=== PATIENT | male | born 1940 | race Native Hawaiian/Other Pacific Islander ===

== ENCOUNTER 2017-05-06 20:17 | Inpatient (IN) | payer MEDICARE ==
[2017-05-06] MEDS ORDERED: Sodium Chloride 0.9% 1,000 ML IV STA (20:46)
[2017-05-06 21:01] LABS: VENOUS BLOOD GAS PCO2 33 mmHg (40-60); VENOUS BLOOD PH 7.49 (7.32-7.43)
--- NOTE | 2017-05-06 21:02 | ED PDOC ---
HPI: Abdomen Time Seen by Provider: 05/06/17 20:39 Chief Complaint (Nursing): GI Problem Chief Complaint (Provider): Diarrhea History Per: Patient History/Exam Limitations: no limitations Onset/Duration Of Symptoms: Days (Today) Current Symptoms Are (Timing): Still Present Severity: Moderate Associated Symptoms: Chills, Nausea, Diarrhea, Loss Of Appetite. denies: Fever , Vomiting, Urinary Symptoms Additional Complaint(s): Divina Be is a 76 y/o male presenting to the ER on 05/06/2017 with complaints of diarrhea onset today. Patient reports having about six episodes of watery diarrhea with associated nausea but no vomiting. He felt he would faint if the episodes were persisting prompting medical evaluation today. The patient also presents with chills, light-headedness, abdominal discomfort, and loss of appetite. However, he does not have any fever, urinary symptoms, or abdominal pain. He denies any recent antibiotic use, recent travel, or known sick contact. The patient also says over the last month he has been unintentionally losing weight but attributes this to having no appetite , which has been on going for last month, Past Medical History Reviewed: Historical Data, Nursing Documentation, Vital Signs Vital Signs: Last Vital Signs Temp 98.3 F 05/07/17 07:57 Pulse 81 05/07/17 07:57 Resp 20 05/07/17 07:57 BP 113/67 05/07/17 07:57 Pulse Ox 99 05/07/17 07:57 - Medical History PMH: Hypercholesterolemia - Surgical History Surgical History: No Surg Hx - Family History Family History: States: Unknown Family Hx - Home Medications Home Medications: Ambulatory Orders Medication Instructions Recorded Tamsulosin [Flomax] 1 tab PO DAILY 05/07/17 - Allergies Allergies/Adverse Reactions: Allergies Allergy/AdvReac Type Severity Reaction Status Date / Time Penicillins Allergy NAUSEA Verified 05/06/17 20:30 Review of Systems ROS Statement: Except As Marked, All Systems Reviewed And Found Negative Constitutional: Positive for: Chills Cardiovascular: Positive for: Light Headedness Gastrointestinal: Positive for: Nausea, Diarrhea. Negative for: Vomiting, Abdominal Pain Genitourinary Male: Negative for: Dysuria, Frequency, Incontinence Physical Exam - Reviewed Nursing Documentation Reviewed: Yes Vital Signs Reviewed: Yes - Physical Exam Appears: Positive for: Non-toxic, In Acute Distress (appears cachetic and tired ) Head Exam: Positive for: ATRAUMATIC, NORMAL INSPECTION (pt has temporal wasting) , NORMOCEPHALIC Skin: Positive for: Normal Color, Warm, Pallor Eye Exam: Positive for: Normal appearance, EOMI, PERRL ENT: Positive for: Pharynx Is (clear), Other (tacky mucuous membrane ) Neck: Positive for: Normal, Painless ROM, Supple Cardiovascular/Chest: Positive for: Tachycardia (w/ regular rhythm ) Respiratory: Positive for: Normal Breath Sounds. Negative for: Wheezing, Respiratory Distress Gastrointestinal/Abdominal: Positive for: Normal Exam, Bowel Sounds ( hyperactive ), Soft. Negative for: Tenderness, Mass, Distended, Guarding, Rebound Extremity: Positive for: Normal ROM, Deformity. Negative for: Swelling Neurologic/Psych: Positive for: Alert, Oriented. Negative for: Motor/Sensory Deficits - Laboratory Results Result Diagrams: 05/06/17 20:45 05/06/17 20:45 - ECG O2 Sat by Pulse Oximetry: 98 Medical Decision Making Medical Decision Makin:39 Initial Impression- Diarrhea and Dehydration. Differential dx includes- gastroenteritis, colitis, electrolyte abnormality, malignancy Initial Plan- * VBG shock panel * CMP * Lipase * Magnesium * Phosphorus * Urine Dip * CBC w/ differential * PT * PTT * Sodium Chloride 1,000 ml IV * Zofran Inj 4 mg IVP * Blood Cx Accession No. : [id number] Patient Name / ID : HAILE RODRIGUEZ / [id number] Exam Date : 05/06/2017 21:53:07 ( Approved ) Study Comment : Sex / Age : M / 76Y Creator : MARSHA POWELL Dictator : Staff Physician : Sanitary Inspector : MARSHA POWELL Approver2 : Report Date : 05/06/2017 23:51:00 My Comment : [facility] Division of Radiology [address] [place] [address] Tel. no. Patient Name: DIVINA BE Pt. Address: [address] [place] [address] Rec #: [id number] [place] [address]: Dickson MADSEN, Tonia Gee Pt Order Location: [facility] : 1940 Male Age: 76 Order #: [id number] Reason for exam: diffuse abd pain diarrhea CT Scan ABD PELVIS IV CONTRAST ONLY Exam Date: 05/06/17 This imaging exam was performed at [facility] ADDENDUM Addendum created by Marsha Powell MD on 05/06/2017 11:55:50 PM EDT Findings were discussed with Tonia Carballo at 11:55 PM EDT on 05/06/2017. Initial report created on 05/06/2017 11:51:45 PM EDT EXAM: CT Abdomen and Pelvis With Intravenous Contrast CLINICAL HISTORY: 76 years old, male; Pain; Abdominal pain; Generalized; Additional info: Diffuse abd pain diarrhea TECHNIQUE: Axial computed tomography images of the abdomen and pelvis with intravenous contrast. This CT exam was performed using one or more of the following dose reduction techniques: automated exposure control, adjustment of the mA and/or kV according to patient size, and/or use of iterative reconstruction technique. Coronal and sagittal reformatted images were created and reviewed. CONTRAST: 95 mL of [id number] administered intravenously. EXAM DATE/TIME: 05/06/2017 8:56 PM COMPARISON: There are no prior studies for comparison. FINDINGS: Lower thorax: Heart size is normal. There is a 5.3 mm pleural-based nodule in the right middle lobe. There is a 4.7 mm pleural-based nodule lingula. There is minimal atelectasis/scarring. ABDOMEN: Liver: There are multiple low attenuation masses liver numerous to count.Gallbladder and bile ducts: Gallbladder is partially distended. Common bile duct is mildly prominent. Pancreas: unremarkable Spleen: Spleen is unremarkable. . Adrenals: There is a poorly defined 6.2 x 3.7 cm left adrenal mass. There is interval creation of adjacent retroperitoneal fat. There is mild enlargement of the right adrenal. Kidneys and ureters: There are no focal renal masses. There is bilateral pelvocaliectasis and ureterectasis. Stomach and bowel: Stomach is incompletely distended which accentuates the gastric wall. Rotation is normal. There is duodenal and jejunal wall and fold thickening. The small bowel is mildly distended with fluid and air. Ileocecal region is not optimally demonstrated. Appendix is not visualized. There are air-fluid levels in the colon. Appendix: See stomach and bowel PELVIS: Bladder: Bladder is partially distended. There is asymmetric bladder wall thickening area prostate is enlarged. Seminal vesicles are unremarkable. There is edema in the presacral space. Reproductive: See above. ABDOMEN and PELVIS: Intraperitoneal space: There is no free air.There is no significant fluid. Bones/joints: There is diffuse bony metastatic disease. There last lesions are in all visualized osseous structures. There is compression fracture T10. There is mild loss of height L3 and L4. Soft tissues: unremarkable Vasculature: There are vascular calcifications. Lymph nodes: There is massive retroperitoneal adenopathy. There is massive bilateral iliac adenopathy. There is encasement of the aorta both renal arteries and iliac arteries. IMPRESSION: Multiple hepatic masses consistent with metastatic disease; diffuse bone metastatic disease; left adrenal mass with infiltration of adjacent fat suspicious for metastasis; massive adenopathy suspicious for with malignancy; small pulmonary nodules suspicious for metastasis; probable enterocolitis; enlarged prostate; asymmetric bladder wall thickening, primary versus secondary malignancy Additional findings as described above. Addendum Dictated By: Marsha Powell MD Addendum Dictated Date Time:05/06/1711/10/2355 Addendum Signed by:Marsha Powell MD Addendum signed Date Time: 05/06/172354 Addendum Transcribed By: RAFAT Addendum Transcribed Date Time: 05/06/1711/10/2355 KELVIN/FELIPE EXAM: CT Abdomen and Pelvis With Intravenous Contrast CLINICAL HISTORY: 76 years old, male; Pain; Abdominal pain; Generalized; Additional info: Diffuse abd pain diarrhea TECHNIQUE: Axial computed tomography images of the abdomen and pelvis with intravenous contrast. This CT exam was performed using one or more of the following dose reduction techniques: automated exposure control, adjustment of the mA and/or kV according to patient size, and/or use of iterative reconstruction technique. Coronal and sagittal reformatted images were created and reviewed. CONTRAST: 95 mL of [id number] administered intravenously. EXAM DATE/TIME: 05/06/2017 8:56 PM COMPARISON: There are no prior studies for comparison. FINDINGS: Lower thorax: Heart size is normal. There is a 5.3 mm pleural-based nodule in the right middle lobe. There is a 4.7 mm pleural-based nodule lingula. There is minimal atelectasis/scarring. ABDOMEN: Liver: There are multiple low attenuation masses liver numerous to count.Gallbladder and bile ducts: Gallbladder is partially distended. Common bile duct is mildly prominent. Pancreas: unremarkable Spleen: Spleen is unremarkable. . Adrenals: There is a poorly defined 6.2 x 3.7 cm left adrenal mass. There is interval creation of adjacent retroperitoneal fat. There is mild enlargement of the right adrenal. Kidneys and ureters: There are no focal renal masses. There is bilateral pelvocaliectasis and ureterectasis. Stomach and bowel: Stomach is incompletely distended which accentuates the gastric wall. Rotation is normal. There is duodenal and jejunal wall and fold thickening. The small bowel is mildly distended with fluid and air. Ileocecal region is not optimally demonstrated. Appendix is not visualized. There are air-fluid levels in the colon. Appendix: See stomach and bowel PELVIS: Bladder: Bladder is partially distended. There is asymmetric bladder wall thickening area prostate is enlarged. Seminal vesicles are unremarkable. There is edema in the presacral space. Reproductive: See above. ABDOMEN and PELVIS: Intraperitoneal space: There is no free air.There is no significant fluid. Bones/joints: There is diffuse bony metastatic disease. There last lesions are in all visualized osseous structures. There is compression fracture T10. There is mild loss of height L3 and L4. Soft tissues: unremarkable Vasculature: There are vascular calcifications. Lymph nodes: There is massive retroperitoneal adenopathy. There is massive bilateral iliac adenopathy. There is encasement of the aorta both renal arteries and iliac arteries. IMPRESSION: Multiple hepatic masses consistent with metastatic disease; diffuse bone metastatic disease; left adrenal mass with infiltration of adjacent fat suspicious for metastasis; massive adenopathy suspicious for with malignancy; small pulmonary nodules suspicious for metastasis; probable enterocolitis; enlarged prostate; asymmetric bladder wall thickening, primary versus secondary malignancy Additional findings as described above. Dictated By: Marsha Powell MD, MD Dictated Date/Time: 05/06/172350 Signed By: Marsha Powell MD Date Signed: 2350 Transcribed By: RAFAT Transcribe Date/Time : 05/06/172350 KELVIN/FELIPE MIDDLETON pt and daughter findings. Pt had been trying natural medications to treat himself for several months. Pt will be hospitalized for dehydration and metastatic disease. EMI Carroll [facility] Service. Documented by Mirian Ramírez, acting as a scribe for Tonia Forman MD. All medical record entries made by the Scribe were at my direction and personally dictated by me. I have reviewed the chart and agree that the record accurately reflects my personal performance of the history, physical exam, medical decision making, and the department course for this patient. I have also personally directed, reviewed, and agree with the discharge instructions and disposition. Disposition - Clinical Impression Clinical Impression: Dehydration, Metastatic cancer Counseled Patient/Family Regarding: Studies Performed, Diagnosis - Disposition Disposition Time: 00:00 Condition: GUARDED - Pt Status Changed To: Hospital Disposition Of: Inpatient - Admit Certification Admit to Inpatient:: After my assessment, the patient will require hospitalization for at least two midnights. This is because of the severity of symptoms shown, intensity of services needed, and/or the medical risk in this patient being treated as an outpatient. - POA Present On Arrival: None
[2017-05-06 21:10] LABS: BASO # 0.1 K/uL (0.0-0.2); BASO % 0.8 % (0.0-2.0); EOS # 0.2 K/uL (0.0-0.7); EOS % 2.7 % (0.0-4.0); HEMATOCRIT 29.1 % (35.0-51.0); LYMPH # 1.4 K/uL (1.0-4.3); LYMPH % 16.8 % (20.0-40.0); MEAN CELL VOLUME 88.1 fl (80.0-94.0); MEAN CORPUSCULAR HEMOGLOBIN 29.7 pg (27.0-31.0); MEAN CORPUSCULAR HGB CONC 33.7 g/dL (33.0-37.0); MEAN PLATELET VOLUME 6.1 fl (7.2-11.7); MONO # 0.7 K/uL (0.0-0.8); MONO % 9.1 % (0.0-10.0); NEUT # 5.7 K/uL (1.8-7.0); NEUT % 70.6 % (50.0-75.0); NRBC % 0.2 % (0.0-0.0); RED CELL DISTRIBUTION WIDTH 15.2 % (11.5-14.5); WHITE BLOOD COUNT 8.1 K/uL (4.8-10.8)
[2017-05-06 21:20] LABS: ALB/GLOB RATIO 1.2 (1.0-2.1); ALKALINE PHOSPHATASE 472 U/L (38-126); ALT/SGPT 49 U/L (21-72); AST/SGOT 104 U/L (17-59); BILIRUBIN,TOTAL 0.5 mg/dl (0.2-1.3); BLOOD UREA NITROGEN 37 mg/dl (9-20); CALCIUM 9.4 mg/dL (8.4-10.2); CARBON DIOXIDE 24 mmol/L (22-30); CHLORIDE 96 mmol/L (98-107); GFR AFRICAN-AMERICAN > 60; GLUCOSE,RANDOM 103 mg/dL (75-110); LIPASE 219 U/L (23-300); MAGNESIUM 3.1 MG/DL (1.6-2.3); PHOSPHOROUS 3.5 mg/dl (2.5-4.5); POTASSIUM 4.8 MMOL/L (3.6-5.0); SODIUM 133 mmol/l (132-148); TOTAL PROTEIN 8.4 G/DL (6.3-8.2)
[2017-05-06 21:28] LABS: PARTIAL THROMBOPLASTIN TIME 31.4 Seconds (25.6-37.1)
[2017-05-06] MEDS ORDERED: Sodium Chloride 0.9% 50 ML IV ONE (22:26)
[2017-05-06] MEDS ORDERED: Iohexol 300 100 ML IJ ONE (22:26)
--- NOTE | 2017-05-06 23:52 | CT ---
EXAM: CT Abdomen and Pelvis With Intravenous Contrast CLINICAL HISTORY: 76 years old, male; Pain; Abdominal pain; Generalized; Additional info: Diffuse abd pain diarrhea TECHNIQUE: Axial computed tomography images of the abdomen and pelvis with intravenous contrast. This CT exam was performed using one or more of the following dose reduction techniques: automated exposure control, adjustment of the mA and/or kV according to patient size, and/or use of iterative reconstruction technique. Coronal and sagittal reformatted images were created and reviewed. CONTRAST: 95 mL of [id number] administered intravenously. EXAM DATE/TIME: 05/06/2017 8:56 PM COMPARISON: There are no prior studies for comparison. FINDINGS: Lower thorax: Heart size is normal. There is a 5.3 mm pleural-based nodule in the right middle lobe. There is a 4.7 mm pleural-based nodule lingula. There is minimal atelectasis/scarring. ABDOMEN: Liver: There are multiple low attenuation masses liver numerous to count.Gallbladder and bile ducts: Gallbladder is partially distended. Common bile duct is mildly prominent. Pancreas: unremarkable Spleen: Spleen is unremarkable. . Adrenals: There is a poorly defined 6.2 x 3.7 cm left adrenal mass. There is interval creation of adjacent retroperitoneal fat. There is mild enlargement of the right adrenal. Kidneys and ureters: There are no focal renal masses. There is bilateral pelvocaliectasis and ureterectasis. Stomach and bowel: Stomach is incompletely distended which accentuates the gastric wall. Rotation is normal. There is duodenal and jejunal wall and fold thickening. The small bowel is mildly distended with fluid and air. Ileocecal region is not optimally demonstrated. Appendix is not visualized. There are air-fluid levels in the colon. Appendix: See stomach and bowel PELVIS: Bladder: Bladder is partially distended. There is asymmetric bladder wall thickening area prostate is enlarged. Seminal vesicles are unremarkable. There is edema in the presacral space. Reproductive: See above. ABDOMEN and PELVIS: Intraperitoneal space: There is no free air.There is no significant fluid. Bones/joints: There is diffuse bony metastatic disease. There last lesions are in all visualized osseous structures. There is compression fracture T10. There is mild loss of height L3 and L4. Soft tissues: unremarkable Vasculature: There are vascular calcifications. Lymph nodes: There is massive retroperitoneal adenopathy. There is massive bilateral iliac adenopathy. There is encasement of the aorta both renal arteries and iliac arteries. IMPRESSION: Multiple hepatic masses consistent with metastatic disease; diffuse bone metastatic disease; left adrenal mass with infiltration of adjacent fat suspicious for metastasis; massive adenopathy suspicious for with malignancy; small pulmonary nodules suspicious for metastasis; probable enterocolitis; enlarged prostate; asymmetric bladder wall thickening, primary versus secondary malignancy Additional findings as described above.
[2017-05-07] MEDS ORDERED: Alum-Mag Hydrox-Simethicone Susp (30 mL) PO STA (00:12)
[2017-05-07] MEDS ORDERED: Alum-Mag Hydrox-Simethicone Susp (30 mL) ONE (00:49)
--- NOTE | 2017-05-07 10:15 | RAD ---
HISTORY: metastatic disease COMPARISON: No prior. FINDINGS: LUNGS: No active pulmonary disease. PLEURA: No significant pleural effusion identified, no pneumothorax apparent. CARDIOVASCULAR: Normal. OSSEOUS STRUCTURES: No significant abnormalities. VISUALIZED UPPER ABDOMEN: Normal. OTHER FINDINGS: None. IMPRESSION: No active disease.
[2017-05-07] MEDS: Potassium Chl 20 mEq in D5-NS 1,000 ML IV SCH (11:18)
--- NOTE | 2017-05-07 13:39 | CP.PCM.CON ---
History of Present Illness - History of Present Illness History of Present Illness: This is a 76 yrs old male who was admitted with c/o abdominal pain , 2 day , nausea, diarrhea for 2 days, and was very weak, with loss of appetite and weight loss. He claims he is normally constipated, but feels it is because he does not eat much. He was diagnosed to have a prostate cancer 2 yrs ago. He also had evidence of bone mets at the time. He was advised to see a oncologist who started him on ? hormona therapy. After 2 injections pt did not get better and he decided to do natural medicine from his country ([facility] He felt a little better, but the PSA kept getting higher and higher. So he switched to another natural medicine from [facility]. He had a CT scan in the ER and was found to have diffuse metastasis to the liver, adrenal gland, lung., and diffuse retroperitoneal adenopathy. There is thickening of the stomach , bladder and colon wall as well.. He c/o pain in the back where he has the bone mets to the spine and t3 vertebra. He has a past h/o hypercholesterolemia. Smoked 1 pack per day for 8 yrs, but hasnt smoked since he was 31 yrs old. Drinks socially. F/H father had esophageal cancer and uncle had colon cancer. Past Patient History - Past Medical History & Family History Past Medical History?: Yes - Past Social History Smoking Status: Former Smoker - CARDIAC Hx Cardiac Disorders: Yes (High cholesterol) - PULMONARY Hx Respiratory Disorders: No - NEUROLOGICAL Hx Neurological Disorder: No - HEENT Hx HEENT Problems: Yes Other/Comment: Uses eye glasses for reading - RENAL Hx Chronic Kidney Disease: No - ENDOCRINE/METABOLIC Hx Endocrine Disorders: No - HEMATOLOGICAL/ONCOLOGICAL Hx Blood Disorders: No - INTEGUMENTARY Hx Dermatological Problems: No - MUSCULOSKELETAL/RHEUMATOLOGICAL Hx Musculoskeletal Disorders: Yes Hx Falls: Yes - GASTROINTESTINAL Hx Gastrointestinal Disorders: No - GENITOURINARY/GYNECOLOGICAL Hx Genitourinary Disorders: Yes (BPH) - PSYCHIATRIC Hx Psychophysiologic Disorder: No Hx Substance Use: No - SURGICAL HISTORY Hx Surgeries: No - ANESTHESIA Hx Anesthesia: No Hx Anesthesia Reactions: No Hx Malignant Hyperthermia: No Has any member of the family had a problem w/ anesthesia?: No Meds Allergies/Adverse Reactions: Allergies Allergy/AdvReac Type Severity Reaction Status Date / Time Penicillins Allergy NAUSEA Verified 05/06/17 20:30 - Medications Medications: Current Medications Famotidine (Pepcid) 20 mg IVP Q12 [facility] Heparin Sodium (Porcine) (Heparin) 5,000 units SC Q12 ASHTYN PRN Reason: Protocol Last Admin: 05/07/17 13:34 Dose: 5,000 units Potassium Chloride/Dextrose/Sod Cl (Potassium Chl 20 Meq In D5-Ns) 1,000 mls @ 80 mls/hr IV .[id number] [facility] Stop: 05/08/17 06:26 Last Admin: 05/07/17 11:18 Dose: 80 mls/hr Morphine Sulfate (Morphine) 2 mg IVP Q6 PRN PRN Reason: Pain, severe (8-10) Last Admin: 05/07/17 11:14 Dose: 2 mg Tamsulosin HCl (Flomax) 0.4 mg PO DAILY [facility] Last Admin: 05/07/17 09:04 Dose: 0.4 mg Tramadol HCl (Ultram) 50 mg PO Q6 PRN PRN Reason: Pain, moderate (4-7) Physical Exam - Additional Findings Additional findings: Physical exam; Alert, well oriented, in no acute distress. Very thin due to poor appetite. Neck; Supple, no adenopathy Chest; Clear, no rales or rhonchi Heart; RSR, no murmur. Abd; Soft, no mass palpable, no h/s megaly Results - Vital Signs Recent Vital Signs: Last Vital Signs Temp 98.3 F 05/07/17 07:57 Pulse 81 05/07/17 07:57 Resp 20 05/07/17 07:57 BP 113/67 05/07/17 07:57 Pulse Ox 99 05/07/17 07:57 - Labs Result Diagrams: 05/06/17 20:45 05/06/17 20:45 Assessment & Plan - Assessment and Plan (Free Text) Assessment: Impression; Diffuse metastatic disease, primry most probably prostate, Plan: Plan; I suggest we get a biopsy of the liver to see if the pathology points to prostate Also suggest a GI work up to look for a colon lesion. - Date & Time Date: 05/07/17 Time: 14:04
--- NOTE | 2017-05-07 13:48 | CARD ---
APPROVED REPORT EKG Measurement Heart [id number] <Conclusion> Normal sinus rhythm Possible Left atrial enlargement Left ventricular hypertrophy Abnormal ECG
[2017-05-07 16:51] LABS: CARCINOEMBRYONIC ANTIGEN 9.5 ng/mL (0-3.0)
[2017-05-08] MEDS: Potassium Chl 20 mEq in D5-NS 1,000 ML IV SCH ×2 (00:37→17:25)
[2017-05-08 07:06] LABS: HEMATOCRIT 27.1 % (35.0-51.0); MEAN CELL VOLUME 88.8 fl (80.0-94.0); MEAN CORPUSCULAR HEMOGLOBIN 30.1 pg (27.0-31.0); MEAN CORPUSCULAR HGB CONC 33.9 g/dL (33.0-37.0); RED CELL DISTRIBUTION WIDTH 15.1 % (11.5-14.5); WHITE BLOOD COUNT 7.1 K/uL (4.8-10.8)
[2017-05-08 07:47] LABS: ALB/GLOB RATIO 1.1 (1.0-2.1); ALKALINE PHOSPHATASE 402 U/L (38-126); ALT/SGPT 40 U/L (21-72); AST/SGOT 75 U/L (17-59); BILIRUBIN,TOTAL 0.3 mg/dl (0.2-1.3); BLOOD UREA NITROGEN 22 mg/dl (9-20); CALCIUM 8.9 mg/dL (8.4-10.2); CARBON DIOXIDE 22 mmol/L (22-30); CHLORIDE 102 mmol/L (98-107); GFR AFRICAN-AMERICAN > 60; GLUCOSE,RANDOM 113 mg/dL (75-110); POTASSIUM 4.5 MMOL/L (3.6-5.0); SODIUM 134 mmol/l (132-148); TOTAL PROTEIN 7.6 G/DL (6.3-8.2)
--- NOTE | 2017-05-08 08:39 | HP ---
HISTORY OF PRESENT ILLNESS: This is a 76-year-old [place] male with history of prostate cancer diag nosed about 2 years ago, and patient chose to use alternative medicine, and he refused to get any hor monal or chemotherapy. The patient presented to Emergency Room with generalized weakness and diarrhe a for 2 days' duration. The patient was evaluated in the Emergency Room and he had a CAT scan done t hat showed multiple metastatic lesions to the liver, lung, , and retroperitoneal nodes. T he patient admits that he had lost about 40 pounds during the last 6 months unintentionally due to de creased oral intake. REVIEW OF SYSTEMS: Other review of systems is negative ALLERGIES: No known allergy. PAST MEDICAL HISTORY: As above. SOCIAL HISTORY: Smokes about 8 cigarettes, but he stopped 32 years old. . FAMILY HISTORY: Noncontributory. PHYSICAL EXAMINATION: GENERAL: The patient is in bed, comfortable, not in any cardiopulmonary distress. VITAL SIGNS: Blood pressure 125/72, temperature 98.4, respiratory rate , a pulse is 67. HEENT: Pupils equal, reactive to light. Normal-appearing mucosa of the conjunctivae, oropharyngeal , and nasal membrane mucosa. . NECK: No JVD. No carotid bruit. No lymph node. No thyromegaly. CHEST AND LUNGS: Bilateral good air exchange, no rales, no rhonchi. CARDIOVASCULAR: PMI not localized. S1, S2. No additional sounds. ABDOMEN: Normoactive bowel sounds. No tenderness. No organomegaly. No masses. EXTREMITIES: No cyanosis, no clubbing, no edema. CENTRAL NERVOUS SYSTEM: Alert, awake, oriented x 3. No neurological deficits could be appreciated. ASSESSMENT: Metastatic cancer, likely prostate 2000. cannot wake up. PLAN: Oncology consult and follow recommendations and GI consult. Continue IV hydration and give pa tient , and follow recommendations of oncology and GI. Clinton Carroll MD cc: 167 TT: 05/07/2017 23:52:35 dn
--- NOTE | 2017-05-08 11:59 | CP.PCM.CON ---
History of Present Illness - History of Present Illness History of Present Illness: CC: Diarrhea HPI: 76 yrs old male who has a h/o metastatic prostate cancer who presents with some altered bowel habits. He is a poor historian. He appears to have been diagnosed with prostate cancer 2 years ago. He did ungergo some treatment, but it doesn't appear to have been complete or definitive and he decided to pursue alternative therapyies for a while. We do not have records. He complains of back pain. he has known metastases to the bone. He also complains of altered bowel habits. he complains of mild intermittent diarrhea. He has some nausea. He denies chest pain or sob. No fever. No blood in the stool. Weight loss is reported. PMHx Prostate cancer PSHx none FHx Espohageal cancer, Colon cancer ROS A comprehensive review of systems was performed and was negative apart from HPI SHx ex smoker, social etoh use, no drugs Past Patient History - Past Medical History & Family History Past Medical History?: Yes - Past Social History Smoking Status: Former Smoker - CARDIAC Hx Hypercholesterolemia: Yes - PULMONARY Hx Respiratory Disorders: No - NEUROLOGICAL Hx Neurological Disorder: No - HEENT Hx HEENT Problems: Yes Other/Comment: Uses eye glasses for reading - RENAL Hx Chronic Kidney Disease: No - ENDOCRINE/METABOLIC Hx Endocrine Disorders: No - HEMATOLOGICAL/ONCOLOGICAL Hx Blood Disorders: No - INTEGUMENTARY Hx Dermatological Problems: No - MUSCULOSKELETAL/RHEUMATOLOGICAL Hx Musculoskeletal Disorders: Yes Hx Falls: Yes - GASTROINTESTINAL Hx Gastrointestinal Disorders: No - GENITOURINARY/GYNECOLOGICAL Hx Genitourinary Disorders: Yes (BPH) - PSYCHIATRIC Hx Psychophysiologic Disorder: No Hx Substance Use: No - SURGICAL HISTORY Hx Surgeries: No - ANESTHESIA Hx Anesthesia: No Hx Anesthesia Reactions: No Hx Malignant Hyperthermia: No Has any member of the family had a problem w/ anesthesia?: No Meds Allergies/Adverse Reactions: Allergies Allergy/AdvReac Type Severity Reaction Status Date / Time Penicillins Allergy NAUSEA Verified 05/06/17 20:30 - Medications Medications: Current Medications Famotidine (Pepcid) 20 mg IVP Q12 [facility] Last Admin: 05/08/17 08:30 Dose: 20 mg Heparin Sodium (Porcine) (Heparin) 5,000 units SC Q12 [facility] PRN Reason: Protocol Last Admin: 05/08/17 08:30 Dose: 5,000 units Morphine Sulfate (Morphine) 2 mg IVP Q6 PRN PRN Reason: Pain, severe (8-10) Last Admin: 05/08/17 06:42 Dose: 2 mg Tamsulosin HCl (Flomax) 0.4 mg PO DAILY [facility] Last Admin: 05/08/17 08:30 Dose: 0.4 mg Tramadol HCl (Ultram) 50 mg PO Q6 PRN PRN Reason: Pain, moderate (4-7) Physical Exam - Constitutional Appears: No Acute Distress, Chronically Ill - Head Exam Head Exam: ATRAUMATIC, NORMOCEPHALIC - Eye Exam Eye Exam: PERRL. absent: Scleral icterus Pupil Exam: PERRL - ENT Exam ENT Exam: Mucous Membranes Moist, Normal Oropharynx - Neck Exam Neck exam: Negative for: Lymphadenopathy, Thyromegaly - Respiratory Exam Respiratory Exam: Clear to Auscultation Bilateral, NORMAL BREATHING PATTERN. absent: Respiratory Distress - Cardiovascular Exam Cardiovascular Exam: REGULAR RHYTHM, +S1, +S2 - GI/Abdominal Exam GI & Abdominal Exam: Soft. absent: Distended, Tenderness - Extremities Exam Extremities exam: Positive for: normal capillary refill. Negative for: pedal edema - Neurological Exam Neurological exam: Alert, Oriented x3 - Psychiatric Exam Psychiatric exam: Normal Affect, Normal Mood - Skin Skin Exam: Dry, Normal Color, Warm Results - Vital Signs Recent Vital Signs: Last Vital Signs Temp 98.6 F 05/08/17 07:25 Pulse 89 05/08/17 07:25 Resp 18 05/08/17 07:25 BP 110/71 05/08/17 07:25 Pulse Ox 99 05/08/17 07:25 - Labs Result Diagrams: 05/08/17 05:55 05/08/17 05:55 Labs: Laboratory Results - last 24 hr 05/07/17 05/08/17 05/08/17 15:43 05:55 05:55 WBC 7.1 RBC 3.06 L Hgb 9.2 L Hct 27.1 L MCV 88.8 MCH 30.1 MCHC 33.9 RDW 15.1 H Plt Count 420 H Sodium 134 Potassium 4.5 Chloride 102 Carbon Dioxide 22 Anion Gap 16 BUN 22 H Creatinine 1.2 Est GFR ( Amer) > 60 Est GFR (Non-Af Amer) 59 Random Glucose 113 H Calcium 8.9 Total Bilirubin 0.3 AST 75 H D ALT 40 Alkaline Phosphatase 402 H Total Protein 7.6 Albumin 4.0 Globulin 3.5 Albumin/Globulin Ratio 1.1 Carcinoembryonic Ag 9.5 H Prostate Specific Ag 2960 H Assessment & Plan - Assessment and Plan (Free Text) Assessment: 76 year old male with h/o metastatic prostate cancer admitted with back pain and diarrhea. 1. Metastatic prostate cancer 2. Hepatic metastasis 3. Diarrhea Plan: -recommend stool culture, c diff, ova and parasites to r/o infectious causes of diarrhea -diet as tolerated -supportive care -appreciate oncology evaluation -overall, clinical picture appears to be consistent with widely metastatic prostate cancer -question of hepatic metastases being of GI or prostate origin is raised by oncology -would recommend IR guided liver biopsy to confirm that this is all originating from the prostate - Date & Time Date: 05/08/17 Time: 11:58
--- NOTE | 2017-05-08 14:33 | NM ---
PROCEDURE: Whole Body Bone Scan HISTORY: Metastatic disease COMPARISON: None available. TECHNIQUE: Following administration of 25.9 miCu of Tc MDP multiplanar whole body images were obtained. FINDINGS: Evidence for bony metastatic disease: Widely disseminated osseous metastatic disease affecting ribs, spine, pelvis, proximal femurs. No upper extremity abnormalities identified. No abnormalities with respect to the calvarium. Degenerative uptake: None. Physiologic uptake: Not visualize consistent with "Super scan." Other findings: None. IMPRESSION: Widely disseminated osseous metastatic disease.
--- NOTE | 2017-05-08 23:30 | PN ---
DATE: 05/08/2017 SUBJECTIVE: The patient is seen today, 05/08/2017. Pain is better controlled. PHYSICAL EXAMINATION: VITAL SIGNS: Blood pressure 129/84, temperature 98.8, respiratory rate 20 and pulse 81. HEENT: Pupils equal, reactive to light. Normal-appearing mucosa of the conjunctivae, oropharyngeal and nasal membrane mucosa. NECK: Supple, no JVD, no carotid bruit, no lymph node, no thyromegaly. CHEST AND LUNGS: Bilateral symmetrical expansion, good air exchange, no rales, no rhonchi. CARDIOVASCULAR: PMI not localized. S1, S2. No additional sounds. ABDOMEN: Normoactive bowel sounds, no tenderness, no organomegaly, no masses. EXTREMITIES: No cyanosis, no clubbing, no edema. CENTRAL NERVOUS SYSTEM: Alert, awake, oriented x 2. No neurological deficits could be appreciated. ASSESSMENT: Metastatic intra-abdominal disease with PSA above 2000. PLAN: The patient is scheduled for CT-guided liver biopsy and bone scan and will follow recommendati ons of oncology. Clinton Carroll MD cc: [phone] TT: 05/08/2017 23:29:46 Confirmation # [id number] Dictation # [id number]
[2017-05-09] MEDS: Potassium Chl 20 mEq in D5-NS 1,000 ML IV SCH ×2 (02:36→14:30)
[2017-05-09 06:52] LABS: HEMATOCRIT 25.5 % (35.0-51.0); MEAN CORPUSCULAR HEMOGLOBIN 30.7 pg (27.0-31.0); MEAN CORPUSCULAR HGB CONC 34.4 g/dL (33.0-37.0); RED CELL DISTRIBUTION WIDTH 15.2 % (11.5-14.5); WHITE BLOOD COUNT 8.5 K/uL (4.8-10.8)
[2017-05-09 07:05] LABS: BLOOD UREA NITROGEN 17 mg/dl (9-20); CALCIUM 9.1 mg/dL (8.4-10.2); CARBON DIOXIDE 23 mmol/L (22-30); CHLORIDE 102 mmol/L (98-107); GFR AFRICAN-AMERICAN > 60; GLUCOSE,RANDOM 97 mg/dL (75-110); POTASSIUM 4.9 MMOL/L (3.6-5.0); SODIUM 132 mmol/l (132-148)
--- NOTE | 2017-05-09 07:59 | CP.PCM.PN ---
Subjective - Date & Time of Evaluation Date of Evaluation: 05/09/17 Time of Evaluation: 07:56 - Subjective Subjective: Pt is scheduled for liver biosy today, to determine if the liver and lung mets are from the prostate or if there is a second primary. Objective - Vital Signs/Intake and Output Vital Signs (last 24 hours): Temp Pulse Resp BP Pulse Ox 98.4 F 80 20 134/70 99 05/09/17 00:23 05/09/17 00:23 05/09/17 00:23 05/09/17 00:23 05/09/17 00:23 - Medications Medications: Current Medications Famotidine (Pepcid) 20 mg IVP Q12 [facility] Last Admin: 05/08/17 21:17 Dose: 20 mg Heparin Sodium (Porcine) (Heparin) 5,000 units SC Q12 [facility] PRN Reason: Protocol Last Admin: 05/08/17 08:30 Dose: 5,000 units Potassium Chloride/Dextrose/Sod Cl (Potassium Chl 20 Meq In D5-Ns) 1,000 mls @ 100 mls/hr IV .Q10H [facility] Stop: 05/09/17 16:16 Last Admin: 05/09/17 02:36 Dose: 100 mls/hr Morphine Sulfate (Morphine) 2 mg IVP Q4 PRN PRN Reason: Pain, severe (8-10) Last Admin: 05/09/17 02:39 Dose: 2 mg Tamsulosin HCl (Flomax) 0.4 mg PO DAILY [facility] Last Admin: 05/08/17 08:30 Dose: 0.4 mg Tramadol HCl (Ultram) 50 mg PO Q6 PRN PRN Reason: Pain, moderate (4-7) - Labs Labs: 05/09/17 06:00 05/09/17 06:00 PT 12.5 Seconds (9.8-13.1) 05/06/17 20:45 INR 1.1 (0.9-1.2) 05/06/17 20:45 APTT 31.4 Seconds (25.6-37.1) 05/06/17 20:45
[2017-05-09] MEDS ORDERED: Zoledronic Acid 3 MG in Sodium Chloride 0.9% 100 ML IVPB ONE ×2 (08:00→14:45)
--- NOTE | 2017-05-09 08:18 | CP.PCM.CON ---
History of Present Illness - History of Present Illness History of Present Illness: 76 yo man w/ known diagnosis of metastatic prostate cancer is referred for pain management. Patient has spinal mets and reported a fall back in November as well. The pain is mainly located in the spine, from thoracic to lumbar. Prior to admission he had been on Tramadol at home, and he states that 75mg was a little too sedating for him. Since admission, he's been tolerating morphine 2mg IV. He denies any previous chronic pain history. Past Patient History - Past Medical History & Family History Past Medical History?: Yes - Past Social History Smoking Status: Former Smoker - CARDIAC Hx Hypercholesterolemia: Yes - PULMONARY Hx Respiratory Disorders: No - NEUROLOGICAL Hx Neurological Disorder: No - HEENT Hx HEENT Problems: Yes Other/Comment: Uses eye glasses for reading - RENAL Hx Chronic Kidney Disease: No - ENDOCRINE/METABOLIC Hx Endocrine Disorders: No - HEMATOLOGICAL/ONCOLOGICAL Hx Blood Disorders: No - INTEGUMENTARY Hx Dermatological Problems: No - MUSCULOSKELETAL/RHEUMATOLOGICAL Hx Musculoskeletal Disorders: Yes Hx Falls: Yes - GASTROINTESTINAL Hx Gastrointestinal Disorders: No - GENITOURINARY/GYNECOLOGICAL Hx Genitourinary Disorders: Yes (BPH) - PSYCHIATRIC Hx Psychophysiologic Disorder: No Hx Substance Use: No - SURGICAL HISTORY Hx Surgeries: No - ANESTHESIA Hx Anesthesia: No Hx Anesthesia Reactions: No Hx Malignant Hyperthermia: No Has any member of the family had a problem w/ anesthesia?: No Meds Allergies/Adverse Reactions: Allergies Allergy/AdvReac Type Severity Reaction Status Date / Time Penicillins Allergy NAUSEA Verified 05/06/17 20:30 - Medications Medications: Current Medications Famotidine (Pepcid) 20 mg IVP Q12 [facility] Last Admin: 05/08/17 21:17 Dose: 20 mg Heparin Sodium (Porcine) (Heparin) 5,000 units SC Q12 [facility] PRN Reason: Protocol Last Admin: 05/08/17 08:30 Dose: 5,000 units Potassium Chloride/Dextrose/Sod Cl (Potassium Chl 20 Meq In D5-Ns) 1,000 mls @ 100 mls/hr IV .Q10H [facility] Stop: 05/09/17 16:16 Last Admin: 05/09/17 02:36 Dose: 100 mls/hr Zoledronic Acid 3 mg/ Sodium (Chloride) 103.75 mls @ 0 mls/hr IVPB ONCE ONE PRN Reason: As Directed Stop: 05/09/17 08:01 Morphine Sulfate (Morphine) 2 mg IVP Q4 PRN PRN Reason: Pain, severe (8-10) Last Admin: 05/09/17 02:39 Dose: 2 mg Morphine Sulfate (Morphine Extended Release Tab) 15 mg PO Q12 [facility] Tamsulosin HCl (Flomax) 0.4 mg PO DAILY [facility] Last Admin: 05/08/17 08:30 Dose: 0.4 mg Tramadol HCl (Ultram) 50 mg PO Q6 PRN PRN Reason: Pain, moderate (4-7) Physical Exam - Respiratory Exam Respiratory Exam: NORMAL BREATHING PATTERN - Cardiovascular Exam Cardiovascular Exam: REGULAR RHYTHM - GI/Abdominal Exam GI & Abdominal Exam: Soft - Back Exam Back exam: paraspinal tenderness, vertebral tenderness Results - Vital Signs Recent Vital Signs: Last Vital Signs Temp 98.6 F 05/09/17 08:11 Pulse 85 05/09/17 08:11 Resp 20 05/09/17 08:11 BP 150/81 05/09/17 08:11 Pulse Ox 100 05/09/17 08:11 - Labs Result Diagrams: 05/09/17 06:00 05/09/17 06:00 Labs: Laboratory Results - last 24 hr 05/09/17 05/09/17 06:00 06:00 WBC 8.5 RBC 2.86 L Hgb 8.8 L Hct 25.5 L MCV 89.0 MCH 30.7 MCHC 34.4 RDW 15.2 H Plt Count 366 Sodium 132 Potassium 4.9 Chloride 102 Carbon Dioxide 23 Anion Gap 13 BUN 17 Creatinine 1.2 Est GFR ( Amer) > 60 Est GFR (Non-Af Amer) 59 Random Glucose 97 Calcium 9.1 Assessment & Plan (1) Metastatic cancer Assessment and Plan: 76 yo man w/ metastatic prostate cancer. He's opioid naive, but does have extensive diseases. - start MS contin at low dose and titrate as needed/tolerated, 15mg q12h - continue Morphine IV for now - can consider neurontin at low dosage if patient tolerates MS Contin - can consider NSAIDs after procedure and if GI is agreeable for bone pain Status: Acute
[2017-05-09] MEDS: Morphine 15 mg SR Tab PO SCH ×2 (09:17→20:59)
[2017-05-09] MEDS ORDERED: Pneumococcal 23-Valent Vaccine IM ONE (09:26)
--- NOTE | 2017-05-09 09:59 | CP.PCM.PN ---
<Crystal Mancia - Last Filed: 05/09/17 11:07> Subjective - Date & Time of Evaluation Date of Evaluation: 05/09/17 Time of Evaluation: 09:57 - Subjective Subjective: Gastroenterology Fellow/PGY4 Progress Note Patient continues to have back pain. Tolerating diet. No bowel movement yesterday. A 12-point review of systems negative except for as above. Objective - Vital Signs/Intake and Output Vital Signs (last 24 hours): Temp Pulse Resp BP Pulse Ox 98.6 F 85 20 150/81 100 05/09/17 08:11 05/09/17 08:11 05/09/17 08:11 05/09/17 08:11 05/09/17 08:11 - Medications Medications: Current Medications Famotidine (Pepcid) 20 mg IVP Q12 [facility] Last Admin: 05/08/17 21:17 Dose: 20 mg Heparin Sodium (Porcine) (Heparin) 5,000 units SC Q12 [facility] PRN Reason: Protocol Last Admin: 05/08/17 08:30 Dose: 5,000 units Potassium Chloride/Dextrose/Sod Cl (Potassium Chl 20 Meq In D5-Ns) 1,000 mls @ 100 mls/hr IV .Q10H [facility] Stop: 05/09/17 16:16 Last Admin: 05/09/17 02:36 Dose: 100 mls/hr Zoledronic Acid 3 mg/ Sodium (Chloride) 103.75 mls @ 0 mls/hr IVPB ONCE ONE PRN Reason: As Directed Stop: 05/09/17 08:01 Morphine Sulfate (Morphine) 2 mg IVP Q4 PRN PRN Reason: Pain, severe (8-10) Last Admin: 05/09/17 02:39 Dose: 2 mg Morphine Sulfate (Morphine Extended Release Tab) 15 mg PO Q12 [facility] Last Admin: 05/09/17 09:17 Dose: Not Given Tamsulosin HCl (Flomax) 0.4 mg PO DAILY [facility] Last Admin: 05/09/17 09:17 Dose: Not Given Tramadol HCl (Ultram) 50 mg PO Q6 PRN PRN Reason: Pain, moderate (4-7) - Labs Labs: 05/09/17 06:00 05/09/17 06:00 PT 12.5 Seconds (9.8-13.1) 05/06/17 20:45 INR 1.1 (0.9-1.2) 05/06/17 20:45 APTT 31.4 Seconds (25.6-37.1) 05/06/17 20:45 - Constitutional Appears: Non-toxic, No Acute Distress, Chronically Ill - Head Exam Head Exam: ATRAUMATIC, NORMOCEPHALIC - Eye Exam Eye Exam: EOMI, PERRL Pupil Exam: PERRL. absent: Miosis, Mydriatic - ENT Exam ENT Exam: Mucous Membranes Moist, Normal Oropharynx - Neck Exam Neck Exam: Full ROM, Normal Inspection - Respiratory Exam Respiratory Exam: Clear to Ausculation Bilateral. absent: Rales, Rhonchi, Wheezes - Cardiovascular Exam Cardiovascular Exam: RRR, +S1, +S2. absent: Gallop, Rubs - GI/Abdominal Exam GI & Abdominal Exam: Soft, Normal Bowel Sounds. absent: Distended, Firm, Guarding, Rigid, Tenderness, Organomegaly, Rebound - Extremities Exam Extremities Exam: Normal Inspection. absent: Pedal Edema - Neurological Exam Neurological Exam: Alert, Awake - Psychiatric Exam Psychiatric exam: Normal Affect, Normal Mood - Skin Skin Exam: Dry, Intact, Normal Color, Warm Assessment and Plan - Assessment and Plan (Free Text) Assessment: 76 year old male with history of Prostate cancer with bone metastases presenting with back pain and diarrhea. CT A/P IV contrast concerning for enterocolitis and new hepatic, adrenal, and pulmonary lesions suspicious for metastases. Plan: >suspicious for new metastases of prostate origin, rule out second primary >IR liver biopsy today >Oncology managing >pending stool culture, c diff, ova and parasites >supportive care: pain control >will follow clinical course <Amilcar Alarcon MD - Last Filed: 05/09/17 13:36> Objective - Vital Signs/Intake and Output Vital Signs (last 24 hours): Temp Pulse Resp BP Pulse Ox 98.5 F 88 20 162/85 H 100 05/09/17 12:35 05/09/17 12:35 05/09/17 12:35 05/09/17 12:35 05/09/17 12:35 - Medications Medications: Current Medications Famotidine (Pepcid) 20 mg IVP Q12 [facility] Last Admin: 05/09/17 10:54 Dose: 20 mg Heparin Sodium (Porcine) (Heparin) 5,000 units SC Q12 [facility] PRN Reason: Protocol Last Admin: 05/08/17 08:30 Dose: 5,000 units Hydromorphone HCl (Dilaudid) 0.5 mg IVP Q15M PRN PRN Reason: Pain, moderate (4-7) Stop: 05/09/17 14:44 Potassium Chloride/Dextrose/Sod Cl (Potassium Chl 20 Meq In D5-Ns) 1,000 mls @ 100 mls/hr IV .Q10H [facility] Stop: 05/09/17 16:16 Last Admin: 05/09/17 02:36 Dose: 100 mls/hr Ketorolac Tromethamine (Toradol) 30 mg IVP ONCE PRN PRN Reason: Pain, Mild (1-3) Stop: 05/09/17 14:43 Morphine Sulfate (Morphine) 2 mg IVP Q4 PRN PRN Reason: Pain, severe (8-10) Last Admin: 05/09/17 02:39 Dose: 2 mg Morphine Sulfate (Morphine Extended Release Tab) 15 mg PO Q12 [facility] Last Admin: 05/09/17 09:17 Dose: Not Given Ondansetron HCl (Zofran Inj) 4 mg IVP Q6 PRN PRN Reason: Nausea/Vomiting Ondansetron HCl (Zofran Inj) 4 mg IVP ONCE PRN PRN Reason: Nausea/Vomiting Stop: 05/09/17 14:44 Tamsulosin HCl (Flomax) 0.4 mg PO DAILY [facility] Last Admin: 05/09/17 09:17 Dose: Not Given Tramadol HCl (Ultram) 50 mg PO Q6 PRN PRN Reason: Pain, moderate (4-7) - Labs Labs: 05/09/17 06:00 05/09/17 06:00 PT 12.5 Seconds (9.8-13.1) 05/06/17 20:45 INR 1.1 (0.9-1.2) 05/06/17 20:45 APTT 31.4 Seconds (25.6-37.1) 05/06/17 20:45 Attending/Attestation - Attestation I have personally seen and examined this patient.: Yes I have fully participated in the care of the patient.: Yes I have reviewed all pertinent clinical information, including history, physical exam and plan: Yes Notes (Text): 05/09/17 13:36 Patient seen with GI fellow. I agree with assessment and plan. This is a 76 year old male with h/o metastatic prostate cancer admitted with back pain and diarrhea. -recommend stool culture, c diff, ova and parasites to r/o infectious causes of diarrhea -diet as tolerated -supportive care -appreciate oncology evaluation -overall, clinical picture appears to be consistent with widely metastatic prostate cancer -question of hepatic metastases being of GI or prostate origin is raised by oncology -would recommend IR guided liver biopsy to confirm that this is all originating from the prostate
[2017-05-09] MEDS ORDERED: Lidocaine 1% Inj (20ml) ONE (11:56)
[2017-05-09] MEDS ORDERED: Absorbable Gelatin Sponge Size 12-7 ONE (11:56)
[2017-05-09] MEDS ORDERED: Propofol 10 mg/ml Inj (20 ML) ONE (12:00)
[2017-05-09] MEDS ORDERED: HYDROmorphone 0.5 mg/0.5 ml ISec IVP PRN (12:43)
--- NOTE | 2017-05-09 13:55 | PCM.SURG1 ---
Surgeon's Initial Post Op Note - Surgeon's Notes Surgeon: Amish Kingston Field Service Manager: [employer] Type of Anesthesia: IV Sedation Pre-Operative Diagnosis: Metastatic prostate cancer Operative Findings: CT showed multiple liver lesion. Post-Operative Diagnosis: Metastatic prostate cancer Operation Performed: CT guided right liver masS biopsy. Three 18 gauge core specimen obtained. Specimen/Specimens Removed: 18 gauge core x 3 Estimated Blood Loss: EBL {In ML}: 1 Blood Products Given: N/A Drains Used: No Drains Post-Op Condition: Fair Date of Surgery/Procedure: 05/09/17 Time of Surgery/Procedure: 12:45
--- NOTE | 2017-05-09 22:55 | PN ---
DATE: 05/09/2017 SUBJECTIVE: The patient is seen today, 05/09/2017, . PHYSICAL EXAMINATION: VITAL SIGNS: Blood pressure is 152/82, temperature 98.7, respiratory rate 18 and pulse is 90. HEENT: Pupils equal, reactive to light. Normal-appearing mucosa of the conjunctivae, oropharyngeal and nasal membrane mucosa. NECK: Supple, no JVD, no carotid bruit, no lymph node, no thyromegaly. CHEST AND LUNGS: Bilateral symmetrical expansion, good air exchange, no rales, no rhonchi. CARDIOVASCULAR: PMI not localized. S1, S2. No additional sounds. ABDOMEN: Normoactive bowel sounds, no tenderness, no organomegaly, no masses. EXTREMITIES: No cyanosis, no clubbing, no edema. CENTRAL NERVOUS SYSTEM: Alert, awake, oriented x 3. No neurological deficits could be appreciated. ASSESSMENT: 1. Abdominal pain with multiple metastases. 2. Bone scan positive for metastatic disease. PLAN: We will continue IV fluid and follow oncology recommendations and order also MRI of the lumbos acral spine. Clinton Carroll MD cc: [phone] TT: 05/09/2017 22:54:49 Confirmation # [id number] Dictation # [id number]
--- NOTE | 2017-05-10 07:35 | CP.PCM.CON ---
Past Patient History - Past Medical History & Family History Past Medical History?: Yes - Past Social History Smoking Status: Former Smoker - CARDIAC Hx Hypercholesterolemia: Yes - PULMONARY Hx Respiratory Disorders: No - NEUROLOGICAL Hx Neurological Disorder: No - HEENT Hx HEENT Problems: Yes Other/Comment: Uses eye glasses for reading - RENAL Hx Chronic Kidney Disease: No - ENDOCRINE/METABOLIC Hx Endocrine Disorders: No - HEMATOLOGICAL/ONCOLOGICAL Hx Blood Disorders: No - INTEGUMENTARY Hx Dermatological Problems: No - MUSCULOSKELETAL/RHEUMATOLOGICAL Hx Musculoskeletal Disorders: Yes Hx Falls: Yes - GASTROINTESTINAL Hx Gastrointestinal Disorders: No - GENITOURINARY/GYNECOLOGICAL Hx Genitourinary Disorders: Yes (BPH) - PSYCHIATRIC Hx Psychophysiologic Disorder: No Hx Substance Use: No - SURGICAL HISTORY Hx Surgeries: No - ANESTHESIA Hx Anesthesia: No Hx Anesthesia Reactions: No Hx Malignant Hyperthermia: No Has any member of the family had a problem w/ anesthesia?: No Meds Allergies/Adverse Reactions: Allergies Allergy/AdvReac Type Severity Reaction Status Date / Time Penicillins Allergy NAUSEA Verified 05/06/17 20:30 - Medications Medications: Current Medications Famotidine (Pepcid) 20 mg IVP Q12 [facility] Last Admin: 05/09/17 20:59 Dose: 20 mg Heparin Sodium (Porcine) (Heparin) 5,000 units SC Q12 [facility] PRN Reason: Protocol Last Admin: 05/08/17 08:30 Dose: 5,000 units Morphine Sulfate (Morphine) 2 mg IVP Q4 PRN PRN Reason: Pain, severe (8-10) Last Admin: 05/10/17 02:46 Dose: 2 mg Morphine Sulfate (Morphine Extended Release Tab) 15 mg PO Q12 [facility] Last Admin: 05/09/17 20:59 Dose: 15 mg Ondansetron HCl (Zofran Inj) 4 mg IVP Q6 PRN PRN Reason: Nausea/Vomiting Tamsulosin HCl (Flomax) 0.4 mg PO DAILY [facility] Last Admin: 05/09/17 09:17 Dose: Not Given Tramadol HCl (Ultram) 50 mg PO Q6 PRN PRN Reason: Pain, moderate (4-7) Results - Vital Signs Recent Vital Signs: Last Vital Signs Temp 98.6 F 05/10/17 05:00 Pulse 84 05/10/17 05:00 Resp 19 05/10/17 05:00 BP 121/79 05/10/17 05:00 Pulse Ox 20 L 06/16/17 05:00 - Labs Result Diagrams: 05/09/17 06:00 05/09/17 06:00
--- NOTE | 2017-05-10 07:50 | CP.PCM.CON ---
History of Present Illness - History of Present Illness History of Present Illness: UROLOGY Called to see this 76 yr male with a known history of prostate Cancer. About two yrts ago he was started on LHRH. and shortly thereafter he decided to stop treatments probably stopped follow up evaluation and started his own treatment plan with natural herbs. Now he is faced with a very dangerous situation and I not sure he is 100% committed to restart treatment rather he feels that his options are limited and he needs to reassess risk benefit of proposed treatment options Cloinical review Current PSA > 2100, Alk Phos >400 CT very ominous signs of lymphadenopathy extensive bone mets as well as soft tissue mets. I am aware of a liver biopsy is planned. Dr Chantell Montague is on Oncology Consult I would reccomend Complete hormone depravation with LHRH and casodex. Will folloow up with Dr Montague for her feedback Past Patient History - Past Medical History & Family History Past Medical History?: Yes - Past Social History Smoking Status: Former Smoker - CARDIAC Hx Hypercholesterolemia: Yes - PULMONARY Hx Respiratory Disorders: No - NEUROLOGICAL Hx Neurological Disorder: No - HEENT Hx HEENT Problems: Yes Other/Comment: Uses eye glasses for reading - RENAL Hx Chronic Kidney Disease: No - ENDOCRINE/METABOLIC Hx Endocrine Disorders: No - HEMATOLOGICAL/ONCOLOGICAL Hx Blood Disorders: No - INTEGUMENTARY Hx Dermatological Problems: No - MUSCULOSKELETAL/RHEUMATOLOGICAL Hx Musculoskeletal Disorders: Yes Hx Falls: Yes - GASTROINTESTINAL Hx Gastrointestinal Disorders: No - GENITOURINARY/GYNECOLOGICAL Hx Genitourinary Disorders: Yes (BPH) - PSYCHIATRIC Hx Psychophysiologic Disorder: No Hx Substance Use: No - SURGICAL HISTORY Hx Surgeries: No - ANESTHESIA Hx Anesthesia: No Hx Anesthesia Reactions: No Hx Malignant Hyperthermia: No Has any member of the family had a problem w/ anesthesia?: No Meds Allergies/Adverse Reactions: Allergies Allergy/AdvReac Type Severity Reaction Status Date / Time Penicillins Allergy NAUSEA Verified 05/06/17 20:30 - Medications Medications: Current Medications Famotidine (Pepcid) 20 mg IVP Q12 [facility] Last Admin: 05/09/17 20:59 Dose: 20 mg Heparin Sodium (Porcine) (Heparin) 5,000 units SC Q12 [facility] PRN Reason: Protocol Last Admin: 05/08/17 08:30 Dose: 5,000 units Morphine Sulfate (Morphine) 2 mg IVP Q4 PRN PRN Reason: Pain, severe (8-10) Last Admin: 05/10/17 02:46 Dose: 2 mg Morphine Sulfate (Morphine Extended Release Tab) 15 mg PO Q12 [facility] Last Admin: 05/09/17 20:59 Dose: 15 mg Ondansetron HCl (Zofran Inj) 4 mg IVP Q6 PRN PRN Reason: Nausea/Vomiting Tamsulosin HCl (Flomax) 0.4 mg PO DAILY [facility] Last Admin: 05/09/17 09:17 Dose: Not Given Tramadol HCl (Ultram) 50 mg PO Q6 PRN PRN Reason: Pain, moderate (4-7) Results - Vital Signs Recent Vital Signs: Last Vital Signs Temp 98.6 F 05/10/17 05:00 Pulse 84 05/10/17 05:00 Resp 19 05/10/17 05:00 BP 121/79 05/10/17 05:00 Pulse Ox 20 L 05/10/17 05:00 - Labs Result Diagrams: 05/09/17 06:00 05/09/17 06:00
[2017-05-10 07:58] VITALS: RESP 20
--- NOTE | 2017-05-10 08:41 | CP.PCM.PN ---
Subjective - Date & Time of Evaluation Date of Evaluation: 05/10/17 Time of Evaluation: 08:36 - Subjective Subjective: Pt does not have any diarrhea, so i have encouraged him to try to eat some solid foods so he is not so weak. He had a liver biopsy done yesterday.. will ck with patho;logy His back pain is a little better today secondary to the analgesics and also the Zometa Will folow Objective - Vital Signs/Intake and Output Vital Signs (last 24 hours): Temp Pulse Resp BP Pulse Ox 97.6 F 87 20 102/66 98 05/10/17 07:57 05/10/17 07:57 05/10/17 07:57 05/10/17 07:57 05/10/17 07:57 - Medications Medications: Current Medications Famotidine (Pepcid) 20 mg IVP Q12 [facility] Last Admin: 05/09/17 20:59 Dose: 20 mg Heparin Sodium (Porcine) (Heparin) 5,000 units SC Q12 [facility] PRN Reason: Protocol Last Admin: 05/08/17 08:30 Dose: 5,000 units Morphine Sulfate (Morphine) 2 mg IVP Q4 PRN PRN Reason: Pain, severe (8-10) Last Admin: 05/10/17 02:46 Dose: 2 mg Morphine Sulfate (Morphine Extended Release Tab) 15 mg PO Q12 [facility] Last Admin: 05/09/17 20:59 Dose: 15 mg Ondansetron HCl (Zofran Inj) 4 mg IVP Q6 PRN PRN Reason: Nausea/Vomiting Tamsulosin HCl (Flomax) 0.4 mg PO DAILY [facility] Last Admin: 05/09/17 09:17 Dose: Not Given Tramadol HCl (Ultram) 50 mg PO Q6 PRN PRN Reason: Pain, moderate (4-7) - Labs Labs: 05/09/17 06:00 05/09/17 06:00 PT 12.5 Seconds (9.8-13.1) 05/06/17 20:45 INR 1.1 (0.9-1.2) 05/06/17 20:45 APTT 31.4 Seconds (25.6-37.1) 05/06/17 20:45
--- NOTE | 2017-05-10 09:06 | CP.PCM.PN ---
Subjective - Date & Time of Evaluation Date of Evaluation: 05/10/17 Time of Evaluation: 08:00 - Subjective Subjective: Patient seen at bedside. s/p liver biopsy. Denies dark stools, nausea, vomiting , constipation or abdominal pain Objective - Vital Signs/Intake and Output Vital Signs (last 24 hours): Temp Pulse Resp BP Pulse Ox 97.6 F 87 20 102/66 98 05/10/17 07:57 05/10/17 07:57 05/10/17 07:57 05/10/17 07:57 05/10/17 07:57 - Medications Medications: Current Medications Famotidine (Pepcid) 20 mg IVP Q12 [facility] Last Admin: 05/09/17 20:59 Dose: 20 mg Heparin Sodium (Porcine) (Heparin) 5,000 units SC Q12 [facility] PRN Reason: Protocol Last Admin: 05/08/17 08:30 Dose: 5,000 units Morphine Sulfate (Morphine) 2 mg IVP Q4 PRN PRN Reason: Pain, severe (8-10) Last Admin: 05/10/17 02:46 Dose: 2 mg Morphine Sulfate (Morphine Extended Release Tab) 15 mg PO Q12 [facility] Last Admin: 05/09/17 20:59 Dose: 15 mg Ondansetron HCl (Zofran Inj) 4 mg IVP Q6 PRN PRN Reason: Nausea/Vomiting Tamsulosin HCl (Flomax) 0.4 mg PO DAILY [facility] Last Admin: 05/09/17 09:17 Dose: Not Given Tramadol HCl (Ultram) 50 mg PO Q6 PRN PRN Reason: Pain, moderate (4-7) - Labs Labs: 05/09/17 06:00 05/09/17 06:00 PT 12.5 Seconds (9.8-13.1) 05/06/17 20:45 INR 1.1 (0.9-1.2) 05/06/17 20:45 APTT 31.4 Seconds (25.6-37.1) 05/06/17 20:45 - Constitutional Appears: Well, Non-toxic, No Acute Distress, Cachectic - Head Exam Head Exam: ATRAUMATIC, NORMAL INSPECTION, NORMOCEPHALIC - Respiratory Exam Respiratory Exam: Clear to Ausculation Bilateral, NORMAL BREATHING PATTERN - Cardiovascular Exam Cardiovascular Exam: REGULAR RHYTHM, RRR, +S1, +S2. absent: Murmur - GI/Abdominal Exam GI & Abdominal Exam: Soft, Normal Bowel Sounds. absent: Tenderness - Extremities Exam Extremities Exam: Full ROM, Normal Inspection. absent: Joint Swelling, Pedal Edema - Neurological Exam Neurological Exam: Alert, Awake, Normal Gait, Oriented x3 - Psychiatric Exam Psychiatric exam: Normal Affect, Normal Mood - Skin Skin Exam: Dry, Intact, Normal Color, Warm Assessment and Plan - Assessment and Plan (Free Text) Assessment: This is a 76 year old male with h/o metastatic prostate cancer admitted with back pain and diarrhea. Plan: -diet as tolerated -supportive care -appreciate oncology evaluation -overall, clinical picture appears to be consistent with widely metastatic prostate cancer - Follow liver biopsy to tailor chemotherapy - rest of plan as per oncology - Will sign off now- thank you for letting us participate in the care of your patient
--- NOTE | 2017-05-10 09:31 | CP.PCM.PN ---
Subjective - Date & Time of Evaluation Date of Evaluation: 05/10/17 Time of Evaluation: 09:00 - Subjective Subjective: Patient states the pain is better controlled with MS Contin 15mg, he denies significant side effects such as nausea, lethargy, or disorientation. He still has pain in the lower back, mostly when he's out of bed and moving. The pain sometimes radiates down the left leg. He's tolerating some PO, but not back to baseline yet. He expresses the desire to receive intervention to "fix" his back pain. Objective - Vital Signs/Intake and Output Vital Signs (last 24 hours): Temp Pulse Resp BP Pulse Ox 97.6 F 87 20 102/66 98 05/10/17 07:57 05/10/17 07:57 05/10/17 07:57 05/10/17 07:57 05/10/17 07:57 - Medications Medications: Current Medications Famotidine (Pepcid) 20 mg IVP Q12 [facility] Last Admin: 05/09/17 20:59 Dose: 20 mg Heparin Sodium (Porcine) (Heparin) 5,000 units SC Q12 [facility] PRN Reason: Protocol Last Admin: 05/08/17 08:30 Dose: 5,000 units Morphine Sulfate (Morphine) 2 mg IVP Q4 PRN PRN Reason: Pain, severe (8-10) Last Admin: 05/10/17 02:46 Dose: 2 mg Morphine Sulfate (Morphine Extended Release Tab) 15 mg PO Q12 [facility] Last Admin: 05/09/17 20:59 Dose: 15 mg Ondansetron HCl (Zofran Inj) 4 mg IVP Q6 PRN PRN Reason: Nausea/Vomiting Tamsulosin HCl (Flomax) 0.4 mg PO DAILY [facility] Last Admin: 05/09/17 09:17 Dose: Not Given Tramadol HCl (Ultram) 50 mg PO Q6 PRN PRN Reason: Pain, moderate (4-7) - Labs Labs: 05/09/17 06:00 05/09/17 06:00 PT 12.5 Seconds (9.8-13.1) 05/06/17 20:45 INR 1.1 (0.9-1.2) 05/06/17 20:45 APTT 31.4 Seconds (25.6-37.1) 05/06/17 20:45 - Respiratory Exam Respiratory Exam: NORMAL BREATHING PATTERN - Cardiovascular Exam Cardiovascular Exam: REGULAR RHYTHM - Back Exam Back Exam: paraspinal tenderness, vertebral tenderness Assessment and Plan (1) Metastatic cancer Assessment & Plan: 76 yo w/ metastatic prostate cancer. - f/u MRI report - continue MS Contin 15mg q12h - continue MS IV for breakthrough pain for now, consider transition to [facility] for discharge - start Neurontin 100mg q12h Status: Acute
[2017-05-10] MEDS: Morphine 15 mg SR Tab PO SCH (10:03)
--- NOTE | 2017-05-10 11:47 | CT ---
PROCEDURE: Date of procedure: 05/09/2017 Procedure: 1. Guided-guided percutaneous core biopsy of liver mass, CPT [address] guidance for biopsy, CPT 41498 Medications: The patient was sedated by the anesthesiologist with IV sedation and monitoring, 5 cc 1% lidocaine. HISTORY: liver mass TECHNIQUE: Following informed consent, the Pt's Abdomen was marked. The Pt was placed prone on the CT table and procedure time out was performed. A noncontrast CT scan confirmed the presence of multiple hypodense lesion within the right hepatic lobe. A skin localizer was placed on the patient's right flank and a repeat CT scan performed. The skin was prepped and draped in the usual sterile fashion. After the patient was sedated by anesthesiologist and the skin anesthetized with 1% lidocaine, an 18 gauge core needle was advanced percutaneously under direct CT guidance into the mass. Upon confirmation of needle position, three core specimens were obtained and sent for routine pathology. The biopsy track was then embolized with Gelfoam. A post biopsy CT scan performed showed no hematoma. A dressing was applied. IMPRESSION: CT-guided core biopsy of right liver mass.
--- NOTE | 2017-05-10 12:25 | MRI ---
PROCEDURE: MR LUMBAR SPINE WITHOUT CONTRAST HISTORY: chronic pain/metatastic disease COMPARISON: None available. TECHNIQUE: Multiecho multiplanar sequences were performed through the lumbar spine without the use of intravenous contrast. FINDINGS: Normal lumbar lordosis. Mild decrease in the height of L4 and L5 noted without evidence of acute fracture. Bony protrusion seen at the posterior aspect of S1 associated with severe narrowing of the spinal canal at this level. There are market heterogeneous signal in the bone marrow suggestive of multiple bony lesions likely metastasis. Conus medullaris unremarkable at the level of T12 Multiple mass lesion in the liver are seen. Large mass lesion in the left adrenal glands. Bulky conglomerate retroperitoneal lymphadenopathy again seen. Moderate right and mild left hydronephrosis. T12-L1: No disc herniation, spinal canal stenosis or neural foraminal narrowing. L1-2: No disc herniation, spinal canal stenosis or neural foraminal narrowing. L2-3: No disc herniation, spinal canal stenosis or neural foraminal narrowing. L3-4: Small osteophyte disc bulging complex associated with posterior ligament and facet joint hypertrophy which resulting in mild spinal stenosis. L4-5: Broad-based small disc herniation associated with mild posterior ligament and facet joint hypertrophy which resulting in mild spinal and neural foraminal narrowing. L5-S1: No disc herniation, spinal canal stenosis or neural foraminal narrowing. OTHER FINDINGS: Large bony lesions seen at the posterior aspect of S1-S2 protruding into the spinal canal and associated with severe spinal stenosis IMPRESSION: Diffuse bony lesions consistent with widespread osseous metastasis. Bony lesion at the posterior aspect of S1 and S2 protruding into the spinal canal and associated with severe spinal stenosis at this level. Small osteophyte disc bulging complex at L3-L4 associated with posterior ligament and facet joint hypertrophy which resulting in mild spinal and neural foraminal narrowing. Small disc herniation at L4-L5 associated with posterior ligament and facet joint hypertrophy which resulting in mild spinal and neural foraminal narrowing. Moderate disc desiccation at the lower lumbar spine.
[2017-05-10] MEDS ORDERED: Dextrose 5%/0.45% NS 1,000 ML IV SCH (14:15)
[2017-05-10 16:06] VITALS: BP 115/71; PULSE 78; TEMP 97.8; O2SAT 100
--- NOTE | 2017-05-10 21:18 | DS ---
REASON FOR ADMISSION: This is a 76-year-old [place] male with a history of untreated prostate cance r diagnosed 2 years ago, presented with abdominal pain and found to have multiple metastases. COURSE OF HOSPITALIZATION: The patient was admitted to the medical floor and he was started on pain medications including Dilaudid IV push. The patient had a bone scan that showed multiple metastases. The patient also had a CT-guided biopsy as well as an MRI of the lumbosacral spine. The maria isabel ent was started on physical therapy and discharged to the transitional care unit for physical therapy , deconditioning and rehabilitation and pain management. Awaiting the results of the CT-guided biops y. During this stay, the patient had a oncology consultation done by Dr. Montague. FINAL DIAGNOSIS: Metastatic prostate cancer. Clinton Carroll MD cc: [phone] TT: 05/10/2017 21:17:31 alberto
--- NOTE | 2017-05-11 15:00 | CON ---
DATE: 05/10/2017 HISTORY OF PRESENT ILLNESS: This is a 76-year-old [place] male who was admitted to TCU at [facility], after prior admission for abdominal pain. He was diagnosed as having prostatic CA, metastat ic to the abdomen. An MRI of the lumbar spine shows that he has multiple mets throughout his lumbar spine, including the sacrum. In the sacrum, he has evidence of blowout fractures of the S1-S2 region , causing spinal stenosis. He complains of back pain. It is unclear from the medical record whether or not he has ever had radiation to the lumbar spine and his therapeutic status, in terms of his ove rall treatment of his prostate cancer is unclear to me, based on the medical record. I know he did h ave a recent liver biopsy. At this time, the liver biopsy preliminary report on the chart showed cherrie t he has metastatic disease to the liver. At this point, from a neurological point of view, he is fully awake and alert. He is moving all extr emities with good strength. He has no sensory deficits and no reflex changes. He says he is able to walk with some back pain. He denies really having any leg pain to speak of. At this point, he does wear depends. He says he does not have problems urinating; however, with prostate cancer I find cherrie t really is unlikely. He denies any bowel disabilities. Given the area of the stenosis, and the fact that almost all of the lumbar nerve roots have exited pr ior to this area, there is really no indication that a decompression would be warranted. It would no t help his back pain and, at this point, if he has not had radiation to that area, I would suggest it , to control his back pain; however, clearly he has advanced disease and surgical intervention would not change the overall outcome. It is questionable whether he needs to be on Decadron. It might hel p his back pain and, if he is getting radiation, he should continue it; however, based upon just the stenotic region in the sacrum, I would discontinue it. If you have any other questions, please do no t hesitate to reconsult. Satnam Guaman MD cc: [id number] TT: 05/11/2017 15:00:01 Confirmation # [id number] Dictation # [id number] ln
== END 2017-05-10 18:59 | DRG 436 ==
LOC: H.ER 20:17 → H.ERHOLD 05-07 00:11 → H.MEDSURG1 05-07 02:07
PROVIDERS: ADMIT Internal Medicine; ATTEND Internal Medicine
PROC: 3E0234Z Introduction of Serum, Toxoid and Vaccine into Muscle, Percutaneous Approach (ICD-10-PCS; 2017-05-09)
PROC: 0FB13ZX Excision of Right Lobe Liver, Percutaneous Approach, Diagnostic (ICD-10-PCS; principal; 2017-05-09 12:00)
DX: C78.7 Secondary malignant neoplasm of liver and intrahepatic bile duct (principal); C79.51 Secondary malignant neoplasm of bone; C61 Malignant neoplasm of prostate; E86.0 Dehydration; N40.0 Benign prostatic hyperplasia without lower urinary tract symptoms; M48.08 Spinal stenosis, sacral and sacrococcygeal region; Z23 Encounter for immunization; E78.00 Pure hypercholesterolemia, unspecified; Z88.0 Allergy status to penicillin; Z87.891 Personal history of nicotine dependence

== ENCOUNTER 2017-05-10 18:10 | Inpatient (IN) | payer OTHER ==
[2017-05-10 19:12] VITALS: RESP 20
[2017-05-10 20:02] VITALS: BMI 19.1
[2017-05-10] MEDS: Morphine 15 mg SR Tab PO SCH (23:15)
[2017-05-11] MEDS: Dexamethasone 6 MG in Sodium Chloride 0.9% 50 ML IVPB SCH ×2 (04:41→08:59)
[2017-05-11] MEDS: Morphine 15 mg SR Tab PO SCH ×2 (08:52→21:21)
[2017-05-11] MEDS: Dexamethasone 4 MG in Sodium Chloride 0.9% 50 ML IVPB SCH ×2 (16:39→21:19)
--- NOTE | 2017-05-11 18:52 | HP ---
HISTORY OF PRESENT ILLNESS: This is a 76-year-old American male who has a history of prostate cancer diagnosed more than 2 years ago and was untreated. The patient presented to acute care a few days a go because of abdominal pain, found to have multiple metastases. The patient underwent CT-guided neela er biopsy as well as started on pain medications and physical therapy. The patient is being admitted to transitional care unit at [facility] for deconditioning as well as pain ma nagement. REVIEW OF SYSTEMS: Has unstable gait pain, as well as low back pain. Otherwise, review of systems n egative. ALLERGIES: POSITIVE TO PENICILLIN. PAST MEDICAL HISTORY: As above. SOCIAL HISTORY: No history of smoking, ETOH or substance abuse. FAMILY HISTORY: Noncontributory. PHYSICAL EXAMINATION: GENERAL: The patient is in bed, comfortable, not in any cardiopulmonary distress at the time of this examination. VITAL SIGNS: Blood pressure 115/65, temperature 97.9, respiratory rate 20, and pulse is 90. HEENT: Pupils equal, reactive to light. Normal-appearing mucosa of the conjunctivae, oropharyngeal and nasal membrane mucosa. NECK: Supple, no JVD, no carotid bruit, no lymph node, no thyromegaly. CHEST AND LUNGS: Bilateral symmetrical expansion, good air exchange, no rales, no rhonchi. CARDIOVASCULAR: PMI not localized. S1, S2. No additional sounds. ABDOMEN: Normoactive bowel sounds, no tenderness, no organomegaly, no masses. EXTREMITIES: No cyanosis, no clubbing, no edema. CENTRAL NERVOUS SYSTEM: Alert, awake, oriented x 3. No neurological deficits could be appreciated e xcept for unsteadiness. ASSESSMENT: Metastatic intra-abdominal and bone disease, likely originating from the prostate as PSA is more 2000. PLAN: We will follow the CT-guided liver biopsy. The patient is being given Decadron 4 mg IV q. 6 h ours due to the metastatic bone disease on the MRI with spinal canal stenosis. I discussed the patie nt's condition with Dr. Montague who will further decide if patient will need radiation oncology consult ation. Clinton Carroll MD cc: 167 TT: 05/11/2017 18:51:26 jn
[2017-05-12] MEDS: Dexamethasone 4 MG in Sodium Chloride 0.9% 50 ML IVPB SCH ×4 (04:20→22:07)
[2017-05-12] MEDS: Morphine 15 mg SR Tab PO SCH ×2 (09:42→22:09)
[2017-05-13] MEDS: Dexamethasone 4 MG in Sodium Chloride 0.9% 50 ML IVPB SCH ×4 (04:36→21:45)
[2017-05-13] MEDS: Morphine 15 mg SR Tab PO SCH ×2 (11:05→21:43)
--- NOTE | 2017-05-13 23:46 | PN ---
DATE: 05/13/2017 SUBJECTIVE: The patient is seen today 05/13/2017. He is in transitional care unit and cooperative w ith . PHYSICAL EXAMINATION: VITAL SIGNS: Blood pressure is 114/70, temperature 97.3, respiratory rate 20, and pulse is 75. NECK: Supple, no JVD, no carotid bruit, no lymph node, no thyromegaly. CHEST AND LUNGS: Bilateral symmetrical expansion. Good air exchange. No . No rhonchi. CARDIOVASCULAR: PMI not localized. S1, S2. No additional sounds. ABDOMEN: Normoactive bowel sounds, no tenderness, no organomegaly, no masses. EXTREMITIES: No cyanosis, no clubbing, no edema. CENTRAL NERVOUS SYSTEM: Alert, awake, oriented x 2. No neurological deficits could be appreciated. ASSESSMENT: 1. Metastatic cancer, most probably of prostate origin. 2. Spine metastases. PLAN: Follow up the CT-guided biopsy results and follow up oncologist regarding further recommendati ons and management. Will continue to take and take for now. Clinton Carroll MD cc: 167 TT: 05/13/2017 23:45:26 Confirmation # [id number] Dictation # [id number] ernie
[2017-05-14] MEDS: Dexamethasone 4 MG in Sodium Chloride 0.9% 50 ML IVPB SCH ×4 (04:34→21:12)
--- NOTE | 2017-05-14 14:22 | CP.PCM.PN ---
Subjective - Date & Time of Evaluation Date of Evaluation: 05/14/17 Time of Evaluation: 14:17 - Subjective Subjective: Pt still has a poor appetite and back pain which is much better with the zometa and steroids.The liver biopsy result came back today and showed metastatic prostate cancer. Will start him on casodex and give chemotherapy with docetaxel tomorrow, Objective - Vital Signs/Intake and Output Vital Signs (last 24 hours): Temp Pulse Resp BP Pulse Ox 97.2 F L 69 20 101/66 99 05/14/17 10:00 05/14/17 10:00 05/14/17 10:00 05/14/17 10:00 05/14/17 10:00 - Medications Medications: Current Medications Docusate Sodium (Colace) 200 mg PO HS [facility] Last Admin: 05/13/17 21:46 Dose: 200 mg Famotidine (Pepcid) 20 mg PO BID [facility] Last Admin: 05/14/17 08:46 Dose: 20 mg Gabapentin (Neurontin) 100 mg PO BID [facility] Last Admin: 05/14/17 08:46 Dose: 100 mg Heparin Sodium (Porcine) (Heparin) 5,000 units SC Q12 [facility] PRN Reason: Protocol Last Admin: 05/14/17 08:47 Dose: 5,000 units Dexamethasone 4 mg/ Sodium (Chloride) 51 mls @ 103 mls/hr IVPB Q6 [facility] Last Admin: 05/14/17 10:03 Dose: 103 mls/hr Lactulose (Enulose) 20 gm PO Q4 PRN PRN Reason: Constipation Last Admin: 05/13/17 19:52 Dose: 20 gm Tamsulosin HCl (Flomax) 0.4 mg PO DAILY [facility] Last Admin: 05/14/17 08:46 Dose: 0.4 mg
[2017-05-14] MEDS: Morphine 15 mg SR Tab PO SCH ×2 (17:54→21:13)
[2017-05-15] MEDS: Dexamethasone 4 MG in Sodium Chloride 0.9% 50 ML IVPB SCH ×3 (05:00→16:22)
[2017-05-15] MEDS: Morphine 15 mg SR Tab PO SCH ×2 (08:48→21:01)
--- NOTE | 2017-05-15 19:28 | PN ---
DATE: 05/15/2017 SUBJECTIVE: The patient is seen today, 05/15/2017. He is status post chemotherapy today. PHYSICAL EXAMINATION: VITAL SIGNS: Blood pressure is 137/76, temperature 97.7, respiratory rate 20, and pulse is 69. HEENT: Pupils equal, reactive to light. Normal-appearing mucosa of the conjunctivae, oropharyngeal and nasal membrane mucosa. NECK: Supple, no JVD, no carotid bruit, no lymph node, no thyromegaly. CHEST AND LUNGS: Bilateral symmetrical expansion, good air exchange, no rales, no rhonchi. CARDIOVASCULAR: PMI not localized. S1, S2. No additional sounds. ABDOMEN: Normoactive bowel sounds, no tenderness. No organomegaly, no masses. EXTREMITIES: No cyanosis, no clubbing, no edema. CENTRAL NERVOUS SYSTEM: Alert, awake, oriented x 3. No neurological deficits could be appreciated. ASSESSMENT: 1. Metastatic prostate cancer status post first chemotherapy today. 2. Pain management. PLAN: Continue physical therapy and pain management as well as decrease dexamethasone to every 8 gasper rs and follow recommendations of oncologist. Clinton Carroll MD cc: [phone] TT: 05/15/2017 19:27:37 Confirmation # [id number] Dictation # [id number] ln
[2017-05-16] MEDS: Dexamethasone 4 MG in Sodium Chloride 0.9% 50 ML IVPB SCH ×3 (00:10→16:49)
[2017-05-16] MEDS ORDERED: Alum-Mag Hydrox-Simethicone Susp (30 mL) PO ONE (00:25)
[2017-05-16] MEDS: Morphine 15 mg SR Tab PO SCH ×2 (08:17→22:43)
--- NOTE | 2017-05-16 09:35 | CP.PCM.PN ---
Subjective - Date & Time of Evaluation Date of Evaluation: 05/16/17 Time of Evaluation: 09:32 - Subjective Subjective: Pt received his first dose of chemotherapy (docetaxel) yesterday. He has no side effects seen. He will get the next dose in 3 weeks . We will however continue the casodex daily.Pt claims he feels better. The low back pain is better as well. Will wait on the RT, and give him the decadron for a little while longer. Objective - Vital Signs/Intake and Output Vital Signs (last 24 hours): Temp Pulse Resp BP Pulse Ox 97.7 F 78 20 107/59 L 99 05/16/17 08:23 05/16/17 08:23 05/16/17 08:23 05/16/17 08:23 05/16/17 08:23 - Medications Medications: Current Medications Bicalutamide (Casodex) 50 mg PO DAILY [facility] Last Admin: 05/16/17 08:20 Dose: 50 mg Docusate Sodium (Colace) 200 mg PO HS [facility] Last Admin: 05/15/17 21:00 Dose: 200 mg Famotidine (Pepcid) 20 mg PO BID [facility] Last Admin: 05/16/17 08:19 Dose: 20 mg Gabapentin (Neurontin) 100 mg PO BID [facility] Last Admin: 05/16/17 08:18 Dose: 100 mg Heparin Sodium (Porcine) (Heparin) 5,000 units SC Q12 [facility] PRN Reason: Protocol Last Admin: 05/16/17 08:21 Dose: 5,000 units Dexamethasone 4 mg/ Sodium (Chloride) 51 mls @ 103 mls/hr IVPB Q8 [facility] Last Admin: 05/16/17 08:23 Dose: 103 mls/hr Lactulose (Enulose) 20 gm PO Q4 PRN PRN Reason: Constipation Last Admin: 05/13/17 19:52 Dose: 20 gm Morphine Sulfate (Morphine Extended Release Tab) 15 mg PO Q12 [facility] Last Admin: 05/16/17 08:17 Dose: 15 mg Tamsulosin HCl (Flomax) 0.4 mg PO DAILY [facility] Last Admin: 05/16/17 08:19 Dose: 0.4 mg Tramadol HCl (Ultram) 50 mg PO Q6 PRN PRN Reason: Pain, Mild (1-3)
[2017-05-17] MEDS: Dexamethasone 4 MG in Sodium Chloride 0.9% 50 ML IVPB SCH ×4 (01:02→21:06)
[2017-05-17 07:53] LABS: BASO % 0.4 % (0.0-2.0); HEMOGLOBIN 10.2 g/dL (12.0-18.0); LYMPH # 0.6 K/uL (1.0-4.3); LYMPH % 6.5 % (20.0-40.0); MEAN CELL VOLUME 89.2 fl (80.0-94.0); MEAN CORPUSCULAR HEMOGLOBIN 29.6 pg (27.0-31.0); MEAN CORPUSCULAR HGB CONC 33.2 g/dL (33.0-37.0); MEAN PLATELET VOLUME 6.5 fl (7.2-11.7); MONO # 0.3 K/uL (0.0-0.8); MONO % 2.9 % (0.0-10.0); NEUT # 8.4 K/uL (1.8-7.0); NEUT % 90.2 % (50.0-75.0); NRBC % 0.1 % (0.0-0.0); PLATELET COUNT 365 K/uL (130-400); RBC 3.44 Mil/uL (4.40-5.90); RED CELL DISTRIBUTION WIDTH 15.1 % (11.5-14.5); WHITE BLOOD COUNT 9.4 K/uL (4.8-10.8)
[2017-05-17 09:41] LABS: ANISOCYTOSIS SLIGHT; LYMPHOCYTE 7 % (20-50); MONOCYTE 3 % (0-10); MYELOCYTE 4 % (0-0); NEUTROPHIL 86 % (42-75); PLATELET ESTIMATE INCREASED (NORMAL); TOTAL CELLS COUNTED 100
[2017-05-17 09:42] LABS: GIANT PLATELETS PRESENT; POIKILOCYTOSIS SLIGHT
--- NOTE | 2017-05-17 10:06 | CP.PCM.PN ---
Subjective - Date & Time of Evaluation Date of Evaluation: 05/17/17 Time of Evaluation: 10:02 - Subjective Subjective: Pt appears to be in good spirits. Very little pain. No side effects from the chemotherapy and appetite is still improving.He has been encouraged to eat small quantities of food more often and be more regylar with the physical therapy. Objective - Vital Signs/Intake and Output Vital Signs (last 24 hours): Temp Pulse Resp BP Pulse Ox 96.8 F L 77 20 110/65 98 05/17/17 09:25 05/17/17 09:25 05/17/17 09:25 05/17/17 09:25 05/17/17 09:25 - Medications Medications: Current Medications Bicalutamide (Casodex) 50 mg PO DAILY [facility] Last Admin: 05/16/17 08:20 Dose: 50 mg Docusate Sodium (Colace) 200 mg PO HS [facility] Last Admin: 05/16/17 22:41 Dose: 200 mg Famotidine (Pepcid) 20 mg PO BID [facility] Last Admin: 05/16/17 16:51 Dose: 20 mg Gabapentin (Neurontin) 100 mg PO BID [facility] Last Admin: 05/16/17 16:50 Dose: 100 mg Heparin Sodium (Porcine) (Heparin) 5,000 units SC Q12 [facility] PRN Reason: Protocol Last Admin: 05/16/17 22:42 Dose: 5,000 units Dexamethasone 4 mg/ Sodium (Chloride) 51 mls @ 103 mls/hr IVPB Q8 [facility] Last Admin: 05/17/17 01:02 Dose: 103 mls/hr Lactulose (Enulose) 20 gm PO Q4 PRN PRN Reason: Constipation Last Admin: 05/16/17 22:42 Dose: 20 gm Morphine Sulfate (Morphine Extended Release Tab) 15 mg PO Q12 [facility] Last Admin: 05/16/17 22:43 Dose: 15 mg Tamsulosin HCl (Flomax) 0.4 mg PO DAILY [facility] Last Admin: 05/16/17 08:19 Dose: 0.4 mg Tramadol HCl (Ultram) 50 mg PO Q6 PRN PRN Reason: Pain, Mild (1-3) - Labs Labs: 05/17/17 07:30
[2017-05-17] MEDS: Morphine 15 mg SR Tab PO SCH ×2 (10:35→21:48)
[2017-05-17] MEDS: Sodium Chloride 0.9% 1,000 ML IV SCH (15:17)
--- NOTE | 2017-05-17 21:28 | PN ---
DATE: 05/17/2017 SUBJECTIVE: The patient is seen today on 05/17/2017. He is not in any cardiopulmonary distress and blood pressure was low. The patient was given IV fluids. PHYSICAL EXAMINATION: VITAL SIGNS: Blood pressure 99/61, temperature 98.1, respiratory rate 20 and pulse is 81. HEENT: Pupils equal, reactive to light. Normal-appearing mucosa of the conjunctivae, oropharyngeal and nasal membrane mucosa. NECK: Supple. No JVD. No carotid bruit. No lymph node. No thyromegaly. CHEST AND LUNGS: Bilateral symmetrical expansion, good air exchange, no rales, no rhonchi. CARDIOVASCULAR: PMI not localized. S1, S2. No additional sounds. ABDOMEN: Normoactive bowel sounds, no tenderness, no organomegaly, no masses. EXTREMITIES: No cyanosis, no clubbing, no edema. CENTRAL NERVOUS SYSTEM: Alert, awake, oriented x 2. No neurological deficits could be associated. metastatic prostate cancer status post first cycle of chemotherapy. PLAN: We will taper off the Decadron and continue current oncology management. We will give the pat ient an IV fluid challenge. Continue physical therapy and occupational therapy. Clinton Carroll MD cc: [phone] TT: 05/17/2017 21:27:37 Confirmation # [id number] Dictation # [id number] [email or web address]
[2017-05-18] MEDS: Dexamethasone 4 MG in Sodium Chloride 0.9% 50 ML IVPB SCH ×3 (02:03→21:10)
[2017-05-18] MEDS: Sodium Chloride 0.9% 1,000 ML IV SCH (06:44)
[2017-05-18] MEDS: Morphine 15 mg SR Tab PO SCH (09:35)
--- NOTE | 2017-05-18 09:39 | PN ---
DATE: 05/18/2017 The patient seen and examined. Interim events noted. The patient seen for Dr. Carroll while he is sreedhar y. Hematology/oncology consult and intervention noted and appreciated. The patient remains in trans itional care unit. Denies any specific complaint. No specific issues reported by nursing staff. PHYSICAL EXAMINATION: GENERAL: The patient is in no acute distress. VITAL SIGNS: Stable. Temperature 97.2, pulse 73, respiration 20, blood pressure 109/69. HEART: S1, S2 normal, regular. LUNGS: Good bilateral air entry. ABDOMEN: Soft, nontender. EXTREMITIES: No calf swelling, no tenderness, no acute ischemia. CENTRAL NERVOUS SYSTEM: Essentially unchanged. DIAGNOSTIC DATA: Available diagnostic data reviewed. WBC 9.4, hemoglobin 10.2, hematocrit 37.7, josiah telets 365. Overall, patient's general medical condition is stable. PLAN: As ordered. Jesus Beaver MD cc: [id number] TT: 05/18/2017 09:38:22 Confirmation # [id number] Dictation # [id number] [email or web address]
--- NOTE | 2017-05-18 10:23 | CP.PCM.PN ---
Subjective - Date & Time of Evaluation Date of Evaluation: 05/18/17 Time of Evaluation: 10:20 - Subjective Subjective: Pt is feeling much better.He has no pain, and his appetite is good as well.. He has been doing well with physical therapy Will reduce the decadron to twice daily, and make the morphine PRN Objective - Vital Signs/Intake and Output Vital Signs (last 24 hours): Temp Pulse Resp BP Pulse Ox 97.2 F L 73 20 109/69 99 05/18/17 08:26 05/18/17 08:26 05/18/17 08:26 05/18/17 08:26 05/18/17 08:26 - Medications Medications: Current Medications Bicalutamide (Casodex) 50 mg PO DAILY [facility] Last Admin: 05/18/17 09:34 Dose: 50 mg Docusate Sodium (Colace) 200 mg PO HS [facility] Last Admin: 05/17/17 21:47 Dose: Not Given Famotidine (Pepcid) 20 mg PO BID [facility] Last Admin: 05/18/17 09:32 Dose: 20 mg Gabapentin (Neurontin) 100 mg PO BID [facility] Last Admin: 05/18/17 09:32 Dose: 100 mg Heparin Sodium (Porcine) (Heparin) 5,000 units SC Q12 [facility] PRN Reason: Protocol Last Admin: 05/18/17 09:33 Dose: 5,000 units Dexamethasone 4 mg/ Sodium (Chloride) 51 mls @ 103 mls/hr IVPB Q8 [facility] Last Admin: 05/18/17 09:34 Dose: 103 mls/hr Sodium Chloride (Sodium Chloride 0.9%) 1,000 mls @ 80 mls/hr IV .[id number] [facility] Stop: 05/18/17 15:05 Last Admin: 05/18/17 06:44 Dose: 80 mls/hr Lactulose (Enulose) 20 gm PO Q4 PRN PRN Reason: Constipation Last Admin: 05/17/17 10:32 Dose: 20 gm Morphine Sulfate (Morphine Extended Release Tab) 15 mg PO Q12 [facility] Last Admin: 05/18/17 09:35 Dose: 15 mg Tamsulosin HCl (Flomax) 0.4 mg PO DAILY [facility] Last Admin: 05/18/17 09:33 Dose: 0.4 mg Tramadol HCl (Ultram) 50 mg PO Q6 PRN PRN Reason: Pain, Mild (1-3) - Labs Labs: 05/17/17 07:30
[2017-05-18] MEDS ORDERED: Dexamethasone 4 MG in Sodium Chloride 0.9% 50 ML IV ONE (11:00)
[2017-05-18 19:41] LABS: ALB/GLOB RATIO 1.1 (1.0-2.1); ALBUMIN 3.9 g/dL (3.5-5.0); ALT/SGPT 47 U/L (21-72); AST/SGOT 135 U/L (17-59); BLOOD UREA NITROGEN 48 mg/dl (9-20); CALCIUM 7.5 mg/dL (8.4-10.2); GFR AFRICAN-AMERICAN > 60; GFR NON-AFRICAN AMERICAN > 60
[2017-05-19] MEDS ORDERED: Alum-Mag Hydrox-Simethicone Susp (30 mL) PO ONE ×2 (01:18→23:12)
[2017-05-19] MEDS: Morphine 15 mg Immediate Release Tab PO PRN (07:05)
--- NOTE | 2017-05-19 08:25 | PN ---
DATE: 05/19/2017 The patient seen and examined. Interim events noted. The patient is seen for Dr. Carroll while he is away. The patient is awake, responsive. Had episodes of pain, controlled with current pain medicati on. PHYSICAL EXAMINATION: GENERAL: The patient is in no acute distress. VITAL SIGNS: Stable. HEART: S1, S2 normal, regular. LUNGS: Good bilateral air exchange. ABDOMEN: Soft, nontender. EXTREMITIES: No edema, no calf swelling, no tenderness. No ____. CENTRAL NERVOUS SYSTEM: Essentially unchanged. DIAGNOSTIC DATA: Available diagnostic data reviewed. Overall, patient's general medical condition is slowly improving. PLAN: As ordered. Jesus Beaver MD cc: [id number] TT: 05/19/2017 08:24:30 Confirmation # [id number] Dictation # [id number]
[2017-05-19 08:36] LABS: HEMOGLOBIN 9.3 g/dL (12.0-18.0); MEAN CELL VOLUME 88.4 fl (80.0-94.0); MEAN CORPUSCULAR HEMOGLOBIN 30.3 pg (27.0-31.0); MEAN CORPUSCULAR HGB CONC 34.3 g/dL (33.0-37.0); RBC 3.08 Mil/uL (4.40-5.90); RED CELL DISTRIBUTION WIDTH 15.3 % (11.5-14.5); WHITE BLOOD COUNT 5.5 K/uL (4.8-10.8)
[2017-05-19 08:48] LABS: ALB/GLOB RATIO 1.1 (1.0-2.1); ALBUMIN 3.8 g/dL (3.5-5.0); ALT/SGPT 43 U/L (21-72); AST/SGOT 108 U/L (17-59); BLOOD UREA NITROGEN 42 mg/dl (9-20); CALCIUM 7.5 mg/dL (8.4-10.2); GFR AFRICAN-AMERICAN > 60; GFR NON-AFRICAN AMERICAN > 60
[2017-05-19] MEDS: Enoxaparin 40 mg Syringe SC SCH (11:30)
[2017-05-19] MEDS: Dexamethasone 4 MG in Sodium Chloride 0.9% 50 ML IVPB SCH ×3 (11:31→23:26)
[2017-05-20] MEDS: Enoxaparin 40 mg Syringe SC SCH (09:13)
[2017-05-20] MEDS: Dexamethasone 4 MG in Sodium Chloride 0.9% 50 ML IVPB SCH ×2 (09:13→21:16)
--- NOTE | 2017-05-20 09:24 | PN ---
DATE: 05/20/2017 The patient is seen and examined. Interim events noted. The patient remains in transitional care un it. The patient feels okay. Complains of constipation and dehydration. The patient complains feeli ng weak because of dehydration and felt better after receiving IV fluids, ____. No chest pain, no sh ortness of breath. The patient has poor appetite and is not eating and drinking well. PHYSICAL EXAMINATION: GENERAL: The patient is in no acute distress. VITAL SIGNS: Stable. HEART: S1, S2 normal, regular. LUNGS: Good bilateral air entry. ABDOMEN: Soft, nontender. EXTREMITIES: No edema, no calf swelling, no tenderness. No acute ischemia. CENTRAL NERVOUS SYSTEM: Essentially unchanged. DIAGNOSTIC DATA: Available diagnostic data reviewed. BUN is down from 48, but still high at 42, consistent with intravascular dehydration with normal crea tinine. Overall, the patient is hemodynamically stable. PLAN: As ordered. Case and plan discussed with the patient. Jesus Beaver MD cc: [id number] TT: 05/20/2017 09:23:22 Confirmation # [id number] Dictation # [id number]
[2017-05-20] MEDS: Sodium Chloride 0.9% 1,000 ML IV SCH ×2 (09:33→22:17)
--- NOTE | 2017-05-20 11:45 | CP.PCM.PN ---
Subjective - Date & Time of Evaluation Date of Evaluation: 05/20/17 Time of Evaluation: 11:41 - Subjective Subjective: Pt was in good spirits over the weekend, but seems a little depressed today. His appetite is down,but he does not c/o any pain. He is on the Casodex and after 2-3 weeks of treatment will add lupron and the also continue zometa q month and chemotherpy q 3 weeks. Objective - Vital Signs/Intake and Output Vital Signs (last 24 hours): Temp Pulse Resp BP Pulse Ox 98.0 F 76 20 113/64 99 05/20/17 08:28 05/20/17 08:28 05/20/17 08:28 05/20/17 08:28 05/20/17 08:28 - Medications Medications: Current Medications Bicalutamide (Casodex) 50 mg PO DAILY [facility] Last Admin: 05/20/17 09:29 Dose: 50 mg Docusate Sodium (Colace) 200 mg PO HS [facility] Last Admin: 05/19/17 23:27 Dose: 200 mg Enoxaparin Sodium (Lovenox) 40 mg SC DAILY [facility] PRN Reason: Protocol Last Admin: 05/20/17 09:13 Dose: 40 mg Famotidine (Pepcid) 20 mg PO BID [facility] Last Admin: 05/20/17 09:12 Dose: 20 mg Gabapentin (Neurontin) 100 mg PO BID [facility] Last Admin: 05/20/17 09:12 Dose: 100 mg Dexamethasone 4 mg/ Sodium (Chloride) 51 mls @ 102 mls/hr IVPB Q12 [facility] Last Admin: 05/20/17 09:13 Dose: 102 mls/hr Sodium Chloride (Sodium Chloride 0.9%) 1,000 mls @ 80 mls/hr IV .[id number] [facility] Stop: 05/21/17 09:11 Last Admin: 05/20/17 09:33 Dose: 80 mls/hr Lactulose (Enulose) 20 gm PO Q4 PRN PRN Reason: Constipation Last Admin: 05/20/17 09:12 Dose: 20 gm Morphine Sulfate (Morphine Immediate Release Tab) 15 mg PO Q4 PRN PRN Reason: Pain, moderate (4-7) Last Admin: 05/19/17 07:05 Dose: 15 mg Tamsulosin HCl (Flomax) 0.4 mg PO DAILY [facility] Last Admin: 05/20/17 09:12 Dose: 0.4 mg Tramadol HCl (Ultram) 50 mg PO Q6 PRN PRN Reason: Pain, Mild (1-3) Last Admin: 05/19/17 05:32 Dose: 50 mg - Labs Labs: 05/19/17 08:10 05/19/17 08:10
[2017-05-20] MEDS ORDERED: Alum-Mag Hydrox-Simethicone Susp (30 mL) PO PRN (20:15)
[2017-05-21] MEDS: Morphine 15 mg Immediate Release Tab PO PRN (03:13)
[2017-05-21] MEDS ORDERED: Loperamide 1MG/7.5ML UD PO ONE (06:25)
[2017-05-21 07:53] LABS: ALB/GLOB RATIO 1.2 (1.0-2.1); ALBUMIN 4.3 g/dL (3.5-5.0); ALT/SGPT 50 U/L (21-72); AST/SGOT 82 U/L (17-59); BLOOD UREA NITROGEN 35 mg/dl (9-20); CALCIUM 7.7 mg/dL (8.4-10.2); GFR AFRICAN-AMERICAN > 60; GFR NON-AFRICAN AMERICAN > 60
[2017-05-21 08:21] LABS: BASO % 0.4 % (0.0-2.0); EOS % 0.2 % (0.0-4.0); HEMOGLOBIN 10.2 g/dL (12.0-18.0); LYMPH # 0.7 K/uL (1.0-4.3); LYMPH % 15.8 % (20.0-40.0); MEAN CELL VOLUME 88.8 fl (80.0-94.0); MEAN CORPUSCULAR HGB CONC 33.8 g/dL (33.0-37.0); MEAN PLATELET VOLUME 7.1 fl (7.2-11.7); MONO # 0.2 K/uL (0.0-0.8); MONO % 3.4 % (0.0-10.0); NEUT # 3.7 K/uL (1.8-7.0); NEUT % 80.2 % (50.0-75.0); NRBC % 0.1 % (0.0-0.0); RBC 3.41 Mil/uL (4.40-5.90); RED CELL DISTRIBUTION WIDTH 14.8 % (11.5-14.5); WHITE BLOOD COUNT 4.6 K/uL (4.8-10.8)
[2017-05-21] MEDS: Enoxaparin 40 mg Syringe SC SCH (08:30)
[2017-05-21] MEDS: Dexamethasone 4 MG in Sodium Chloride 0.9% 50 ML IVPB SCH (08:35)
--- NOTE | 2017-05-21 11:50 | CP.PCM.PN ---
Subjective - Date & Time of Evaluation Date of Evaluation: 05/21/17 Time of Evaluation: 11:44 - Subjective Subjective: Pt had about 10 episodes of diarrhea , but stopped after he was given immodium.yesterday. He eats very little, and and relies totally on the ensure . Pt is moving without pain. Will continue the casodex and will give the chemo in 2 weeks. Objective - Vital Signs/Intake and Output Vital Signs (last 24 hours): Temp Pulse Resp BP Pulse Ox 95.5 F L 85 20 102/62 100 05/21/17 08:05 05/21/17 08:05 05/21/17 08:05 05/21/17 08:05 05/21/17 08:05 - Medications Medications: Current Medications Al Hydrox/Mg Hydrox/Simethicone (Maalox Plus 30 Ml) 30 ml PO Q6 PRN PRN Reason: Indigestion / Heartburn Bicalutamide (Casodex) 50 mg PO DAILY [facility] Last Admin: 05/21/17 08:33 Dose: 50 mg Docusate Sodium (Colace) 200 mg PO HS [facility] Last Admin: 05/20/17 21:16 Dose: 200 mg Enoxaparin Sodium (Lovenox) 40 mg SC DAILY [facility] PRN Reason: Protocol Last Admin: 05/21/17 08:30 Dose: 40 mg Famotidine (Pepcid) 20 mg PO BID [facility] Last Admin: 05/21/17 08:32 Dose: 20 mg Gabapentin (Neurontin) 100 mg PO BID [facility] Last Admin: 05/21/17 08:31 Dose: 100 mg Dexamethasone 4 mg/ Sodium (Chloride) 51 mls @ 102 mls/hr IVPB Q12 [facility] Last Admin: 05/21/17 08:35 Dose: 102 mls/hr Lactulose (Enulose) 20 gm PO Q4 PRN PRN Reason: Constipation Last Admin: 05/20/17 21:18 Dose: 20 gm Tamsulosin HCl (Flomax) 0.4 mg PO DAILY [facility] Last Admin: 05/21/17 08:31 Dose: 0.4 mg Tramadol HCl (Ultram) 50 mg PO Q6 PRN PRN Reason: Pain, Mild (1-3) Last Admin: 05/19/17 05:32 Dose: 50 mg - Labs Labs: 05/21/17 08:18 05/21/17 07:18
[2017-05-22] MEDS ORDERED: Dexamethasone 4 MG in Sodium Chloride 0.9% 50 ML IVPB SCH (09:00)
[2017-05-22] MEDS: Enoxaparin 40 mg Syringe SC SCH (09:32)
[2017-05-22] MEDS: Dexamethasone 4 MG in Sodium Chloride 0.9% 50 ML IVPB SCH (09:37)
--- NOTE | 2017-05-22 11:24 | CP.PCM.PN ---
Subjective - Date & Time of Evaluation Date of Evaluation: 05/22/17 Time of Evaluation: 11:22 - Subjective Subjective: Pt is feeling better. he is ambulating well, and appetite is slowly improving. Will continue same. Objective - Vital Signs/Intake and Output Vital Signs (last 24 hours): Temp Pulse Resp BP Pulse Ox 97.7 F 98 H 20 81/43 L 100 05/22/17 08:08 05/22/17 08:08 05/22/17 08:08 05/22/17 08:08 05/22/17 08:08 - Medications Medications: Current Medications Al Hydrox/Mg Hydrox/Simethicone (Maalox Plus 30 Ml) 30 ml PO Q6 PRN PRN Reason: Indigestion / Heartburn Bicalutamide (Casodex) 50 mg PO DAILY [facility] Last Admin: 05/22/17 09:33 Dose: 50 mg Docusate Sodium (Colace) 200 mg PO HS [facility] Last Admin: 05/21/17 21:12 Dose: 200 mg Enoxaparin Sodium (Lovenox) 40 mg SC DAILY [facility] PRN Reason: Protocol Last Admin: 05/22/17 09:32 Dose: 40 mg Famotidine (Pepcid) 20 mg PO BID [facility] Last Admin: 05/22/17 09:32 Dose: 20 mg Gabapentin (Neurontin) 100 mg PO BID [facility] Last Admin: 05/22/17 09:32 Dose: 100 mg Dexamethasone 4 mg/ Sodium (Chloride) 51 mls @ 102 mls/hr IVPB DAILY [facility] Stop: 05/23/17 09:29 Last Admin: 05/22/17 09:37 Dose: 102 mls/hr Lactulose (Enulose) 20 gm PO Q4 PRN PRN Reason: Constipation Last Admin: 05/20/17 21:18 Dose: 20 gm Tamsulosin HCl (Flomax) 0.4 mg PO DAILY [facility] Last Admin: 05/22/17 09:32 Dose: 0.4 mg Tramadol HCl (Ultram) 50 mg PO Q6 PRN PRN Reason: Pain, Mild (1-3) Last Admin: 05/22/17 09:38 Dose: 50 mg - Labs Labs: 05/21/17 08:18 05/21/17 07:18
[2017-05-22] MEDS: Benzocaine/Menthol (Cepacol) Lozenge PO PRN (22:31)
[2017-05-23] MEDS: Benzocaine/Menthol (Cepacol) Lozenge PO PRN ×2 (01:55→21:55)
[2017-05-23 08:29] LABS: ALB/GLOB RATIO 1.2 (1.0-2.1); ALBUMIN 3.7 g/dL (3.5-5.0); ALT/SGPT 53 U/L (21-72); AST/SGOT 56 U/L (17-59); BLOOD UREA NITROGEN 31 mg/dl (9-20); CALCIUM 7.4 mg/dL (8.4-10.2); GFR AFRICAN-AMERICAN > 60; GFR NON-AFRICAN AMERICAN > 60
--- NOTE | 2017-05-23 08:45 | CP.PCM.PN ---
Subjective - Date & Time of Evaluation Date of Evaluation: 05/23/17 Time of Evaluation: 08:42 - Subjective Subjective: There is no c/o pain today, but he still has a poor appetite. He tries to walk around, and sit when ever possible, I have discussed with him that small quantities of food more often should be better tolerated.Will ck CBC in am Objective - Vital Signs/Intake and Output Vital Signs (last 24 hours): Temp Pulse Resp BP Pulse Ox 98.6 F 94 H 20 105/65 100 05/23/17 08:01 05/23/17 08:01 05/23/17 08:01 05/23/17 08:01 05/23/17 08:01 - Medications Medications: Current Medications Al Hydrox/Mg Hydrox/Simethicone (Maalox Plus 30 Ml) 30 ml PO Q6 PRN PRN Reason: Indigestion / Heartburn Benzocaine/Menthol (Cepacol Sore Throat) 1 jing PO Q2 PRN PRN Reason: Sore Throat Last Admin: 05/23/17 01:55 Dose: 1 jing Bicalutamide (Casodex) 50 mg PO DAILY [facility] Last Admin: 05/22/17 09:33 Dose: 50 mg Docusate Sodium (Colace) 200 mg PO HS [facility] Last Admin: 05/22/17 21:26 Dose: 200 mg Enoxaparin Sodium (Lovenox) 40 mg SC DAILY [facility] PRN Reason: Protocol Last Admin: 05/22/17 09:32 Dose: 40 mg Famotidine (Pepcid) 20 mg PO BID [facility] Last Admin: 05/22/17 17:35 Dose: 20 mg Gabapentin (Neurontin) 100 mg PO BID [facility] Last Admin: 05/22/17 17:35 Dose: 100 mg Dexamethasone 4 mg/ Sodium (Chloride) 51 mls @ 102 mls/hr IVPB DAILY [facility] Stop: 05/23/17 09:29 Last Admin: 05/22/17 09:37 Dose: 102 mls/hr Lactulose (Enulose) 20 gm PO Q4 PRN PRN Reason: Constipation Last Admin: 05/20/17 21:18 Dose: 20 gm Tamsulosin HCl (Flomax) 0.4 mg PO DAILY [facility] Last Admin: 05/22/17 09:32 Dose: 0.4 mg Tramadol HCl (Ultram) 50 mg PO Q6 PRN PRN Reason: Pain, Mild (1-3) Last Admin: 05/23/17 06:46 Dose: 50 mg - Labs Labs: 05/21/17 08:18 05/23/17 07:40
[2017-05-23] MEDS: Enoxaparin 40 mg Syringe SC SCH (08:57)
[2017-05-23] MEDS: Dexamethasone 4 MG in Sodium Chloride 0.9% 50 ML IVPB SCH (09:03)
[2017-05-23] MEDS ORDERED: Morphine 15 mg Immediate Release Tab PO PRN (10:28)
[2017-05-24 07:20] LABS: BASO % 0.3 % (0.0-2.0); EOS % 0.1 % (0.0-4.0); HEMOGLOBIN 8.5 g/dL (12.0-18.0); LYMPH # 0.8 K/uL (1.0-4.3); LYMPH % 19.7 % (20.0-40.0); MEAN CELL VOLUME 88.5 fl (80.0-94.0); MEAN CORPUSCULAR HEMOGLOBIN 30.6 pg (27.0-31.0); MEAN CORPUSCULAR HGB CONC 34.5 g/dL (33.0-37.0); MONO # 0.8 K/uL (0.0-0.8); MONO % 20.4 % (0.0-10.0); NEUT # 2.5 K/uL (1.8-7.0); NEUT % 59.5 % (50.0-75.0); NRBC % 0.2 % (0.0-0.0); PLATELET COUNT 261 K/uL (130-400); RBC 2.79 Mil/uL (4.40-5.90); RED CELL DISTRIBUTION WIDTH 14.8 % (11.5-14.5); WHITE BLOOD COUNT 4.2 K/uL (4.8-10.8)
[2017-05-24] MEDS: Enoxaparin 40 mg Syringe SC SCH (08:53)
[2017-05-24 10:04] LABS: BANDS 3 % (0-2); LYMPHOCYTE 26 % (20-50); METAMYELOCYTE 1 % (0-0); MONOCYTE 22 % (0-10); MYELOCYTE 1 % (0-0); NEUTROPHIL 47 % (42-75); TOTAL CELLS COUNTED 100
[2017-05-24 10:06] LABS: ANISOCYTOSIS SLIGHT; HYPOCHROMIC SLIGHT; LARGE PLATELETS PRESENT; PLATELET ESTIMATE NORMAL (NORMAL)
--- NOTE | 2017-05-24 10:10 | CP.PCM.PN ---
Subjective - Date & Time of Evaluation Date of Evaluation: 05/24/17 Time of Evaluation: 10:08 - Subjective Subjective: Pt ate well today and is doing well with the physical therapy.His CBC and chemistries are normal. Will ck again on saturday. Objective - Vital Signs/Intake and Output Vital Signs (last 24 hours): Temp Pulse Resp BP Pulse Ox 97.7 F 91 H 20 90/51 L 99 05/24/17 08:21 05/24/17 08:21 05/24/17 08:21 05/24/17 08:21 05/24/17 08:21 - Medications Medications: Current Medications Al Hydrox/Mg Hydrox/Simethicone (Maalox Plus 30 Ml) 30 ml PO Q6 PRN PRN Reason: Indigestion / Heartburn Benzocaine/Menthol (Cepacol Sore Throat) 1 jing PO Q2 PRN PRN Reason: Sore Throat Last Admin: 05/23/17 21:55 Dose: 1 jing Bicalutamide (Casodex) 50 mg PO DAILY [facility] Last Admin: 05/24/17 08:50 Dose: 50 mg Clotrimazole (Mycelex Michael) 10 mg MT 5XD [facility] Last Admin: 05/24/17 08:54 Dose: 10 mg Dexamethasone (Decadron) 2 mg PO DAILY [facility] Stop: 05/27/17 04:00 Last Admin: 05/24/17 08:52 Dose: 2 mg Docusate Sodium (Colace) 200 mg PO HS [facility] Last Admin: 05/23/17 21:49 Dose: 200 mg Enoxaparin Sodium (Lovenox) 40 mg SC DAILY [facility] PRN Reason: Protocol Last Admin: 05/24/17 08:53 Dose: 40 mg Famotidine (Pepcid) 20 mg PO BID [facility] Last Admin: 05/24/17 08:55 Dose: 20 mg Fluconazole (Diflucan) 200 mg PO DAILY [facility] Last Admin: 05/24/17 08:52 Dose: 200 mg Gabapentin (Neurontin) 100 mg PO BID [facility] Last Admin: 05/24/17 08:55 Dose: 100 mg Lactulose (Enulose) 20 gm PO Q4 PRN PRN Reason: Constipation Last Admin: 05/20/17 21:18 Dose: 20 gm Morphine Sulfate (Morphine Immediate Release Tab) 15 mg PO Q4 PRN PRN Reason: Pain, moderate (4-7) Tamsulosin HCl (Flomax) 0.4 mg PO DAILY [facility] Last Admin: 05/24/17 08:53 Dose: 0.4 mg Tramadol HCl (Ultram) 50 mg PO Q6 PRN PRN Reason: Pain, Mild (1-3) Last Admin: 05/23/17 06:46 Dose: 50 mg - Labs Labs: 05/24/17 06:30 05/23/17 07:40
--- NOTE | 2017-05-24 15:35 | CP.PCM.PN ---
Subjective - Date & Time of Evaluation Date of Evaluation: 05/24/17 Time of Evaluation: 10:00 - Subjective Subjective: difficulty of swallowing is better after starting Mycelex Objective - Vital Signs/Intake and Output Vital Signs (last 24 hours): Temp Pulse Resp BP Pulse Ox 97.7 F 91 H 20 90/51 L 99 05/24/17 08:21 05/24/17 08:21 05/24/17 08:21 05/24/17 08:21 05/24/17 08:21 - Medications Medications: Current Medications Al Hydrox/Mg Hydrox/Simethicone (Maalox Plus 30 Ml) 30 ml PO Q6 PRN PRN Reason: Indigestion / Heartburn Benzocaine/Menthol (Cepacol Sore Throat) 1 jing PO Q2 PRN PRN Reason: Sore Throat Last Admin: 05/23/17 21:55 Dose: 1 jing Bicalutamide (Casodex) 50 mg PO DAILY [facility] Last Admin: 05/24/17 08:50 Dose: 50 mg Clotrimazole (Mycelex Michael) 10 mg MT 5XD [facility] Last Admin: 05/24/17 12:41 Dose: 10 mg Dexamethasone (Decadron) 2 mg PO DAILY [facility] Stop: 05/27/17 04:00 Last Admin: 05/24/17 08:52 Dose: 2 mg Docusate Sodium (Colace) 200 mg PO HS [facility] Last Admin: 05/23/17 21:49 Dose: 200 mg Famotidine (Pepcid) 20 mg PO BID [facility] Last Admin: 05/24/17 08:55 Dose: 20 mg Fluconazole (Diflucan) 200 mg PO DAILY [facility] Last Admin: 05/24/17 08:52 Dose: 200 mg Gabapentin (Neurontin) 100 mg PO BID [facility] Last Admin: 05/24/17 08:55 Dose: 100 mg Lactulose (Enulose) 20 gm PO Q4 PRN PRN Reason: Constipation Last Admin: 05/20/17 21:18 Dose: 20 gm Morphine Sulfate (Morphine Immediate Release Tab) 15 mg PO Q4 PRN PRN Reason: Pain, moderate (4-7) Last Admin: 05/24/17 11:47 Dose: 15 mg Tamsulosin HCl (Flomax) 0.4 mg PO DAILY [facility] Last Admin: 05/24/17 08:53 Dose: 0.4 mg Tramadol HCl (Ultram) 50 mg PO Q6 PRN PRN Reason: Pain, Mild (1-3) Last Admin: 05/23/17 06:46 Dose: 50 mg - Labs Labs: 05/24/17 06:30 05/23/17 07:40 - Head Exam Head Exam: ATRAUMATIC Additional comments: oral thrush is improving - Eye Exam Eye Exam: PERRL Additional comments: pale mucosa - Neck Exam Neck Exam: Full ROM - Respiratory Exam Respiratory Exam: Clear to Ausculation Bilateral, NORMAL BREATHING PATTERN - Cardiovascular Exam Cardiovascular Exam: REGULAR RHYTHM - GI/Abdominal Exam GI & Abdominal Exam: Soft, Normal Bowel Sounds - Extremities Exam Extremities Exam: Full ROM, Normal Inspection - Back Exam Back Exam: NORMAL INSPECTION - Neurological Exam Neurological Exam: Alert, Awake, Oriented x3 Assessment and Plan - Assessment and Plan (Free Text) Assessment: Metastatic CA prostate Anemia , multifactorial Oral thrush Plan: Continue Mycelex Follow hematology recommendation rergarding the anemia Dr Strill for pain mangement
--- NOTE | 2017-05-24 17:37 | CP.PCM.CON ---
History of Present Illness - History of Present Illness History of Present Illness: Dr Fontana PMR consultation on Divina Ray, born 1940, who has been admitted to [facility]CU with metastatic prostate CA Dr Montague is following as oncologist Mets to liver noted + LBP has been doing much better on the prn morphine just finishing up his blood transfusion + constipation. on colace, he doesn't want lactulose Review of Systems - Constitutional Constitutional: Anorexia. absent: Chills - EENT Nose/Mouth/Throat: absent: Nasal Congestion - Cardiovascular Cardiovascular: absent: Chest Pain - Respiratory Respiratory: absent: Dyspnea - Gastrointestinal Gastrointestinal: Constipation. absent: Belching, Bloating Past Patient History - Past Medical History & Family History Past Medical History?: Yes - Past Social History Smoking Status: Former Smoker - CARDIAC Hx Cardiac Disorders: Yes (High cholesterol) Hx Hypercholesterolemia: Yes - PULMONARY Hx Respiratory Disorders: No - NEUROLOGICAL Hx Neurological Disorder: No - HEENT Hx HEENT Problems: Yes Other/Comment: Uses eye glasses for reading - RENAL Hx Chronic Kidney Disease: No - ENDOCRINE/METABOLIC Hx Endocrine Disorders: No - HEMATOLOGICAL/ONCOLOGICAL Hx AIDS: No Hx Human Immunodeficiency Virus (HIV): No - INTEGUMENTARY Hx Dermatological Problems: No - MUSCULOSKELETAL/RHEUMATOLOGICAL Hx Falls: Yes - GASTROINTESTINAL Hx Gastrointestinal Disorders: No - GENITOURINARY/GYNECOLOGICAL Hx Genitourinary Disorders: Yes (BPH) - PSYCHIATRIC Hx Substance Use: No - SURGICAL HISTORY Hx Surgeries: No - ANESTHESIA Hx Anesthesia: No Hx Anesthesia Reactions: No Hx Malignant Hyperthermia: No Has any member of the family had a problem w/ anesthesia?: No Meds Allergies/Adverse Reactions: Allergies Allergy/AdvReac Type Severity Reaction Status Date / Time Penicillins Allergy NAUSEA Verified 05/06/17 20:30 - Medications Medications: Current Medications Al Hydrox/Mg Hydrox/Simethicone (Maalox Plus 30 Ml) 30 ml PO Q6 PRN PRN Reason: Indigestion / Heartburn Benzocaine/Menthol (Cepacol Sore Throat) 1 jing PO Q2 PRN PRN Reason: Sore Throat Last Admin: 05/23/17 21:55 Dose: 1 jing Bicalutamide (Casodex) 50 mg PO DAILY [facility] Last Admin: 05/24/17 08:50 Dose: 50 mg Clotrimazole (Mycelex Michael) 10 mg MT 5XD [facility] Last Admin: 05/24/17 12:41 Dose: 10 mg Dexamethasone (Decadron) 2 mg PO DAILY [facility] Stop: 05/27/17 04:00 Last Admin: 05/24/17 08:52 Dose: 2 mg Docusate Sodium (Colace) 200 mg PO HS [facility] Last Admin: 05/23/17 21:49 Dose: 200 mg Famotidine (Pepcid) 20 mg PO BID [facility] Last Admin: 05/24/17 08:55 Dose: 20 mg Fluconazole (Diflucan) 200 mg PO DAILY [facility] Last Admin: 05/24/17 08:52 Dose: 200 mg Gabapentin (Neurontin) 100 mg PO BID [facility] Last Admin: 05/24/17 08:55 Dose: 100 mg Lactulose (Enulose) 20 gm PO Q4 PRN PRN Reason: Constipation Last Admin: 05/20/17 21:18 Dose: 20 gm Morphine Sulfate (Morphine Immediate Release Tab) 15 mg PO Q4 PRN PRN Reason: Pain, moderate (4-7) Last Admin: 05/24/17 11:47 Dose: 15 mg Tamsulosin HCl (Flomax) 0.4 mg PO DAILY [facility] Last Admin: 05/24/17 08:53 Dose: 0.4 mg Tramadol HCl (Ultram) 50 mg PO Q6 PRN PRN Reason: Pain, Mild (1-3) Last Admin: 05/23/17 06:46 Dose: 50 mg Physical Exam - Constitutional Appears: Cachectic - Head Exam Head Exam: ATRAUMATIC, NORMAL INSPECTION, NORMOCEPHALIC - Eye Exam Eye Exam: EOMI - ENT Exam ENT Exam: Mucous Membranes Moist - Respiratory Exam Respiratory Exam: NORMAL BREATHING PATTERN - Cardiovascular Exam Cardiovascular Exam: REGULAR RHYTHM - GI/Abdominal Exam GI & Abdominal Exam: absent: Distended Results - Vital Signs Recent Vital Signs: Last Vital Signs Temp 97.7 F 05/24/17 08:21 Pulse 91 H 05/24/17 08:21 Resp 20 05/24/17 08:21 BP 90/51 L 05/24/17 08:21 Pulse Ox 99 05/24/17 08:21 - Labs Result Diagrams: 05/24/17 06:30 05/23/17 07:40 Labs: Laboratory Results - last 24 hr 05/24/17 05/24/17 05/24/17 06:30 11:40 12:35 WBC 4.2 L RBC 2.79 L Hgb 8.5 L Hct 24.7 L MCV 88.5 MCH 30.6 MCHC 34.5 RDW 14.8 H Plt Count 261 MPV 7.0 L Neut % (Auto) 59.5 Lymph % (Auto) 19.7 L [place] % (Auto) 20.4 H Eos % (Auto) 0.1 Baso % (Auto) 0.3 Neut # 2.5 Lymph # 0.8 L [place] # 0.8 Eos # 0.0 Baso # 0.0 Neutrophils % (Manual) 47 Band Neutrophils % 3 H Lymphocytes % (Manual) 26 Monocytes % (Manual) 22 H Metamyelocytes % 1 H Myelocytes % 1 H Platelet Estimate Normal Large Platelets Present Hypochromasia (manual) Slight Anisocytosis (manual) Slight Blood Type B POSITIVE Blood Type Confirm B POSITIVE Antibody Screen Negative Crossmatch See Detail BBK History Checked No verified bt Assessment & Plan - Assessment and Plan (Free Text) Assessment: Mr Ray has metastatic prostate ca on meds as per dr dg carrizales has started msir which has worked very well for him at this point i would not change the medications continue current care I did not see a PT note and will follow up progress in therapies
[2017-05-24] MEDS: Benzocaine/Menthol (Cepacol) Lozenge PO PRN (21:55)
[2017-05-25 08:47] VITALS: BP 111/66; PULSE 82; TEMP 97.7; O2SAT 99
--- NOTE | 2017-05-25 09:54 | CP.PCM.PN ---
Subjective - Date & Time of Evaluation Date of Evaluation: 05/25/17 Time of Evaluation: 09:53 - Subjective Subjective: Pt deels much better , appetite is improving, he is ambulatory He was transfused 1 unit of packed cells [id number]. Will do a cbc today Objective - Vital Signs/Intake and Output Vital Signs (last 24 hours): Temp Pulse Resp BP Pulse Ox 97.7 F 82 20 111/66 99 05/25/17 08:47 05/25/17 08:47 05/25/17 08:47 05/25/17 08:47 05/25/17 08:47 - Medications Medications: Current Medications Al Hydrox/Mg Hydrox/Simethicone (Maalox Plus 30 Ml) 30 ml PO Q6 PRN PRN Reason: Indigestion / Heartburn Benzocaine/Menthol (Cepacol Sore Throat) 1 jing PO Q2 PRN PRN Reason: Sore Throat Last Admin: 05/24/17 21:55 Dose: 1 jing Bicalutamide (Casodex) 50 mg PO DAILY [facility] Last Admin: 05/25/17 08:27 Dose: 50 mg Clotrimazole (Mycelex Michael) 10 mg MT 5XD [facility] Last Admin: 05/25/17 08:25 Dose: 10 mg Dexamethasone (Decadron) 2 mg PO DAILY [facility] Stop: 05/27/17 04:00 Last Admin: 05/25/17 08:28 Dose: 2 mg Docusate Sodium (Colace) 200 mg PO HS [facility] Last Admin: 05/24/17 21:18 Dose: 200 mg Famotidine (Pepcid) 20 mg PO BID [facility] Last Admin: 05/25/17 08:25 Dose: 20 mg Fluconazole (Diflucan) 200 mg PO DAILY [facility] Last Admin: 05/25/17 08:26 Dose: 200 mg Gabapentin (Neurontin) 100 mg PO BID [facility] Last Admin: 05/25/17 08:25 Dose: 100 mg Lactulose (Enulose) 20 gm PO Q4 PRN PRN Reason: Constipation Last Admin: 05/20/17 21:18 Dose: 20 gm Morphine Sulfate (Morphine Immediate Release Tab) 15 mg PO Q4 PRN PRN Reason: Pain, moderate (4-7) Last Admin: 05/24/17 11:47 Dose: 15 mg Tamsulosin HCl (Flomax) 0.4 mg PO DAILY [facility] Last Admin: 05/25/17 08:25 Dose: 0.4 mg Tramadol HCl (Ultram) 50 mg PO Q6 PRN PRN Reason: Pain, Mild (1-3) Last Admin: 05/23/17 06:46 Dose: 50 mg - Labs Labs: 05/24/17 06:30 05/23/17 07:40
[2017-05-25 11:38] LABS: BASO % 0.3 % (0.0-2.0); EOS % 0.1 % (0.0-4.0); LYMPH # 0.6 K/uL (1.0-4.3); LYMPH % 12.3 % (20.0-40.0); MEAN CELL VOLUME 88.7 fl (80.0-94.0); MEAN CORPUSCULAR HEMOGLOBIN 29.4 pg (27.0-31.0); MEAN CORPUSCULAR HGB CONC 33.1 g/dL (33.0-37.0); MEAN PLATELET VOLUME 6.5 fl (7.2-11.7); MONO # 0.8 K/uL (0.0-0.8); MONO % 15.2 % (0.0-10.0); NEUT # 3.6 K/uL (1.8-7.0); NEUT % 72.1 % (50.0-75.0); NRBC % 0.2 % (0.0-0.0); RBC 3.39 Mil/uL (4.40-5.90); RED CELL DISTRIBUTION WIDTH 15.2 % (11.5-14.5)
--- NOTE | 2017-05-25 22:34 | CP.PCM.PN ---
Objective - Vital Signs/Intake and Output Vital Signs (last 24 hours): Temp Pulse Resp BP Pulse Ox 97.7 F 82 20 111/66 99 05/25/17 08:47 05/25/17 08:47 05/25/17 08:47 05/25/17 08:47 05/25/17 08:47 - Labs Labs: 05/25/17 11:30 05/23/17 07:40
--- NOTE | 2017-05-25 22:38 | CP.PCM.DIS ---
Provider - Provider Date of Admission: 05/10/17 18:45 Attending physician: Clinton Carroll MD Hospital Course - Lab Results Lab Results: Micro Results 05/14/17 Unknown Stool Ova and Parasite Concentrate Exam - Final Most Recent Lab Values WBC 5.0 K/uL (4.8-10.8) 05/25/17 11:30 RBC 3.39 Mil/uL (4.40-5.90) L 05/25/17 11:30 Hgb 10.0 g/dL (12.0-18.0) L 05/25/17 11:30 Hct 30.1 % (35.0-51.0) L 05/25/17 11:30 MCV 88.7 fl (80.0-94.0) 05/25/17 11:30 MCH 29.4 pg (27.0-31.0) 05/25/17 11:30 MCHC 33.1 g/dL (33.0-37.0) 05/25/17 11:30 RDW 15.2 % (11.5-14.5) H 05/25/17 11:30 Plt Count 282 K/uL (130-400) 05/25/17 11:30 MPV 6.5 fl (7.2-11.7) L 05/25/17 11:30 Neut % (Auto) 72.1 % (50.0-75.0) 05/25/17 11:30 Lymph % (Auto) 12.3 % (20.0-40.0) L 05/25/17 11:30 [place] % (Auto) 15.2 % (0.0-10.0) H 05/25/17 11:30 Eos % (Auto) 0.1 % (0.0-4.0) 05/25/17 11:30 Baso % (Auto) 0.3 % (0.0-2.0) 05/25/17 11:30 Neut # 3.6 K/uL (1.8-7.0) 05/25/17 11:30 Lymph # 0.6 K/uL (1.0-4.3) L 05/25/17 11:30 [place] # 0.8 K/uL (0.0-0.8) 05/25/17 11:30 Eos # 0.0 K/uL (0.0-0.7) 05/25/17 11:30 Baso # 0.0 K/uL (0.0-0.2) 05/25/17 11:30 Neutrophils % (Manual) 47 % (42-75) 05/24/17 06:30 Band Neutrophils % 3 % (0-2) H 05/24/17 06:30 Lymphocytes % (Manual) 26 % (20-50) 05/24/17 06:30 Monocytes % (Manual) 22 % (0-10) H 05/24/17 06:30 Metamyelocytes % 1 % (0-0) H 05/24/17 06:30 Myelocytes % 1 % (0-0) H 05/24/17 06:30 Platelet Estimate Normal (NORMAL) 05/24/17 06:30 Large Platelets Present 05/24/17 06:30 Giant Platelets Present 05/17/17 07:30 Hypochromasia (manual) Slight 05/24/17 06:30 Poikilocytosis (manual Slight 05/17/17 07:30 Anisocytosis (manual) Slight 05/24/17 06:30 Sodium 135 mmol/l (132-148) 05/23/17 07:40 Potassium 4.8 MMOL/L (3.6-5.0) 05/23/17 07:40 Chloride 105 mmol/L (98-107) 05/23/17 07:40 Carbon Dioxide 21 mmol/L (22-30) L 05/23/17 07:40 Anion Gap 14 (10-20) 05/23/17 07:40 BUN 31 mg/dl (9-20) H 05/23/17 07:40 Creatinine 1.1 mg/dL (0.8-1.5) 05/23/17 07:40 Est GFR ( Amer) > 60 05/23/17 07:40 Est GFR (Non-Af Amer) > 60 05/23/17 07:40 POC Glucose (mg/dL) 122 mg/dL (65-110) H 05/13/17 06:13 Random Glucose 112 mg/dL (75-110) H 05/23/17 07:40 Calcium 7.4 mg/dL (8.4-10.2) L 05/23/17 07:40 Total Bilirubin 0.6 mg/dl (0.2-1.3) 05/23/17 07:40 AST 56 U/L (17-59) 05/23/17 07:40 ALT 53 U/L (21-72) 05/23/17 07:40 Alkaline Phosphatase 275 U/L (38-126) H 05/23/17 07:40 Total Protein 6.9 G/DL (6.3-8.2) 05/23/17 07:40 Albumin 3.7 g/dL (3.5-5.0) 05/23/17 07:40 Globulin 3.2 gm/dL (2.2-3.9) 05/23/17 07:40 Albumin/Globulin Ratio 1.2 (1.0-2.1) 05/23/17 07:40 Stool Occult Blood Negative (NEGATIVE) 05/14/17 Unknown C. difficile Ag & Toxin Negative (NEGATIVE) 05/14/17 Unknown Blood Type B POSITIVE 05/24/17 11:40 Blood Type Confirm B POSITIVE 05/24/17 12:35 Antibody Screen Negative 05/24/17 11:40 Crossmatch See Detail 05/24/17 11:40 BBK History Checked No verified bt 05/24/17 11:40 - Date & Time of H&P Date of H&P: 06/20/17 Time of H&P: 10:00 Discharge Exam - Head Exam Head Exam: ATRAUMATIC, NORMAL INSPECTION, NORMOCEPHALIC - Eye Exam Eye Exam: PERRL Pupil Exam: NORMAL ACCOMODATION, PERRL - ENT Exam ENT Exam: Mucous Membranes Moist - Neck Exam Neck exam: Full Rom - Respiratory Exam Respiratory Exam: NORMAL BREATHING PATTERN - Cardiovascular Exam Cardiovascular Exam: REGULAR RHYTHM - GI/Abdominal Exam GI & Abdominal Exam: Normal Bowel Sounds - Extremities Exam Extremities exam: full ROM - Skin Skin Exam: Dry, Warm Discharge Plan - Follow Up Plan Condition: GOOD Disposition: HOME/ ROUTINE
== END 2017-05-25 15:30 | disposition home or self-care (01) | DRG 436 ==
LOC: H.TCU 18:45
PROVIDERS: ADMIT Internal Medicine; ATTEND Internal Medicine
PROC: F08Z4ZZ Home Management Treatment (ICD-10-PCS; 2017-05-10)
PROC: F07Z9ZZ Gait Training/Functional Ambulation Treatment (ICD-10-PCS; 2017-05-10)
PROC: F07L6ZZ Therapeutic Exercise Treatment of Musculoskeletal System - Lower Back / Lower Extremity (ICD-10-PCS; 2017-05-10)
PROC: F07Z9FZ Gait Training/Functional Ambulation Treatment using Assistive, Adaptive, Supportive or Protective Equipment (ICD-10-PCS; 2017-05-10)
PROC: 3E0M705 Introduction of Other Antineoplastic into Peritoneal Cavity, Via Natural or Artificial Opening (ICD-10-PCS; 2017-05-15)
PROC: 30233N1 Transfusion of Nonautologous Red Blood Cells into Peripheral Vein, Percutaneous Approach (ICD-10-PCS; principal; 2017-05-24)
DX: C78.7 Secondary malignant neoplasm of liver and intrahepatic bile duct (principal); C79.51 Secondary malignant neoplasm of bone; E86.0 Dehydration; B37.0 Candidal stomatitis; C61 Malignant neoplasm of prostate; D64.9 Anemia, unspecified; G89.3 Neoplasm related pain (acute) (chronic); K59.00 Constipation, unspecified; R26.89 Other abnormalities of gait and mobility; Z88.0 Allergy status to penicillin; R19.7 Diarrhea, unspecified

== ENCOUNTER 2017-05-24 11:51 | Day surgery (SDC) | payer MEDICARE ==
[2017-05-24 13:22] VITALS: BMI 17.5
[2017-05-24 16:21] VITALS: RESP 18; TEMP 98.6
[2017-05-24 16:23] VITALS: BP 98/61; PULSE 84; O2SAT 99
== END 2017-05-24 18:26 ==
LOC: H.OPSURG 11:51
PROVIDERS: ATTEND Internal Medicine Cardiovascular Disease
DX: C61 Malignant neoplasm of prostate (principal)

== ENCOUNTER 2017-05-31 19:25 | Inpatient (IN) | payer MEDICARE ==
[2017-05-31 19:25] VITALS: BMI 19.1
[2017-05-31] MEDS ORDERED: Sodium Chloride 0.9% 1,000 ML IV STA (20:26)
--- NOTE | 2017-05-31 20:42 | ED PDOC ---
HPI: SOB/CHF/COPD Time Seen by Provider: 05/31/17 19:37 Chief Complaint (Nursing): Palpitations Chief Complaint (Provider): Shortness of Breath History Per: Patient, EMS, Family () History/Exam Limitations: no limitations Onset/Duration Of Symptoms: Hrs (1x hour prior to arrival) Current Symptoms Are (Timing): Still Present Severity: Moderate Associated Symptoms: denies: Fever, Chills, Chest Pain, Bloody Cough, Productive Cough, Heart Racing Additional Complaint(s): 76 year old [place] male with a pertinent medical history of metastatic prostate cancer (recently completed a cycle of chemotherapy and discharged from facility 6x days ago) is brought into the ED by paramedics for complaints of shortness of breath that started 1x hour prior to arrival. Paramedics state that the patient was A-Fib with rapid ventricular rate of 174 beats per minute. Patient was also hypotensive in the field, and once given IV fluids, the patient's blood pressure rapidly improved and his A-fib resolved. Patient also states feeling significant improvement after IV fluids were administered. He denies having chest pain, nausea, vomiting, diarrhea, fevers, and cough. His reports that he has had a decrease in PO intake and a poor appetite for the past 3-4x days. PMD: not provided. - Risk Factors PE Risk Factors: Pos: Active Cancer Past Medical History Reviewed: Historical Data, Nursing Documentation, Vital Signs Vital Signs: Last Vital Signs Temp 98.3 F 06/01/17 04:58 Pulse 63 06/01/17 04:58 Resp 18 06/01/17 04:58 BP 107/55 L 06/01/17 04:58 Pulse Ox 99 06/01/17 04:58 - Medical History PMH: Hypercholesterolemia Denies: HIV, Chronic Kidney Disease Other PMH: metastatic prostate cancer. - Surgical History Surgical History: No Surg Hx - Family History Family History: States: No Known Family Hx - Living Arrangements Living Arrangements: With Family - Social History Current smoker - smoking cessation education provided: No Alcohol: None Drugs: Denies - Home Medications Home Medications: Ambulatory Orders Medication Instructions Recorded Tamsulosin [Flomax] 1 tab PO DAILY 05/07/17 Gabapentin [Neurontin] 100 mg PO BID cap 05/10/17 Heparin 5,000 units SC Q12 vial 05/10/17 Morphine [Morphine Extended 15 mg PO Q12 #10 05/10/17 Release Tab] traMADol [Ultram] 50 mg PO Q6 PRN #20 tab 05/10/17 Dexamethasone [Decadron] 4 mg PO DAILY 05/31/17 Famotidine [Pepcid] 1 tab PO DAILY 05/31/17 - Allergies Allergies/Adverse Reactions: Allergies Allergy/AdvReac Type Severity Reaction Status Date / Time aspirin Allergy PAIN Verified 05/31/17 20:40 Penicillins Allergy NAUSEA Verified 05/06/17 20:30 Review of Systems ROS Statement: Except As Marked, All Systems Reviewed And Found Negative Constitutional: Positive for: Other (decrease in appetite and PO intake). Negative for: Fever Cardiovascular: Negative for: Chest Pain Respiratory: Positive for: Shortness of Breath. Negative for: Cough Gastrointestinal: Negative for: Nausea, Vomiting, Diarrhea Physical Exam - Reviewed Nursing Documentation Reviewed: Yes Vital Signs Reviewed: Yes - Physical Exam Appears: Positive for: Non-toxic, No Acute Distress. Negative for: Well ( cachectic with bitemporal wasting) Head Exam: Positive for: ATRAUMATIC, NORMOCEPHALIC Skin: Positive for: Normal Color, Warm, Dry Eye Exam: Positive for: Normal appearance ENT: Positive for: Other (dry mucous membranes) Neck: Positive for: Normal Cardiovascular/Chest: Positive for: Regular Rate, Rhythm Respiratory: Positive for: Normal Breath Sounds. Negative for: Respiratory Distress Extremity: Positive for: Normal ROM Neurologic/Psych: Positive for: Alert, Oriented (3x) - Laboratory Results Result Diagrams: 05/31/17 20:45 05/31/17 20:45 - ECG O2 Sat by Pulse Oximetry: 100 (RA) Pulse Ox Interpretation: Normal - Critical Care Total Time (In Min): 30 Medical Decision Making Medical Decision Makin:37 Initial impression: 76 year old male with new onset shortness of breath insetting of known prostate cancer and poor PO intake. Initial plan: * labs * EKG * IV fluids * XRay chest * bloodwork * reevaluation 22:25 Patient's chest Xray is normal. 22:44 Spoke with Clinton Carroll MD, patient will be admitted to telemetry under Dr. Carroll 's service for Afib and RVR. Scribe Attestation: Documented by Ana Reed, acting as a scribe for Apollo Suero MD. Provider Scribe Attestation: All medical record entries made by the Scribe were at my direction and personally dictated by me. I have reviewed the chart and agree that the record accurately reflects my personal performance of the history, physical exam, medical decision making, and the department course for this patient. I have also personally directed, reviewed, and agree with the discharge instructions and disposition. Disposition - Clinical Impression Clinical Impression: Atrial fibrillation with RVR - Patient ED Disposition Is Patient to be Admitted: Yes Discussed With DrWatson: Clinton Carroll Counseled Patient/Family Regarding: Studies Performed, Diagnosis - Disposition Disposition Time: 22:44 Condition: STABLE - Pt Status Changed To: Hospital Disposition Of: Inpatient - Admit Certification Admit to Inpatient:: After my assessment, the patient will require hospitalization for at least two midnights. This is because of the severity of symptoms shown, intensity of services needed, and/or the medical risk in this patient being treated as an outpatient. - POA Present On Arrival: None
[2017-05-31 20:49] LABS: ABG ALLEN TEST YES; ARTERIAL BLOOD GAS HCO3 21.9 mmol/L (21-28); ARTERIAL BLOOD GAS O2 SAT 100.3 % (95-98); ARTERIAL BLOOD GAS PCO2 29 mm/Hg (35-45); ARTERIAL BLOOD GAS PH 7.43 (7.35-7.45); ARTERIAL BLOOD GAS PO2 159 mm/Hg (80-100); ARTERIAL BLOOD GAS TCO2 20.1 mmol/L (22-28)
[2017-05-31 21:20] LABS: BASO % 0.5 % (0.0-2.0); EOS % 0.3 % (0.0-4.0); HEMOGLOBIN 9.1 g/dL (12.0-18.0); LYMPH # 1.2 K/uL (1.0-4.3); LYMPH % 12.5 % (20.0-40.0); MEAN CELL VOLUME 89.4 fl (80.0-94.0); MEAN CORPUSCULAR HEMOGLOBIN 29.8 pg (27.0-31.0); MEAN CORPUSCULAR HGB CONC 33.3 g/dL (33.0-37.0); MEAN PLATELET VOLUME 6.3 fl (7.2-11.7); MONO # 0.7 K/uL (0.0-0.8); MONO % 6.8 % (0.0-10.0); NEUT # 7.6 K/uL (1.8-7.0); NEUT % 79.9 % (50.0-75.0); NRBC % 0.1 % (0.0-0.0); RBC 3.06 Mil/uL (4.40-5.90); RED CELL DISTRIBUTION WIDTH 15.3 % (11.5-14.5); WHITE BLOOD COUNT 9.6 K/uL (4.8-10.8)
[2017-05-31 21:24] LABS: ALB/GLOB RATIO 1.1 (1.0-2.1); ALBUMIN 3.1 g/dL (3.5-5.0); ALT/SGPT 130 U/L (21-72); AST/SGOT 110 U/L (17-59); BLOOD UREA NITROGEN 21 mg/dl (9-20); CALCIUM 7.5 mg/dL (8.4-10.2); GFR AFRICAN-AMERICAN > 60; GFR NON-AFRICAN AMERICAN > 60
[2017-05-31 21:36] LABS: INR 1.1 (0.9-1.2); PARTIAL THROMBOPLASTIN TIME 32.2 Seconds (25.6-37.1); PROTHROMBIN TIME 12.4 Seconds (9.8-13.1)
[2017-05-31 21:37] LABS: B-TYPE NATRIURETIC PEPTIDE 242 pg/ml (0-900)
[2017-05-31 22:09] LABS: SQUAMOUS EPITHIAL < 1 /hpf (0-5); URINE BILIRUBIN NEGATIVE (NEGATIVE); URINE BLOOD NEGATIVE (NEGATIVE); URINE CLARITY CLEAR (Clear); URINE COLOR YELLOW (YELLOW); URINE GLUCOSE (UA) NEG (Normal); URINE LEUKOCYTE ESTERASE NEG Leu/uL (Negative); URINE NITRATE NEGATIVE (NEGATIVE); URINE PROTEIN NEGATIVE (NEGATIVE); URINE UROBILINOGEN 0.2-1.0 mg/dL (0.2-1.0)
[2017-05-31 22:15] LABS: URINE BACTERIA RARE (<OCC)
[2017-06-01] MEDS: Sodium Chloride 0.9% 1,000 ML IV SCH ×4 (01:30→21:15)
[2017-06-01] MEDS: Morphine 15 mg SR Tab PO SCH ×2 (08:23→18:40)
[2017-06-01 08:27] LABS: ALB/GLOB RATIO 1.1 (1.0-2.1); ALBUMIN 3.2 g/dL (3.5-5.0); ALT/SGPT 131 U/L (21-72); AST/SGOT 105 U/L (17-59); BLOOD UREA NITROGEN 19 mg/dl (9-20); CALCIUM 7.7 mg/dL (8.4-10.2); GFR AFRICAN-AMERICAN > 60; GFR NON-AFRICAN AMERICAN > 60
--- NOTE | 2017-06-01 09:45 | CARD ---
APPROVED REPORT EKG Measurement Heart [id number] <Conclusion> Normal sinus rhythm Normal ECG
--- NOTE | 2017-06-01 13:35 | RAD ---
HISTORY: chest pain COMPARISON: Comparison chest 05/07/2017. Comparison also made with CT scan of the abdomen and pelvis dated 05/06/2017 which imaged both lung bases. FINDINGS: LUNGS: No focal consolidation however there is minor bibasilar atelectasis or scarring. . Previously noted small nodules in the middle lobe and lingular regions too small to visualize on this study. PLEURA: No significant pleural effusion identified, no pneumothorax apparent. CARDIOVASCULAR: Normal. OSSEOUS STRUCTURES: Minor multilevel degenerative spondylosis of the thoracic spine. Mild degenerative osteoarthritis both shoulder girdles. VISUALIZED UPPER ABDOMEN: Normal. OTHER FINDINGS: None. IMPRESSION: No focal consolidation however there is minor bibasilar atelectasis or scarring. . Previously noted small nodules in the middle lobe and lingular regions the too small to visualize on this study
[2017-06-01] MEDS: Simethicone 80 mg Chewtab PO PRN (23:23)
[2017-06-02] MEDS: Morphine 15 mg SR Tab PO SCH ×2 (06:54→18:28)
[2017-06-02] MEDS: Simethicone 80 mg Chewtab PO PRN (18:29)
--- NOTE | 2017-06-02 21:33 | CP.PCM.HP ---
History of Present Illness - History of Present Illness History of Present Illness: 76 years old emir[place] male with h/o metastatic cancer prostate s/p first cycle of chemotherapy . Pt. presented with symptoms of palpitation, sob . Pt. was brought to ER where he was found to have a fib with rvr. Pt. was converted to sinus rhythm. He was admitted to telmetry for further mangement. Past Patient History - Past Medical History & Family History Past Medical History?: Yes - Past Social History Alcohol: None Drugs: Denies - CARDIAC Hx Hypercholesterolemia: Yes - PULMONARY Hx Respiratory Disorders: No - NEUROLOGICAL Hx Neurological Disorder: No - HEENT Hx HEENT Problems: Yes Other/Comment: Uses eye glasses for reading - RENAL Hx Chronic Kidney Disease: No - ENDOCRINE/METABOLIC Hx Endocrine Disorders: No - HEMATOLOGICAL/ONCOLOGICAL Hx Human Immunodeficiency Virus (HIV): No - INTEGUMENTARY Hx Dermatological Problems: No - MUSCULOSKELETAL/RHEUMATOLOGICAL Hx Musculoskeletal Disorders: No Hx Falls: No - GASTROINTESTINAL Hx Gastrointestinal Disorders: No - GENITOURINARY/GYNECOLOGICAL Hx Genitourinary Disorders: Yes (BPH) - PSYCHIATRIC Hx Psychophysiologic Disorder: No Hx Substance Use: No - SURGICAL HISTORY Hx Surgeries: No - ANESTHESIA Hx Anesthesia: No Hx Anesthesia Reactions: No Hx Malignant Hyperthermia: No Meds Allergies/Adverse Reactions: Allergies Allergy/AdvReac Type Severity Reaction Status Date / Time aspirin Allergy PAIN Verified 05/31/17 20:40 Penicillins Allergy NAUSEA Verified 05/06/17 20:30 Physical Exam - Head Exam Head Exam: ATRAUMATIC, NORMOCEPHALIC - Eye Exam Eye Exam: PERRL Pupil Exam: PERRL - ENT Exam ENT Exam: Mucous Membranes Moist - Neck Exam Neck exam: Positive for: Normal Inspection - Respiratory Exam Respiratory Exam: Clear to Auscultation Bilateral, NORMAL BREATHING PATTERN - Cardiovascular Exam Cardiovascular Exam: REGULAR RHYTHM - Rectal Exam Rectal Exam: NORMAL INSPECTION - Extremities Exam Extremities exam: Positive for: full ROM Results - Vital Signs Recent Vital Signs: Last Vital Signs Temp 97.6 F 06/02/17 19:26 Pulse 71 06/02/17 19:26 Resp 20 06/02/17 19:26 BP 111/70 06/02/17 19:26 Pulse Ox 100 06/02/17 19:26 - Labs Result Diagrams: 05/31/17 20:45 06/01/17 06:30 Assessment & Plan - Assessment and Plan (Free Text) Assessment: Afib with RVR Metastatic CA prostate Anemia , multifactorial Back pain with radiculopathy Plan: continue telmetry observation pain mangement Continue current mangement. - Date & Time Date: 06/01/17 Time: 17:30
[2017-06-03] MEDS: Morphine 15 mg SR Tab PO SCH ×2 (06:22→22:18)
--- NOTE | 2017-06-03 10:10 | CP.PCM.CON ---
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 HE DENIES ANY OTHER MEDICAL PROBLEMS IN THE PAST. HE WAS ADMITTED TO [facility] ON 05/31/17 FOR RAPID ATRIAL FIBRILLATION AND HYPOTENSION FOUND BY THE PARAMEDICS BUT IT WENT AWAY AFTER STARTING IV FLUIDS AND BEFORE THE PATIENT ARRIVED IN THE HE STATES THAT HE NEVER HAD ATRIAL FIBRILLATION BEFORE OR ANY KNOWN CARDIAC PROBLEMS SUCH CAD, ME OR CHEST PAIN. HE STATES THAT HE WASN'T EATING OR DRINKING WELL BEFORE THE ADMISSION AND THAT THE RHYTHM STOPPED ONCE HE DIRECTOR DIGITAL IV FLUIDS. Past Patient History - Past Medical History & Family History Past Medical History?: Yes - Past Social History Alcohol: None Drugs: Denies - CARDIAC Hx Hypercholesterolemia: Yes - PULMONARY Hx Respiratory Disorders: No - NEUROLOGICAL Hx Neurological Disorder: No - HEENT Hx HEENT Problems: Yes Other/Comment: Uses eye glasses for reading - RENAL Hx Chronic Kidney Disease: No - ENDOCRINE/METABOLIC Hx Endocrine Disorders: No - HEMATOLOGICAL/ONCOLOGICAL Hx Human Immunodeficiency Virus (HIV): No - INTEGUMENTARY Hx Dermatological Problems: No - MUSCULOSKELETAL/RHEUMATOLOGICAL Hx Musculoskeletal Disorders: No Hx Falls: No - GASTROINTESTINAL Hx Gastrointestinal Disorders: No - GENITOURINARY/GYNECOLOGICAL Hx Genitourinary Disorders: Yes (BPH) - PSYCHIATRIC Hx Psychophysiologic Disorder: No Hx Substance Use: No - SURGICAL HISTORY Hx Surgeries: No - ANESTHESIA Hx Anesthesia: No Hx Anesthesia Reactions: No Hx Malignant Hyperthermia: No Meds Home Medications: Home Medication List Medication Instructions Recorded Confirmed Type Bicalutamide [Casodex] 50 mg PO DAILY tab 06/04/17 Rx Dexamethasone [Decadron] 2 mg PO DAILY tab 06/04/17 Rx Docusate [Colace] 100 mg PO BID cap 06/04/17 Rx Calcium Carbonate/Vitamin D 1 tab PO DAILY #30 tab 06/05/17 Rx [Oscal-D 250 mg-125 Units Tab] Metoprolol Succinate XL [Toprol XL] 25 mg PO BRK #30 tab 06/05/17 Rx Allergies/Adverse Reactions: Allergies Allergy/AdvReac Type Severity Reaction Status Date / Time aspirin Allergy PAIN Verified 06/14/17 18:54 Penicillins Allergy NAUSEA Verified 06/14/17 18:54 - Medications Medications: Current Medications Bicalutamide (Casodex) 50 mg PO DAILY [facility] Last Admin: 06/03/17 09:25 Dose: 50 mg Dexamethasone (Decadron) 2 mg PO DAILY [facility] Last Admin: 06/03/17 09:23 Dose: 2 mg Docusate Sodium (Colace) 100 mg PO BID [facility] Last Admin: 06/03/17 09:22 Dose: 100 mg Famotidine (Pepcid) 20 mg PO DAILY@0700 [facility] Last Admin: 06/03/17 06:13 Dose: 20 mg Gabapentin (Neurontin) 100 mg PO Q12@0700,1900 [facility] Last Admin: 06/03/17 06:13 Dose: 100 mg Heparin Sodium (Porcine) (Heparin) 5,000 units SC Q12 [facility] PRN Reason: Protocol Last Admin: 06/03/17 09:22 Dose: 5,000 units Lactulose (Enulose) 20 gm PO Q4 [facility] Last Admin: 06/03/17 09:29 Dose: Not Given Morphine Sulfate (Morphine Extended Release Tab) 15 mg PO Q12@0700,1900 [facility] Last Admin: 06/03/17 06:22 Dose: Not Given Simethicone (Mylicon Chew Tab) 80 mg PO TID PRN PRN Reason: Flatulence Last Admin: 06/02/17 18:29 Dose: 80 mg Tamsulosin HCl (Flomax) 0.4 mg PO DAILY [facility] Last Admin: 06/03/17 09:23 Dose: 0.4 mg Tramadol HCl (Ultram) 50 mg PO Q6 PRN PRN Reason: Pain, moderate (4-7) Physical Exam - Respiratory Exam Respiratory Exam: Clear to Auscultation Bilateral - Cardiovascular Exam Cardiovascular Exam: REGULAR RHYTHM, +S1, +S2, Systolic Murmur - Extremities Exam Extremities exam: Positive for: normal inspection - Additional Findings Additional findings: EKG IN ER 05/31/17 AND EKG 06/03/17 SHOW SINUS RHYTHM K+ 4.7 LFT VERY ELEVATED Results - Vital Signs Recent Vital Signs: Last Vital Signs Temp 98 F 06/03/17 08:37 Pulse 69 06/03/17 08:37 Resp 18 06/03/17 08:37 BP 96/62 L 06/03/17 08:37 Pulse Ox 100 06/03/17 08:37 - Labs Result Diagrams: 06/05/17 10:45 07/12/17 10:45 Assessment & Plan - Assessment and Plan (Free Text) Assessment: S/P ATRIAL FIBRILLATION-NOW IN NSR. POSSIBLY THE DEHYDRATION AND ANEMIA CONTRIBUTED TO THE TACHYCARDIA. CARDIOMYOPATHY FROM CHEMOTHERAPY? AORTIC STENOSIS? PROSTATE CANCER WITH LIVER METASTASIS AND ELEVATED LIVER FUNCTION TESTS Plan: THE PATIENT REMAINS IN NSR SINCE IV FLUIDS WERE STARTED I DO NOT WANT TO GIVE DIGITALIS OR AMIODARONE DUE TO THE LIVER METASTASIS WITH ELEVATED LFT TO AVOID TOXICITY. I DON'T WANT TO GIVE BETA BLOCKERS DUE TO HIS LOWER BLOOD PRESSURE READINGS. THE PATIENT AGREES TO THIS. OBSERVE PATIENT ANY KEEP WELL HYDRATED ECHOCARDIOGRAM TO ASSESS LV FUNCTION, LA SIZE AND VALVES
--- NOTE | 2017-06-03 10:10 | CP.PCM.CON ---
History of Present Illness - History of Present Illness History of Present Illness: This is a 76 yrs old male who was diagnosed to have a prostate cancer 2 yrs ago. He triedalternative therapy but it did not work. He had bone metastasis to begin with, and over the last 2 yrs he has developed liver and lung metastasis as well. He had a very poor appetite, but after the first treatment he did well. He was ambulating well, and his appetite was improved. he was asked to drink plenty if water. But at home he did not do it and had weakness and shortness of breath. He was brought to the ER where he was hypotensive and was found to be in Afib with RVR. He was admitted to the telemetry unit ,. He has been fine after he got the iv fluids.he is due for his chemo therapy , lupron and zometa today. He was started on casodex 3 weeks ago., and his pain ws almost gone. Past Patient History - Past Medical History & Family History Past Medical History?: Yes - Past Social History Alcohol: None Drugs: Denies - CARDIAC Hx Hypercholesterolemia: Yes - PULMONARY Hx Respiratory Disorders: No - NEUROLOGICAL Hx Neurological Disorder: No - HEENT Hx HEENT Problems: Yes Other/Comment: Uses eye glasses for reading - RENAL Hx Chronic Kidney Disease: No - ENDOCRINE/METABOLIC Hx Endocrine Disorders: No - HEMATOLOGICAL/ONCOLOGICAL Hx Human Immunodeficiency Virus (HIV): No - INTEGUMENTARY Hx Dermatological Problems: No - MUSCULOSKELETAL/RHEUMATOLOGICAL Hx Musculoskeletal Disorders: No Hx Falls: No - GASTROINTESTINAL Hx Gastrointestinal Disorders: No - GENITOURINARY/GYNECOLOGICAL Hx Genitourinary Disorders: Yes (BPH) - PSYCHIATRIC Hx Psychophysiologic Disorder: No Hx Substance Use: No - SURGICAL HISTORY Hx Surgeries: No - ANESTHESIA Hx Anesthesia: No Hx Anesthesia Reactions: No Hx Malignant Hyperthermia: No Meds Allergies/Adverse Reactions: Allergies Allergy/AdvReac Type Severity Reaction Status Date / Time aspirin Allergy PAIN Verified 05/31/17 20:40 Penicillins Allergy NAUSEA Verified 05/06/17 20:30 - Medications Medications: Current Medications Bicalutamide (Casodex) 50 mg PO DAILY [facility] Last Admin: 06/03/17 09:25 Dose: 50 mg Dexamethasone (Decadron) 2 mg PO DAILY [facility] Last Admin: 06/03/17 09:23 Dose: 2 mg Docusate Sodium (Colace) 100 mg PO BID [facility] Last Admin: 06/03/17 09:22 Dose: 100 mg Famotidine (Pepcid) 20 mg PO DAILY@0700 [facility] Last Admin: 06/03/17 06:13 Dose: 20 mg Gabapentin (Neurontin) 100 mg PO Q12@0700,1900 [facility] Last Admin: 06/03/17 06:13 Dose: 100 mg Heparin Sodium (Porcine) (Heparin) 5,000 units SC Q12 [facility] PRN Reason: Protocol Last Admin: 06/03/17 09:22 Dose: 5,000 units Lactulose (Enulose) 20 gm PO Q4 [facility] Last Admin: 06/03/17 09:29 Dose: Not Given Morphine Sulfate (Morphine Extended Release Tab) 15 mg PO Q12@0700,1900 [facility] Last Admin: 06/03/17 06:22 Dose: Not Given Simethicone (Mylicon Chew Tab) 80 mg PO TID PRN PRN Reason: Flatulence Last Admin: 06/02/17 18:29 Dose: 80 mg Tamsulosin HCl (Flomax) 0.4 mg PO DAILY [facility] Last Admin: 06/03/17 09:23 Dose: 0.4 mg Tramadol HCl (Ultram) 50 mg PO Q6 PRN PRN Reason: Pain, moderate (4-7) Physical Exam - Additional Findings Additional findings: Pgysical exam; Alert, well oriented in no acute distress, very cachectic neck; Supple , no adenopathy Chest' Clear, no rales or rhonchi Heart; RSR, no murmur Abd' soft, no mass, no h/s megaly Results - Vital Signs Recent Vital Signs: Last Vital Signs Temp 98 F 06/03/17 08:37 Pulse 69 06/03/17 08:37 Resp 18 06/03/17 08:37 BP 96/62 L 06/03/17 08:37 Pulse Ox 100 06/03/17 08:37 - Labs Result Diagrams: 05/31/17 20:45 06/01/17 06:30 Assessment & Plan - Assessment and Plan (Free Text) Assessment: IMpression; Prostate with diffuse metastasis to bones and liver. Dehydration and A Fib. - Date & Time Date: 06/03/17 Time: :
--- NOTE | 2017-06-03 10:25 | PQF GENQUE ---
Dr. Carroll, In agreement with the BMI: 15.3 listed in the EMR?: if in agreement : (1) please include the BMI in your next progress note (2) please document any corresponding diagnosis: etiology of OR:Disagree OR:Other explantion of clinical finding ER MD:(cachectic with bitemporal wasting) H and P:h/o metastatic cancer prostate s/p first cycle of chemotherapy . Assessment: Afib with RVR ,Metastatic CA prostate, Anemia,multifactorial ,Back pain with radiculopathy This form is a permanent part of the medical record Clarification of your documentation is requested to better reflect the severity of illness and intensity of treatment of your patient. Indicators present [] Specify: [] [] Specify: [] [] Specify: [] [] Specify: [] Location in the medical record that reflects the above clinical findings: [] Treatment Provided: [] PHYSICIAN'S RESPONSE Based on your medical judgment of the clinical indicators outlined above please clarify the following: [] Practitioner response [] If unable to determine, please check the box, sign and date. Present On Admission (POA) Indicator: [] Present at the time of admission [] Not present at the time of admission [] Clinically Undetermined In responding to this query, please exercise your independent professional judgment. The fact that a question is asked does not imply that any particular answer is desired or expected. Thank you for your clarification on this documentation. If you have any questions please call. * Thank you, Jamilah Win RN BSN ext. #[phone] (ext. [phone] temporarily out of service) CECILIA
--- NOTE | 2017-06-03 10:29 | PQF GENQUE ---
Dr. Carroll, Please clarify the type of atrial fibrillation:if known >> Chronic >> Paroxysmal >> Permanent >> Persistent >> Other (please specify type) OR:Clinically unable to determine OR:Unknown This form is a permanent part of the medical record Clarification of your documentation is requested to better reflect the severity of illness and intensity of treatment of your patient. Indicators present [] Specify: [] [] Specify: [] [] Specify: [] [] Specify: [] Location in the medical record that reflects the above clinical findings: [] Treatment Provided: [] PHYSICIAN'S RESPONSE Based on your medical judgment of the clinical indicators outlined above please clarify the following: [] Practitioner response [] If unable to determine, please check the box, sign and date. Present On Admission (POA) Indicator: [] Present at the time of admission [] Not present at the time of admission [] Clinically Undetermined In responding to this query, please exercise your independent professional judgment. The fact that a question is asked does not imply that any particular answer is desired or expected. Thank you for your clarification on this documentation. If you have any questions please call. * Thank you, Jamilah Win RN BSN ext. #[phone] (ext. [phone] temporarily out of service) CECILIA
[2017-06-03] MEDS ORDERED: Dexamethasone 10 MG in Sodium Chloride 0.9% 50 ML IVPB ONE (11:30)
[2017-06-03] MEDS ORDERED: SODIUM CHLORIDE 0.9% IV ONE ×2 (12:30→14:00)
[2017-06-03] MEDS ORDERED: DOCETAXEL IV ONE ×2 (12:30→14:00)
[2017-06-03] MEDS ORDERED: Zoledronic Acid 3 MG in Sodium Chloride 0.9% 100 ML IVPB ONE (13:00)
[2017-06-03] MEDS ORDERED: [UNRECOGNIZED DRUG - OTHER] IM ONE (13:00)
--- NOTE | 2017-06-04 07:24 | CARD ---
APPROVED REPORT EXAM: Two-dimensional and M-mode echocardiogram with Doppler and color Doppler. Other Information Quality : GoodRhythm : NSR INDICATION Atrial Fibrillation 2D DIMENSIONS IVSd1.06 (0.7-1.1cm)LVDd4.14 (3.9-5.9cm) LVOT Diameter1.76 (1.8-2.4cm)PWd0.89 (0.7-1.1cm) IVSs1.71 (0.8-1.2cm)LVDs2.01 (2.5-4.0cm) FS (%) 51.6 %PWs1.36 (0.8-1.2cm) M-Mode DIMENSIONS Left Atrium (MM)3.25 (2.5-4.0cm)IVSd1.08 (0.7-1.1cm) Aortic Root3.17 (2.2-3.7cm)LVDd5.60 (4.0-5.6cm) Aortic Cusp Exc.1.19 (1.5-2.0cm)PWd0.77 (0.7-1.1cm) IVSs1.38 cmFS (%) 53 % LVDs2.65 (2.0-3.8cm)PWs2.10 cm Aortic Valve AoV Peak Xwzuzysu460.4cm/Ben Peak GR.42mmHgLVOT Peak Birfexta634.8cm/s LVOT VTI25.69cmAVA (VMAX)0.57cm2 Mitral Valve E/A ratio0.0 TDI E/Lateral E'0.0E/Medial E'0.0 Pulmonary Valve PV Peak Apggjnol684.3cm/s Tricuspid Valve TR Peak Faylnnru188kl/sRAP [id number] Peak Gr.20mmHg UGZZ12kjAd LEFT VENTRICLE The left ventricle is normal size. There is normal left ventricular wall thickness. Left ventricle systolic function is normal. The Ejection Fraction is 65-70%. There is normal LV segmental wall motion. Transmitral Doppler flow pattern is Grade I-abnormal relaxation pattern. RIGHT VENTRICLE The right ventricle is normal size. The right ventricular systolic function is normal. ATRIA The left atrium size is normal. The right atrium size is normal. AORTIC VALVE The aortic valve is moderately to severely sclerotic. No aortic regurgitation is present. There is severe valvular aortic stenosis. Calculated aortic valve area is 0.7 cm2 with maximum pressure gradient of 63 mmHg MITRAL VALVE Mitral annular calcification is mild. There is no evidence of mitral valve prolapse. There is no mitral valve stenosis. There is no mitral valve regurgitation noted. TRICUSPID VALVE The tricuspid valve is normal in structure. There is mild tricuspid regurgitation. Right ventricular systolic pressure is estimated at 30 mmHg. There is no pulmonary hypertension. PULMONIC VALVE The pulmonary valve is normal in structure. There is trace to mild pulmonic valvular regurgitation. GREAT VESSELS The aortic root is normal in size. The IVC was not visualized. PERICARDIAL EFFUSION The pericardium appears normal. <Conclusion> The left ventricle is normal size. There is normal left ventricular wall thickness. There is normal LV segmental wall motion. Left ventricle systolic function is normal. The Ejection Fraction is 65-70%. Transmitral Doppler flow pattern is Grade I-abnormal relaxation pattern. The aortic valve is moderately to severely sclerotic. There is severe valvular aortic stenosis. Calculated aortic valve area is 0.7 cm2 with maximum pressure gradient of 63 mmHg
--- NOTE | 2017-06-04 08:27 | CARD ---
APPROVED REPORT EKG Measurement Heart [id number] <Conclusion> Normal sinus rhythm Normal ECG
[2017-06-04 08:28] VITALS: RESP 18
[2017-06-04] MEDS: Morphine 15 mg SR Tab PO SCH ×3 (09:22→21:00)
--- NOTE | 2017-06-04 11:12 | CP.PCM.PN ---
Subjective - Date & Time of Evaluation Date of Evaluation: 06/04/17 Time of Evaluation: 09:00 - Subjective Subjective: NO CHEST PAIN, PALPITATIONS OR SOB Objective - Vital Signs/Intake and Output Vital Signs (last 24 hours): Temp Pulse Resp BP Pulse Ox 97.9 F 73 18 111/70 100 06/04/17 08:28 06/04/17 09:00 06/04/17 08:28 06/04/17 08:28 06/04/17 08:28 Intake and Output: 06/04/17 06/04/17 06:59 18:59 Output Total 200 Balance -200 - Medications Medications: Current Medications Bicalutamide (Casodex) 50 mg PO DAILY [facility] Last Admin: 06/04/17 09:21 Dose: 50 mg Dexamethasone (Decadron) 2 mg PO DAILY [facility] Last Admin: 06/04/17 09:22 Dose: 2 mg Docusate Sodium (Colace) 100 mg PO BID [facility] Last Admin: 06/04/17 09:21 Dose: 100 mg Famotidine (Pepcid) 20 mg PO DAILY@0700 [facility] Last Admin: 06/04/17 09:23 Dose: 20 mg Gabapentin (Neurontin) 100 mg PO Q12@0700,1900 [facility] Last Admin: 06/04/17 09:23 Dose: 100 mg Heparin Sodium (Porcine) (Heparin) 5,000 units SC Q12 [facility] PRN Reason: Protocol Last Admin: 06/04/17 09:23 Dose: 5,000 units Lactulose (Enulose) 20 gm PO Q4 [facility] Last Admin: 06/04/17 09:22 Dose: Not Given Morphine Sulfate (Morphine Extended Release Tab) 15 mg PO Q12@0700,1900 [facility] Last Admin: 06/04/17 09:31 Dose: 15 mg Simethicone (Mylicon Chew Tab) 80 mg PO TID PRN PRN Reason: Flatulence Last Admin: 06/02/17 18:29 Dose: 80 mg Tamsulosin HCl (Flomax) 0.4 mg PO DAILY [facility] Last Admin: 06/04/17 09:22 Dose: 0.4 mg Tramadol HCl (Ultram) 50 mg PO Q6 PRN PRN Reason: Pain, moderate (4-7) - Labs Labs: 05/31/17 20:45 06/01/17 06:30 PT 12.4 Seconds (9.8-13.1) 05/31/17 20:45 INR 1.1 (0.9-1.2) 05/31/17 20:45 APTT 32.2 Seconds (25.6-37.1) 05/31/17 20:45 - Respiratory Exam Respiratory Exam: Clear to Ausculation Bilateral - Cardiovascular Exam Cardiovascular Exam: REGULAR RHYTHM, +S1, +S2 - Extremities Exam Extremities Exam: Normal Inspection - Additional Findings Additional findings: PR[employer]ECTIVE [employer]ICE [employer]IST NSR ECHO WITH GOOD LV FUNCTION, NORMAL LA SIZE, SEVERE AORTIC VALVE STENOSIS Assessment and Plan - Assessment and Plan (Free Text) Assessment: S/P ATRIAL FIBRILLATION-NOW IN NSR SEVERE AORTIC VALVE STENOSIS METASTATIC PROSTATE CANCER Plan: THE PATIENT WAS TOLD ABOUT THE SEVERE AORTIC VALVE STENOSIS BUT STATED THAT HE DOESN'T WANT AN AORTIC VALVE REPLACEMENT IF HIS LIFE EXPECTANCY IS SHORT DUE TO HIS METASTATIC PROSTATE CANCER, BUT WOULD CONSIDER IT IF HIS LIFE EXPECTANCY WOULD BE LONG IN YEARS I SPOKE TO DR Mahamed BOO WHO STATED THAT SHE CAN BETTER ESTIMATE HIS LIFE EXPECTANCY IN ABOUT A MONTH AFTER SHE SEES HIS RESPONSE TO CHEMOTHERAPY-SHE WILL TALK TO HIM
--- NOTE | 2017-06-04 12:04 | CP.PCM.PN ---
Subjective - Date & Time of Evaluation Date of Evaluation: 06/04/17 Time of Evaluation: 12:00 - Subjective Subjective: Pt has no nausea or vomiting after the chemo given yesterday, CBC is WNL. He will return to infusion center for the next dose of chemotherapy.on [id number] for the next course of chemotherapy Objective - Vital Signs/Intake and Output Vital Signs (last 24 hours): Temp Pulse Resp BP Pulse Ox 97.9 F 73 18 111/70 100 06/04/17 08:28 06/04/17 09:00 06/04/17 08:28 06/04/17 08:28 06/04/17 08:28 Intake and Output: 06/04/17 06/04/17 06:59 18:59 Output Total 200 Balance -200 - Medications Medications: Current Medications Bicalutamide (Casodex) 50 mg PO DAILY [facility] Last Admin: 06/04/17 09:21 Dose: 50 mg Dexamethasone (Decadron) 2 mg PO DAILY [facility] Last Admin: 06/04/17 09:22 Dose: 2 mg Docusate Sodium (Colace) 100 mg PO BID [facility] Last Admin: 06/04/17 09:21 Dose: 100 mg Famotidine (Pepcid) 20 mg PO DAILY@0700 [facility] Last Admin: 06/04/17 09:23 Dose: 20 mg Gabapentin (Neurontin) 100 mg PO Q12@0700,1900 [facility] Last Admin: 06/04/17 09:23 Dose: 100 mg Heparin Sodium (Porcine) (Heparin) 5,000 units SC Q12 [facility] PRN Reason: Protocol Last Admin: 06/04/17 09:23 Dose: 5,000 units Lactulose (Enulose) 20 gm PO Q4 [facility] Last Admin: 06/04/17 09:22 Dose: Not Given Morphine Sulfate (Morphine Extended Release Tab) 15 mg PO Q12@0700,1900 [facility] Last Admin: 06/04/17 09:31 Dose: 15 mg Simethicone (Mylicon Chew Tab) 80 mg PO TID PRN PRN Reason: Flatulence Last Admin: 06/02/17 18:29 Dose: 80 mg Tamsulosin HCl (Flomax) 0.4 mg PO DAILY [facility] Last Admin: 06/04/17 09:22 Dose: 0.4 mg Tramadol HCl (Ultram) 50 mg PO Q6 PRN PRN Reason: Pain, moderate (4-7) - Labs Labs: 05/31/17 20:45 06/01/17 06:30 PT 12.4 Seconds (9.8-13.1) 05/31/17 20:45 INR 1.1 (0.9-1.2) 05/31/17 20:45 APTT 32.2 Seconds (25.6-37.1) 05/31/17 20:45
--- NOTE | 2017-06-04 12:44 | CP.PCM.PN ---
Subjective - Date & Time of Evaluation Date of Evaluation: 06/03/17 Time of Evaluation: 11:00 - Subjective Subjective: Pt. is for chemotherapy.today Objective - Vital Signs/Intake and Output Vital Signs (last 24 hours): Temp Pulse Resp BP Pulse Ox 97.7 F 92 H 18 101/64 97 06/04/17 12:05 06/04/17 12:05 06/04/17 12:05 06/04/17 12:05 06/04/17 12:05 Intake and Output: 06/04/17 06/04/17 06:59 18:59 Output Total 200 Balance -200 - Medications Medications: Current Medications Bicalutamide (Casodex) 50 mg PO DAILY [facility] Last Admin: 06/04/17 09:21 Dose: 50 mg Dexamethasone (Decadron) 2 mg PO DAILY [facility] Last Admin: 06/04/17 09:22 Dose: 2 mg Docusate Sodium (Colace) 100 mg PO BID [facility] Last Admin: 06/04/17 09:21 Dose: 100 mg Famotidine (Pepcid) 20 mg PO DAILY@0700 [facility] Last Admin: 06/04/17 09:23 Dose: 20 mg Gabapentin (Neurontin) 100 mg PO Q12@0700,1900 [facility] Last Admin: 06/04/17 09:23 Dose: 100 mg Heparin Sodium (Porcine) (Heparin) 5,000 units SC Q12 [facility] PRN Reason: Protocol Last Admin: 06/04/17 09:23 Dose: 5,000 units Lactulose (Enulose) 20 gm PO Q4 [facility] Last Admin: 06/04/17 09:22 Dose: Not Given Morphine Sulfate (Morphine Extended Release Tab) 15 mg PO Q12@0700,1900 [facility] Last Admin: 06/04/17 09:31 Dose: 15 mg Simethicone (Mylicon Chew Tab) 80 mg PO TID PRN PRN Reason: Flatulence Last Admin: 06/02/17 18:29 Dose: 80 mg Tamsulosin HCl (Flomax) 0.4 mg PO DAILY [facility] Last Admin: 06/04/17 09:22 Dose: 0.4 mg Tramadol HCl (Ultram) 50 mg PO Q6 PRN PRN Reason: Pain, moderate (4-7) - Labs Labs: 05/31/17 20:45 06/01/17 06:30 PT 12.4 Seconds (9.8-13.1) 05/31/17 20:45 INR 1.1 (0.9-1.2) 05/31/17 20:45 APTT 32.2 Seconds (25.6-37.1) 05/31/17 20:45 - Head Exam Head Exam: ATRAUMATIC, NORMOCEPHALIC - Eye Exam Eye Exam: PERRL Pupil Exam: PERRL - ENT Exam ENT Exam: Mucous Membranes Moist - Neck Exam Neck Exam: Full ROM - Respiratory Exam Respiratory Exam: Clear to Ausculation Bilateral, NORMAL BREATHING PATTERN - Cardiovascular Exam Cardiovascular Exam: REGULAR RHYTHM - GI/Abdominal Exam GI & Abdominal Exam: Soft, Normal Bowel Sounds - Extremities Exam Extremities Exam: Full ROM - Neurological Exam Neurological Exam: Alert, Awake, Oriented x3 Assessment and Plan - Assessment and Plan (Free Text) Assessment: Assessment and Plan - Assessment and Plan (Free Text) Assessment: S/P ATRIAL FIBRILLATION-NOW IN NSR SEVERE AORTIC VALVE STENOSIS METASTATIC PROSTATE CANCER Plan: Follow cardiology recommendations . Continue current pain mangement.
--- NOTE | 2017-06-04 22:08 | CP.PCM.PN ---
Subjective - Date & Time of Evaluation Date of Evaluation: 06/04/17 Time of Evaluation: 11:15 - Subjective Subjective: Feels genaralized weakness , s/p chemotherapy yesterday. Objective - Vital Signs/Intake and Output Vital Signs (last 24 hours): Temp Pulse Resp BP Pulse Ox 98.1 F 82 18 91/53 L 100 06/04/17 19:35 06/04/17 20:44 06/04/17 19:35 06/04/17 20:44 06/04/17 19:35 - Medications Medications: Current Medications Bicalutamide (Casodex) 50 mg PO DAILY [facility] Last Admin: 06/04/17 09:21 Dose: 50 mg Dexamethasone (Decadron) 2 mg PO DAILY [facility] Last Admin: 06/04/17 09:22 Dose: 2 mg Docusate Sodium (Colace) 100 mg PO BID [facility] Last Admin: 06/04/17 17:36 Dose: 100 mg Famotidine (Pepcid) 20 mg PO DAILY@0700 [facility] Last Admin: 06/04/17 09:23 Dose: 20 mg Gabapentin (Neurontin) 100 mg PO Q12@0700,1900 [facility] Last Admin: 06/04/17 21:00 Dose: 100 mg Heparin Sodium (Porcine) (Heparin) 5,000 units SC Q12 [facility] PRN Reason: Protocol Last Admin: 06/04/17 21:01 Dose: 5,000 units Lactulose (Enulose) 20 gm PO Q4 [facility] Last Admin: 06/04/17 20:55 Dose: Not Given Metoprolol Tartrate (Lopressor) 25 mg PO Q12 [facility] Last Admin: 06/04/17 20:44 Dose: Not Given Morphine Sulfate (Morphine Extended Release Tab) 15 mg PO Q12@0700,1900 [facility] Last Admin: 06/04/17 21:00 Dose: 15 mg Simethicone (Mylicon Chew Tab) 80 mg PO TID PRN PRN Reason: Flatulence Last Admin: 06/02/17 18:29 Dose: 80 mg Tamsulosin HCl (Flomax) 0.4 mg PO DAILY [facility] Last Admin: 06/04/17 09:22 Dose: 0.4 mg Tramadol HCl (Ultram) 50 mg PO Q6 PRN PRN Reason: Pain, moderate (4-7) - Labs Labs: 05/31/17 20:45 06/01/17 06:30 PT 12.4 Seconds (9.8-13.1) 05/31/17 20:45 INR 1.1 (0.9-1.2) 05/31/17 20:45 APTT 32.2 Seconds (25.6-37.1) 05/31/17 20:45 - Head Exam Head Exam: ATRAUMATIC, NORMOCEPHALIC - Eye Exam Eye Exam: Normal appearance, PERRL Pupil Exam: PERRL - ENT Exam ENT Exam: Mucous Membranes Moist, Normal Exam - Neck Exam Neck Exam: Full ROM - Respiratory Exam Respiratory Exam: Clear to Ausculation Bilateral, NORMAL BREATHING PATTERN - Cardiovascular Exam Cardiovascular Exam: REGULAR RHYTHM - GI/Abdominal Exam GI & Abdominal Exam: Soft, Normal Bowel Sounds - Extremities Exam Extremities Exam: Full ROM - Back Exam Back Exam: NORMAL INSPECTION - Neurological Exam Neurological Exam: Alert, Awake Assessment and Plan - Assessment and Plan (Free Text) Assessment: S/P ATRIAL FIBRILLATION-NOW IN NSR SEVERE AORTIC VALVE STENOSIS METASTATIC PROSTAT CANCER Plan: Continue current medications. , PT , YE evaluation.
[2017-06-05 07:52] VITALS: O2SAT 100
[2017-06-05] MEDS ORDERED: Calcium-Vit D 250 mg-125 Units Tab UD PO SCH (09:00)
[2017-06-05] MEDS: Morphine 15 mg SR Tab PO SCH (09:07)
--- NOTE | 2017-06-05 10:35 | CP.PCM.PN ---
Subjective - Date & Time of Evaluation Date of Evaluation: 06/05/17 Time of Evaluation: 08:30 - Subjective Subjective: NO CHEST PAIN, SOB OR PALPITATIONS Objective - Vital Signs/Intake and Output Vital Signs (last 24 hours): Temp Pulse Resp BP Pulse Ox 97.8 F 80 18 96/63 L 100 06/05/17 07:51 06/05/17 09:01 06/05/17 07:51 06/05/17 09:01 06/05/17 07:51 Intake and Output: 06/05/17 06/05/17 06:59 18:59 Output Total 200 Balance -200 - Medications Medications: Current Medications Bicalutamide (Casodex) 50 mg PO DAILY [facility] Last Admin: 06/05/17 09:02 Dose: 50 mg Calcium/Vitamin D (Oscal-D 250 Mg-125 Units Tab) 1 tab PO DAILY [facility] Last Admin: 06/05/17 09:23 Dose: 1 tab Dexamethasone (Decadron) 2 mg PO DAILY [facility] Last Admin: 06/05/17 09:01 Dose: 2 mg Docusate Sodium (Colace) 100 mg PO BID [facility] Last Admin: 06/05/17 09:02 Dose: 100 mg Famotidine (Pepcid) 20 mg PO DAILY@0700 [facility] Last Admin: 06/05/17 09:00 Dose: 20 mg Gabapentin (Neurontin) 100 mg PO Q12@0700,1900 [facility] Last Admin: 06/05/17 09:03 Dose: 100 mg Heparin Sodium (Porcine) (Heparin) 5,000 units SC Q12 [facility] PRN Reason: Protocol Last Admin: 06/05/17 09:03 Dose: 5,000 units Lactulose (Enulose) 20 gm PO Q4 [facility] Last Admin: 06/05/17 09:08 Dose: Not Given Metoprolol Tartrate (Lopressor) 25 mg PO Q12 [facility] Last Admin: 06/05/17 09:01 Dose: Not Given Morphine Sulfate (Morphine Extended Release Tab) 15 mg PO Q12@0700,1900 [facility] Last Admin: 06/05/17 09:07 Dose: 15 mg Simethicone (Mylicon Chew Tab) 80 mg PO TID PRN PRN Reason: Flatulence Last Admin: 06/02/17 18:29 Dose: 80 mg Tamsulosin HCl (Flomax) 0.4 mg PO DAILY [facility] Last Admin: 06/05/17 09:02 Dose: 0.4 mg Tramadol HCl (Ultram) 50 mg PO Q6 PRN PRN Reason: Pain, moderate (4-7) - Labs Labs: 05/31/17 20:45 06/01/17 06:30 PT 12.4 Seconds (9.8-13.1) 05/31/17 20:45 INR 1.1 (0.9-1.2) 05/31/17 20:45 APTT 32.2 Seconds (25.6-37.1) 05/31/17 20:45 - Respiratory Exam Respiratory Exam: Clear to Ausculation Bilateral - Cardiovascular Exam Cardiovascular Exam: REGULAR RHYTHM, +S1, +S2 - Extremities Exam Extremities Exam: Normal Inspection - Additional Findings 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 NSR Assessment and Plan - Assessment and Plan (Free Text) Assessment: METASTATIC LIVER DISEASE S/P ATRIAL FIBRILLATION-REMAINS IN SINUS RHYTHM SEVERE Plan: THE PATIENT WILL DEFER DECISION ON AORTIC VALVE REPLACEMENT DEPENDING ON HIS PROSTATE CA PROGNOSIS IN ONE MONTH WE CAN CONSIDER TAVR INSTEAD OF TRADITIONAL OHS FOR THE AVR IF HE DECIDES TO PROCEED WITH IT IN LIGHT OF HIS PROSTATE CA WILL GIVE ASA 81 MGS DAILY AGAIN MEDICATIONS SUCH DIGOXIN, AMIODARONE AND PROPAFENONE NOT GIVEN FOR ATRIAL FIBRILLATION DUE TO ELEVATED LIVER FUNCTION TESTS TO AVOID TOXICITY HE SPONTANEOUSLY CONVERTED TO SINUS RHYTHM AND REMAINS IN SINUS RHYTHM
--- NOTE | 2017-06-05 10:54 | CP.PCM.PN ---
Subjective - Date & Time of Evaluation Date of Evaluation: 06/05/17 Time of Evaluation: 10:53 - Subjective Subjective: Pt is doing well with a good appetite and no pain. Will do a cbc and cmp prior to his discharge later today. Objective - Vital Signs/Intake and Output Vital Signs (last 24 hours): Temp Pulse Resp BP Pulse Ox 97.8 F 80 18 96/63 L 100 06/05/17 07:51 06/05/17 09:01 06/05/17 07:51 06/05/17 09:01 06/05/17 07:51 Intake and Output: 06/05/17 06/05/17 06:59 18:59 Output Total 200 Balance -200 - Medications Medications: Current Medications Bicalutamide (Casodex) 50 mg PO DAILY [facility] Last Admin: 06/05/17 09:02 Dose: 50 mg Calcium/Vitamin D (Oscal-D 250 Mg-125 Units Tab) 1 tab PO DAILY [facility] Last Admin: 06/05/17 09:23 Dose: 1 tab Dexamethasone (Decadron) 2 mg PO DAILY [facility] Last Admin: 06/05/17 09:01 Dose: 2 mg Docusate Sodium (Colace) 100 mg PO BID [facility] Last Admin: 06/05/17 09:02 Dose: 100 mg Famotidine (Pepcid) 20 mg PO DAILY@0700 [facility] Last Admin: 06/05/17 09:00 Dose: 20 mg Gabapentin (Neurontin) 100 mg PO Q12@0700,1900 [facility] Last Admin: 06/05/17 09:03 Dose: 100 mg Heparin Sodium (Porcine) (Heparin) 5,000 units SC Q12 [facility] PRN Reason: Protocol Last Admin: 06/05/17 09:03 Dose: 5,000 units Lactulose (Enulose) 20 gm PO Q4 [facility] Last Admin: 06/05/17 09:08 Dose: Not Given Metoprolol Tartrate (Lopressor) 25 mg PO Q12 [facility] Last Admin: 06/05/17 09:01 Dose: Not Given Morphine Sulfate (Morphine Extended Release Tab) 15 mg PO Q12@0700,1900 [facility] Last Admin: 06/05/17 09:07 Dose: 15 mg Simethicone (Mylicon Chew Tab) 80 mg PO TID PRN PRN Reason: Flatulence Last Admin: 06/02/17 18:29 Dose: 80 mg Tamsulosin HCl (Flomax) 0.4 mg PO DAILY [facility] Last Admin: 06/05/17 09:02 Dose: 0.4 mg Tramadol HCl (Ultram) 50 mg PO Q6 PRN PRN Reason: Pain, moderate (4-7) - Labs Labs: 05/31/17 20:45 06/01/17 06:30 PT 12.4 Seconds (9.8-13.1) 05/31/17 20:45 INR 1.1 (0.9-1.2) 05/31/17 20:45 APTT 32.2 Seconds (25.6-37.1) 05/31/17 20:45
[2017-06-05 11:12] LABS: BASO % 0.7 % (0.0-2.0); EOS # 0.1 K/uL (0.0-0.7); EOS % 0.9 % (0.0-4.0); LYMPH # 0.8 K/uL (1.0-4.3); LYMPH % 13.1 % (20.0-40.0); MEAN CELL VOLUME 89.3 fl (80.0-94.0); MEAN CORPUSCULAR HEMOGLOBIN 29.8 pg (27.0-31.0); MEAN CORPUSCULAR HGB CONC 33.3 g/dL (33.0-37.0); MEAN PLATELET VOLUME 6.3 fl (7.2-11.7); MONO # 0.3 K/uL (0.0-0.8); MONO % 4.1 % (0.0-10.0); NEUT % 81.2 % (50.0-75.0); RBC 3.01 Mil/uL (4.40-5.90); RED CELL DISTRIBUTION WIDTH 15.4 % (11.5-14.5); WHITE BLOOD COUNT 6.2 K/uL (4.8-10.8)
[2017-06-05 11:38] LABS: ALB/GLOB RATIO 1.2 (1.0-2.1); ALBUMIN 3.4 g/dL (3.5-5.0); ALT/SGPT 76 U/L (21-72); AST/SGOT 58 U/L (17-59); BLOOD UREA NITROGEN 27 mg/dl (9-20); CALCIUM 7.4 mg/dL (8.4-10.2); GFR AFRICAN-AMERICAN > 60; GFR NON-AFRICAN AMERICAN > 60
[2017-06-05 11:55] VITALS: BP 105/64; PULSE 87; TEMP 97.9
== END 2017-06-05 13:51 | disposition home or self-care (01) | DRG 309 ==
LOC: H.ER 19:25 → H.ERHOLD 20:03 → H.TEL 23:09
PROVIDERS: ADMIT Internal Medicine; ATTEND Internal Medicine
DX: I48.91 Unspecified atrial fibrillation (principal); C78.00 Secondary malignant neoplasm of unspecified lung; C78.7 Secondary malignant neoplasm of liver and intrahepatic bile duct; C79.51 Secondary malignant neoplasm of bone; I95.9 Hypotension, unspecified; C61 Malignant neoplasm of prostate; E86.0 Dehydration; Z68.1 Body mass index [BMI] 19.9 or less, adult; I35.0 Nonrheumatic aortic (valve) stenosis; E78.00 Pure hypercholesterolemia, unspecified; R63.6 Underweight; D64.9 Anemia, unspecified; M54.10 Radiculopathy, site unspecified; M54.9 Dorsalgia, unspecified

== ENCOUNTER 2017-06-14 18:46 | Inpatient (IN) | payer MEDICARE ==
[2017-06-14 18:46] VITALS: BMI 19.1
[2017-06-14] MEDS ORDERED: Sodium Chloride 0.9% 1,000 ML IV STA (19:06)
[2017-06-14 19:52] LABS: VENOUS BLOOD GAS BASE EXCESS 1.9 mmol/L (0.0-2.0); VENOUS BLOOD GAS PCO2 41 mmHg (40-60); VENOUS BLOOD GAS PO2 23 mm/Hg (30-55); VENOUS BLOOD PH 7.42 (7.32-7.43)
[2017-06-14 19:59] LABS: BASO % 0.9 % (0.0-2.0); EOS % 0.8 % (0.0-4.0); HEMOGLOBIN 8.2 g/dL (12.0-18.0); LYMPH # 0.8 K/uL (1.0-4.3); LYMPH % 35.4 % (20.0-40.0); MEAN CORPUSCULAR HEMOGLOBIN 29.7 pg (27.0-31.0); MEAN CORPUSCULAR HGB CONC 33.3 g/dL (33.0-37.0); MEAN PLATELET VOLUME 6.6 fl (7.2-11.7); MONO # 0.6 K/uL (0.0-0.8); MONO % 25.6 % (0.0-10.0); NEUT # 0.9 K/uL (1.8-7.0); NEUT % 37.3 % (50.0-75.0); NRBC % 0.5 % (0.0-0.0); PLATELET COUNT 341 K/uL (130-400); RBC 2.77 Mil/uL (4.40-5.90); RED CELL DISTRIBUTION WIDTH 16.3 % (11.5-14.5); WHITE BLOOD COUNT 2.3 K/uL (4.8-10.8)
[2017-06-14 20:01] LABS: ALB/GLOB RATIO 1.2 (1.0-2.1); ALBUMIN 3.5 g/dL (3.5-5.0); ALT/SGPT 39 U/L (21-72); AST/SGOT 43 U/L (17-59); BLOOD UREA NITROGEN 16 mg/dl (9-20); CALCIUM 7.3 mg/dL (8.4-10.2); GFR AFRICAN-AMERICAN > 60; GFR NON-AFRICAN AMERICAN > 60; MAGNESIUM 2.3 MG/DL (1.6-2.3)
--- NOTE | 2017-06-14 20:19 | ED PDOC ---
HPI:Nausea, Vomiting, Diarrhea Time Seen by Provider: 06/14/17 18:58 Chief Complaint (Nursing): Weakness/Neurological Deficit Chief Complaint (Provider): weakness History Per: Patient History/Exam Limitations: no limitations Onset/Duration Of Symptoms: Days (2), Gradual, Persistent Current Symptoms Are (Timing): Still Present Severity: Moderate Associated Symptoms: Chills, Nausea, Vomiting (nonbilious nonbloody), Loss Of Appetite, Constipation. denies: Fever, Diarrhea, Urinary Symptoms Exacerbating Factors: None Alleviating Factors: None Additional Complaint(s): Progressive weakness for 2 days. Past Medical History Reviewed: Historical Data, Nursing Documentation, Vital Signs Vital Signs: Last Vital Signs Temp 98.4 F 06/14/17 18:54 Pulse 82 06/14/17 18:54 Resp 20 06/14/17 18:54 BP 80/55 L 06/14/17 18:54 Pulse Ox 98 06/14/17 18:54 - Medical History PMH: Hypercholesterolemia Denies: HIV, Chronic Kidney Disease Other PMH: Prostate cancer on chemotheraphy (last June 03) - Family History Family History: States: Unknown Family Hx - Social History Current smoker - smoking cessation education provided: Yes Alcohol: None Drugs: Denies - Home Medications Home Medications: Ambulatory Orders Medication Instructions Recorded Tamsulosin [Flomax] 1 tab PO DAILY 05/07/17 Gabapentin [Neurontin] 100 mg PO BID cap 05/10/17 Morphine [Morphine Extended 15 mg PO Q12 #10 05/10/17 Release Tab] traMADol [Ultram] 50 mg PO Q6 PRN #20 tab 05/10/17 Famotidine [Pepcid] 1 tab PO DAILY 05/31/17 Bicalutamide [Casodex] 50 mg PO DAILY tab 06/04/17 Dexamethasone [Decadron] 2 mg PO DAILY tab 06/04/17 Docusate [Colace] 100 mg PO BID cap 06/04/17 Calcium Carbonate/Vitamin D 1 tab PO DAILY #30 tab 06/05/17 [Oscal-D 250 mg-125 Units Tab] Metoprolol Succinate XL [Toprol XL] 25 mg PO BRK #30 tab 06/05/17 - Allergies Allergies/Adverse Reactions: Allergies Allergy/AdvReac Type Severity Reaction Status Date / Time aspirin Allergy PAIN Verified 06/14/17 18:54 Penicillins Allergy NAUSEA Verified 06/14/17 18:54 Review of Systems ROS Statement: Except As Marked, All Systems Reviewed And Found Negative (and as per HPI) Constitutional: Positive for: Chills, Weakness, Malaise Respiratory: Negative for: Shortness of Breath Gastrointestinal: Positive for: Nausea, Vomiting, Constipation. Negative for: Abdominal Pain, Diarrhea Neurological: Positive for: Dizziness Physical Exam - Reviewed Nursing Documentation Reviewed: Yes Vital Signs Reviewed: Yes - Physical Exam Appears: Positive for: In Acute Distress (cachectic) Head Exam: Positive for: ATRAUMATIC, NORMOCEPHALIC (but with temporal wasting) Skin: Positive for: Warm, Dry ENT: Positive for: Pharynx Is (clear), Other (dry muc membrances). Negative for : Pharyngeal Erythema, Tonsillar Exudate Neck: Positive for: Painless ROM, Supple Cardiovascular/Chest: Positive for: Regular Rate, Rhythm, Chest Non Tender. Negative for: Murmur Respiratory: Positive for: Normal Breath Sounds. Negative for: Wheezing, Respiratory Distress Gastrointestinal/Abdominal: Positive for: Soft. Negative for: Tenderness, Mass , Distended, Guarding Back: Positive for: Normal Inspection. Negative for: Decreased ROM Extremity: Positive for: Normal ROM. Negative for: Pedal Edema Lymphatic: Negative for: Adenopathy Neurologic/Psych: Positive for: Alert. Negative for: Motor/Sensory Deficits - Laboratory Results Result Diagrams: 06/14/17 19:45 06/14/17 19:45 Interpretation Of Abn Labs: Leukopenia (new c/w previous), anemia. - ECG ECG: Positive for: Interpreted By [place] ECG Rhythm: Positive for: Normal QRS, Normal ST Segment, Sinus Rhythm O2 Sat by Pulse Oximetry: 98 Pulse Ox Interpretation: Normal - Progress Re-evaluation Time: 21:00 Condition: Improving,but remains with symptoms Medical Decision Making Medical Decision Making: Dehydration with new onset leukopenia. Initial BP very low but improving with IVF. However symptoms of near syncope persist. Needs hospitalization for continued IVF and evaluation for leukopenia. Disposition - Clinical Impression Clinical Impression: Dehydration Discussed With : Clinton Carroll Doctor Will See Patient In The: Hospital Counseled Patient/Family Regarding: Studies Performed, Diagnosis - Disposition Disposition Time: 21:00 Condition: FAIR - Pt Status Changed To: Hospital Disposition Of: Observation - POA Present On Arrival: None
[2017-06-14 21:07] LABS: BANDS 3 % (0-2); LYMPHOCYTE 33 % (20-50); MONOCYTE 24 % (0-10); NEUTROPHIL 40 % (42-75); TOTAL CELLS COUNTED 100
[2017-06-14 21:08] LABS: ANISOCYTOSIS MODERATE; HYPOCHROMIC SLIGHT; PLATELET ESTIMATE NORMAL (NORMAL); POIKILOCYTOSIS SLIGHT
[2017-06-14 21:11] LABS: LARGE PLATELETS PRESENT
[2017-06-14 21:12] LABS: PARTIAL THROMBOPLASTIN TIME 32.7 Seconds (25.6-37.1)
[2017-06-14 22:17] LABS: VENOUS BLOOD GAS BASE EXCESS -1.8 mmol/L (0.0-2.0); VENOUS BLOOD GAS PCO2 39 mmHg (40-60); VENOUS BLOOD GAS PO2 33 mm/Hg (30-55); VENOUS BLOOD PH 7.38 (7.32-7.43)
[2017-06-14 22:28] LABS: SQUAMOUS EPITHIAL < 1 /hpf (0-5); URINE BILIRUBIN NEGATIVE (NEGATIVE); URINE BLOOD NEGATIVE (NEGATIVE); URINE CLARITY CLEAR (Clear); URINE COLOR YELLOW (YELLOW); URINE GLUCOSE (UA) NEG (Normal); URINE LEUKOCYTE ESTERASE NEG Leu/uL (Negative); URINE NITRATE NEGATIVE (NEGATIVE); URINE PROTEIN NEGATIVE (NEGATIVE); URINE UROBILINOGEN 0.2-1.0 mg/dL (0.2-1.0)
[2017-06-15] MEDS: Dextrose 5%/0.45% NS 1,000 ML IV SCH ×2 (02:07→21:05)
--- NOTE | 2017-06-15 08:19 | RAD ---
HISTORY: Sepsis Patient COMPARISON: No prior. FINDINGS: LUNGS: No active pulmonary disease. PLEURA: No significant pleural effusion identified, no pneumothorax apparent. CARDIOVASCULAR: Normal. OSSEOUS STRUCTURES: No significant abnormalities. VISUALIZED UPPER ABDOMEN: Normal. OTHER FINDINGS: None. IMPRESSION: No active disease.
[2017-06-15] MEDS: Enoxaparin 40 mg Syringe SC SCH (09:16)
[2017-06-15] MEDS: Metoprolol Succinate 25 mg XL Tab PO SCH (09:18)
[2017-06-15] MEDS: Calcium-Vit D 250 mg-125 Units Tab UD PO SCH (09:20)
[2017-06-15] MEDS: Morphine 15 mg SR Tab PO SCH ×2 (09:27→21:02)
--- NOTE | 2017-06-15 20:27 | CARD ---
APPROVED REPORT EKG Measurement Heart [id number] <Conclusion> Normal sinus rhythm Possible Left atrial enlargement Borderline ECG
--- NOTE | 2017-06-16 01:19 | HP ---
DATE: 06/15/2017 HISTORY OF PRESENT ILLNESS: He is a 76-year-old [place]ien male with history of metastatic prostate cancer, currently on chemotherapy presented to emergency room with symptoms of severe nausea and decreased oral intake for 2 days prior this admission. The patient tried home medications and as it did not work, he presented to emergency room where he was found to be dehydrated and he had leukopenia. Subsequently, the patient was admitted for further management. The patient denied have any abdominal pain and he admits to back pain, which has been old and chronic symptoms. PAST MEDICAL HISTORY: Metastatic cancer of prostate, severe aortic stenosis, and anemia of chronic disease. FAMILY HISTORY: Noncontributory. SOCIAL HISTORY: Ex-smoker. No ETOH or substance abuse. REVIEW OF SYSTEMS: Other review of systems include unsteadiness as he walks as well as generalized weakness and loss of appetite. HOME MEDICATIONS: Include tramadol 50 mg, Flomax 0.4 mg once a day, metoprolol 25 mg once a day, gabapentin 100 mg twice a day, Pepcid 1 tablet daily, and Casodex 50 mg daily. PHYSICAL EXAMINATION: GENERAL: The patient is in bed, comfortable, not in any cardiopulmonary distress at the time of this examination. VITAL SIGNS: Blood pressure 97/63, temperature 97.6, respiratory rate 20, and pulse 74. HEENT: Pupils equal and reactive to light. Normal pink mucosa, the conjunctivae, oropharyngeal, and nasal membrane mucosa. NECK: Supple. No JVD. No carotid bruits. No lymph nodes. No thyromegaly. CHEST AND LUNGS: Bilateral symmetrical expansion. Good air exchange. No rales. No rhonchi. CARDIOVASCULAR: PMI not localized. S1 and S2. No additional sounds. ABDOMEN: Normoactive bowel sounds. No tenderness. No organomegaly. No masses. EXTREMITIES: No cyanosis. No clubbing. No edema. CENTRAL NERVOUS SYSTEM: Alert, awake, and oriented x3. No neurological appreciated. LABORATORY DATA: Blood work done showed that the patient had white blood cell count of 2.3, hemoglobin 8.2 and platelet 341 and blood urea nitrogen 16 and creatinine 1.1. ASSESSMENT: 1. Persistent nausea and decreased oral intake with dehydration. 2. Leukopenia. 3. Anemia of chronic disease. PLAN: Continue IV fluids, hematology consult, repeat blood work, follow recommendations of the hematology/oncology, and resume the patient's home medications. Merlin MD [place]
[2017-06-16] MEDS: Calcium-Vit D 250 mg-125 Units Tab UD PO SCH (08:57)
[2017-06-16] MEDS: Enoxaparin 40 mg Syringe SC SCH (08:57)
[2017-06-16] MEDS: Metoprolol Succinate 25 mg XL Tab PO SCH (09:01)
[2017-06-16] MEDS: Morphine 15 mg SR Tab PO SCH ×2 (09:02→22:02)
[2017-06-16 09:22] LABS: HEMOGLOBIN 9.1 g/dL (12.0-18.0); MEAN CORPUSCULAR HEMOGLOBIN 30.4 pg (27.0-31.0); MEAN CORPUSCULAR HGB CONC 33.8 g/dL (33.0-37.0); RBC 2.99 Mil/uL (4.40-5.90); RED CELL DISTRIBUTION WIDTH 16.8 % (11.5-14.5); WHITE BLOOD COUNT 7.8 K/uL (4.8-10.8)
[2017-06-17 06:49] LABS: HEMOGLOBIN 7.8 g/dL (12.0-18.0); MEAN CELL VOLUME 90.9 fl (80.0-94.0); MEAN CORPUSCULAR HEMOGLOBIN 29.5 pg (27.0-31.0); MEAN CORPUSCULAR HGB CONC 32.5 g/dL (33.0-37.0); RBC 2.66 Mil/uL (4.40-5.90); RED CELL DISTRIBUTION WIDTH 16.5 % (11.5-14.5); WHITE BLOOD COUNT 18.8 K/uL (4.8-10.8)
--- NOTE | 2017-06-17 07:22 | PN ---
DATE: 06/16/2017 SUBJECTIVE: The patient is seen today, 06/16/2017. He is complaining of. I believe, back pain. The nausea has improved and oral intake has improved. PHYSICAL EXAMINATION VITAL SIGNS: Blood pressure is 91/58, temperature 97.9, respiratory rate *------*, pulse 63. HEENT: Pupils equal, reactive to *------*, slightly pale mucosa of the conjunctivae. NECK: Supple. No JVD. No carotid bruit. No lymph node. No thyromegaly. CHEST AND LUNGS: Bilateral symmetrical expansion. Good air exchange. No rales, no rhonchi. CARDIOVASCULAR SYSTEM: PMI not localized. S1 and S2. No additional sounds. ABDOMEN: Normoactive bowel sounds. No tenderness. No organomegaly. No masses. EXTREMITIES: No cyanosis, no clubbing, no edema. CENTRAL NERVOUS SYSTEM: Alert, awake, oriented x3. No neurological deficit could be appreciated. ASSESSMENT: 1. Metastatic cancer of prostate. 2. Persistent nausea and decreased oral intake with dehydration. 3. Leukopenia. 4. Anemia of chronic disease. PLAN: Follow recommendations of commercial loan administrator. Continue IV fluid, pain management. Clinton Carroll MD
--- NOTE | 2017-06-17 08:12 | CP.PCM.PN ---
Subjective - Date & Time of Evaluation Date of Evaluation: 06/17/17 Time of Evaluation: 08:06 - Subjective Subjective: This is a 76 yrs old male who is well known to me because of metastatic prostate cancer. He was actually diagnosed 2 yrs ago, but he preferred alternative therapy instead of hormone therapy or chemo or RT. He now has diffuse bone mets, liver mets . He has agreed to routine treatment now, so 1 month ago he was started on Zometa, casodex, lupron,as well as chemotherapy with docetaxel +prednisone about 2 months ago. This time he came to the Er with dehydration, , some nausea and weakness. The cbc showed wbc of 2.3 and hgb of 8.5gms. Platelets were normal. He was hydrated and started on granix and the wbc atre 18.2 today. The hgb however is 7.3gms. He is on iron infusion. The pain he had in the back is not present any more, and pt is able to ambulate well. Objective - Vital Signs/Intake and Output Vital Signs (last 24 hours): Temp Pulse Resp BP Pulse Ox 97.9 F 70 19 90/59 L 98 06/17/17 00:07 06/17/17 00:27 06/17/17 00:07 06/17/17 00:27 06/17/17 00:07 - Medications Medications: Current Medications Bicalutamide (Casodex) 50 mg PO DAILY [facility] Last Admin: 06/16/17 09:05 Dose: 50 mg Calcium/Vitamin D (Oscal-D 250 Mg-125 Units Tab) 1 tab PO DAILY [facility] Last Admin: 06/16/17 08:57 Dose: 1 tab Dexamethasone (Decadron) 2 mg PO QOTHERDAY [facility] Last Admin: 06/15/17 09:15 Dose: 2 mg Docusate Sodium (Colace) 100 mg PO BID [facility] Last Admin: 06/16/17 16:12 Dose: 100 mg Enoxaparin Sodium (Lovenox) 40 mg SC DAILY [facility] PRN Reason: Protocol Last Admin: 06/16/17 08:57 Dose: 40 mg Famotidine (Pepcid) 20 mg PO DAILY [facility] Last Admin: 06/16/17 08:57 Dose: 20 mg Gabapentin (Neurontin) 100 mg PO BID [facility] Last Admin: 06/16/17 16:12 Dose: 100 mg Metoprolol Succinate (Toprol Xl) 25 mg PO DAILY [facility] Last Admin: 06/16/17 09:01 Dose: Not Given Morphine Sulfate (Morphine Extended Release Tab) 15 mg PO Q12 [facility] Last Admin: 06/16/17 22:02 Dose: 15 mg Ondansetron HCl (Zofran Inj) 4 mg IVP Q4 PRN PRN Reason: Nausea/Vomiting Tamsulosin HCl (Flomax) 0.4 mg PO DAILY [facility] Last Admin: 06/16/17 09:03 Dose: 0.4 mg Tramadol HCl (Ultram) 50 mg PO Q6 PRN PRN Reason: Pain, moderate (4-7) - Labs Labs: 06/17/17 06:20 PT 13.0 Seconds (9.8-13.1) 06/14/17 20:15 INR 1.0 (0.9-1.2) 06/14/17 20:15 APTT 32.7 Seconds (25.6-37.1) 06/14/17 20:15 - Additional Findings Additional findings: Pt nilesh alert, awake, in no acute distress neck; supple, no adenopathy Chest; Clear, no rales or rhonchi Heart; Rsr, no murmur Abd; Soft, no mass, no h/s megaly Assessment and Plan - Assessment and Plan (Free Text) Assessment: Impression,; Prostate cancer, with skeletal and liver metastasis Dehydration Neutropenia and anemia Plan: Plan; will d/c granix since the wbc is up to 18.4 Will transfuse 2 units of packed cells Will encourage him to drink more fluids
[2017-06-17] MEDS: Calcium-Vit D 250 mg-125 Units Tab UD PO SCH (08:36)
[2017-06-17] MEDS: Enoxaparin 40 mg Syringe SC SCH (08:36)
[2017-06-17] MEDS: Morphine 15 mg SR Tab PO SCH ×2 (08:38→23:03)
[2017-06-17] MEDS: Metoprolol Succinate 25 mg XL Tab PO SCH (08:39)
--- NOTE | 2017-06-17 12:38 | PQF GENQUE ---
Dr. Carroll, Etiology of Neutropenia? if known after the work up is completed OR:Unable to determine OR:Other explanation of clinical finding H and P: hx. metastatic prostate cancer, currently on chemotherapy: symptoms of severe nausea and decreased oral intake for 2 days prior this admission. The patient tried home medications and as it did not work, found to be dehydrated and he had leukopenia. PMH: Metastatic cancer of prostate, severe aortic stenosis, and anemia of chronic disease. Assessment: 1. Persistent nausea and decreased oral intake with dehydration. 2. Leukopenia. 3. Anemia of chronic disease Oncology consult: ----has agreed to routine treatment now, 1 month ago he was started on zometa, casodex,,lupron,as well as chemotherapy with docetaxel + prednisone about 2 months ago. This time he came to the ER with dehydration, some nausea and weakness. The CBC showed WBC 2.3 and Hgb.: 8.5gms. Platelets were normal. He was hydrated and started on granix and WBC: 18.2 today. The Hgb however is 7.3gms. He is on iron infusion. Impression,; Prostate cancer, with skeletal and liver metastasis ,Dehydration , Neutropenia and anemia Plan:will d/c granix since the wbc is up to 18.4 Will transfuse 2 units of packed cells Will encourage him to drink more fluids This form is a permanent part of the medical record Clarification of your documentation is requested to better reflect the severity of illness and intensity of treatment of your patient. Indicators present [] Specify: [] [] Specify: [] [] Specify: [] [] Specify: [] Location in the medical record that reflects the above clinical findings: [] Treatment Provided: [] PHYSICIAN'S RESPONSE Based on your medical judgment of the clinical indicators outlined above please clarify the following: [] Practitioner response [] If unable to determine, please check the box, sign and date. Present On Admission (POA) Indicator: [] Present at the time of admission [] Not present at the time of admission [] Clinically Undetermined In responding to this query, please exercise your independent professional judgment. The fact that a question is asked does not imply that any particular answer is desired or expected. Thank you for your clarification on this documentation. If you have any questions please call. * Thank you, Jamilah Win RN BSN ext. #[phone] MTDD
--- NOTE | 2017-06-18 03:17 | PN ---
DATE: 06/17/2017 SUBJECTIVE: The patient is seen today. He . PHYSICAL EXAMINATION VITAL SIGNS: Blood pressure 90/56, temperature 98.5, respiratory rate 16 and pulse 66. HEENT: Pupils equal and reactive to light. Normal appearing mucosa of the conjunctivae. Oropharynx and nasal membrane mucosa. NECK: Supple. No JVD. No carotid bruit. No lymph node. No thyromegaly. CARDIOPULMONARY: PMI not localized. S1 and S2. No additional sounds.. CHEST AND LUNGS: Bilateral symmetrical expansion. Good air exchange. No rales. No rhonchi.. ABDOMEN: Normoactive bowel sounds. No tenderness. No organomegaly. No masses.. EXTREMITIES: No cyanosis. No clubbing. No edema. CENTRAL NERVOUS SYSTEM: Alert, awake and oriented x2. No neurological deficit could be appreciated. LABORATORY DATA: Blood work today showed dropping of hemoglobin to 7.8 from 9.1 and white blood cell count 18.8. ASSESSMENT: 1. Symptomatic anemia of chronic disease. 2. Status post leukopenia and currently the patient has leukocytosis secondary to bone marrow . PLAN: Discuss the patient's condition with Dr. Montague who recommended to do blood transfusion. Clinton Carroll MD
[2017-06-18 07:47] LABS: HEMOGLOBIN 11.4 g/dL (12.0-18.0); MEAN CELL VOLUME 87.2 fl (80.0-94.0); MEAN CORPUSCULAR HEMOGLOBIN 29.6 pg (27.0-31.0); PLATELET COUNT 344 K/uL (130-400); RBC 3.86 Mil/uL (4.40-5.90); RED CELL DISTRIBUTION WIDTH 16.5 % (11.5-14.5); WHITE BLOOD COUNT 28.6 K/uL (4.8-10.8)
--- NOTE | 2017-06-18 07:56 | CP.PCM.PN ---
Subjective - Date & Time of Evaluation Date of Evaluation: 06/18/17 Time of Evaluation: 07:54 - Subjective Subjective: Pt is feeling well, ambulating in the corridors after receiving 2 units of packed cells yesterday. Will ck the CBC today, and may be discharged. Objective - Vital Signs/Intake and Output Vital Signs (last 24 hours): Temp Pulse Resp BP Pulse Ox 97.2 F L 75 18 95/68 L 95 06/18/17 01:46 06/18/17 01:46 06/18/17 01:46 06/18/17 01:46 06/18/17 01:46 - Medications Medications: Current Medications Bicalutamide (Casodex) 50 mg PO DAILY [facility] Last Admin: 06/17/17 08:35 Dose: 50 mg Calcium/Vitamin D (Oscal-D 250 Mg-125 Units Tab) 1 tab PO DAILY [facility] Last Admin: 06/17/17 08:36 Dose: 1 tab Dexamethasone (Decadron) 2 mg PO QOTHERDAY [facility] Last Admin: 06/17/17 08:35 Dose: 2 mg Docusate Sodium (Colace) 100 mg PO BID [facility] Last Admin: 06/17/17 17:33 Dose: 100 mg Enoxaparin Sodium (Lovenox) 40 mg SC DAILY [facility] PRN Reason: Protocol Last Admin: 06/17/17 08:36 Dose: 40 mg Famotidine (Pepcid) 20 mg PO DAILY [facility] Last Admin: 06/17/17 08:35 Dose: 20 mg Gabapentin (Neurontin) 100 mg PO BID [facility] Last Admin: 06/17/17 17:33 Dose: 100 mg Metoprolol Succinate (Toprol Xl) 25 mg PO DAILY [facility] Last Admin: 06/17/17 08:39 Dose: Not Given Morphine Sulfate (Morphine Extended Release Tab) 15 mg PO Q12 [facility] Last Admin: 06/17/17 23:03 Dose: Not Given Ondansetron HCl (Zofran Inj) 4 mg IVP Q4 PRN PRN Reason: Nausea/Vomiting Tamsulosin HCl (Flomax) 0.4 mg PO DAILY [facility] Last Admin: 06/17/17 08:36 Dose: 0.4 mg - Labs Labs: 06/17/17 06:20 PT 13.0 Seconds (9.8-13.1) 06/14/17 20:15 INR 1.0 (0.9-1.2) 06/14/17 20:15 APTT 32.7 Seconds (25.6-37.1) 06/14/17 20:15
[2017-06-18 09:03] VITALS: PULSE 65; RESP 20; TEMP 97.9; O2SAT 99
[2017-06-18 09:33] LABS: BLOOD UREA NITROGEN 14 mg/dl (9-20); GFR AFRICAN-AMERICAN > 60; GFR NON-AFRICAN AMERICAN > 60
[2017-06-18] MEDS: Enoxaparin 40 mg Syringe SC SCH (12:00)
[2017-06-18] MEDS: Morphine 15 mg SR Tab PO SCH (12:00)
[2017-06-18 12:02] VITALS: BP 90/54
[2017-06-18] MEDS: Calcium-Vit D 250 mg-125 Units Tab UD PO SCH (12:02)
[2017-06-18] MEDS: Metoprolol Succinate 25 mg XL Tab PO SCH (12:02)
[2017-06-18 13:07] LABS: BANDS 7 % (0-2); LYMPHOCYTE 7 % (20-50); METAMYELOCYTE 2 % (0-0); MONOCYTE 3 % (0-10); MYELOCYTE 3 % (0-0); NEUTROPHIL 76 % (42-75); REACTIVE LYMPHOCYTES 2 % (0-0); TOTAL CELLS COUNTED 100
[2017-06-18 13:10] LABS: ANISOCYTOSIS SLIGHT; HYPOCHROMIC SLIGHT; PLATELET ESTIMATE NORMAL (NORMAL); POLYCHROMIC SLIGHT
--- NOTE | 2017-06-19 06:22 | CARD ---
APPROVED REPORT EKG Measurement Heart [id number] <Conclusion> Normal sinus rhythm Normal ECG
--- NOTE | 2017-06-19 22:55 | DS ---
REASON FOR ADMISSION: This is a 76-year-old male with history of metastatic prostate cancer, was admitted for persistent nausea and vomiting and dehydration, as well as leukopenia and anemia. COURSE OF HOSPITALIZATION: Patient was admitted to medical floor and he was started on IV fluids. Patient's hemoglobin dropped to the level of 7, and he was transfused 3 units of packed RBCs. Patient also was given bone marrow stimulants for leukopenia. Patient responded well, and he was cleared by oncology and discharged home on pain medication as well as on chemotherapy as per oncologist. FINAL DIAGNOSES: Acute kidney injury; dehydration; anemia, multifactorial; leukopenia. [facility] MD [place]
== END 2017-06-18 13:08 | disposition home or self-care (01) | DRG 641 ==
LOC: H.ER 18:46 → H.ERHOLD 22:04 → H.MEDSURG1 23:37 → OBSVTOIN 06-15 15:57
PROVIDERS: ADMIT Internal Medicine; ATTEND Internal Medicine
PROC: 30233N1 Transfusion of Nonautologous Red Blood Cells into Peripheral Vein, Percutaneous Approach (ICD-10-PCS; principal; 2017-06-17)
DX: E86.0 Dehydration (principal); C78.7 Secondary malignant neoplasm of liver and intrahepatic bile duct; C61 Malignant neoplasm of prostate; C79.51 Secondary malignant neoplasm of bone; D70.1 Agranulocytosis secondary to cancer chemotherapy; D63.8 Anemia in other chronic diseases classified elsewhere; I35.0 Nonrheumatic aortic (valve) stenosis; T45.1X5A Adverse effect of antineoplastic and immunosuppressive drugs, initial encounter; E78.00 Pure hypercholesterolemia, unspecified; Z88.6 Allergy status to analgesic agent; Z88.0 Allergy status to penicillin

== ENCOUNTER 2017-07-19 10:17 | Emergency (ER) | payer MEDICARE ==
[2017-07-19 10:19] VITALS: PULSE 114; RESP 18; TEMP 98.2; O2SAT 100; BMI 19.2
[2017-07-19] MEDS ORDERED: Sodium Chloride 0.9% 1,000 ML IV STA ×2 (10:38→11:39)
[2017-07-19 11:16] LABS: BASO # 0.1 K/uL (0.0-0.2); BASO % 1.1 % (0.0-2.0); EOS % 0.8 % (0.0-4.0); HEMATOCRIT 25.7 % (35.0-51.0); LYMPH # 0.5 K/uL (1.0-4.3); LYMPH % 10.3 % (20.0-40.0); MEAN CELL VOLUME 88.7 fl (80.0-94.0); MEAN CORPUSCULAR HEMOGLOBIN 29.9 pg (27.0-31.0); MEAN CORPUSCULAR HGB CONC 33.7 g/dL (33.0-37.0); MONO # 0.1 K/uL (0.0-0.8); MONO % 1.5 % (0.0-10.0); NEUT % 86.3 % (50.0-75.0); NRBC % 0.1 % (0.0-0.0); RED CELL DISTRIBUTION WIDTH 18.3 % (11.5-14.5); WHITE BLOOD COUNT 4.6 K/uL (4.8-10.8)
--- NOTE | 2017-07-19 11:20 | ED PDOC ---
HPI:Nausea, Vomiting, Diarrhea Time Seen by Provider: 07/19/17 10:28 Chief Complaint (Provider): weakness and diarrhea History Per: Patient Onset/Duration Of Symptoms: Days (3) Current Symptoms Are (Timing): Better Have you had recent travel within the past 21 days to any of the following countries: [place], [place], [place] or [place]?: No Context: Other (s/p chemotherapy) Quality Of Discomfort: Unable To Describe Associated Symptoms: Other (weakness) Exacerbating Factors: Other (chemotherapy infusion) Alleviating Factors: None Last Bowel Movement: Today Additional Complaint(s): Pt is 76 yo M with pmh metastatic prostate cancer, a fib presenting today, to the ED due to 3 days of diarrhea after chemotherapy on Saturday (4 days ago on 07/15). Pt states that having diarrhea and weakness after chemotherapy is not new for him, and that he usually comes to the infusion center to get fluids when he feels this way. He denies abdominal pain or cramping, denies blood in diarrhea, or any red or black color to stool. Pt has had dx of prostate ca for 2 years, but tried alternative medicine for 2 years, and started chemotherapy about 3 months ago, and follows with Dr. Mahamed Montague for treatment. PMD Dr. Carroll. Denies fever, chills, sore throat, congestion, shortness of breath, chest pain, palpitations, abdominal pain, nausea, vomiting. Past Medical History Vital Signs: Last Vital Signs Temp 98.2 F 07/19/17 10:18 Pulse 114 H 07/19/17 10:18 Resp 18 07/19/17 10:18 BP 92/63 L 07/19/17 10:18 Pulse Ox 100 07/19/17 10:18 - Medical History PMH: Atrial Fibrillation, Hypercholesterolemia Denies: HIV, Chronic Kidney Disease Other PMH: metastatic prostate cancer - Surgical History Surgical History: No Surg Hx - Family History Family History: States: Unknown Family Hx - Social History Ex-Smoker (has not smoked in the last 12 months): Yes (smoked 1ppd from age 18- 34) Alcohol: Occasional (holidays) Drugs: Denies (takes immune boost supplement) - Home Medications Home Medications: Ambulatory Orders Medication Instructions Recorded Tamsulosin [Flomax] 1 tab PO DAILY 05/07/17 Gabapentin [Neurontin] 100 mg PO BID cap 05/10/17 Morphine [Morphine Extended 15 mg PO Q12 #10 05/10/17 Release Tab] traMADol [Ultram] 50 mg PO Q6 PRN #20 tab 05/10/17 Famotidine [Pepcid] 1 tab PO DAILY 05/31/17 Bicalutamide [Casodex] 50 mg PO DAILY tab 06/04/17 Dexamethasone [Decadron] 2 mg PO DAILY tab 06/04/17 Docusate [Colace] 100 mg PO BID cap 06/04/17 Calcium Carbonate/Vitamin D 1 tab PO DAILY #30 tab 06/05/17 [Oscal-D 250 mg-125 Units Tab] Metoprolol Succinate XL [Toprol XL] 25 mg PO BRK #30 tab 06/05/17 Ondansetron [Zofran] 4 mg PO Q6 PRN #30 tab 06/18/17 Clotrimazole [Mycelex Michael] 10 mg MM QID PRN 07/01/17 Dronabinol [Marinol] 2.5 mg PO DAILY 07/01/17 Ondansetron [Zofran] 4 mg PO Q6H PRN #10 tab 07/19/17 - Allergies Allergies/Adverse Reactions: Allergies Allergy/AdvReac Type Severity Reaction Status Date / Time aspirin Allergy PAIN Verified 07/15/17 08:05 Penicillins Allergy NAUSEA Verified 07/15/17 08:05 Review of Systems ROS Statement: Except As Marked, All Systems Reviewed And Found Negative Gastrointestinal: Positive for: Diarrhea Neurological: Positive for: Weakness Physical Exam - Physical Exam Appears: Positive for: Non-toxic (appears tired, chronically ill) Head Exam: Positive for: ATRAUMATIC, NORMAL INSPECTION Skin: Positive for: Warm, Dry Eye Exam: Positive for: EOMI, PERRL ENT: Positive for: Normal ENT Inspection. Negative for: Pharyngeal Erythema Neck: Positive for: Painless ROM Cardiovascular/Chest: Positive for: Regular Rate, Rhythm. Negative for: Murmur Respiratory: Positive for: Normal Breath Sounds. Negative for: Wheezing, Respiratory Distress Gastrointestinal/Abdominal: Positive for: Bowel Sounds, Soft. Negative for: Tenderness Extremity: Negative for: Calf Tenderness, Deformity, Swelling Neurologic/Psych: Positive for: Alert, Oriented - Laboratory Results Result Diagrams: 07/19/17 11:00 07/19/17 11:00 - ECG O2 Sat by Pulse Oximetry: 100 Medical Decision Making Medical Decision Making: Pt seen and evaluated, appears chronically ill but not in acute distress. Hypotensive, tachycardic, afebrile. 11:00 -lactate -CMP -CBC -Lipase -Troponin -EKG -NS 1L bolus x2 11:30 Lactate 1.1 WBC 4.6 EKG- NSR, no acute changes from previous EKG last month Lipase wnl Elevated BUN, likely due to dehydration 12:30 orthostatic bp signs lying down 109/69 HR 77 sitting 108/76 HR 89 standing 102/72 HR 92 Disposition - Clinical Impression Clinical Impression: Dehydration, Nausea & vomiting, Metastatic cancer - Patient ED Disposition Is Patient to be Admitted: No - Disposition Referrals: Myrna Montague MD [Staff Provider] - Clinton Carroll MD [Staff Provider] - Disposition: Routine/Home Disposition Time: 13:00 Condition: STABLE Additional Instructions: Return to ER for any new or worse symptoms. Take nausea medication every 6 hrs as needed. Drink small amounts of fluid very frequently to hydrate. Prescriptions: Ondansetron [Zofran] 4 mg PO Q6H PRN #10 tab PRN Reason: Nausea/Vomiting Instructions: Dehydration (ED), Chemo Induced Nausea and Vomiting (ED)
[2017-07-19 11:23] LABS: VENOUS BLOOD GAS BASE EXCESS -5.5 mmol/L (0.0-2.0); VENOUS BLOOD GAS PCO2 38 mmHg (40-60); VENOUS BLOOD PH 7.33 (7.32-7.43)
[2017-07-19 11:27] LABS: ALB/GLOB RATIO 1.3 (1.0-2.1); ALKALINE PHOSPHATASE 130 U/L (38-126); ALT/SGPT 28 U/L (21-72); AST/SGOT 36 U/L (17-59); BILIRUBIN,TOTAL 0.5 mg/dl (0.2-1.3); BLOOD UREA NITROGEN 26 mg/dl (9-20); CALCIUM 7.2 mg/dL (8.4-10.2); CARBON DIOXIDE 18 mmol/L (22-30); CHLORIDE 111 mmol/L (98-107); GFR AFRICAN-AMERICAN > 60; GLUCOSE,RANDOM 110 mg/dL (75-110); LIPASE 81 U/L (23-300); POTASSIUM 4.7 MMOL/L (3.6-5.0); SODIUM 137 mmol/l (132-148); TOTAL PROTEIN 6.4 G/DL (6.3-8.2)
[2017-07-19 13:47] VITALS: BP 120/72
--- NOTE | 2017-07-19 19:55 | CARD ---
APPROVED REPORT EKG Measurement Heart [id number] NM [id number] [id number] <Conclusion> Normal sinus rhythm Normal ECG
== END 2017-07-19 13:30 | disposition home or self-care (01) ==
LOC: H.ER 10:17
DX: E86.0 Dehydration (principal); R53.1 Weakness; Z85.46 Personal history of malignant neoplasm of prostate; I48.91 Unspecified atrial fibrillation; Z88.0 Allergy status to penicillin; Z92.21 Personal history of antineoplastic chemotherapy
CPT/HCPCS: 80053; 82803; 83690; 84484; 85025; 93005; 96360; 99284; J7040

== ENCOUNTER 2017-07-21 08:46 | Inpatient (IN) | payer MEDICARE ==
[2017-07-21] MEDS ORDERED: Sodium Chloride 0.9% 1,000 ML IV STA (09:17)
--- NOTE | 2017-07-21 09:21 | ED PDOC ---
HPI: SOB/CHF/COPD Time Seen by Provider: 07/21/17 08:51 Chief Complaint (Nursing): Shortness Of Breath Chief Complaint (Provider): Shortness of breath History Per: Patient History/Exam Limitations: no limitations Onset/Duration Of Symptoms: Hrs Additional Complaint(s): Patient is a 76 y/o male with a past medical history of atrial fibrillation and metastatic prostate cancer presenting to the emergency department for shortness of breath that started this morning with associated palpitations and dizziness. Patient was found to be in supraventricular tachycardia on heart monitor, and with a systolic blood pressure of 70. Denies chest pain. PCP: Dr. Yoly Carroll. Past Medical History Reviewed: Historical Data, Nursing Documentation, Vital Signs Vital Signs: Last Vital Signs Temp 98.2 F 07/21/17 09:00 Pulse 87 07/21/17 09:53 Resp 17 07/21/17 09:53 BP 106/67 07/21/17 09:53 Pulse Ox 100 07/21/17 09:53 - Medical History PMH: Atrial Fibrillation, Hypercholesterolemia Denies: HIV, Chronic Kidney Disease Other PMH: metastatic prostate cancer - Surgical History Surgical History: No Surg Hx - Family History Family History: States: Unknown Family Hx - Social History Current smoker - smoking cessation education provided: No Ex-Smoker (has not smoked in the last 12 months): No Alcohol: None Drugs: Denies - Home Medications Home Medications: Ambulatory Orders Medication Instructions Recorded Tamsulosin [Flomax] 1 tab PO DAILY 05/07/17 Gabapentin [Neurontin] 100 mg PO BID cap 05/10/17 Morphine [Morphine Extended 15 mg PO Q12 #10 05/10/17 Release Tab] traMADol [Ultram] 50 mg PO Q6 PRN #20 tab 05/10/17 Famotidine [Pepcid] 1 tab PO DAILY 05/31/17 Bicalutamide [Casodex] 50 mg PO DAILY tab 06/04/17 Docusate [Colace] 100 mg PO BID cap 06/04/17 Calcium Carbonate/Vitamin D 1 tab PO DAILY #30 tab 06/05/17 [Oscal-D 250 mg-125 Units Tab] Metoprolol Succinate XL [Toprol XL] 25 mg PO BRK #30 tab 06/05/17 Clotrimazole [Mycelex Michael] 10 mg MM QID PRN 07/01/17 Dronabinol [Marinol] 2.5 mg PO DAILY 07/01/17 Nitrofurantoin Macrocrystal 100 mg PO BID 07/21/17 [Macrodantin] Ondansetron [Zofran] 8 mg PO Q6H PRN 07/21/17 Prednisone [Deltasone] 10 mg PO DAILY 07/21/17 - Allergies Allergies/Adverse Reactions: Allergies Allergy/AdvReac Type Severity Reaction Status Date / Time aspirin Allergy PAIN Verified 07/21/17 09:08 Penicillins Allergy NAUSEA Verified 07/21/17 09:08 Review of Systems ROS Statement: Except As Marked, All Systems Reviewed And Found Negative Cardiovascular: Positive for: Palpitations. Negative for: Chest Pain Respiratory: Positive for: Shortness of Breath Physical Exam - Reviewed Nursing Documentation Reviewed: Yes Vital Signs Reviewed: Yes - Physical Exam Appears: Positive for: Well, Non-toxic, No Acute Distress Head Exam: Positive for: ATRAUMATIC, NORMAL INSPECTION, NORMOCEPHALIC Skin: Positive for: Normal Color, Warm, Dry Eye Exam: Positive for: EOMI, Normal appearance, PERRL ENT: Positive for: Normal ENT Inspection Neck: Positive for: Normal, Painless ROM, Supple Cardiovascular/Chest: Positive for: Tachycardia (190 bpm). Negative for: Regular Rate, Rhythm Respiratory: Positive for: Rales (bilateral bases). Negative for: Normal Breath Sounds, Accessory Muscle Use, Wheezing, Respiratory Distress Gastrointestinal/Abdominal: Positive for: Normal Exam, Soft. Negative for: Tenderness Back: Positive for: Normal Inspection Extremity: Positive for: Normal ROM. Negative for: Pedal Edema Neurologic/Psych: Positive for: Alert, Oriented (x3). Negative for: Motor/ Sensory Deficits - Laboratory Results Result Diagrams: 07/21/17 10:10 07/21/17 10:10 - ECG O2 Sat by Pulse Oximetry: 99 (RA) Pulse Ox Interpretation: Normal - Critical Care Total Time (In Min): 30 Medical Decision Making Medical Decision Making: Time: 09:20 Initial impression: Shortness of breath Initial plan: EKG Labs ED Urine Dipstick Chest X-Ray Adenosine 6 mg IVP Normal Saline 1 L IV, 100 mls/hr Reevaluation Patient was treated with adenocard 6 mg IV and responded by converting to sinus rhythm at a rate of 93 bpm and a systolic blood pressure of 110. Patient reports that respiratory symptoms have improved. Scribe Attestation: Documented by Heather Spann, acting as a scribe for Gavino Thao MD. Provider Scribe Attestation: All medical record entries made by the Scribe were at my direction and personally dictated by me. I have reviewed the chart and agree that the record accurately reflects my personal performance of the history, physical exam, medical decision making, and the department course for this patient. I have also personally directed, reviewed, and agree with the discharge instructions and disposition. Disposition - Clinical Impression Clinical Impression: SVT (supraventricular tachycardia) - Patient ED Disposition Is Patient to be Admitted: Yes - Disposition Disposition Time: 10:10 Condition: FAIR Forms: [employer] via [place] [employer] ([place]) - Pt Status Changed To: Hospital Disposition Of: Observation - POA Present On Arrival: None
--- NOTE | 2017-07-21 09:46 | RAD ---
HISTORY: cough COMPARISON: 06/14/2017. FINDINGS: LUNGS: The lungs are well inflated and clear. There is biapical pleural thickening. PLEURA: No significant pleural effusion identified, no pneumothorax apparent. CARDIOVASCULAR: Normal. OSSEOUS STRUCTURES: No significant abnormalities. VISUALIZED UPPER ABDOMEN: Normal. OTHER FINDINGS: None. IMPRESSION: No active pulmonary disease.
[2017-07-21 10:36] LABS: BASO % 1.4 % (0.0-2.0); EOS % 1.4 % (0.0-4.0); HEMATOCRIT 30.3 % (35.0-51.0); LYMPH # 1.2 K/uL (1.0-4.3); LYMPH % 40.2 % (20.0-40.0); MEAN CELL VOLUME 89.3 fl (80.0-94.0); MEAN CORPUSCULAR HGB CONC 32.5 g/dL (33.0-37.0); MEAN PLATELET VOLUME 7.6 fl (7.2-11.7); MONO # 0.1 K/uL (0.0-0.8); MONO % 3.5 % (0.0-10.0); NEUT # 1.6 K/uL (1.8-7.0); NEUT % 53.5 % (50.0-75.0); NRBC % 0.2 % (0.0-0.0); RED CELL DISTRIBUTION WIDTH 18.4 % (11.5-14.5)
[2017-07-21 10:43] LABS: ALB/GLOB RATIO 1.3 (1.0-2.1); ALKALINE PHOSPHATASE 139 U/L (38-126); ALT/SGPT 28 U/L (21-72); AST/SGOT 34 U/L (17-59); BILIRUBIN,TOTAL 0.5 mg/dl (0.2-1.3); BLOOD UREA NITROGEN 23 mg/dl (9-20); CALCIUM 8.1 mg/dL (8.4-10.2); CARBON DIOXIDE 17 mmol/L (22-30); CHLORIDE 111 mmol/L (98-107); GFR AFRICAN-AMERICAN > 60; GLUCOSE,RANDOM 98 mg/dL (75-110); POTASSIUM 4.5 MMOL/L (3.6-5.0); SODIUM 139 mmol/l (132-148); TOTAL PROTEIN 6.7 G/DL (6.3-8.2)
[2017-07-21] MEDS ORDERED: Digoxin 250 mcg (0.25 mg) Tab PO ONE (15:46)
[2017-07-21] MEDS ORDERED: NITROFURANTOIN MACROCRYSTAL 100 MG PO SCH (17:00)
[2017-07-21] MEDS: Morphine 15 mg SR Tab PO SCH (21:16)
[2017-07-22] MEDS ORDERED: Metoprolol Succinate 25 mg XL Tab PO SCH (08:00)
[2017-07-22] MEDS: Digoxin 125 mcg (0.125 mg) Tab PO SCH (08:35)
[2017-07-22] MEDS: Calcium-Vit D 250 mg-125 Units Tab UD PO SCH (08:36)
[2017-07-22] MEDS: Morphine 15 mg SR Tab PO SCH ×2 (08:44→21:30)
[2017-07-22] MEDS ORDERED: DRONABINOL 2.5 MG PO SCH (09:00)
--- NOTE | 2017-07-22 09:40 | CP.PCM.CON ---
History of Present Illness - History of Present Illness History of Present Illness: THE PATIENT IS A 76 YEAR OLD MALE WITH A HISTORY OF PROSTATE CA WITH METASTASIS TO THE LIVER. HE WAS ADMITTED TO [facility] ABOUT 6 WEEKS AGO WHEN HE HAD ATRIAL FIBRILLATION THAT CONVERTED TO SINUS RHYTHM WITH JUST REHYDRATION WITH IV FLUIDS. 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 THE PATIENT WAS NOT TREATED WITH DIGOXIN, AMIODARONE OR PROPAFENONE DUE TO HIS LIVER METS IN FEAR OF CAUSING TOXICITY DUE TO DECREASED ABILITY TO METABOLIZE THE MEDICATIONS. PRESENTLY, HE WOKE UP YESTERDAY WITH SOB, PALPITATIONS AND DIZZINESS SO HE HAD HIS FAMILY BRING HIM TO THE ER AND THE ER PHYSICIAN STATED HE WAS INITIALLY IN ATRIAL FIBRILLATION AND THEN WENT INTO SVT AND WAS GIVEN IV ADENOSINE AND CONVERTED TO SINUS RHYTHM. HE REMAINED IN SINUS RHYTHM SINCE AND DENIES PALPITATIONS OR CHEST PAIN. tHE PATIENT WAS STARTED ON METOPROLOL BY DR GRECO TO PREVENT ATRIAL FIBRILLATION BUT HE DID NOT TAKE IT. Past Patient History - Past Medical History & Family History Past Medical History?: Yes - Past Social History Smoking Status: Never Smoked - CARDIAC Hx Atrial Fibrillation: Yes Hx Hypercholesterolemia: Yes - PULMONARY Hx Respiratory Disorders: No - NEUROLOGICAL Hx Neurological Disorder: No - HEENT Hx HEENT Problems: Yes Other/Comment: Uses eye glasses for reading - RENAL Hx Chronic Kidney Disease: No - ENDOCRINE/METABOLIC Hx Endocrine Disorders: No - HEMATOLOGICAL/ONCOLOGICAL Hx Blood Disorders: No Hx AIDS: No Hx Human Immunodeficiency Virus (HIV): No - INTEGUMENTARY Hx Dermatological Problems: No - MUSCULOSKELETAL/RHEUMATOLOGICAL Hx Musculoskeletal Disorders: No Hx Falls: No Other/Comment: Bone mets - GASTROINTESTINAL Hx Gastrointestinal Disorders: No - GENITOURINARY/GYNECOLOGICAL Hx Genitourinary Disorders: Yes (Metastatic prostate cancer) Hx Prostate Cancer: Yes - PSYCHIATRIC Hx Psychophysiologic Disorder: No Hx Substance Use: No - SURGICAL HISTORY Hx Surgeries: No - ANESTHESIA Hx Anesthesia: No Hx Anesthesia Reactions: No Hx Malignant Hyperthermia: No Has any member of the family had a problem w/ anesthesia?: No Meds Allergies/Adverse Reactions: Allergies Allergy/AdvReac Type Severity Reaction Status Date / Time aspirin Allergy PAIN Verified 07/21/17 09:08 Penicillins Allergy NAUSEA Verified 07/21/17 09:08 - Medications Medications: Current Medications Bicalutamide (Casodex) 50 mg PO DAILY [facility] Last Admin: 07/22/17 08:47 Dose: 50 mg Calcium/Vitamin D (Oscal-D 250 Mg-125 Units Tab) 1 tab PO DAILY [facility] Last Admin: 07/22/17 08:36 Dose: 1 tab Clotrimazole (Mycelex Michael) 10 mg PO QID PRN PRN Reason: Sore Throat Last Admin: 07/22/17 08:32 Dose: 10 mg Digoxin (Lanoxin) 0.125 mg PO DAILY [facility] Last Admin: 07/22/17 08:35 Dose: 0.125 mg Docusate Sodium (Colace) 100 mg PO BID [facility] Last Admin: 07/22/17 08:33 Dose: 100 mg Famotidine (Pepcid) 20 mg PO DAILY [facility] Last Admin: 07/22/17 08:37 Dose: 20 mg Gabapentin (Neurontin) 100 mg PO BID [facility] Last Admin: 07/22/17 08:36 Dose: 100 mg Heparin Sodium (Porcine) (Heparin) 5,000 units SC Q12 [facility] PRN Reason: Protocol Last Admin: 07/22/17 08:34 Dose: 5,000 units Home Med (Dronabinol [Marinol]) 2.5 mg PO DAILY [facility] Metoprolol Succinate (Toprol Xl) 25 mg PO BRK [facility] Last Admin: 07/22/17 08:37 Dose: 25 mg Morphine Sulfate (Morphine Extended Release Tab) 15 mg PO Q12 [facility] Last Admin: 07/22/17 08:44 Dose: 15 mg Nitrofurantoin Macrocrystals (Macrobid) 100 mg PO Q12 [facility] Last Admin: 07/22/17 08:35 Dose: 100 mg Ondansetron HCl (Zofran Tab) 8 mg PO Q6H PRN PRN Reason: Nausea/Vomiting Last Admin: 07/22/17 08:40 Dose: 8 mg Prednisone (Prednisone Tab) 10 mg PO DAILY [facility] Last Admin: 07/22/17 08:37 Dose: 10 mg Tamsulosin HCl (Flomax) 1 mg PO DAILY [facility] Tramadol HCl (Ultram) 50 mg PO Q6 PRN PRN Reason: Pain, moderate (4-7) Physical Exam - Respiratory Exam Respiratory Exam: Clear to Auscultation Bilateral - Cardiovascular Exam Cardiovascular Exam: REGULAR RHYTHM, +S1, +S2, Systolic Murmur - Extremities Exam Extremities exam: Positive for: normal inspection - Additional Findings Additional findings: EKG IN ER 07/11/17 SHOES ATRIAL FIBRILLATION WITH RATE OF 140 BPM EKG AFTERWARDS WITH SINUS RHYTHM 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 WITH 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 TROPONIN NORMAL K+ 4.5 Results - Vital Signs Recent Vital Signs: Last Vital Signs Temp 98.2 F 07/22/17 08:07 Pulse 81 07/22/17 08:37 Resp 18 07/22/17 08:07 BP 123/79 07/22/17 08:37 Pulse Ox 100 07/22/17 08:07 - Labs Result Diagrams: 07/21/17 10:10 07/21/17 10:10 Assessment & Plan - Assessment and Plan (Free Text) Assessment: RECURRENT ATRIAL FIBRILLATION SEVERE AORTIC STENOSIS PROSTATE CA WITH LIVER METASTASIS Plan: THE PATIENT WAS ADMITTED TO N ON TELEMETRY HE IS ON METOPROLOL AND DIGOXIN WAS STARTED HE STILL WANTS TO SEE PROGNOSIS OF PROSTATE CA BEFORE DECIDING ON AV REPLACEMENT ONCOLOGY TO SEE
[2017-07-22] MEDS ORDERED: Sodium Chloride 0.9% 1,000 ML IV SCH (10:45)
--- NOTE | 2017-07-22 11:00 | CARD ---
APPROVED REPORT EKG Measurement Heart [id number] CT 112P53 [id number] <Conclusion> Normal sinus rhythm Minimal voltage criteria for LVH, may be normal variant ST elevation, probably due to early repolarization Borderline ECG
[2017-07-22] MEDS: Megestrol Acetate 40 mg/ml Cup PO SCH (12:11)
[2017-07-22] MEDS ORDERED: Digoxin 250 mcg (0.25 mg) Tab PO ONE (18:00)
[2017-07-23 07:37] LABS: BLOOD UREA NITROGEN 23 mg/dl (9-20); CALCIUM 7.7 mg/dL (8.4-10.2); CARBON DIOXIDE 19 mmol/L (22-30); CHLORIDE 109 mmol/L (98-107); GFR AFRICAN-AMERICAN > 60; GLUCOSE,RANDOM 106 mg/dL (75-110); POTASSIUM 4.1 MMOL/L (3.6-5.0); SODIUM 136 mmol/l (132-148)
[2017-07-23 07:50] LABS: HEMATOCRIT 26.3 % (35.0-51.0); MEAN CELL VOLUME 88.5 fl (80.0-94.0); MEAN CORPUSCULAR HEMOGLOBIN 29.1 pg (27.0-31.0); MEAN CORPUSCULAR HGB CONC 32.9 g/dL (33.0-37.0); RED CELL DISTRIBUTION WIDTH 17.9 % (11.5-14.5)
[2017-07-23 08:10] LABS: WHITE BLOOD COUNT 1.8 K/uL (4.8-10.8)
[2017-07-23] MEDS: Megestrol Acetate 40 mg/ml Cup PO SCH (09:23)
[2017-07-23] MEDS: Morphine 15 mg SR Tab PO SCH ×2 (09:25→20:57)
[2017-07-23] MEDS: Digoxin 125 mcg (0.125 mg) Tab PO SCH (09:30)
[2017-07-23] MEDS: Calcium-Vit D 250 mg-125 Units Tab UD PO SCH (09:31)
[2017-07-23] MEDS: Benzocaine/Menthol (Cepacol) Lozenge PO PRN (09:58)
--- NOTE | 2017-07-23 10:27 | CP.PCM.PN ---
Subjective - Date & Time of Evaluation Date of Evaluation: 07/23/17 Time of Evaluation: 08:30 - Subjective Subjective: NO FURTHER PALPITATIONS OR DIZZINESS Objective - Vital Signs/Intake and Output Vital Signs (last 24 hours): Temp Pulse Resp BP Pulse Ox 98.1 F 73 20 97/61 L 100 07/23/17 08:31 07/23/17 09:30 07/23/17 08:31 07/23/17 09:30 07/23/17 08:31 - Medications Medications: Current Medications Benzocaine/Menthol (Cepacol Sore Throat) 1 jing PO Q3 PRN PRN Reason: Sore Throat Last Admin: 07/23/17 09:58 Dose: 1 jing Bicalutamide (Casodex) 50 mg PO DAILY [facility] Last Admin: 07/23/17 09:25 Dose: 50 mg Calcium/Vitamin D (Oscal-D 250 Mg-125 Units Tab) 1 tab PO DAILY [facility] Last Admin: 07/23/17 09:31 Dose: 1 tab Clotrimazole (Mycelex Michael) 10 mg PO QID PRN PRN Reason: Sore Throat Last Admin: 07/22/17 08:32 Dose: 10 mg Digoxin (Lanoxin) 0.125 mg PO DAILY [facility] Last Admin: 07/23/17 09:30 Dose: 0.125 mg Docusate Sodium (Colace) 100 mg PO BID [facility] Last Admin: 07/23/17 09:30 Dose: 100 mg Famotidine (Pepcid) 20 mg PO DAILY [facility] Last Admin: 07/23/17 09:30 Dose: 20 mg Gabapentin (Neurontin) 100 mg PO BID [facility] Last Admin: 07/23/17 09:30 Dose: 100 mg Heparin Sodium (Porcine) (Heparin) 5,000 units SC Q12 [facility] PRN Reason: Protocol Last Admin: 07/23/17 09:31 Dose: 5,000 units Sodium Chloride (Sodium Chloride 0.9%) 1,000 mls @ 60 mls/hr IV .[id number] [facility] Stop: 07/23/17 10:31 Last Admin: 07/22/17 10:40 Dose: 60 mls/hr Megestrol Acetate (Megace) 400 mg PO DAILY [facility] Last Admin: 07/23/17 09:23 Dose: 400 mg Metoprolol Tartrate (Lopressor) 12.5 mg PO Q12 [facility] Last Admin: 07/23/17 09:30 Dose: Not Given Morphine Sulfate (Morphine Extended Release Tab) 15 mg PO Q12 [facility] Last Admin: 07/23/17 09:25 Dose: 15 mg Nitrofurantoin Macrocrystals (Macrobid) 100 mg PO Q12 [facility] Last Admin: 07/23/17 09:23 Dose: 100 mg Ondansetron HCl (Zofran Tab) 8 mg PO Q6H PRN PRN Reason: Nausea/Vomiting Last Admin: 07/22/17 08:40 Dose: 8 mg Prednisone (Prednisone Tab) 10 mg PO DAILY [facility] Last Admin: 07/23/17 09:31 Dose: 10 mg Tamsulosin HCl (Flomax) 0.4 mg PO BID [facility] Last Admin: 07/23/17 09:30 Dose: 0.4 mg Tramadol HCl (Ultram) 50 mg PO Q6 PRN PRN Reason: Pain, moderate (4-7) - Labs Labs: 07/23/17 06:40 07/23/17 06:40 - Respiratory Exam Respiratory Exam: Clear to Ausculation Bilateral - Cardiovascular Exam Cardiovascular Exam: REGULAR RHYTHM, +S1, +S2 - Extremities Exam Extremities Exam: Normal Inspection - Additional Findings Additional findings: EKG THIS AM NSR DIG LEVEL 0.9 Assessment and Plan - Assessment and Plan (Free Text) Assessment: RECURRENT ATRIAL FIBRILLATION-NOW IN NSR SEVERE AORTIC STENOSIS PROSTATE CA WITH METASTASIS Plan: CONTINUE DIGOXIN 0.125 MGS PO DAILY AND METOPROLOL TARTRATE 12.5 MGS PO Q 12 HRS THE PATIENT CAN BE DISCHARGED FROM THE CARDIAC [facility]
--- NOTE | 2017-07-23 13:16 | HP ---
HISTORY OF PRESENT ILLNESS: The patient is a 76-year-old Hungarian male with history of metastatic cancer of colon on chemotherapy presented to the hospital with symptoms of persistent nausea as well as shortness of breath. The patient was found to be in atrial fibrillation with rapid ventricular rate. The patient was given Adenocard in the emergency room and heart rate was controlled. Subsequently, the patient was admitted to the telemetry floor for further management. The patient was supposed to be on metoprolol as a rate controlling agent that he stopped spontaneously thinking that it is a blood pressure medication while he does not have a high blood pressure. The patient states that he feels better at the time of this examination except for some difficulty urination with burning as end of urination. REVIEW OF SYSTEMS: All other review of systems is negative. ALLERGIES: NO KNOWN ALLERGIES. HOME MEDICATIONS: Prednisone 10 mg daily, Casodex 50 mg daily, Pepcid 20 mg daily, Marinol 2.5 mg daily, Zofran 8 mg every 6 hours p.r.n., gabapentin 100 mg twice a day, tramadol 50 mg q.6 hours p.r.n., and Flomax 0.4 mg daily. SOCIAL HISTORY: Ex-smoker. No ETOH or substance abuse. FAMILY HISTORY: Noncontributory. PAST MEDICAL HISTORY: Metastatic cancer of prostate, severe aortic stenosis, and anemia of chronic disease. PHYSICAL EXAMINATION: GENERAL: The patient is in bed, comfortable, and not in any cardiopulmonary distress. VITAL SIGNS: Blood pressure 123/79, temperature 98.1, respiratory rate 20, and pulse 69. HEENT: Pupils equal and reactive to light. Normal-appearing mucosa of the conjunctivae, oropharyngeal, and nasal membrane mucosa. NECK: Supple. No JVD. No carotid bruit. No lymph node. No thyromegaly. CHEST AND LUNGS: Bilateral symmetrical expansion. Good air exchange. No rales. No rhonchi. CARDIOVASCULAR: PMI not localized. S1 and S2. The patient has ejection systolic murmur radiates to the right carotid artery. ABDOMEN: Normoactive bowel sounds. No tenderness. No organomegaly. No masses. EXTREMITIES: No cyanosis. No clubbing. No edema. CENTRAL NERVOUS SYSTEM: Alert, awake, and oriented x3. No neurological deficit could be appreciated. ASSESSMENT: 1. Atrial fibrillation with rapid ventricular rate. 2. Metastatic cancer of prostate. 3. Anemia of chronic disease. PLAN: Resume metoprolol and continue digoxin ordered by cardiology. Resume the patient's home medications. [facility] MD Glen
[2017-07-23 16:22] LABS: RBC URINE 1 /hpf (0-3); URINE BILIRUBIN NEGATIVE (NEGATIVE); URINE BLOOD NEGATIVE (NEGATIVE); URINE COLOR YELLOW (YELLOW); URINE GLUCOSE (UA) NEG (Normal); URINE KETONE NEGATIVE (NEGATIVE); URINE LEUKOCYTE ESTERASE NEG Leu/uL (Negative); URINE PROTEIN NEGATIVE (NEGATIVE); URINE UROBILINOGEN 0.2-1.0 mg/dL (0.2-1.0); WBC URINE < 1 /hpf (0-5)
--- NOTE | 2017-07-23 23:35 | CARD ---
APPROVED REPORT EKG Measurement Heart [id number] <Conclusion> Normal sinus rhythm Normal ECG
[2017-07-24 00:35] VITALS: RESP 18
--- NOTE | 2017-07-24 01:30 | PN ---
DATE: 07/23/2017 SUBJECTIVE: The patient is seen today 07/23/2017. He still feels generalized weakness. White blood cell count today went down to 1.8. PHYSICAL EXAMINATION: VITAL SIGNS: Blood pressure is 112/71, temperature 98.6, respiratory rate 20, and pulse 73. HEENT: Pupils equal and reactive to light. Slightly pale mucosa of the conjunctivae. NECK: Supple. No JVD. No carotid bruit. No lymph node. No thyromegaly. CHEST AND LUNGS: Bilateral symmetrical expansion. Good air exchange. No rales. No rhonchi. CARDIOVASCULAR SYSTEM: PMI not localized. S1 and S2. No additional sounds. ABDOMEN: Normoactive bowel sounds. No tenderness. No organomegaly. No masses. EXTREMITIES: No cyanosis. No clubbing. No edema. CENTRAL NERVOUS SYSTEM: Alert, awake, and oriented x2. No neurological deficit could be appreciated. ASSESSMENT: 1. Paroxysmal atrial fibrillation with rapid ventricular rate. 2. Metastatic prostate cancer. 3. Severe aortic stenosis. 4. Leukopenia. PLAN: We will continue the current medications and follow recommendations of cardiology as well as hematology/oncology. Clinton Carroll MD
[2017-07-24] MEDS: Benzocaine/Menthol (Cepacol) Lozenge PO PRN (06:27)
[2017-07-24 07:06] LABS: HEMATOCRIT 30.5 % (35.0-51.0); MEAN CELL VOLUME 89.9 fl (80.0-94.0); MEAN CORPUSCULAR HEMOGLOBIN 29.7 pg (27.0-31.0); MEAN CORPUSCULAR HGB CONC 33.1 g/dL (33.0-37.0); RED CELL DISTRIBUTION WIDTH 18.4 % (11.5-14.5)
[2017-07-24 07:34] LABS: BLOOD UREA NITROGEN 25 mg/dl (9-20); CALCIUM 8.6 mg/dL (8.4-10.2); CARBON DIOXIDE 20 mmol/L (22-30); CHLORIDE 108 mmol/L (98-107); GFR AFRICAN-AMERICAN > 60; GLUCOSE,RANDOM 100 mg/dL (75-110); POTASSIUM 4.7 MMOL/L (3.6-5.0); SODIUM 137 mmol/l (132-148)
[2017-07-24 07:36] LABS: WHITE BLOOD COUNT 4.3 K/uL (4.8-10.8)
[2017-07-24] MEDS: Calcium-Vit D 250 mg-125 Units Tab UD PO SCH (08:36)
[2017-07-24] MEDS: Morphine 15 mg SR Tab PO SCH (08:39)
[2017-07-24] MEDS: Digoxin 125 mcg (0.125 mg) Tab PO SCH (08:41)
[2017-07-24] MEDS: Megestrol Acetate 40 mg/ml Cup PO SCH (08:42)
[2017-07-24 08:43] VITALS: PULSE 91
--- NOTE | 2017-07-24 11:37 | CP.PCM.PN ---
Subjective - Date & Time of Evaluation Date of Evaluation: 07/24/17 Time of Evaluation: 11:00 - Subjective Subjective: NO COMPLAINTS NO CHEST PAIN OR PALPITATIONS Objective - Vital Signs/Intake and Output Vital Signs (last 24 hours): Temp Pulse Resp BP Pulse Ox 98.5 F 77 18 95/59 L 99 07/24/17 00:34 07/24/17 00:34 07/24/17 00:34 07/24/17 00:34 07/24/17 00:34 - Medications Medications: Current Medications Benzocaine/Menthol (Cepacol Sore Throat) 1 jing PO Q3 PRN PRN Reason: Sore Throat Last Admin: 07/24/17 06:27 Dose: 1 jing Bicalutamide (Casodex) 50 mg PO DAILY [facility] Last Admin: 07/24/17 08:40 Dose: 50 mg Calcium/Vitamin D (Oscal-D 250 Mg-125 Units Tab) 1 tab PO DAILY [facility] Last Admin: 07/24/17 08:36 Dose: 1 tab Clotrimazole (Mycelex Michael) 10 mg PO QID PRN PRN Reason: Sore Throat Last Admin: 07/22/17 08:32 Dose: 10 mg Digoxin (Lanoxin) 0.125 mg PO DAILY [facility] Last Admin: 07/24/17 08:41 Dose: 0.125 mg Docusate Sodium (Colace) 100 mg PO BID [facility] Last Admin: 07/24/17 08:35 Dose: 100 mg Famotidine (Pepcid) 20 mg PO DAILY [facility] Last Admin: 07/24/17 08:36 Dose: 20 mg Gabapentin (Neurontin) 100 mg PO BID [facility] Last Admin: 07/24/17 08:36 Dose: 100 mg Heparin Sodium (Porcine) (Heparin) 5,000 units SC Q12 [facility] PRN Reason: Protocol Last Admin: 07/24/17 08:41 Dose: 5,000 units Megestrol Acetate (Megace) 400 mg PO DAILY [facility] Last Admin: 07/24/17 08:42 Dose: 400 mg Metoprolol Tartrate (Lopressor) 12.5 mg PO Q12 [facility] Last Admin: 07/23/17 20:56 Dose: 12.5 mg Morphine Sulfate (Morphine Extended Release Tab) 15 mg PO Q12 [facility] Last Admin: 07/24/17 08:39 Dose: 15 mg Nitrofurantoin Macrocrystals (Macrobid) 100 mg PO Q12 [facility] Last Admin: 07/24/17 08:36 Dose: 100 mg Ondansetron HCl (Zofran Tab) 8 mg PO Q6H PRN PRN Reason: Nausea/Vomiting Last Admin: 07/22/17 08:40 Dose: 8 mg Prednisone (Prednisone Tab) 10 mg PO DAILY [facility] Last Admin: 07/24/17 08:36 Dose: 10 mg Tamsulosin HCl (Flomax) 0.4 mg PO BID [facility] Last Admin: 07/24/17 08:36 Dose: 0.4 mg Tramadol HCl (Ultram) 50 mg PO Q6 PRN PRN Reason: Pain, moderate (4-7) Last Admin: 07/24/17 06:27 Dose: 50 mg - Labs Labs: 07/24/17 06:30 07/24/17 06:30 - Respiratory Exam Respiratory Exam: Clear to Ausculation Bilateral - Cardiovascular Exam Cardiovascular Exam: REGULAR RHYTHM, +S1, +S2 - Extremities Exam Extremities Exam: Normal Inspection Assessment and Plan - Assessment and Plan (Free Text) Assessment: S/P ATRIAL FIBRILLATION-REMAINS IN NSR SEVERE PROSTATE CA WITH METASTASIS Plan: CONDTINUE DIGOXIN AND METOPROLOL
[2017-07-24 11:52] VITALS: BP 101/65; PULSE 73
[2017-07-24 12:07] VITALS: TEMP 97.4; O2SAT 100
--- NOTE | 2017-07-25 09:55 | DS ---
REASON FOR ADMISSION: This is a 76 years old Bahamian male with history of metastatic pancreatic cancer was admitted for atrial fibrillation with rapid ventricular rate. COURSE OF HOSPITALIZATION: The patient was admitted to telemetry floor and his heart rate was controlled with metoprolol and digoxin. The patient's symptoms completely resolved. During this hospitalization, white blood cell count went down to 1.8. The patient was started on bone marrow stimulants and white blood cell count came up to 4.6. The patient was discharged home to continue metoprolol as well as digoxin, and to follow up with oncology and with primary care. FINAL DIAGNOSES: Atrial fibrillation with rapid ventricular rate, severe aortic stenosis, metastatic prostate cancer. [facility] MD [place]
== END 2017-07-24 13:00 | disposition home or self-care (01) | DRG 309 ==
LOC: H.ER 08:46 → H.ERHOLD 10:57 → H.TEL 12:53 → OBSVTOIN 07-22 11:30 → H.MEDSURG1 07-22 15:11
PROVIDERS: ADMIT Internal Medicine; ATTEND Internal Medicine
DX: I48.0 Paroxysmal atrial fibrillation (principal); C78.7 Secondary malignant neoplasm of liver and intrahepatic bile duct; C79.51 Secondary malignant neoplasm of bone; C78.5 Secondary malignant neoplasm of large intestine and rectum; D63.8 Anemia in other chronic diseases classified elsewhere; D72.819 Decreased white blood cell count, unspecified; E78.00 Pure hypercholesterolemia, unspecified; I35.0 Nonrheumatic aortic (valve) stenosis; I47.1 Supraventricular tachycardia; R00.2 Palpitations; R06.02 Shortness of breath; R42 Dizziness and giddiness; Z79.899 Other long term (current) drug therapy; Z85.46 Personal history of malignant neoplasm of prostate; Z87.891 Personal history of nicotine dependence

== ENCOUNTER 2017-08-09 11:17 | Emergency (ER) | payer MEDICARE ==
[2017-08-09 11:18] VITALS: PULSE 91
[2017-08-09 11:27] VITALS: PULSE 79
[2017-08-09 11:28] VITALS: BMI 19.0
[2017-08-09 11:38] VITALS: O2SAT 98
[2017-08-09] MEDS ORDERED: Sodium Chloride 0.9% 1,000 ML IV STA (11:45)
[2017-08-09 12:16] LABS: BASO # 0.1 K/uL (0.0-0.2); BASO % 1.3 % (0.0-2.0); EOS # 0.1 K/uL (0.0-0.7); EOS % 2.8 % (0.0-4.0); HEMATOCRIT 26.7 % (35.0-51.0); LYMPH # 0.5 K/uL (1.0-4.3); LYMPH % 11.2 % (20.0-40.0); MEAN CORPUSCULAR HEMOGLOBIN 29.5 pg (27.0-31.0); MEAN CORPUSCULAR HGB CONC 32.8 g/dL (33.0-37.0); MEAN PLATELET VOLUME 6.9 fl (7.2-11.7); MONO # 0.1 K/uL (0.0-0.8); MONO % 1.4 % (0.0-10.0); NEUT # 3.8 K/uL (1.8-7.0); NEUT % 83.3 % (50.0-75.0); NRBC % 0.1 % (0.0-0.0); RED CELL DISTRIBUTION WIDTH 20.7 % (11.5-14.5)
[2017-08-09 12:25] LABS: ALB/GLOB RATIO 1.2 (1.0-2.1); ALKALINE PHOSPHATASE 151 U/L (38-126); ALT/SGPT 35 U/L (21-72); AST/SGOT 61 U/L (17-59); BILIRUBIN,TOTAL 0.7 mg/dl (0.2-1.3); BLOOD UREA NITROGEN 24 mg/dl (9-20); CALCIUM 8.6 mg/dL (8.4-10.2); CARBON DIOXIDE 21 mmol/L (22-30); CHLORIDE 108 mmol/L (98-107); GFR AFRICAN-AMERICAN > 60; GLUCOSE,RANDOM 102 mg/dL (75-110); POTASSIUM 4.6 MMOL/L (3.6-5.0); SODIUM 136 mmol/l (132-148)
--- NOTE | 2017-08-09 12:28 | ED PDOC ---
HPI: General Adult Time Seen by Provider: 08/09/17 11:44 Chief Complaint (Nursing): Weakness/Neurological Deficit Chief Complaint (Provider): medical eval Additional Complaint(s): 76yo M in ED for eval of dehydration states 1 week ago he received his routine chemotx for porstate cancer and states when he gest cehmo he feels very ill and dehydrated. pt requesting IV fluids. pt admits he is unable to tolerate much food, admits to some dizziness and fatigue. Pt denies vomiting nausea diarrhea or anuria. pt admits to hx of arrhythmia. Past Medical History Reviewed: Historical Data, Nursing Documentation, Vital Signs Vital Signs: Last Vital Signs Temp 98.3 F 08/09/17 11:26 Pulse 79 08/09/17 11:26 Resp 20 08/09/17 11:26 BP 104/67 08/09/17 11:26 Pulse Ox 98 08/09/17 12:29 - Medical History PMH: Anemia, Atrial Fibrillation, HTN, Hypercholesterolemia Denies: HIV, Chronic Kidney Disease - Family History Family History: States: Unknown Family Hx - Home Medications Home Medications: Ambulatory Orders Medication Instructions Recorded Tamsulosin [Flomax] 1 tab PO DAILY 05/07/17 Gabapentin [Neurontin] 100 mg PO BID cap 05/10/17 Morphine [Morphine Extended 15 mg PO Q12 #10 05/10/17 Release Tab] traMADol [Ultram] 50 mg PO Q6 PRN #20 tab 05/10/17 Famotidine [Pepcid] 1 tab PO DAILY 05/31/17 Bicalutamide [Casodex] 50 mg PO DAILY tab 06/04/17 Docusate [Colace] 100 mg PO BID cap 06/04/17 Metoprolol Succinate XL [Toprol XL] 25 mg PO BRK #30 tab 06/05/17 Dronabinol [Marinol] 2.5 mg PO DAILY 07/01/17 Ondansetron [Zofran Tab] 8 mg PO Q6H PRN 07/21/17 Prednisone [Deltasone] 10 mg PO DAILY 07/21/17 Digoxin [Lanoxin] 0.125 mg PO DAILY #30 tab 07/24/17 Calcium Carbonate/Vitamin D 1 tab PO BID 08/05/17 [Oscal-D 250 mg-125 Units Tab] Ferrous Fumarate [Eddie-Sequel] 324 mg PO BID 08/05/17 - Allergies Allergies/Adverse Reactions: Allergies Allergy/AdvReac Type Severity Reaction Status Date / Time aspirin Allergy PAIN Verified 08/05/17 07:56 Penicillins Allergy NAUSEA Verified 08/05/17 07:56 Review of Systems ROS Statement: Except As Marked, All Systems Reviewed And Found Negative Constitutional: Positive for: Weakness. Negative for: Fever, Chills Neurological: Positive for: Dizziness Physical Exam - Reviewed Nursing Documentation Reviewed: Yes Vital Signs Reviewed: Yes - Physical Exam Appears: Positive for: Non-toxic, No Acute Distress, Uncomfortable Head Exam: Positive for: ATRAUMATIC, NORMAL INSPECTION, NORMOCEPHALIC Skin: Positive for: Warm, Dry, Pallor Eye Exam: Positive for: EOMI, PERRL ENT: Positive for: Other (dry mouth) Cardiovascular/Chest: Positive for: Regular Rate, Rhythm Respiratory: Positive for: CNT, Normal Breath Sounds Neurologic/Psych: Positive for: Alert, Oriented - Laboratory Results Result Diagrams: 08/09/17 12:00 08/09/17 12:00 - ECG O2 Sat by Pulse Oximetry: 98 - Progress ED Course And Treament: pt will get IV fluids 1 liter and labs eval the degree of dehydration. Medical Decision Making Medical Decision Making: labs show dehydration, abnormal values are noted, however compared to last ER visit labs # have improved. pt with low WBC most likely due to chemo, pt advised to continue f.u jose alfredo Montague MD stable for d.c pt does not want to stay in ER or be admitted. pt explained that he can return to ER anytime if worsened or dehydration persist. Disposition - Clinical Impression Clinical Impression: Dehydration - Patient ED Disposition Is Patient to be Admitted: No Counseled Patient/Family Regarding: Studies Performed, Diagnosis, Need For Followup - Disposition Disposition: Routine/Home Disposition Time: 13:19 Condition: STABLE Instructions: Dehydration (ED) Forms: [employer] (Kinyarwanda)
[2017-08-09 12:31] LABS: WHITE BLOOD COUNT 4.6 K/uL (4.8-10.8)
[2017-08-09 13:47] VITALS: BP 110/67; RESP 18; TEMP 98.6
[2017-08-09 14:05] LABS: RBC URINE 2 /hpf (0-3); URINE BILIRUBIN NEGATIVE (NEGATIVE); URINE BLOOD NEGATIVE (NEGATIVE); URINE COLOR YELLOW (YELLOW); URINE GLUCOSE (UA) NEG (Normal); URINE KETONE NEGATIVE (NEGATIVE); URINE LEUKOCYTE ESTERASE NEG Leu/uL (Negative); URINE PROTEIN NEGATIVE (NEGATIVE); URINE UROBILINOGEN 0.2-1.0 mg/dL (0.2-1.0); WBC URINE < 1 /hpf (0-5)
== END 2017-08-09 13:57 | disposition home or self-care (01) ==
LOC: H.ER 11:17
DX: E86.0 Dehydration (principal)
CPT/HCPCS: 80053; 81003; 85025; 99285; J7040

== ENCOUNTER 2017-08-11 10:27 | Emergency (ER) | payer MEDICARE ==
[2017-08-11 10:27] VITALS: PULSE 91; BMI 19.0
[2017-08-11] MEDS ORDERED: Sodium Chloride 0.9% 1,000 ML IV STA (10:50)
--- NOTE | 2017-08-11 10:59 | ED PDOC ---
HPI: General Adult Time Seen by Provider: 08/11/17 10:40 Chief Complaint (Provider): Generalized Weakness History Per: Patient History/Exam Limitations: no limitations Onset/Duration Of Symptoms: Days (x6) Current Symptoms Are (Timing): Still Present Additional Complaint(s): Divina Ray is a 76 year old male with prostate cancer that presents to the ED with a chief complaint of generalized weakness, diarrhea, and difficulty urinating that he has been experiencing for the past six days immediately following his chemotherapy session. Patient reports associated chills, sweats, fever, sore throat, and decreased appetite, but denies any chest pain, shortness of breath, headache, or dizziness. Patient reports that he came to the ED two days ago with the same symptoms but did not want to be admitted, though he now states he would want to be admitted as his symptoms have become too difficult to handle. PMD: Dr. Carroll Oncologist: Dr. Porter Of Note: Patient states that he was given morphine at 8:00 AM this morning. Past Medical History Reviewed: Historical Data, Nursing Documentation, Vital Signs Vital Signs: Last Vital Signs Temp 98.3 F 08/11/17 10:31 Pulse 78 08/11/17 13:27 Resp 19 08/11/17 13:27 BP 120/76 08/11/17 13:27 Pulse Ox 100 08/11/17 14:11 - Medical History PMH: Anemia, Atrial Fibrillation, HTN, Hypercholesterolemia Denies: HIV, Chronic Kidney Disease Other PMH: Pt has metastic prostate CA - Family History Family History: States: Unknown Family Hx - Living Arrangements Living Arrangements: With Family - Social History Current smoker - smoking cessation education provided: No Alcohol: None Drugs: Denies - Home Medications Home Medications: Ambulatory Orders Medication Instructions Recorded Tamsulosin [Flomax] 1 tab PO DAILY 05/07/17 Gabapentin [Neurontin] 100 mg PO BID cap 05/10/17 Morphine [Morphine Extended 15 mg PO Q12 #10 05/10/17 Release Tab] traMADol [Ultram] 50 mg PO Q6 PRN #20 tab 05/10/17 Famotidine [Pepcid] 1 tab PO DAILY 05/31/17 Bicalutamide [Casodex] 50 mg PO DAILY tab 06/04/17 Docusate [Colace] 100 mg PO BID cap 06/04/17 Metoprolol Succinate XL [Toprol XL] 25 mg PO BRK #30 tab 06/05/17 Dronabinol [Marinol] 2.5 mg PO DAILY 07/01/17 Ondansetron [Zofran Tab] 8 mg PO Q6H PRN 07/21/17 Prednisone [Deltasone] 10 mg PO DAILY 07/21/17 Digoxin [Lanoxin] 0.125 mg PO DAILY #30 tab 07/24/17 Calcium Carbonate/Vitamin D 1 tab PO BID 08/05/17 [Oscal-D 250 mg-125 Units Tab] Ferrous Fumarate [Eddie-Sequel] 324 mg PO BID 08/05/17 - Allergies Allergies/Adverse Reactions: Allergies Allergy/AdvReac Type Severity Reaction Status Date / Time aspirin Allergy PAIN Verified 08/05/17 07:56 Penicillins Allergy NAUSEA Verified 08/11/17 10:51 Review of Systems Constitutional: Positive for: Fever, Chills, Sweats, Weakness (generlaized), Other (lack of appetitie) ENT: Positive for: Throat Pain (mild) Respiratory: Negative for: Cough, Shortness of Breath Gastrointestinal: Positive for: Diarrhea Genitourinary Male: Positive for: Other (difficulty urinating) Neurological: Negative for: Headache, Dizziness Physical Exam - Reviewed Nursing Documentation Reviewed: Yes Vital Signs Reviewed: Yes - Physical Exam Appears: Positive for: Non-toxic, No Acute Distress Head Exam: Positive for: ATRAUMATIC, NORMOCEPHALIC Skin: Positive for: Warm, Pallor Eye Exam: Positive for: Normal appearance, EOMI, PERRL ENT: Positive for: Normal ENT Inspection Cardiovascular/Chest: Positive for: Regular Rate, Rhythm. Negative for: Murmur Respiratory: Positive for: Normal Breath Sounds. Negative for: Wheezing Gastrointestinal/Abdominal: Positive for: Normal Exam, Soft. 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 Negative for: Motor/Sensory Deficits - Laboratory Results Result Diagrams: 08/11/17 11:25 08/11/17 11:25 Interpretation Of Abn Labs: 2.1 wbc, 22 bun improved from old - ECG ECG: Positive for: Interpreted By Me, Viewed By Me ECG Rhythm: Positive for: Normal QRS, Normal ST Segment, Sinus Rhythm O2 Sat by Pulse Oximetry: 100 (RA) Pulse Ox Interpretation: Normal - Radiology X-Ray: Read By Radiologist X-Ray Interpretation: No Acute Disease - Progress ED Course And Treament: 1433: Stable. AAOx3. Pain free. Ambulating around with no issues. Does not want to wait for Dr. Carroll to call back or get further tx. Demanding morphine rx. Will dc pt. Medical Decision Making Medical Decision Making: Impression: Weakness s/p chemotherapy Plan: * Chest X-Ray * EKG * VBG Shock Panel * CMP * CBC * PTT * PT * Magnesium * Troponin I * Phosphorous * Blood Culture * Urine Culture * Urinalysis * Rapid Strep * Reevaluation Chest X-Ray FINDINGS: LUNGS: No active pulmonary disease. PLEURA: No significant pleural effusion identified, no pneumothorax apparent. CARDIOVASCULAR: Normal. OSSEOUS STRUCTURES: No significant abnormalities. VISUALIZED UPPER ABDOMEN: Normal. OTHER FINDINGS: None. IMPRESSION: No active disease. Scribe Attestation: Documented by Susan Kim, acting as a scribe for Danis Ramírez MD. Provider Scribe Attestation: All medical record entries made by the Scribe were at my direction and personally dictated by me. I have reviewed the chart and agree that the record accurately reflects my personal performance of the history, physical exam, medical decision making, and the department course for this patient. I have also personally directed, reviewed, and agree with the discharge instructions and disposition. Disposition - Clinical Impression Clinical Impression: Weakness - Patient ED Disposition Is Patient to be Admitted: No Counseled Patient/Family Regarding: Studies Performed, Diagnosis, Need For Followup - Disposition Referrals: Clinton Carroll MD [Staff Provider] - 08/12/17 Disposition: Routine/Home Disposition Time: 14:36 Condition: STABLE Additional Instructions: Return if not better in 3 days. Instructions: Weakness (ED)
[2017-08-11 11:35] LABS: VENOUS BLOOD GAS BASE EXCESS -4.5 mmol/L (0.0-2.0); VENOUS BLOOD GAS PCO2 40 mmHg (40-60); VENOUS BLOOD PH 7.33 (7.32-7.43)
[2017-08-11 11:40] LABS: BASO # 0.1 K/uL (0.0-0.2); BASO % 3.3 % (0.0-2.0); EOS # 0.1 K/uL (0.0-0.7); EOS % 4.4 % (0.0-4.0); HEMATOCRIT 27.5 % (35.0-51.0); LYMPH # 0.6 K/uL (1.0-4.3); LYMPH % 27.6 % (20.0-40.0); MEAN CELL VOLUME 89.3 fl (80.0-94.0); MEAN CORPUSCULAR HEMOGLOBIN 30.2 pg (27.0-31.0); MEAN CORPUSCULAR HGB CONC 33.8 g/dL (33.0-37.0); MEAN PLATELET VOLUME 6.9 fl (7.2-11.7); MONO # 0.1 K/uL (0.0-0.8); NEUT # 1.3 K/uL (1.8-7.0); NEUT % 60.7 % (50.0-75.0); NRBC % 0.5 % (0.0-0.0); PLATELET COUNT 350 K/uL (130-400); RED CELL DISTRIBUTION WIDTH 20.2 % (11.5-14.5); WHITE BLOOD COUNT 2.1 K/uL (4.8-10.8)
[2017-08-11 11:47] LABS: ALB/GLOB RATIO 1.3 (1.0-2.1); ALKALINE PHOSPHATASE 154 U/L (38-126); ALT/SGPT 39 U/L (21-72); AST/SGOT 52 U/L (17-59); BILIRUBIN,TOTAL 0.6 mg/dl (0.2-1.3); BLOOD UREA NITROGEN 22 mg/dl (9-20); CALCIUM 9.2 mg/dL (8.4-10.2); CARBON DIOXIDE 20 mmol/L (22-30); CHLORIDE 107 mmol/L (98-107); GFR AFRICAN-AMERICAN > 60; GLUCOSE,RANDOM 111 mg/dL (75-110); MAGNESIUM 2.1 MG/DL (1.6-2.3); PHOSPHOROUS 3.4 mg/dl (2.5-4.5); POTASSIUM 4.9 MMOL/L (3.6-5.0); SODIUM 137 mmol/l (132-148); TOTAL PROTEIN 7.2 G/DL (6.3-8.2)
--- NOTE | 2017-08-11 11:48 | RAD ---
HISTORY: dyspnea COMPARISON: 07/21/2017 FINDINGS: LUNGS: No active pulmonary disease. PLEURA: No significant pleural effusion identified, no pneumothorax apparent. CARDIOVASCULAR: Normal. OSSEOUS STRUCTURES: No significant abnormalities. VISUALIZED UPPER ABDOMEN: Normal. OTHER FINDINGS: None. IMPRESSION: No active disease.
[2017-08-11 11:54] LABS: PARTIAL THROMBOPLASTIN TIME 31.4 Seconds (25.6-37.1)
[2017-08-11 12:40] LABS: BASOPHIL 2 % (0-2); EOSINOPHIL 8 % (0-7); METAMYELOCYTE 1 % (0-0); NEUTROPHIL 59 % (42-75); TOTAL CELLS COUNTED 100
[2017-08-11 13:28] VITALS: PULSE 78; RESP 19
[2017-08-11 13:52] LABS: RBC URINE 2 /hpf (0-3); URINE BILIRUBIN NEGATIVE (NEGATIVE); URINE BLOOD NEGATIVE (NEGATIVE); URINE COLOR YELLOW (YELLOW); URINE GLUCOSE (UA) NEG (Normal); URINE KETONE NEGATIVE (NEGATIVE); URINE LEUKOCYTE ESTERASE NEG Leu/uL (Negative); URINE PROTEIN NEGATIVE (NEGATIVE); URINE UROBILINOGEN 0.2-1.0 mg/dL (0.2-1.0); WBC URINE 1 /hpf (0-5)
[2017-08-11 15:16] VITALS: BP 126/78; TEMP 97.6; O2SAT 98
--- NOTE | 2017-08-12 07:44 | CARD ---
APPROVED REPORT EKG Measurement Heart [id number] <Conclusion> Normal sinus rhythm Normal ECG
== END 2017-08-11 15:18 | disposition home or self-care (01) ==
LOC: H.ER 10:27
DX: R53.1 Weakness (principal); Z92.21 Personal history of antineoplastic chemotherapy; C61 Malignant neoplasm of prostate; E78.00 Pure hypercholesterolemia, unspecified; I10 Essential (primary) hypertension; Z85.46 Personal history of malignant neoplasm of prostate; Z88.0 Allergy status to penicillin; I48.91 Unspecified atrial fibrillation
CPT/HCPCS: 71010; 80053; 81003; 82803; 83735; 84100; 84484; 85025; 85610; 85730; 87040; 87070; 87086; 87430; 93005; 96360; 99285; J7040

== ENCOUNTER 2017-08-12 10:49 | Inpatient (IN) | payer MEDICARE ==
[2017-08-12] MEDS ORDERED: Sodium Chloride 0.9% 1,000 ML IV STA ×2 (11:08→14:13)
--- NOTE | 2017-08-12 11:11 | ED PDOC ---
Syncope/Near Syncope/Dizziness Time Seen by Provider: 08/12/17 10:57 Chief Complaint (Nursing): Weakness/Neurological Deficit History Per: Patient Onset/Duration Of Symptoms: Days (2) Current Symptoms Are (Timing): Still Present Activity At Onset Of Symptoms: Sitting Associated Symptoms Preceding Syncopal Episode: No Predromal Symptoms (Sudden Onset) Seizure Or Post-ictal Symptoms: None Possible Causative Factor(s): Decreased PO Intake Fall Associated With With Symptoms: No Severity: Moderate Additional Complaint(s): Generalized weakness assoc with nausea and diarrhea. Unable to tolerate PO. H/o prostate Ca s/p chemo Past Medical History - Medical History PMH: Anemia, Atrial Fibrillation, HTN, Hypercholesterolemia, Malignancy ( Prostate) Denies: HIV, Chronic Kidney Disease - Family History Family History: States: Unknown Family Hx - Home Medications Home Medications: Ambulatory Orders Medication Instructions Recorded Tamsulosin [Flomax] 0.4 mg PO BID 05/07/17 Gabapentin [Neurontin] 100 mg PO BID cap 05/10/17 Famotidine [Pepcid] 20 mg PO DAILY 05/31/17 Bicalutamide [Casodex] 50 mg PO DAILY tab 06/04/17 Prednisone [Deltasone] 10 mg PO DAILY 07/21/17 Digoxin [Lanoxin] 0.125 mg PO DAILY #30 tab 07/24/17 Calcium Carbonate/Vitamin D3 1 tab PO BID 08/12/17 [Caltrate 600 Plus D3 Tablet] Ferrous Sulfate [Feosol] 325 mg PO BID 08/12/17 Megestrol Acetate [Megace] 5 ml PO BID 08/12/17 Metoprolol Succinate [Toprol XL] 25 mg PO DAILY 08/12/17 Ondansetron ODT [Zofran ODT] 8 mg PO Q8H PRN 08/12/17 - Allergies Allergies/Adverse Reactions: Allergies Allergy/AdvReac Type Severity Reaction Status Date / Time aspirin Allergy PAIN Verified 08/12/17 10:58 Penicillins Allergy NAUSEA Verified 08/12/17 10:58 Review of Systems ROS Statement: Except As Marked, All Systems Reviewed And Found Negative Constitutional: Positive for: Weakness. Negative for: Fever Cardiovascular: Negative for: Chest Pain, Palpitations Gastrointestinal: Positive for: Nausea, Diarrhea. Negative for: Abdominal Pain Physical Exam - Reviewed Nursing Documentation Reviewed: Yes Vital Signs Reviewed: Yes - Physical Exam Appears: Positive for: Non-toxic, No Acute Distress Head Exam: Positive for: ATRAUMATIC, NORMAL INSPECTION, NORMOCEPHALIC Skin: Positive for: Normal Color, Warm, DRY Eye Exam: Positive for: EOMI, Normal appearance, PERRL ENT: Positive for: Other (Mucous membranes dry.) Neck: Positive for: Normal, Painless ROM Cardiovascular/Chest: Positive for: Regular Rate, Rhythm Respiratory: Positive for: CNT, Normal Breath Sounds Gastrointestinal/Abdominal: Positive for: Normal Exam, Bowel Sounds, Soft Back: Positive for: Normal Inspection Extremity: Positive for: Normal ROM Neurologic/Psych: Positive for: Alert, Oriented - Laboratory Results Result Diagrams: 08/12/17 11:20 08/12/17 11:20 Disposition - Clinical Impression Clinical Impression: Metastatic cancer, Dehydration, Weakness - Patient ED Disposition Is Patient to be Admitted: Yes - Disposition Disposition Time: 12:40 Condition: FAIR Instructions: Weakness (ED) Forms: [facility] (Sami) - Pt Status Changed To: Hospital Disposition Of: Observation - POA Present On Arrival: None
[2017-08-12 11:33] LABS: BASO # 0.1 K/uL (0.0-0.2); BASO % 3.7 % (0.0-2.0); EOS # 0.1 K/uL (0.0-0.7); EOS % 3.9 % (0.0-4.0); HEMATOCRIT 25.4 % (35.0-51.0); LYMPH # 0.7 K/uL (1.0-4.3); LYMPH % 32.9 % (20.0-40.0); MEAN CORPUSCULAR HEMOGLOBIN 29.8 pg (27.0-31.0); MEAN CORPUSCULAR HGB CONC 33.5 g/dL (33.0-37.0); MEAN PLATELET VOLUME 6.7 fl (7.2-11.7); MONO # 0.2 K/uL (0.0-0.8); MONO % 10.5 % (0.0-10.0); NRBC % 0.5 % (0.0-0.0); PLATELET COUNT 355 K/uL (130-400); RED CELL DISTRIBUTION WIDTH 20.4 % (11.5-14.5); WHITE BLOOD COUNT 2.1 K/uL (4.8-10.8)
[2017-08-12 11:48] LABS: ALB/GLOB RATIO 1.2 (1.0-2.1); ALKALINE PHOSPHATASE 152 U/L (38-126); ALT/SGPT 37 U/L (21-72); AST/SGOT 39 U/L (17-59); BILIRUBIN,TOTAL 0.5 mg/dl (0.2-1.3); BLOOD UREA NITROGEN 23 mg/dl (9-20); CALCIUM 8.8 mg/dL (8.4-10.2); CARBON DIOXIDE 20 mmol/L (22-30); CHLORIDE 106 mmol/L (98-107); GFR AFRICAN-AMERICAN > 60; GLUCOSE,RANDOM 104 mg/dL (75-110); POTASSIUM 4.5 MMOL/L (3.6-5.0); SODIUM 134 mmol/l (132-148); TOTAL PROTEIN 6.7 G/DL (6.3-8.2)
[2017-08-12 13:34] LABS: BASOPHIL 3 % (0-2); EOSINOPHIL 5 % (0-7); METAMYELOCYTE 1 % (0-0); MYELOCYTE 2 % (0-0); NEUTROPHIL 44 % (42-75); TOTAL CELLS COUNTED 100
[2017-08-12] MEDS ORDERED: Alum-Mag Hydrox-Simethicone Susp (30 mL) PO ONE (14:27)
[2017-08-12] MEDS ORDERED: Alum-Mag Hydrox-Simethicone Susp (30 mL) ONE (14:30)
[2017-08-12] MEDS: Dextrose 5%/0.9% NS 1,000 ML IV SCH (17:01)
[2017-08-12] MEDS: Calcium-Vit D 500 mg-200 Units Tab UD PO SCH (17:02)
[2017-08-12] MEDS: Megestrol Acetate 40 mg/ml Cup PO SCH (17:02)
[2017-08-13] MEDS: Dextrose 5%/0.9% NS 1,000 ML IV SCH ×2 (02:10→12:32)
--- NOTE | 2017-08-13 05:33 | HP ---
HISTORY OF PRESENT ILLNESS: This is a 76-year-old Indian male with history of metastatic prostate cancer, currently on chemotherapy. The patient also has history of severe aortic stenosis. The patient had multiple hospitalizations in relation to both problems. The patient presented to emergency room for the third time this week with generalized weakness. The patient was evaluated and he was found to be hypotensive and dehydrated. Blood pressure was 88/54. The patient had BUN of 23 and creatinine of 1.2. The patient was also found to have white blood cell count of 2.1 and hemoglobin of 8.5. The patient was admitted to medical floor after started on IV fluid and Hematology consult was called. REVIEW OF SYSTEMS: Other review of systems is negative. ALLERGIES: THE PATIENT HAS ALLERGY TO ASPIRIN AND PENICILLIN. SOCIAL HISTORY: Ex-smoker. No ETOH or substance abuse. FAMILY HISTORY: Noncontributory. HOME MEDICATIONS: Include prednisone 10 mg daily, gabapentin 100 mg twice a day, ferrous sulfate 325 mg twice a day, Pepcid 20 mg daily, digoxin 0.125 mg daily, Casodex 50 mg daily, metoprolol 25 mg daily, Flomax 0.4 mg twice a day. PHYSICAL EXAMINATION GENERAL: The patient is in bed, comfortable, not in any cardiopulmonary distress. VITAL SIGNS: With blood pressure again 88/54, temperature of 99, respiratory rate of 18 and pulse of 75. HEENT: Pupils are equal and reactive to light. Pale mucosa of the conjunctivae. NECK: Supple. No JVD. No carotid bruit. No lymph node. No thyromegaly. CHEST AND LUNGS: Bilateral symmetrical expansion. Good air exchange. No rales. No rhonchi. CARDIOVASCULAR SYSTEM: PMI not localized. S1 and S2. No additional sounds. ABDOMEN: Normoactive bowel sounds. No tenderness. No organomegaly. No masses. EXTREMITIES: No cyanosis. No clubbing. No edema. CENTRAL NERVOUS SYSTEM: Alert, awake, and oriented x2 and the patient has generalized weakness with difficulty ambulating out of bed. ASSESSMENT: Dehydration, leukopenia/anemia, probably secondary to bone marrow suppression, metastatic prostate cancer, on chemotherapy, and severe aortic stenosis. PLAN: IV fluids and bone marrow stimulants, hematology consult and follow the recommendations, and physical therapy. Packed RBC transfusion as needed. Same MD [facility] # [id number]
[2017-08-13 06:37] LABS: ALB/GLOB RATIO 1.2 (1.0-2.1); ALKALINE PHOSPHATASE 140 U/L (38-126); ALT/SGPT 34 U/L (21-72); AST/SGOT 42 U/L (17-59); BILIRUBIN,TOTAL 0.5 mg/dl (0.2-1.3); BLOOD UREA NITROGEN 16 mg/dl (9-20); CALCIUM 7.9 mg/dL (8.4-10.2); CARBON DIOXIDE 19 mmol/L (22-30); CHLORIDE 109 mmol/L (98-107); GFR AFRICAN-AMERICAN > 60; GLUCOSE,RANDOM 97 mg/dL (75-110); POTASSIUM 4.2 MMOL/L (3.6-5.0); SODIUM 138 mmol/l (132-148); TOTAL PROTEIN 5.8 G/DL (6.3-8.2)
[2017-08-13 06:38] LABS: BASO % 1.5 % (0.0-2.0); EOS # 0.1 K/uL (0.0-0.7); EOS % 1.8 % (0.0-4.0); HEMATOCRIT 23.1 % (35.0-51.0); LYMPH # 0.9 K/uL (1.0-4.3); LYMPH % 27.8 % (20.0-40.0); MEAN CELL VOLUME 89.5 fl (80.0-94.0); MEAN CORPUSCULAR HEMOGLOBIN 29.8 pg (27.0-31.0); MEAN CORPUSCULAR HGB CONC 33.3 g/dL (33.0-37.0); MEAN PLATELET VOLUME 6.9 fl (7.2-11.7); MONO # 0.5 K/uL (0.0-0.8); NEUT # 1.8 K/uL (1.8-7.0); NEUT % 54.9 % (50.0-75.0); NRBC % 0.6 % (0.0-0.0); RED CELL DISTRIBUTION WIDTH 20.6 % (11.5-14.5); WHITE BLOOD COUNT 3.2 K/uL (4.8-10.8)
[2017-08-13] MEDS: Metoprolol Succinate 25 mg XL Tab PO SCH (08:48)
[2017-08-13] MEDS: Digoxin 125 mcg (0.125 mg) Tab PO SCH (08:50)
[2017-08-13] MEDS: Calcium-Vit D 500 mg-200 Units Tab UD PO SCH ×2 (08:50→16:29)
--- NOTE | 2017-08-13 08:58 | CP.PCM.CON ---
History of Present Illness - History of Present Illness History of Present Illness: This is a 76 yrs old male who was admitted for dehydration. Pt was diagnosed to have a prostate cancer about 4 yrs ao. He had a biopsy which showed the malignancy. He was also found to have a couple of bone metastasis. He refused regular treatment and went for a holistic medicine , but inspite of it his disease progressed and he came to [facility] with diffuse skeletal mets ,and liver mets as well. His PSA was around 4000, We started him on casodex and after 3 months lupron was added as well he was also on taxotere once q 3 weeks, with prednisone and zometa for the bone mets. His cbc and hgb is low both from the chemo and the bone marrow involved by the tumor. His last PSA done on 07.17.17 showed the PSA to be down to 125. Pt c/o getting very weak every time he gets chemo and is complaining that it is only making him sicker, He does not drink enough water, and always gets dehydrated and admitted for the same. He is on morphine and gabapentin for his pain. Past Patient History - Past Medical History & Family History Past Medical History?: Yes - Past Social History Smoking Status: Never Smoked - CARDIAC Hx Cardiac Disorders: Yes Hx Atrial Fibrillation: Yes Hx Hypercholesterolemia: Yes Hx Hypertension: Yes - PULMONARY Hx Respiratory Disorders: No - NEUROLOGICAL Hx Neurological Disorder: No - HEENT Hx HEENT Problems: No - RENAL Hx Chronic Kidney Disease: No - ENDOCRINE/METABOLIC Hx Endocrine Disorders: No - HEMATOLOGICAL/ONCOLOGICAL Hx Blood Disorders: Yes Hx Anemia: Yes Hx Blood Transfusions: Yes - INTEGUMENTARY Hx Dermatological Problems: No - MUSCULOSKELETAL/RHEUMATOLOGICAL Hx Musculoskeletal Disorders: Yes Hx Falls: Yes - GASTROINTESTINAL Hx Gastrointestinal Disorders: No - GENITOURINARY/GYNECOLOGICAL Hx Genitourinary Disorders: Yes Hx Prostate Cancer: Yes - PSYCHIATRIC Hx Psychophysiologic Disorder: No Hx Substance Use: No - SURGICAL HISTORY Hx Surgeries: No - ANESTHESIA Hx Anesthesia: Yes Hx Anesthesia Reactions: No Hx Malignant Hyperthermia: No Meds Allergies/Adverse Reactions: Allergies Allergy/AdvReac Type Severity Reaction Status Date / Time aspirin Allergy PAIN Verified 08/12/17 10:58 Penicillins Allergy NAUSEA Verified 08/12/17 10:58 - Medications Medications: Current Medications Bicalutamide (Casodex) 50 mg PO DAILY [facility] Calcium/Vitamin D (Oyster Shell Calcium/Vitamin D 500 Mg-200 Iu) 1 tab PO BID [facility] Last Admin: 08/12/17 17:02 Dose: 1 tab Digoxin (Lanoxin) 0.125 mg PO DAILY [facility] Famotidine (Pepcid) 20 mg PO DAILY [facility] Ferrous Sulfate (Feosol) 325 mg PO BID [facility] Last Admin: 08/12/17 17:02 Dose: 325 mg Gabapentin (Neurontin) 100 mg PO BID [facility] Last Admin: 08/12/17 17:02 Dose: 100 mg Dextrose/Sodium Chloride (Dextrose 5%/0.9% Ns 1000 Ml) 1,000 mls @ 100 mls/hr IV .Q10H [facility] Stop: 08/13/17 15:52 Last Admin: 08/13/17 02:10 Dose: 100 mls/hr Megestrol Acetate (Megace) 200 mg PO BID [facility] Last Admin: 08/12/17 17:02 Dose: 200 mg Metoprolol Succinate (Toprol Xl) 25 mg PO DAILY [facility] Morphine Sulfate (Morphine) 2 mg IVP Q4 PRN PRN Reason: Pain, moderate (4-7) Ondansetron HCl (Zofran Odt) 8 mg PO Q8H PRN PRN Reason: Nausea/Vomiting Prednisone (Prednisone Tab) 10 mg PO DAILY [facility] Tamsulosin HCl (Flomax) 0.4 mg PO BID [facility] Last Admin: 08/12/17 17:02 Dose: 0.4 mg Physical Exam - Additional Findings Additional findings: Physical exam; Pt is alert, well oriented, and after being hydrated much better. neck supple, no adenopathy Chest; Clear, no rales or rhonchi Heart; RSR, no murmur Abd; Soft, no mass, no h/s megaly Results - Vital Signs Recent Vital Signs: Last Vital Signs Temp 97.8 F 08/13/17 00:41 Pulse 75 08/13/17 00:41 Resp 18 08/13/17 00:41 BP 91/60 L 08/13/17 00:41 Pulse Ox 98 08/13/17 00:41 - Labs Result Diagrams: 08/13/17 05:50 08/13/17 05:50 Labs: Laboratory Results - last 24 hr 08/12/17 08/12/17 08/13/17 11:20 11:20 05:50 WBC 2.1 L 3.2 L D RBC 2.86 L 2.58 L Hgb 8.5 L 7.7 L Hct 25.4 L 23.1 L MCV 89.0 89.5 MCH 29.8 29.8 MCHC 33.5 33.3 RDW 20.4 H 20.6 H Plt Count 355 329 MPV 6.7 L 6.9 L Neut % (Auto) 49.0 L 54.9 Lymph % (Auto) 32.9 27.8 Stokes % (Auto) 10.5 H 14.0 H Eos % (Auto) 3.9 1.8 Baso % (Auto) 3.7 H 1.5 Neut # 1.0 L 1.8 Lymph # 0.7 L 0.9 L Stokes # 0.2 0.5 Eos # 0.1 0.1 Baso # 0.1 0.0 Neutrophils % (Manual) 44 Band Neutrophils % 4 H Lymphocytes % (Manual) 26 Monocytes % (Manual) 15 H Eosinophils % (Manual) 5 Basophils % (Manual) 3 H Metamyelocytes % 1 H Myelocytes % 2 H Platelet Estimate Normal Polychromasia Slight Hypochromasia (manual) Slight Anisocytosis (manual) Moderate Tear Drop Cells Slight Sodium 134 Potassium 4.5 Chloride 106 Carbon Dioxide 20 L Anion Gap 13 BUN 23 H Creatinine 1.2 Est GFR ( Amer) > 60 Est GFR (Non-Af Amer) 59 Random Glucose 104 Calcium 8.8 Total Bilirubin 0.5 AST 39 ALT 37 Alkaline Phosphatase 152 H Total Protein 6.7 Albumin 3.7 Globulin 3.0 Albumin/Globulin Ratio 1.2 08/13/17 05:50 WBC RBC Hgb Hct MCV MCH MCHC RDW Plt Count MPV Neut % (Auto) Lymph % (Auto) Stokes % (Auto) Eos % (Auto) Baso % (Auto) Neut # Lymph # Stokes # Eos # Baso # Neutrophils % (Manual) Band Neutrophils % Lymphocytes % (Manual) Monocytes % (Manual) Eosinophils % (Manual) Basophils % (Manual) Metamyelocytes % Myelocytes % Platelet Estimate Polychromasia Hypochromasia (manual) Anisocytosis (manual) Tear Drop Cells Sodium 138 Potassium 4.2 Chloride 109 H Carbon Dioxide 19 L Anion Gap 14 BUN 16 Creatinine 1.1 Est GFR ( Amer) > 60 Est GFR (Non-Af Amer) > 60 Random Glucose 97 Calcium 7.9 L Total Bilirubin 0.5 AST 42 ALT 34 Alkaline Phosphatase 140 H Total Protein 5.8 L Albumin 3.2 L Globulin 2.6 Albumin/Globulin Ratio 1.2 Assessment & Plan - Assessment and Plan (Free Text) Assessment: Impression; Prostate cancer with skeletal mets and liver mets Pancytopenis secondary to the chemo+ bone metastasis Plan: Plan; Will give him 2 units of packed cells. and start him on granix for 2 days I had a long discussion with him re the importance of him getting the chemo since his tumor has responded well to it. He however complains that it causes him to get very sick. He will think about if he wants to continue or not. - Date & Time Date: 08/13/17 Time: 09:13
[2017-08-13] MEDS: Megestrol Acetate 40 mg/ml Cup PO SCH ×2 (08:59→16:28)
--- NOTE | 2017-08-13 23:29 | PN ---
SUBJECTIVE: The patient is seen today, 08/13/2017. He is still feeling generalized weakness. The patient's hemoglobin dropped to 7.7. PHYSICAL EXAMINATION: VITAL SIGNS: Blood pressure is 95/52, temperature 98.7, respiratory rate 19, pulse 86. HEENT: Pupils are equal and reactive to light. Normal appearing mucosa of the conjunctivae, oropharyngeal, and nasal membrane mucosa. NECK: Supple. No JVD. No carotid bruit. No lymph node. No thyromegaly. CHEST AND LUNGS: Bilateral symmetrical expansion. Good air exchange. No rales, no rhonchi. CARDIOVASCULAR: PMI not localized. S1, S2. No additional sounds. ABDOMEN: Normoactive bowel sounds. No tenderness. No organomegaly. No masses. EXTREMITIES: No cyanosis. No clubbing. No edema. CENTRAL NERVOUS SYSTEM: Alert, awake and oriented x2. No neurological deficits could be appreciated. ASSESSMENT: 1. Metastatic prostate cancer, on chemotherapy. 2. Anemia of chronic disease. 3. Leukopenia. PLAN: Continue bone marrow stimulant and transfuse 2 units of packed RBCs. Discussed the patient with Dr. Montague. Clinton Carroll MD
[2017-08-14 00:02] VITALS: RESP 20
[2017-08-14 05:46] LABS: HEMATOCRIT 30.2 % (35.0-51.0); MEAN CELL VOLUME 89.8 fl (80.0-94.0); MEAN CORPUSCULAR HEMOGLOBIN 29.9 pg (27.0-31.0); MEAN CORPUSCULAR HGB CONC 33.3 g/dL (33.0-37.0); RED CELL DISTRIBUTION WIDTH 18.2 % (11.5-14.5)
[2017-08-14 05:53] LABS: BLOOD UREA NITROGEN 16 mg/dl (9-20); CALCIUM 8.2 mg/dL (8.4-10.2); CARBON DIOXIDE 21 mmol/L (22-30); CHLORIDE 110 mmol/L (98-107); GFR AFRICAN-AMERICAN > 60; GLUCOSE,RANDOM 98 mg/dL (75-110); POTASSIUM 4.2 MMOL/L (3.6-5.0); SODIUM 137 mmol/l (132-148)
[2017-08-14 07:54] VITALS: PULSE 79; TEMP 98.4; O2SAT 98
[2017-08-14 08:47] LABS: PHOSPHOROUS 2.5 mg/dl (2.5-4.5)
[2017-08-14] MEDS: Calcium-Vit D 500 mg-200 Units Tab UD PO SCH (08:55)
[2017-08-14] MEDS: Digoxin 125 mcg (0.125 mg) Tab PO SCH (08:55)
[2017-08-14] MEDS: Megestrol Acetate 40 mg/ml Cup PO SCH (08:55)
[2017-08-14 08:56] VITALS: PULSE 79
[2017-08-14] MEDS: Metoprolol Succinate 25 mg XL Tab PO SCH (09:19)
[2017-08-14 09:21] VITALS: BP 100/61
--- NOTE | 2017-08-14 09:47 | CP.PCM.PN ---
Subjective - Date & Time of Evaluation Date of Evaluation: 08/14/17 Time of Evaluation: 09:41 - Subjective Subjective: Pt is feeling better. He claims all his -problems are secondary chemotherapy because he was told that chemotherapy is poison. He has been advised to drink a lot of water, because everytime he comes to the hospital and is hydrated he feels fine. He wants to think about whether or not he still wants the chemotherapy. He does realizer that since he has been getting the chemo the PSA has come down from 3600 to 125. Objective - Vital Signs/Intake and Output Vital Signs (last 24 hours): Temp Pulse Resp BP Pulse Ox 98.4 F 79 20 100/61 98 08/14/17 07:53 08/14/17 09:19 08/14/17 07:53 08/14/17 09:19 08/14/17 07:53 - Medications Medications: Current Medications Bicalutamide (Casodex) 50 mg PO DAILY [facility] Last Admin: 08/14/17 08:53 Dose: 50 mg Calcium/Vitamin D (Oyster Shell Calcium/Vitamin D 500 Mg-200 Iu) 1 tab PO BID [facility] Last Admin: 08/14/17 08:55 Dose: 1 tab Digoxin (Lanoxin) 0.125 mg PO DAILY [facility] Last Admin: 08/14/17 08:55 Dose: 0.125 mg Famotidine (Pepcid) 20 mg PO DAILY [facility] Last Admin: 08/14/17 08:56 Dose: 20 mg Ferrous Sulfate (Feosol) 325 mg PO BID [facility] Last Admin: 08/14/17 08:55 Dose: 325 mg Gabapentin (Neurontin) 100 mg PO BID [facility] Last Admin: 08/14/17 08:55 Dose: 100 mg Megestrol Acetate (Megace) 200 mg PO BID [facility] Last Admin: 08/14/17 08:55 Dose: 200 mg Metoprolol Succinate (Toprol Xl) 25 mg PO DAILY [facility] Last Admin: 08/14/17 09:19 Dose: Not Given Morphine Sulfate (Morphine) 2 mg IVP Q4 PRN PRN Reason: Pain, moderate (4-7) Last Admin: 08/14/17 08:51 Dose: 2 mg Ondansetron HCl (Zofran Odt) 8 mg PO Q8H PRN PRN Reason: Nausea/Vomiting Prednisone (Prednisone Tab) 10 mg PO DAILY [facility] Last Admin: 08/14/17 08:56 Dose: 10 mg Tamsulosin HCl (Flomax) 0.4 mg PO BID [facility] Last Admin: 08/14/17 08:54 Dose: 0.4 mg - Labs Labs: 08/14/17 05:33 08/14/17 05:33
--- NOTE | 2017-08-14 14:59 | PQF GENQUE ---
Dr. Carroll, The attending physician is required to clarify conflicting documentation in the medical record. The following documentation is noted in the medical record: 2 (two) queries as follows: 1..Diagnosis 1: Pancytopenia Documented by: Oncologist Location: Consult Diagnosis 2: Leukopenia/Anemia Documented by: Attending Location: H and P 2. Etiology of bone marrow suppression H and P:Dehydration, leukopenia/anemia, probably secondary to bone marrow suppression, metastatic prostate cancer, on &chemotherapy, and severe aortic stenosis. WBC: 2.1->3.2->6.0 RBC:2.86->2.58->3.36 H/H:8.5/25.4->7.7/23.1->10.1/30.2 Plt Count:355->329->332 This form is a permanent part of the medical record Clarification of your documentation is requested to better reflect the severity of illness and intensity of treatment of your patient. Indicators present [] Specify: [] [] Specify: [] [] Specify: [] [] Specify: [] Location in the medical record that reflects the above clinical findings: [] Treatment Provided: [] PHYSICIAN'S RESPONSE Based on your medical judgment of the clinical indicators outlined above please clarify the following: [] Practitioner response [] If unable to determine, please check the box, sign and date. Present On Admission (POA) Indicator: [] Present at the time of admission [] Not present at the time of admission [] Clinically Undetermined In responding to this query, please exercise your independent professional judgment. The fact that a question is asked does not imply that any particular answer is desired or expected. Thank you for your clarification on this documentation. If you have any questions please call. * Thank you, Jamilah Win RN ext. #[phone]: Federica GONZALEZD
== END 2017-08-14 14:46 | DRG 641 ==
LOC: H.ER 10:49 → H.ERHOLD 12:37 → H.MEDSURG1 15:33 → OBSVTOIN 08-13 10:10
PROVIDERS: ADMIT Internal Medicine; ATTEND Internal Medicine
DX: E86.0 Dehydration (principal); I95.9 Hypotension, unspecified; C78.7 Secondary malignant neoplasm of liver and intrahepatic bile duct; C79.51 Secondary malignant neoplasm of bone; D64.81 Anemia due to antineoplastic chemotherapy; I48.91 Unspecified atrial fibrillation; Z85.46 Personal history of malignant neoplasm of prostate; E78.00 Pure hypercholesterolemia, unspecified; I10 Essential (primary) hypertension; I35.0 Nonrheumatic aortic (valve) stenosis; T45.1X5A Adverse effect of antineoplastic and immunosuppressive drugs, initial encounter; Z79.899 Other long term (current) drug therapy; Z87.891 Personal history of nicotine dependence; R11.0 Nausea; R19.7 Diarrhea, unspecified; D72.819 Decreased white blood cell count, unspecified

== ENCOUNTER 2017-08-30 10:23 | Inpatient (IN) | payer MEDICARE ==
[2017-08-30 10:23] VITALS: BMI 20.9
[2017-08-30] MEDS ORDERED: Sodium Chloride 0.9% 1,000 ML IV STA ×2 (10:49→14:24)
[2017-08-30 11:06] LABS: BASO # 0.1 K/uL (0.0-0.2); BASO % 1.1 % (0.0-2.0); EOS # 0.1 K/uL (0.0-0.7); EOS % 2.4 % (0.0-4.0); HEMATOCRIT 29.6 % (35.0-51.0); LYMPH # 0.8 K/uL (1.0-4.3); LYMPH % 17.6 % (20.0-40.0); MEAN CELL VOLUME 91.8 fl (80.0-94.0); MEAN CORPUSCULAR HEMOGLOBIN 30.1 pg (27.0-31.0); MEAN CORPUSCULAR HGB CONC 32.8 g/dL (33.0-37.0); MEAN PLATELET VOLUME 7.1 fl (7.2-11.7); NEUT # 3.6 K/uL (1.8-7.0); NEUT % 77.9 % (50.0-75.0); WHITE BLOOD COUNT 4.6 K/uL (4.8-10.8)
--- NOTE | 2017-08-30 11:08 | ED PDOC ---
HPI: General Adult Time Seen by Provider: 08/30/17 10:37 Chief Complaint (Nursing): Weakness/Neurological Deficit Chief Complaint (Provider): im weak History Per: Patient History/Exam Limitations: no limitations Onset/Duration Of Symptoms: Days (3-4) Current Symptoms Are (Timing): Still Present Severity: Severe Recently: Treated By A Physician, Hospitalized Additional Complaint(s): 76yo male presents c/o generalized weakness, nausea, inability to tolerate PO s/ p chemotherapy for prostate cancer. Prior charts reviewed, similar presentation several weeks ago requiring admission. Denies fever, admits to mild cough. Per oncology note PSA is trending down. Past Medical History Reviewed: Historical Data, Nursing Documentation, Vital Signs Vital Signs: Last Vital Signs Temp 97.5 F L 08/30/17 18:09 Pulse 80 08/30/17 18:09 Resp 18 08/30/17 18:09 BP 126/71 08/30/17 18:09 Pulse Ox 98 08/30/17 18:09 - Medical History PMH: Anemia, Atrial Fibrillation, HTN, Hypercholesterolemia, Malignancy ( Prostate) Denies: HIV, Chronic Kidney Disease - Family History Family History: States: Unknown Family Hx - Social History Current smoker - smoking cessation education provided: No - Home Medications Home Medications: Ambulatory Orders Medication Instructions Recorded Tamsulosin [Flomax] 0.4 mg PO BID 05/07/17 Gabapentin [Neurontin] 100 mg PO BID cap 05/10/17 Famotidine [Pepcid] 20 mg PO DAILY 05/31/17 Bicalutamide [Casodex] 50 mg PO DAILY tab 06/04/17 Prednisone [Deltasone] 10 mg PO DAILY 07/21/17 Digoxin [Lanoxin] 0.125 mg PO DAILY #30 tab 07/24/17 Calcium Carbonate/Vitamin D3 1 tab PO BID 08/12/17 [Caltrate 600 Plus D3 Tablet] Ferrous Sulfate [Feosol] 325 mg PO BID 08/12/17 Megestrol Acetate [Megace] 5 ml PO BID 08/12/17 Metoprolol Succinate [Toprol XL] 25 mg PO DAILY 08/12/17 Ondansetron ODT [Zofran ODT] 8 mg PO Q8H PRN 08/12/17 traMADol [Ultram] 50 mg PO Q6H PRN 08/30/17 - Allergies Allergies/Adverse Reactions: Allergies Allergy/AdvReac Type Severity Reaction Status Date / Time aspirin Allergy PAIN Verified 08/26/17 08:41 Penicillins Allergy NAUSEA Verified 08/26/17 08:41 Review of Systems Constitutional: Positive for: Weakness, Malaise, Weight loss. Negative for: Fever Eyes: Negative for: Vision Change Respiratory: Positive for: Cough. Negative for: Shortness of Breath Gastrointestinal: Positive for: Nausea, Vomiting, Diarrhea. Negative for: Hematochezia, Hematemesis Genitourinary Male: Negative for: Dysuria, Incontinence Musculoskeletal: Positive for: Back Pain, Other (aches and pains). Negative for : Neck Pain Skin: Negative for: Rash, Lesions, Jaundice Neurological: Negative for: Weakness, Numbness Physical Exam - Reviewed Nursing Documentation Reviewed: Yes Vital Signs Reviewed: Yes - Physical Exam Appears: Positive for: Uncomfortable (mild painful distress, dry, chronically ill) Head Exam: Positive for: ATRAUMATIC, NORMAL INSPECTION, NORMOCEPHALIC Skin: Positive for: Warm, Pallor Eye Exam: Positive for: Normal appearance, EOMI, PERRL, Other (conjunctival pallor). Negative for: Scleral icterus ENT: Positive for: Normal ENT Inspection Neck: Positive for: Normal, Painless ROM Cardiovascular/Chest: Positive for: Chest Non Tender Respiratory: Positive for: CNT, Normal Breath Sounds Gastrointestinal/Abdominal: Positive for: Bowel Sounds, Soft. Negative for: Tenderness Back: Positive for: Normal Inspection Extremity: Positive for: Tenderness (diffuse tenderness back/hips/legs) Neurologic/Psych: Positive for: Alert, Oriented, Gait (unable to assess). Negative for: Motor/Sensory Deficits, Aphasia - Laboratory Results Result Diagrams: 08/30/17 11:02 08/30/17 11:02 - ECG ECG: Positive for: Interpreted By Me ECG Rhythm: Positive for: Sinus Rhythm, Nonspecific Changes Rate: 68 O2 Sat by Pulse Oximetry: 99 Pulse Ox Interpretation: Normal Medical Decision Making Medical Decision Making: Workup initiated for generalized weakness/ nausea, intolerance of chemo. IVF bolus ordered Prior charts reviewed labs reviewed, chronic anemia +elev BUN c/w dehydration WBC mild leukopenia with sufficient ANC D/w Dr Chantell Montague- rec IV hydration only ~230p D/w PMD Dr Call- rec IVF and possible discharge if able ~430pm patient remains in pain, unable to ambulate, not tolerating PO well, failure outpatient therapy w fluids and oral pain medicine, place Obs for IVF and pain control. Disposition - Clinical Impression Clinical Impression: Metastatic cancer, Dehydration - Disposition Disposition Time: 15:00 Condition: FAIR
[2017-08-30 11:24] LABS: ALB/GLOB RATIO 1.2 (1.0-2.1); ALKALINE PHOSPHATASE 238 U/L (38-126); ALT/SGPT 42 U/L (21-72); AST/SGOT 90 U/L (17-59); BILIRUBIN,TOTAL 0.4 mg/dl (0.2-1.3); BLOOD UREA NITROGEN 25 mg/dl (9-20); CALCIUM 8.3 mg/dL (8.4-10.2); CARBON DIOXIDE 24 mmol/L (22-30); CHLORIDE 105 mmol/L (98-107); GFR AFRICAN-AMERICAN > 60; GLUCOSE,RANDOM 105 mg/dL (75-110); POTASSIUM 4.1 MMOL/L (3.6-5.0); SODIUM 139 mmol/l (132-148); TOTAL PROTEIN 6.6 G/DL (6.3-8.2)
[2017-08-30 11:35] LABS: PARTIAL THROMBOPLASTIN TIME 29.5 Seconds (25.6-37.1)
[2017-08-30 14:30] LABS: RBC URINE 2 /hpf (0-3); URINE BILIRUBIN NEGATIVE (NEGATIVE); URINE BLOOD SMALL (NEGATIVE); URINE COLOR YELLOW (YELLOW); URINE GLUCOSE (UA) NEG (Normal); URINE KETONE NEGATIVE (NEGATIVE); URINE LEUKOCYTE ESTERASE NEG Leu/uL (Negative); URINE PROTEIN NEGATIVE (NEGATIVE); URINE UROBILINOGEN 0.2-1.0 mg/dL (0.2-1.0); WBC URINE 1 /hpf (0-5)
--- NOTE | 2017-08-30 20:01 | RAD ---
HISTORY: cough, on chemo COMPARISON: 08/11/2017 chest x-ray 05/07/2017 whole-body bone scan. Summary of findings on the comparison examination: Widely disseminated osseous metastatic disease. FINDINGS: LUNGS: No active pulmonary disease. PLEURA: No significant pleural effusion identified, no pneumothorax apparent. CARDIOVASCULAR: Normal. OSSEOUS STRUCTURES: Sclerotic findings within osseous structures likely metastatic disease. VISUALIZED UPPER ABDOMEN: Normal. OTHER FINDINGS: None. IMPRESSION: No active pulmonary disease. No significant interval change compared to the prior examination(s).
[2017-08-30] MEDS: Megestrol Acetate 40 mg/ml Cup PO SCH (21:26)
[2017-08-30] MEDS: Dextrose 5%/0.45% NS 500 ML IV SCH (22:30)
--- NOTE | 2017-08-30 22:41 | CARD ---
APPROVED REPORT EKG Measurement Heart [id number] <Conclusion> Normal sinus rhythm Possible Left atrial enlargement Borderline ECG
[2017-08-31] MEDS: Dextrose 5%/0.45% NS 500 ML IV SCH ×4 (02:42→19:16)
[2017-08-31] MEDS: Dextrose 5%/0.45% NS 1,000 ML IV SCH ×2 (06:53→19:41)
[2017-08-31] MEDS ORDERED: Influenza Vaccine 18yr & older 0.5 ML/45 MCG SYR IM ONE (09:00)
[2017-08-31] MEDS: Digoxin 125 mcg (0.125 mg) Tab PO SCH (09:15)
[2017-08-31] MEDS: Megestrol Acetate 40 mg/ml Cup PO SCH ×2 (09:16→17:10)
[2017-08-31] MEDS: Metoprolol Succinate 25 mg XL Tab PO SCH (09:44)
[2017-08-31] MEDS: Calcium-Vit D 500 mg-200 Units Tab UD PO SCH ×2 (16:06→17:09)
[2017-08-31] MEDS ORDERED: Alum-Mag Hydrox-Simethicone Susp (30 mL) PO ONE (21:21)
--- NOTE | 2017-09-01 09:21 | CP.PCM.CON ---
History of Present Illness - History of Present Illness History of Present Illness: ^This is a 76 yrs old male who was diagnosed to have a prostate cancer 2 yrs ago. At the time he also had bone mets. Pt refused both hormonal as well as chemo treatments as well as radiation.He was on alternative medications, buit disease kept progressing. He had a ct scan that showed dffuse liver metastasis, and skeletal mets. He was admitted to the hospital, and after speaking with me agreed to start treatment. At present he is on chemotherapy with docetaxel q 3 weeks , Lupron q4 weeks and zometa q 4 weeks. He doing well, but recently has been getting dehydrated after each chemo. He says he cannot drink the water that is needed , so ends up in the hospital with dehydration. His PSA which was over 3000 prior to treatment is now 205, so there is some hope of him rgetting better. Past h/o HTN Smoker several yrs ago Now has quit Past Patient History - Past Medical History & Family History Past Medical History?: Yes - Past Social History Smoking Status: Never Smoked - CARDIAC Hx Atrial Fibrillation: Yes Hx Hypercholesterolemia: Yes Hx Hypertension: Yes - PULMONARY Hx Respiratory Disorders: No - NEUROLOGICAL Hx Neurological Disorder: No - HEENT Hx HEENT Problems: No - RENAL Hx Chronic Kidney Disease: No - ENDOCRINE/METABOLIC Hx Endocrine Disorders: No - HEMATOLOGICAL/ONCOLOGICAL Hx Anemia: Yes Hx Human Immunodeficiency Virus (HIV): No - INTEGUMENTARY Hx Dermatological Problems: No - MUSCULOSKELETAL/RHEUMATOLOGICAL Hx Falls: Yes - GASTROINTESTINAL Hx Gastrointestinal Disorders: No - GENITOURINARY/GYNECOLOGICAL Hx Genitourinary Disorders: Yes Hx Prostate Cancer: Yes - PSYCHIATRIC Hx Psychophysiologic Disorder: No Hx Substance Use: No - SURGICAL HISTORY Hx Surgeries: No - ANESTHESIA Hx Anesthesia: No Hx Anesthesia Reactions: No Hx Malignant Hyperthermia: No Meds Allergies/Adverse Reactions: Allergies Allergy/AdvReac Type Severity Reaction Status Date / Time aspirin Allergy PAIN Verified 08/26/17 08:41 Penicillins Allergy NAUSEA Verified 08/26/17 08:41 - Medications Medications: Current Medications Bicalutamide (Casodex) 50 mg PO DAILY [facility] Last Admin: 08/31/17 09:53 Dose: 50 mg Calcium/Vitamin D (Oyster Shell Calcium/Vitamin D 500 Mg-200 Iu) 1 tab PO BID [facility] Last Admin: 08/31/17 17:09 Dose: 1 tab Digoxin (Lanoxin) 0.125 mg PO DAILY [facility] Last Admin: 08/31/17 09:15 Dose: 0.125 mg Famotidine (Pepcid) 20 mg PO DAILY [facility] Last Admin: 08/31/17 09:15 Dose: 20 mg Ferrous Sulfate (Feosol) 325 mg PO BID [facility] Last Admin: 08/31/17 17:09 Dose: 325 mg Gabapentin (Neurontin) 100 mg PO BID [facility] Last Admin: 08/31/17 17:10 Dose: 100 mg Megestrol Acetate (Megace) 200 mg PO BID [facility] Last Admin: 08/31/17 17:10 Dose: 200 mg Metoprolol Succinate (Toprol Xl) 25 mg PO DAILY [facility] Last Admin: 08/31/17 09:44 Dose: 25 mg Morphine Sulfate (Morphine) 4 mg IVP Q4 PRN PRN Reason: Pain, severe (8-10) Morphine Sulfate (Morphine) 2 mg IVP Q4 PRN PRN Reason: Pain, moderate (4-7) Last Admin: 08/31/17 09:10 Dose: 2 mg Ondansetron HCl (Zofran Odt) 8 mg PO Q8H PRN PRN Reason: Nausea/Vomiting Prednisone (Prednisone Tab) 5 mg PO DAILY [facility] Tamsulosin HCl (Flomax) 0.4 mg PO BID [facility] Last Admin: 08/31/17 17:13 Dose: 0.4 mg Physical Exam - Additional Findings Additional findings: Physical exam; Pt is thinly built, in no acute distress neck supple, no adenopathy Abdomen; liver 1 cm below the right costal margin Chest; clear, no rales or rhoonk heart; RSR, no murmur Results - Vital Signs Recent Vital Signs: Last Vital Signs Temp 98.6 F 09/01/17 00:00 Pulse 68 09/01/17 00:00 Resp 19 09/01/17 00:00 BP 111/64 09/01/17 00:00 Pulse Ox 100 09/01/17 00:00 - Labs Result Diagrams: 08/30/17 11:02 08/30/17 11:02 Labs: Laboratory Results - last 24 hr 08/30/17 10:56 POC Glucose (mg/dL) 128 H Assessment & Plan - Assessment and Plan (Free Text) Assessment: impression; Prostate carcinoma. liver and skeletal metastasis. Plan: Plan; Hydration, His blood counts are in the normal range, so no transfusion or granix needed at this time,
[2017-09-01] MEDS: Megestrol Acetate 40 mg/ml Cup PO SCH ×2 (09:33→16:26)
[2017-09-01] MEDS: Digoxin 125 mcg (0.125 mg) Tab PO SCH (09:33)
[2017-09-01] MEDS: Calcium-Vit D 500 mg-200 Units Tab UD PO SCH ×2 (09:33→16:26)
[2017-09-01] MEDS: Metoprolol Succinate 25 mg XL Tab PO SCH (09:34)
[2017-09-01] MEDS: Dextrose 5%/0.45% NS 1,000 ML IV SCH ×2 (19:50→21:53)
[2017-09-02] MEDS: Dextrose 5%/0.45% NS 1,000 ML IV SCH ×3 (05:30→15:42)
[2017-09-02 08:12] VITALS: RESP 20
--- NOTE | 2017-09-02 08:45 | HP ---
HISTORY OF PRESENT ILLNESS: This is a 76-year-old [place] male with history of metastatic cancer of prostate and severe aortic stenosis, who was admitted through the emergency room for generalized weakness, dehydration. Patient recently had the last chemotherapy cycle and he presented with above symptoms that have been progressive for the last 2 days prior to this admission. Patient was evaluated in the emergency room and he was started on IV fluid and admitted for further management. REVIEW OF SYSTEMS: Other review of systems is negative. ALLERGIES: NO KNOWN ALLERGY. MEDICATIONS: As per MAR. SOCIAL HISTORY: Ex-smoker. No EtOH or substance abuse. FAMILY HISTORY: Noncontributory. PAST MEDICAL HISTORY: As above. PHYSICAL EXAMINATION: GENERAL: Patient is in bed, comfortable at the time of this examination. VITAL SIGNS: Blood pressure of 111/60, temperature 98.2, respiratory rate 18, and pulse of 86. HEENT: Pupils equal, reactive to light. Slightly pale mucosa of the conjunctivae. NECK: Supple. No JVD. No carotid bruit. No lymph node. No thyromegaly. CHEST AND LUNGS: Bilateral symmetrical expansion. Good air exchange. No rales, no rhonchi. CARDIOVASCULAR SYSTEM: PMI not localized. S1, S2. No additional sounds. ABDOMEN: Normoactive bowel sounds. No tenderness. No organomegaly. No masses. EXTREMITIES: No cyanosis, no clubbing, no edema. CENTRAL NERVOUS SYSTEM: Alert, awake, oriented x3. No neurological deficits could be appreciated. ASSESSMENT: 1. Dehydration. 2. Severe aortic stenosis. 3. Metastatic prostate cancer, on chemotherapy. PLAN: Continue current medications. We will discuss with Oncology regarding his further treatment. Continue IV fluids for now. Clinton Carroll MD
[2017-09-02] MEDS: Digoxin 125 mcg (0.125 mg) Tab PO SCH (09:11)
[2017-09-02] MEDS: Calcium-Vit D 500 mg-200 Units Tab UD PO SCH (09:11)
[2017-09-02 09:12] VITALS: PULSE 81
[2017-09-02] MEDS: Megestrol Acetate 40 mg/ml Cup PO SCH (09:12)
[2017-09-02] MEDS: Metoprolol Succinate 25 mg XL Tab PO SCH (09:13)
[2017-09-02 10:01] LABS: BASO % 0.1 % (0.0-2.0); EOS # 0.1 K/uL (0.0-0.7); EOS % 2.6 % (0.0-4.0); HEMATOCRIT 30.2 % (35.0-51.0); LYMPH # 1.1 K/uL (1.0-4.3); LYMPH % 49.1 % (20.0-40.0); MEAN CELL VOLUME 89.9 fl (80.0-94.0); MEAN CORPUSCULAR HEMOGLOBIN 30.5 pg (27.0-31.0); MEAN CORPUSCULAR HGB CONC 33.9 g/dL (33.0-37.0); MEAN PLATELET VOLUME 6.9 fl (7.2-11.7); MONO # 0.2 K/uL (0.0-0.8); MONO % 7.5 % (0.0-10.0); NEUT # 0.9 K/uL (1.8-7.0); NEUT % 40.7 % (50.0-75.0); NRBC % 0.1 % (0.0-0.0); RED CELL DISTRIBUTION WIDTH 18.5 % (11.5-14.5); WHITE BLOOD COUNT 2.3 K/uL (4.8-10.8)
[2017-09-02 11:29] LABS: BLOOD UREA NITROGEN 16 mg/dl (9-20); CALCIUM 8.5 mg/dL (8.4-10.2); CARBON DIOXIDE 24 mmol/L (22-30); CHLORIDE 106 mmol/L (98-107); GFR AFRICAN-AMERICAN > 60; GLUCOSE,RANDOM 101 mg/dL (75-110); POTASSIUM 4.4 MMOL/L (3.6-5.0); SODIUM 139 mmol/l (132-148)
[2017-09-02 16:10] VITALS: BP 104/65; PULSE 76; TEMP 98.6; O2SAT 97
--- NOTE | 2017-09-03 08:33 | DS ---
REASON FOR ADMISSION: This is a 76-year-old [place] male with history of metastatic prostatic cancer, was admitted for generalized weakness, and dehydration after chemotherapy. COURSE OF HOSPITALIZATION: The patient was admitted to medical floor and he was started on IV fluids and was resumed. Hematology/Oncology consult was called for possible modification of the chemotherapy dose. The patient did well and he was discharged home on pain management as well as to resume all his preadmission medications and to follow up with Dr. Montague. FINAL DIAGNOSES: 1. Dehydration. 2. Generalized fatigue. 3. Metastatic prostatic cancer. 4. Severe aortic stenosis. [facility] MD [place]
== END 2017-09-02 16:13 | disposition home or self-care (01) | DRG 641 ==
LOC: H.ER 10:23 → H.ERHOLD 16:56 → H.MEDSURG1 17:36
PROVIDERS: ADMIT Internal Medicine; ATTEND Internal Medicine
PROC: 3E0234Z Introduction of Serum, Toxoid and Vaccine into Muscle, Percutaneous Approach (ICD-10-PCS; principal; 2017-08-31)
DX: E86.0 Dehydration (principal); C78.7 Secondary malignant neoplasm of liver and intrahepatic bile duct; C61 Malignant neoplasm of prostate; C79.51 Secondary malignant neoplasm of bone; D64.9 Anemia, unspecified; I48.91 Unspecified atrial fibrillation; I10 Essential (primary) hypertension; I35.0 Nonrheumatic aortic (valve) stenosis; D72.819 Decreased white blood cell count, unspecified; R53.83 Other fatigue; E78.00 Pure hypercholesterolemia, unspecified; Z23 Encounter for immunization; Z92.21 Personal history of antineoplastic chemotherapy; Z87.891 Personal history of nicotine dependence; Z88.6 Allergy status to analgesic agent; Z88.0 Allergy status to penicillin

== ENCOUNTER 2017-09-06 23:44 | Observation (INO) | payer MEDICARE ==
[2017-09-06 23:57] VITALS: BMI 19.2
[2017-09-07] MEDS ORDERED: Sodium Chloride 0.9% 1,000 ML IV STA (00:14)
[2017-09-07 00:39] LABS: BASO # 0.1 K/uL (0.0-0.2); BASO % 0.5 % (0.0-2.0); EOS % 0.3 % (0.0-4.0); HEMATOCRIT 28.3 % (35.0-51.0); LYMPH # 1.8 K/uL (1.0-4.3); LYMPH % 11.5 % (20.0-40.0); MEAN CELL VOLUME 91.7 fl (80.0-94.0); MEAN CORPUSCULAR HEMOGLOBIN 30.1 pg (27.0-31.0); MEAN CORPUSCULAR HGB CONC 32.9 g/dL (33.0-37.0); MEAN PLATELET VOLUME 6.7 fl (7.2-11.7); MONO # 1.8 K/uL (0.0-0.8); MONO % 11.6 % (0.0-10.0); NEUT # 11.6 K/uL (1.8-7.0); NEUT % 76.1 % (50.0-75.0); NRBC % 0.6 % (0.0-0.0); RED CELL DISTRIBUTION WIDTH 19.2 % (11.5-14.5); WHITE BLOOD COUNT 15.3 K/uL (4.8-10.8)
--- NOTE | 2017-09-07 00:52 | ED PDOC ---
HPI: General Adult Time Seen by Provider: 09/07/17 00:02 Chief Complaint (Nursing): Flu-like Symptoms Chief Complaint (Provider): Fever History Per: Patient History/Exam Limitations: no limitations Onset/Duration Of Symptoms: Days (x1) Additional Complaint(s): Divina Ray is a 77 year old male, with a past medical history of prostate cancer, anemia, and atrial fibrillation, who presents to the emergency department complaining fever associated with generalized weakness, dry mouth, and mild nausea onset since today. Patient reports he recently completed his 6th cycle of chemotherapy and was admitted to hospital subsequent to dehydration. Patient reports that he has been home in the past 5 days but today he had a fever. Patient was advised by oncologist, Dr. Chantell Montague, that if he had febrile symptoms to come to the ED. Patient measured his temperature at home and took Tylenol. No further medical complaints. PMD: None provided. Past Medical History Vital Signs: Last Vital Signs Temp 98.4 F 09/08/17 00:00 Pulse 66 09/08/17 00:00 Resp 19 09/08/17 00:00 BP 99/61 L 09/08/17 00:00 Pulse Ox 97 09/08/17 00:00 - Medical History PMH: Anemia, Atrial Fibrillation, HTN, Hypercholesterolemia, Malignancy ( Prostate) Denies: HIV, Chronic Kidney Disease - Family History Family History: States: Unknown Family Hx - Social History Current smoker - smoking cessation education provided: No Alcohol: Social Drugs: Denies - Home Medications Home Medications: Ambulatory Orders Medication Instructions Recorded Tamsulosin [Flomax] 0.4 mg PO BID 05/07/17 Gabapentin [Neurontin] 100 mg PO BID cap 05/10/17 Famotidine [Pepcid] 20 mg PO DAILY 05/31/17 Bicalutamide [Casodex] 50 mg PO DAILY tab 06/04/17 Digoxin [Lanoxin] 0.125 mg PO DAILY #30 tab 07/24/17 Calcium Carbonate/Vitamin D3 1 tab PO BID 08/12/17 [Caltrate 600 Plus D3 Tablet] Ferrous Sulfate [Feosol] 325 mg PO BID 08/12/17 Megestrol Acetate [Megace] 5 ml PO BID 08/12/17 Metoprolol Succinate [Toprol XL] 25 mg PO DAILY 08/12/17 Ondansetron ODT [Zofran ODT] 8 mg PO Q8H PRN 08/12/17 Morphine [Morphine Immediate 15 mg PO Q4 PRN 08/30/17 Release Tab] - Allergies Allergies/Adverse Reactions: Allergies Allergy/AdvReac Type Severity Reaction Status Date / Time aspirin Allergy PAIN Verified 09/06/17 23:57 Penicillins Allergy NAUSEA Verified 09/06/17 23:57 Review of Systems ROS Statement: Except As Marked, All Systems Reviewed And Found Negative Constitutional: Positive for: Fever, Weakness (generalized ) ENT: Negative for: Other (Dry mouth) Gastrointestinal: Positive for: Nausea (mild) Physical Exam - Reviewed Nursing Documentation Reviewed: Yes Vital Signs Reviewed: Yes - Physical Exam Appears: Positive for: Non-toxic Head Exam: Positive for: ATRAUMATIC, NORMAL INSPECTION, NORMOCEPHALIC Skin: Positive for: Normal Color, Warm, Dry Eye Exam: Positive for: EOMI, Normal appearance, PERRL ENT: Negative for: Normal ENT Inspection (mucous membrane dry) Neck: Positive for: Normal, Painless ROM, Supple Cardiovascular/Chest: Positive for: Regular Rate, Rhythm. Negative for: Murmur Respiratory: Positive for: Normal Breath Sounds. Negative for: Respiratory Distress Gastrointestinal/Abdominal: Positive for: Normal Exam, Bowel Sounds, Soft. Negative for: Tenderness, Guarding, Rebound Back: Positive for: Normal Inspection (No midline tenderness). Negative for: L CVA Tenderness, R CVA Tenderness Extremity: Positive for: Normal ROM. Negative for: Pedal Edema, Deformity, Swelling Neurologic/Psych: Positive for: Alert, Oriented. Negative for: Motor/Sensory Deficits - Laboratory Results Result Diagrams: 09/07/17 00:25 09/07/17 00:25 - ECG O2 Sat by Pulse Oximetry: 99 (RA) Pulse Ox Interpretation: Normal Medical Decision Making Medical Decision Making: Initial Impression: 77 y/o female with febrile illness in recent chemotherapy Initial Plan: --EKG --CMP --Digoxin --Chest portable [RAD] --NS IV 1,000 mls @ 1,000mls/hr --Blood culture --Influenza A B --Urinalysis --reevaluation -Patient is stable and shows no acute changes. Labs show no significant abnormalities except for mild elevation of white blood cell count and BUN likely related to patient's dehydration. Patient will be hospitalized as an observation patient. Diagnosis is dehydration and leukocytosis. Scribe Attestation: Documented by Toribio Cowan, acting as a scribe for Apollo Suero MD. Provider Scribe Attestation: All medical record entries made by the Scribe were at my direction and personally dictated by me. I have reviewed the chart and agree that the record accurately reflects my personal performance of the history, physical exam, medical decision making, and the department course for this patient. I have also personally directed, reviewed, and agree with the discharge instructions and disposition. Disposition - Clinical Impression Clinical Impression: Metastatic cancer, Dehydration - Patient ED Disposition Is Patient to be Admitted: Yes Counseled Patient/Family Regarding: Studies Performed, Diagnosis - Disposition Disposition Time: 02:30 Condition: FAIR - Pt Status Changed To: Hospital Disposition Of: Observation
[2017-09-07 01:05] LABS: ALB/GLOB RATIO 1.2 (1.0-2.1); ALKALINE PHOSPHATASE 212 U/L (38-126); ALT/SGPT 37 U/L (21-72); AST/SGOT 86 U/L (17-59); BILIRUBIN,TOTAL 0.4 mg/dl (0.2-1.3); BLOOD UREA NITROGEN 36 mg/dl (9-20); CALCIUM 8.1 mg/dL (8.4-10.2); CARBON DIOXIDE 23 mmol/L (22-30); CHLORIDE 109 mmol/L (98-107); GFR AFRICAN-AMERICAN > 60; GLUCOSE,RANDOM 89 mg/dL (75-110); POTASSIUM 4.5 MMOL/L (3.6-5.0); SODIUM 141 mmol/l (132-148); TOTAL PROTEIN 6.5 G/DL (6.3-8.2)
[2017-09-07] MEDS ORDERED: Sodium Chloride 0.9% 500 ML IV STA (02:42)
[2017-09-07 02:48] LABS: RBC URINE 3 /hpf (0-3); URINE BILIRUBIN NEGATIVE (NEGATIVE); URINE BLOOD NEGATIVE (NEGATIVE); URINE COLOR YELLOW (YELLOW); URINE GLUCOSE (UA) NEG (Normal); URINE KETONE NEGATIVE (NEGATIVE); URINE LEUKOCYTE ESTERASE NEG Leu/uL (Negative); URINE PROTEIN NEGATIVE (NEGATIVE); URINE UROBILINOGEN 0.2-1.0 mg/dL (0.2-1.0); WBC URINE < 1 /hpf (0-5)
--- NOTE | 2017-09-07 06:33 | CARD ---
APPROVED REPORT EKG Measurement Heart [id number] <Conclusion> Normal sinus rhythm Nonspecific T wave abnormality Abnormal ECG
[2017-09-07] MEDS: Calcium-Vit D 500 mg-200 Units Tab UD PO SCH ×2 (09:00→17:49)
[2017-09-07] MEDS: Sodium Chloride 0.9% 1,000 ML IV SCH ×2 (09:49→21:49)
--- NOTE | 2017-09-07 10:12 | RAD ---
HISTORY: fever COMPARISON: 08/30/2017 FINDINGS: LUNGS: Single portable view of the chest reveals some mild interstitial changes without focal alveolar infiltrate. PLEURA: No significant pleural effusion identified, no pneumothorax apparent. CARDIOVASCULAR: Normal. OSSEOUS STRUCTURES: No significant abnormalities. VISUALIZED UPPER ABDOMEN: Normal. OTHER FINDINGS: None. IMPRESSION: Mild interstitial changes, with some minor patchy interstitial change in the left mid lung field. . No focal alveolar infiltrate seen. No interval change.
[2017-09-07] MEDS: Nystatin 100,000 Units/ml Oral Susp 5 ml UD PO SCH ×4 (10:34→21:43)
[2017-09-07] MEDS: Metoprolol Succinate 25 mg XL Tab PO SCH (10:34)
[2017-09-07] MEDS: Digoxin 125 mcg (0.125 mg) Tab PO SCH (10:37)
[2017-09-07] MEDS: Megestrol Acetate 40 mg/ml Cup PO SCH ×2 (10:45→17:49)
--- NOTE | 2017-09-07 11:15 | CP.PCM.CON ---
History of Present Illness - History of Present Illness History of Present Illness: This is a 77 yrs old male who came to the er with c/o fever and weakness. He is well known to me. He has prostate cancer with mets to the liver and skeletal, for which he is omn chemotherapy, zometa and lupron. He claims that he gets very dehydrated after the chemo because he does not want to drink water. he has been admitted several times with similar complaints.Since he has been in the ER, he has no increased temperature. He is a little dehydrated though. His WBc was elevarted but pt had been given granix the week before. Past Patient History - Past Medical History & Family History Past Medical History?: Yes - Past Social History Alcohol: Social Drugs: Denies - CARDIAC Hx Atrial Fibrillation: Yes Hx Hypercholesterolemia: Yes Hx Hypertension: Yes - PULMONARY Hx Respiratory Disorders: No - NEUROLOGICAL Hx Neurological Disorder: No - HEENT Hx HEENT Problems: No - RENAL Hx Chronic Kidney Disease: No - ENDOCRINE/METABOLIC Hx Endocrine Disorders: No - HEMATOLOGICAL/ONCOLOGICAL Hx Anemia: Yes Hx Human Immunodeficiency Virus (HIV): No - INTEGUMENTARY Hx Dermatological Problems: No - MUSCULOSKELETAL/RHEUMATOLOGICAL Hx Musculoskeletal Disorders: Yes Hx Falls: Yes - GASTROINTESTINAL Hx Gastrointestinal Disorders: No - GENITOURINARY/GYNECOLOGICAL Hx Genitourinary Disorders: Yes Hx Prostate Cancer: Yes - PSYCHIATRIC Hx Psychophysiologic Disorder: No Hx Substance Use: No - SURGICAL HISTORY Hx Surgeries: No - ANESTHESIA Hx Anesthesia: No Hx Anesthesia Reactions: No Hx Malignant Hyperthermia: No Meds Allergies/Adverse Reactions: Allergies Allergy/AdvReac Type Severity Reaction Status Date / Time aspirin Allergy PAIN Verified 09/06/17 23:57 Penicillins Allergy NAUSEA Verified 09/06/17 23:57 - Medications Medications: Current Medications Acetaminophen (Tylenol 325mg Tab) 650 mg PO Q6 PRN PRN Reason: Pain, Mild (1-3) Bicalutamide (Casodex) 50 mg PO DAILY [facility] Last Admin: 09/07/17 10:44 Dose: 50 mg Digoxin (Lanoxin) 0.125 mg PO DAILY [facility] Last Admin: 09/07/17 10:37 Dose: 0.125 mg Famotidine (Pepcid) 20 mg PO DAILY [facility] Last Admin: 09/07/17 10:37 Dose: 20 mg Ferrous Sulfate (Feosol) 325 mg PO BID [facility] Last Admin: 09/07/17 10:37 Dose: 325 mg Gabapentin (Neurontin) 100 mg PO BID [facility] Last Admin: 09/07/17 10:37 Dose: 100 mg Home Med (Calcium Carbonate/Vitamin D3 [Caltrate 600 Plus D3 Tablet]) 1 tab PO BID [facility] Sodium Chloride (Sodium Chloride 0.9%) 1,000 mls @ 80 mls/hr IV .[id number] [facility] Stop: 09/08/17 07:50 Last Admin: 09/07/17 09:49 Dose: Not Given Megestrol Acetate (Megace) 200 mg PO BID [facility] Last Admin: 09/07/17 10:45 Dose: 200 mg Metoprolol Succinate (Toprol Xl) 25 mg PO DAILY [facility] Last Admin: 09/07/17 10:34 Dose: 25 mg Morphine Sulfate (Morphine Immediate Release Tab) 15 mg PO Q4 PRN PRN Reason: Pain, moderate (4-7) Morphine Sulfate (Morphine) 2 mg IVP Q4 PRN PRN Reason: Pain, severe (8-10) Last Admin: 09/07/17 10:24 Dose: 2 mg Nystatin (Nystatin Oral Susp) 5 ml PO QID [facility] Last Admin: 09/07/17 10:34 Dose: 5 ml Ondansetron HCl (Zofran Odt) 8 mg PO Q8H PRN PRN Reason: Nausea/Vomiting Tamsulosin HCl (Flomax) 0.4 mg PO BID [facility] Last Admin: 09/07/17 11:05 Dose: 0.4 mg Physical Exam - Additional Findings Additional findings: Physical exam' Alert,well oriented in no acute distress, appears a little dehydrated neck; Supple, no adenopathy Chest; Clear, no rales or rhonchi Heart; RSR, no murmur Abd ; Soft, no mass, no h/s megaly Results - Vital Signs Recent Vital Signs: Last Vital Signs Temp 98.2 F 09/07/17 07:36 Pulse 65 09/07/17 07:36 Resp 20 09/07/17 07:36 BP 110/64 09/07/17 10:34 Pulse Ox 98 09/07/17 07:36 - Labs Result Diagrams: 09/07/17 00:25 09/07/17 00:25 Labs: Laboratory Results - last 24 hr 09/07/17 09/07/17 09/07/17 00:25 00:25 00:25 WBC 15.3 H D RBC 3.08 L Hgb 9.3 L Hct 28.3 L MCV 91.7 MCH 30.1 MCHC 32.9 L RDW 19.2 H Plt Count 331 MPV 6.7 L Neut % (Auto) 76.1 H Lymph % (Auto) 11.5 L [place] % (Auto) 11.6 H Eos % (Auto) 0.3 Baso % (Auto) 0.5 Neut # 11.6 H Lymph # 1.8 [place] # 1.8 H Eos # 0.0 Baso # 0.1 Sodium 141 Potassium 4.5 Chloride 109 H Carbon Dioxide 23 Anion Gap 14 BUN 36 H Creatinine 1.3 Est GFR ( Amer) > 60 Est GFR (Non-Af Amer) 54 Random Glucose 89 Lactic Acid Calcium 8.1 L Total Bilirubin 0.4 AST 86 H ALT 37 Alkaline Phosphatase 212 H Total Protein 6.5 Albumin 3.5 Globulin 3.0 Albumin/Globulin Ratio 1.2 Urine Color Urine Clarity Urine pH Ur Specific [place] Urine Protein Urine Glucose (UA) Urine Ketones Urine Blood Urine Nitrate Urine Bilirubin Urine Urobilinogen Ur Leukocyte Esterase Urine RBC (Auto) Urine Microscopic WBC Digoxin Influenza Typ A,B (EIA) Negative for flu a/b Grp A Beta Strep Ag 09/07/17 09/07/17 09/07/17 00:37 01:30 02:04 WBC RBC Hgb Hct MCV MCH MCHC RDW Plt Count MPV Neut % (Auto) Lymph % (Auto) [place] % (Auto) Eos % (Auto) Baso % (Auto) Neut # Lymph # [place] # Eos # Baso # Sodium Potassium Chloride Carbon Dioxide Anion Gap BUN Creatinine Est GFR ( Amer) Est GFR (Non-Af Amer) Random Glucose Lactic Acid 1.4 Calcium Total Bilirubin AST ALT Alkaline Phosphatase Total Protein Albumin Globulin Albumin/Globulin Ratio Urine Color Urine Clarity Urine pH Ur Specific [place] Urine Protein Urine Glucose (UA) Urine Ketones Urine Blood Urine Nitrate Urine Bilirubin Urine Urobilinogen Ur Leukocyte Esterase Urine RBC (Auto) Urine Microscopic WBC Digoxin 1.3 Influenza Typ A,B (EIA) Grp A Beta Strep Ag Negative 09/07/17 02:34 WBC RBC Hgb Hct MCV MCH MCHC RDW Plt Count MPV Neut % (Auto) Lymph % (Auto) [place] % (Auto) Eos % (Auto) Baso % (Auto) Neut # Lymph # [place] # Eos # Baso # Sodium Potassium Chloride Carbon Dioxide Anion Gap BUN Creatinine Est GFR ( Amer) Est GFR (Non-Af Amer) Random Glucose Lactic Acid Calcium Total Bilirubin AST ALT Alkaline Phosphatase Total Protein Albumin Globulin Albumin/Globulin Ratio Urine Color Yellow Urine Clarity Clear Urine pH 6.0 Ur Specific [place] 1.016 Urine Protein Negative Urine Glucose (UA) Neg Urine Ketones Negative Urine Blood Negative Urine Nitrate Negative Urine Bilirubin Negative Urine Urobilinogen 0.2-1.0 Ur Leukocyte Esterase Neg Urine RBC (Auto) 3 Urine Microscopic WBC < 1 Digoxin Influenza Typ A,B (EIA) Grp A Beta Strep Ag Assessment & Plan - Assessment and Plan (Free Text) Assessment: Imppression;Prostate cancer liver and skeletal metastasis Neck ; supple, no adenopathy Chest; clear, no rales or rhonchi Heart; RSR, no murrmur Abd; Spoft, no mass, no h/s megaly Plan: Plan; Hydrate Pt may be discharged from hem/onc point of view, From his next cycle on he will receive chemotherapy weekly and see if it helps the side effects - Date & Time Date: 09/07/17 Time: 11:22
[2017-09-07] MEDS: Phenol 1.4% Throat Spray MT PRN (23:15)
[2017-09-08 01:59] VITALS: TEMP 98.4
[2017-09-08 07:30] VITALS: O2SAT 98
[2017-09-08] MEDS: Digoxin 125 mcg (0.125 mg) Tab PO SCH (09:06)
[2017-09-08] MEDS: Nystatin 100,000 Units/ml Oral Susp 5 ml UD PO SCH ×4 (09:07→21:26)
[2017-09-08] MEDS: Megestrol Acetate 40 mg/ml Cup PO SCH ×2 (09:07→16:38)
[2017-09-08] MEDS: Calcium-Vit D 500 mg-200 Units Tab UD PO SCH ×2 (09:08→16:38)
[2017-09-08] MEDS: Metoprolol Succinate 25 mg XL Tab PO SCH (09:10)
[2017-09-08] MEDS: Morphine 15 mg Immediate Release Tab PO PRN (09:21)
[2017-09-08 09:22] VITALS: PULSE 77
[2017-09-08] MEDS: Phenol 1.4% Throat Spray MT PRN (09:22)
[2017-09-08 12:53] LABS: HEMATOCRIT 26.7 % (35.0-51.0); MEAN CELL VOLUME 90.2 fl (80.0-94.0); MEAN CORPUSCULAR HEMOGLOBIN 30.7 pg (27.0-31.0); RED CELL DISTRIBUTION WIDTH 18.7 % (11.5-14.5); WHITE BLOOD COUNT 21.5 K/uL (4.8-10.8)
[2017-09-08 13:04] LABS: BLOOD UREA NITROGEN 18 mg/dl (9-20); CALCIUM 7.8 mg/dL (8.4-10.2); CARBON DIOXIDE 21 mmol/L (22-30); CHLORIDE 110 mmol/L (98-107); GFR AFRICAN-AMERICAN > 60; GLUCOSE,RANDOM 107 mg/dL (75-110); POTASSIUM 4.5 MMOL/L (3.6-5.0); SODIUM 138 mmol/l (132-148)
[2017-09-08 16:28] VITALS: RESP 20
--- NOTE | 2017-09-09 01:14 | PN ---
DATE: 09/08/2017 SUBJECTIVE: The patient is seen today on 09/08/2017. He is still complaining of generalized weakness. PHYSICAL EXAMINATION: VITAL SIGNS: Blood pressure 127/77, temperature 98.4, respiratory rate 18, and pulse 68. HEENT: Pupils equal and reactive to light. Normal-appearing mucosa. NECK: Supple. No JVD. No carotid bruits. No lymph node. No thyromegaly. CHEST AND LUNGS: Bilateral symmetrical expansion. Good air exchange. No rales. No rhonchi. CARDIOVASCULAR SYSTEM: PMI not localized. S1 and S2. No additional sounds. ABDOMEN: Normoactive bowel sounds. No tenderness. No organomegaly. No masses. EXTREMITIES: No cyanosis. No clubbing. No edema. BIG MACHINE CONSULTANT: Alert, awake, and oriented x2. No neurological deficits could be appreciated. ASSESSMENT: Metastatic prostate cancer, atrial fibrillation, severe aortic stenosis, and dehydration. PLAN: Continue IV fluids and monitor electrolytes and we will follow recommendations of the breakfast supervisor and follow septic workup done because of leukocytosis. Clinton Carroll MD
[2017-09-09 06:29] LABS: BLOOD UREA NITROGEN 18 mg/dl (9-20); CALCIUM 8.1 mg/dL (8.4-10.2); CARBON DIOXIDE 21 mmol/L (22-30); CHLORIDE 109 mmol/L (98-107); GFR AFRICAN-AMERICAN > 60; GLUCOSE,RANDOM 98 mg/dL (75-110); POTASSIUM 4.3 MMOL/L (3.6-5.0); SODIUM 139 mmol/l (132-148)
[2017-09-09 08:31] VITALS: BP 125/80; PULSE 80
[2017-09-09] MEDS: Nystatin 100,000 Units/ml Oral Susp 5 ml UD PO SCH ×2 (08:40→12:08)
[2017-09-09] MEDS: Calcium-Vit D 500 mg-200 Units Tab UD PO SCH (08:41)
[2017-09-09] MEDS: Digoxin 125 mcg (0.125 mg) Tab PO SCH (08:41)
[2017-09-09] MEDS: Metoprolol Succinate 25 mg XL Tab PO SCH (08:41)
[2017-09-09] MEDS: Megestrol Acetate 40 mg/ml Cup PO SCH (08:42)
[2017-09-09] MEDS: Phenol 1.4% Throat Spray MT PRN (08:59)
--- NOTE | 2017-09-09 09:17 | HP ---
HISTORY OF PRESENT ILLNESS: The patient is seen today, 09/07/2017. He is a 77-year-old [place] male with history of metastatic prostate cancer, was brought to emergency room because of symptoms of low grade fever, hypotension and generalized weakness. The patient was evaluated in the emergency room and he was found to have WBC of 15.3. Blood culture and urine culture were done as well as chest x-ray and the patient was admitted for further management. The patient denied to have any pain and no shortness of breath. Positive symptoms of generalized weakness and loss of appetite. ALLERGIES: POSITIVE FOR ASPIRIN AND PENICILLIN. SOCIAL HISTORY: Ex-smoker, but no ETOH or substance abuse. FAMILY HISTORY: Not contributory. HOME MEDICATIONS: Include, calcium carbonate 1 tablet twice a day, Casodex 50 mg daily, ferrous sulfate 325 mg twice a day, Pepcid 20 mg daily, digoxin 0.125 mg daily, Flomax 0.4 mg twice a day, gabapentin 100 mg twice a day, morphine sulfate 50 mg 3 times a day as needed, metoprolol 25 mg daily, Megace 5 mL twice a day, Zofran 8 mg q. 8 hours p.r.n. for nausea. PAST MEDICAL HISTORY: Metastatic prostate cancer, severe aortic stenosis, paroxysmal atrial fibrillation. PHYSICAL EXAMINATION GENERAL: The patient is in bed, comfortable, not in any cardiopulmonary distress. VITAL SIGNS: Blood pressure 110/64, temperature 98.2, respiratory rate 20, pulse 65. HEENT: Pupils equal and reactive to light. Normal-appearing mucosa of the conjunctivae, oropharyngeal and nasal membrane mucosa. NECK: Supple. No JVD. No carotid bruit. No lymph nodes. No thyromegaly. CHEST AND LUNGS: Bilateral symmetrical expansion. Good air exchange. No rales. No rhonchi. CARDIOVASCULAR: PMI not localized. S1 and S2. No additional sounds. ABDOMEN: Normoactive bowel sounds. No tenderness. No organomegaly. No masses. EXTREMITIES: No cyanosis. No clubbing. No edema. CENTRAL NERVOUS SYSTEM: Alert, awake, and oriented x3. No neurological deficits could be appreciated. ASSESSMENT: Generalized weakness with hypotension, low grade fever, rule out sepsis and leukocytosis rule out sepsis, metastatic prostate cancer, severe aortic stenosis. PLAN: We will give the patient gentle hydration as well as follow the blood culture and urine culture. Repeat the CBC and hematology consult with and follow recommendations. [facility] MD [facility] # [id number]
[2017-09-09 12:38] LABS: HEMATOCRIT 28.5 % (35.0-51.0); MEAN CELL VOLUME 91.5 fl (80.0-94.0); MEAN CORPUSCULAR HEMOGLOBIN 30.4 pg (27.0-31.0); MEAN CORPUSCULAR HGB CONC 33.3 g/dL (33.0-37.0); RED CELL DISTRIBUTION WIDTH 18.9 % (11.5-14.5); WHITE BLOOD COUNT 23.7 K/uL (4.8-10.8)
--- NOTE | 2017-09-09 14:29 | CP.PCM.PCO ---
Assessment/Plan - Assessment/Plan Assessment (Free Text): Pt stable, seen and cleared for d/c home by Dr. Montague and Dr. Carroll. Pt's wbc elevated secondary to granix given a week ago. Per Dr. Montague no need for intervention now. Pt has chemo scheduled for next week. Pt to f/u with Dr. Montague next week and with Dr. Carroll in 1-2 weeks. - Problems Patient Problems: Problem List (Active/Current) Problem Status Onset Code Dehydration Acute E86.0 Metastatic cancer Acute C79.9
[2017-09-09] MEDS: Morphine 15 mg Immediate Release Tab PO PRN (15:01)
== END 2017-09-09 16:20 | disposition home or self-care (01) ==
LOC: H.ER 23:44 → H.EROBSV 09-07 02:38 → H.ERHOLD 09-07 04:19 → H.MEDSURG1 09-07 05:09
PROVIDERS: ADMIT Internal Medicine; ATTEND Internal Medicine
DX: C61 Malignant neoplasm of prostate (principal); E86.0 Dehydration; C78.7 Secondary malignant neoplasm of liver and intrahepatic bile duct; E78.00 Pure hypercholesterolemia, unspecified; I10 Essential (primary) hypertension; I35.0 Nonrheumatic aortic (valve) stenosis; I48.0 Paroxysmal atrial fibrillation; Z79.899 Other long term (current) drug therapy; Z87.891 Personal history of nicotine dependence; D64.9 Anemia, unspecified; I95.9 Hypotension, unspecified; R11.0 Nausea; R50.9 Fever, unspecified; C79.51 Secondary malignant neoplasm of bone
CPT/HCPCS: 36415; 71010; 80048; 80053; 80162; 81003; 83605; 85025; 85027; 87040; 87070; 87430; 87804; 93005; 99284; G0378; J2270; J7040

== ENCOUNTER 2017-10-18 11:44 | Inpatient (IN) | payer MEDICARE ==
[~2017-10-18 11:44] MED LIST: levoFLOXacin 750 mg in D5W 750 MG/150 ML BAG IVPB SCH
[2017-10-18 11:45] VITALS: BMI 19.2
[2017-10-18] MEDS ORDERED: Sodium Chloride 0.9% 1,000 ML IV STA ×2 (12:18→13:53)
--- NOTE | 2017-10-18 12:18 | ED PDOC ---
HPI: General Adult Time Seen by Provider: 10/18/17 12:02 Chief Complaint (Nursing): Weakness/Neurological Deficit Chief Complaint (Provider): Generalized pain History Per: Patient, Family History/Exam Limitations: no limitations Onset/Duration Of Symptoms: Days (x 1 week) Current Symptoms Are (Timing): Still Present Additional Complaint(s): Divina is a 77 y/o male with metastatic cancer, who was brought to the ED by family, complaining of pain to his whole body, nausea, and generalized weakness. Patient was previously in a long term and has been residing at home with family for 1 week. Family reports patient is receiving chemo injections. Home nurse visited today and referred patient to the ED due to not eating and drinking much. Patient has been prescribed Fentanyl, Dilaudid, and Percocet by PMD and reports he has run out. PMD: Dr. Clinton Carroll Past Medical History Reviewed: Historical Data, Nursing Documentation, Vital Signs Vital Signs: Last Vital Signs Temp 97.7 F 10/18/17 11:53 Pulse 126 H 10/18/17 11:53 Resp 20 10/18/17 11:53 BP 141/79 10/18/17 11:53 Pulse Ox 96 10/18/17 13:45 - Medical History PMH: Anemia, Arthritis, Atrial Fibrillation, Depression, HTN, Hypercholesterolemia, Malignancy (Prostate) Denies: Diabetes, Hepatitis, HIV, Chronic Kidney Disease, Seizures, Sexually Transmitted Disease - Surgical History Surgical History: No Surg Hx - Family History Family History: States: Unknown Family Hx - Home Medications Home Medications: Ambulatory Orders Medication Instructions Recorded Tamsulosin [Flomax] 0.4 mg PO BID 05/07/17 Gabapentin [Neurontin] 100 mg PO BID cap 05/10/17 Famotidine [Pepcid] 20 mg PO DAILY 05/31/17 Bicalutamide [Casodex] 50 mg PO DAILY tab 06/04/17 Digoxin [Lanoxin] 0.125 mg PO DAILY #30 tab 07/24/17 Calcium Carbonate/Vitamin D3 1 tab PO BID 08/12/17 [Caltrate 600 Plus D3 Tablet] Megestrol Acetate [Megace] 5 ml PO BID 08/12/17 Metoprolol Succinate [Toprol XL] 25 mg PO DAILY 08/12/17 Ondansetron ODT [Zofran ODT] 8 mg PO Q8H PRN 08/12/17 Ferrous Fumarate/Ascorbic Acid 1 tab PO BID 09/27/17 [Eddie-Sequels 65-25 mg Caplet] Lactulose [Generlac] 30 ml PO HS 09/27/17 Naloxegol Oxalate [Movantik] 12.5 mg PO AC #30 tablet 09/30/17 - Allergies Allergies/Adverse Reactions: Allergies Allergy/AdvReac Type Severity Reaction Status Date / Time aspirin Allergy PAIN Verified 09/06/17 23:57 Penicillins Allergy NAUSEA Verified 09/06/17 23:57 Review of Systems ROS Statement: Except As Marked, All Systems Reviewed And Found Negative Constitutional: Positive for: Weakness (generalized) Gastrointestinal: Positive for: Nausea, Abdominal Pain Musculoskeletal: Positive for: Other (generalized pain) Physical Exam - Reviewed Nursing Documentation Reviewed: Yes Vital Signs Reviewed: Yes - Physical Exam Appears: Positive for: Non-toxic, Uncomfortable Head Exam: Positive for: ATRAUMATIC, NORMAL INSPECTION, NORMOCEPHALIC Skin: Positive for: Normal Color, Warm, Dry Eye Exam: Positive for: EOMI, Normal appearance, PERRL Neck: Positive for: Normal, Painless ROM Cardiovascular/Chest: Positive for: Regular Rate, Rhythm, Chest Non Tender. Negative for: Murmur Respiratory: Positive for: Decreased Breath Sounds. Negative for: Respiratory Distress Gastrointestinal/Abdominal: Positive for: Soft, Tenderness (mild generalized tenderness) Extremity: Positive for: Tenderness (Mild tenderness to arms and legs), Other ( Strength is 4/5 throughout). Negative for: Pedal Edema, Deformity Neurologic/Psych: Positive for: Alert, memorial mason II-XII (intact), Oriented - Laboratory Results Result Diagrams: 10/18/17 12:43 10/18/17 12:43 Interpretation Of Abn Labs: 66/3.4 bun/cr; elevated liver enzymes; t bili mild elevation; 11.7 wbc - ECG ECG: Positive for: Interpreted By Me, Viewed By Me ECG Rhythm: Positive for: Normal QRS, Normal ST Segment, Sinus Tachycardia O2 Sat by Pulse Oximetry: 96 (RA) Pulse Ox Interpretation: Normal - Radiology X-Ray: Read By Radiologist X-Ray Interpretation: No Acute Disease (Stable chronic prominence of the bilateral interstitial markings, no focal consolidation or pleural effusion) - Progress ED Course And Treament: 1417: Stable. AAOx3. Pain controlled. Spoke with Dr. Carroll. Will admit and give further orders when pt. reaches floor. Pt. well known to him. New renal insuff. - Critical Care Total Time (In Min): 30 Documented Critical Care: Time excludes all time spent performint seperately billable procedures Medical Decision Making Medical Decision Making: Time: 12:17 Initial Plan: --EKG --CMP --Troponin I --CBC w/ differential --PTT --Prothrombin time --Urine dip --NS IV 1000 ml at 1000 mls/hr --Zofran 4 mg IV --Chest x-ray Scribe Attestation: Documented by Jena Narayanan, acting as a scribe for Danis Ramírez MD Provider Scribe Attestation: All medical record entries made by the Scribe were at my direction and personally dictated by me. I have reviewed the chart and agree that the record accurately reflects my personal performance of the history, physical exam, medical decision making, and the department course for this patient. I have also personally directed, reviewed, and agree with the discharge instructions and disposition. Disposition - Clinical Impression Clinical Impression: Dehydration, Hyperkalemia, Renal insufficiency - Patient ED Disposition Is Patient to be Admitted: Yes Counseled Patient/Family Regarding: Studies Performed, Diagnosis - Disposition Disposition Time: 14:18 Condition: FAIR - Pt Status Changed To: Hospital Disposition Of: Inpatient - Admit Certification Admit to Inpatient:: After my assessment, the patient will require hospitalization for at least two midnights. This is because of the severity of symptoms shown, intensity of services needed, and/or the medical risk in this patient being treated as an outpatient. - POA Present On Arrival: None
[2017-10-18 12:54] LABS: BASO % 0.3 % (0.0-2.0); EOS # 0.3 K/uL (0.0-0.7); EOS % 2.2 % (0.0-4.0); HEMATOCRIT 29.2 % (35.0-51.0); LYMPH # 1.3 K/uL (1.0-4.3); MEAN CELL VOLUME 93.1 fl (80.0-94.0); MEAN CORPUSCULAR HEMOGLOBIN 30.8 pg (27.0-31.0); MEAN CORPUSCULAR HGB CONC 33.1 g/dL (33.0-37.0); MEAN PLATELET VOLUME 6.5 fl (7.2-11.7); MONO # 1.3 K/uL (0.0-0.8); MONO % 11.2 % (0.0-10.0); NEUT # 8.8 K/uL (1.8-7.0); NEUT % 75.3 % (50.0-75.0); NRBC % 1.8 % (0.0-0.0); RED CELL DISTRIBUTION WIDTH 19.4 % (11.5-14.5); WHITE BLOOD COUNT 11.7 K/uL (4.8-10.8)
--- NOTE | 2017-10-18 13:05 | RAD ---
HISTORY: dyspnea COMPARISON: Chest radiograph dated 09/20/2017. FINDINGS: LUNGS: Stable chronic prominence of the bilateral interstitial markings. PLEURA: No significant pleural effusion identified, no pneumothorax apparent. CARDIOVASCULAR: Normal. OSSEOUS STRUCTURES: Unchanged. VISUALIZED UPPER ABDOMEN: Normal. OTHER FINDINGS: None. IMPRESSION: Stable chronic prominence of the bilateral interstitial markings. No focal consolidation or pleural effusion.
--- NOTE | 2017-10-18 13:09 | CARD ---
APPROVED REPORT EKG Measurement Heart [id number] <Conclusion> Sinus tachycardia Otherwise normal ECG
[2017-10-18 13:12] LABS: TROPONIN I 0.029 ng/mL (0.00-0.120)
[2017-10-18 13:21] LABS: BILIRUBIN,TOTAL 1.5 mg/dl (0.2-1.3); CALCIUM 8.2 mg/dL (8.4-10.2); TOTAL PROTEIN 6.7 G/DL (6.3-8.2)
[2017-10-18 13:26] LABS: PARTIAL THROMBOPLASTIN TIME 32.6 Seconds (25.6-37.1)
[2017-10-18] MEDS ORDERED: Oxycodone/Acetaminophen 5/325 mg Tab PO ONE (13:30)
[2017-10-18] MEDS ORDERED: Albuterol 0.083% Inhal Sol (2.5 mg/3 mL) UD INH STA (13:43)
[2017-10-18] MEDS ORDERED: Insulin Regular 100 units/ml SC STA (13:44)
[2017-10-18] MEDS ORDERED: Dextrose 50% SYRINGE Inj (50 ml) IVP STA ×2 (13:44→18:59)
[2017-10-18] MEDS ORDERED: Sod Polystyrene Sulf 15 gm/60 ml Susp PO ONE (13:44)
[2017-10-18] MEDS ORDERED: Albuterol 0.083% Inhal Sol (2.5 mg/3 mL) UD ONE (14:21)
[2017-10-18] MEDS ORDERED: Sod Polystyrene Sulf 15 gm/60 ml Susp ONE (14:22)
[2017-10-18] MEDS ORDERED: Insulin Regular 100 units/ml ONE (14:22)
[2017-10-18] MEDS ORDERED: Dextrose 50% SYRINGE Inj (50 ml) ONE ×2 (14:22→19:01)
[2017-10-18 15:05] LABS: POTASSIUM 6.1 MMOL/L (3.6-5.0)
--- NOTE | 2017-10-18 16:11 | US ---
HISTORY: elevated liver enzymes COMPARISON: Comparison is made to the previous study dated 05/06/2017 TECHNIQUE: Sonographic evaluation of the right upper quadrant of the abdomen. FINDINGS: LIVER: Measures 17.8 cm in length. Heterogeneous echogenicity of the liver parenchyma. There are multiple cystic and solid lesions in the liver suspicious for liver metastasis. GALLBLADDER: The gallbladder is partially contracted demonstrate diffuse wall thickening. No evidence of cholelithiasis. COMMON BILE DUCT: Measures 5.3 mm. No stones. No dilatation. PANCREAS: Unremarkable as visualized. No mass. No ductal dilatation. RIGHT KIDNEY: Measures 10 x 5.9 x 4.8 cm in length. There is diul-sz-vfvozsol right hydronephrosis. AORTA: Was not clearly visualized due to overlying bowel gas. IVC: Was not clearly visualized due to overlying bowel gas. OTHER FINDINGS: None . IMPRESSION: Markedly heterogeneous liver. Multiple liver lesions are noted suspicious for metastasis. Semi contracted gallbladder demonstrate diffuse wall thickening. [id number] right hydronephrosis.
[2017-10-18 18:58] LABS: ABG ALLEN TEST YES; ARTERIAL BLOOD FLOW 3; ARTERIAL BLOOD GAS HCO3 19.6 mmol/L (21-28); ARTERIAL BLOOD GAS MODE NC; ARTERIAL BLOOD GAS O2 CAPACITY 12.1 mL/dL (16-24); ARTERIAL BLOOD GAS PH 7.34 (7.35-7.45); ARTERIAL BLOOD GAS PO2 82 mm/Hg (80-100); ARTERIAL BLOOD HGB O2 SAT 96.3 % (95.0-98.0); CARBOXYHEMOGLOBIN 1.7 % (0.5-1.5)
[2017-10-18] MEDS ORDERED: Calcium Gluconate 4.65 mEq/10 ml Inj IV ONE (19:08)
[2017-10-18] MEDS ORDERED: Albuterol 0.083% Inhal Sol (2.5 mg/3 mL) UD INH ONE (19:11)
[2017-10-18] MEDS ORDERED: Sodium Bicarbonate 7.5% (0.9 MEQ/ML) 50ML INJ IV ONE (19:15)
[2017-10-18] MEDS ORDERED: Calcium Gluconate 4.6 MEQ in Sodium Chloride 0.9% 100 ML IV ONE (19:15)
[2017-10-18] MEDS ORDERED: levoFLOXacin 750 mg in D5W 150 ML BAG IVPB SCH (19:29)
[2017-10-18 19:30] LABS: BASO # 0.1 K/uL (0.0-0.2); BASO % 0.4 % (0.0-2.0); EOS # 0.2 K/uL (0.0-0.7); EOS % 1.6 % (0.0-4.0); HEMATOCRIT 26.4 % (35.0-51.0); LYMPH # 2.4 K/uL (1.0-4.3); LYMPH % 19.6 % (20.0-40.0); MEAN CELL VOLUME 94.1 fl (80.0-94.0); MEAN CORPUSCULAR HEMOGLOBIN 30.4 pg (27.0-31.0); MEAN CORPUSCULAR HGB CONC 32.3 g/dL (33.0-37.0); MEAN PLATELET VOLUME 6.6 fl (7.2-11.7); MONO # 1.4 K/uL (0.0-0.8); MONO % 11.9 % (0.0-10.0); NEUT % 66.5 % (50.0-75.0); NRBC % 1.2 % (0.0-0.0); RED CELL DISTRIBUTION WIDTH 19.1 % (11.5-14.5); WHITE BLOOD COUNT 12.1 K/uL (4.8-10.8)
[2017-10-18] MEDS ORDERED: Aztreonam 1 GM in Sodium Chloride 0.9% 100 ML IVPB SCH (19:30)
[2017-10-18] MEDS ORDERED: Sodium Chloride 0.9% 1,000 ML IV SCH ×2 (19:30→23:30)
[2017-10-18] MEDS ORDERED: Sod Polystyrene Sulf 15 gm/60 ml Susp NG ONE (19:36)
[2017-10-18 20:02] LABS: ALB/GLOB RATIO 0.9 (1.0-2.1); BILIRUBIN,TOTAL 1.4 mg/dl (0.2-1.3); CALCIUM 7.9 mg/dL (8.4-10.2); TOTAL PROTEIN 6.4 G/DL (6.3-8.2)
[2017-10-18 20:05] LABS: TROPONIN I 0.027 ng/mL (0.00-0.120)
--- NOTE | 2017-10-18 20:16 | PCM.RRT ---
<Erna Bowers - Last Filed: 10/18/17 19:31> GRANTS DIRECTOR Nurse Assessment - Situation GRANTS DIRECTOR Responder Arrival Time: 18:48 Location: 4N Room Number: 408-1 GRANTS DIRECTOR Reason for Call: O2 Saturation below 90% GRANTS DIRECTOR Called By: RN - IV IV Inserted during GRANTS DIRECTOR?: No - Respiratory Oxygen Delivery Method: Nasal Cannula Received Nebulizer Treatments: No Was the Patient Ventilated with Bag/Mask 100% O2?: No Secretions Suctioned?: Yes Was the Patient Intubated?: No Was the Patient Placed on a Ventilator?: No - Medication Medications Administered During GRANTS DIRECTOR: lasix 80 mg, 1 amp D50 - Diagnostic Test Ordered Chest X-Ray: Yes - Stat Labs Ordered GRANTS DIRECTOR Stat Labs Ordered: CBC, LACTIC ACID, ABG CPR started during GRANTS DIRECTOR?: No - Vital Signs Vital Signs: Rapid Response Vital Sign Blood Pressure 122/80 Pulse Rate 125 Respiratory Rate 26 Oxygen Saturation 94 - Time GRANTS DIRECTOR Ended Time GRANTS DIRECTOR Ended: 19:10 - Vital Signs at end of GRANTS DIRECTOR Vital Signs at end of GRANTS DIRECTOR: Rapid Response End Vital Sign Blood Pressure 130/80 Pulse Rate 118 Respiratory Rate 26 O2 Sat by Pulse Oximetry 94 - Recommendations GRANTS DIRECTOR Level of Care Recommendations: Transfer to ICU I.Reason for GRANTS DIRECTOR - A) Acute Change in Patient: (Select all that apply): Staff member or family is worried about patient, Acute change in SpO2 less (than 90%) Subjective: GRANTS DIRECTOR was called for 77 y/o male with PMH of severe aortic stenosis, A-fib (not on anticoag), prostrate CA with metastasis (receiving chemo injections) and HTN. Patient came to ER today for generalized weakness, found to have Cr 3.4, K + 6.2 and patient was given 3L NS and Insulin. GRANTS DIRECTOR was called on 4th floor due to hypoxia and desaturation below 90%. Upon arrival, patient seemed lethargic and started on 3 L NC. PE: patient is dyspneic and b/l rales heard on auscultation. STAT ABG (PH7.34, PCo2 34, Po2 82, K+6.1, Lac 2.6), EKG (sinus rhythm, tachycardia and picked t waves), and CXR (will follow up) ordered. Patient was given STAT Lasix 80mg IV, D50% and Calcium Gluconate 4.6. Nasopharyngeal suctioning showed pink frothy output. Keating inserted: zero output , Nephro Consulted for anuria, LISBETH, fluid overload and possible hemodialysis. Case is consulted/discussed with Dr. Carroll and Dr. Wade. Patient was transferred to ICU for further management. Case discussed with Dr. Wilhelm --- Erna Bowers, PGY-1 - Neurological Status (Select all that apply): Lethargic - Respiratory Oxygen Delivery Method: Nasal Cannula @L/min (3L) - Constitutional Appears: In Acute Distress, Agitated, Confused - Head Head Exam: ATRAUMATIC, NORMAL INSPECTION, NORMOCEPHALIC - Eyes Eye Exam: Normal appearance - Respiratory Exam Respiratory Exam: Accessory Muscle Use, Rales, Respiratory Distress - Cardiovascular Exam Cardiovascular Exam: +S1, +S2, Murmur - GI/Abdominal Exam GI & Abdominal Exam: Soft - Extremities Exam Extremities Exam: Pedal Edema <Kristin Wilhelm - Last Filed: 10/19/17 08:16> GRANTS DIRECTOR Nurse Assessment - Vital Signs Vital Signs: Rapid Response Vital Sign Blood Pressure 122/80 Pulse Rate 125 Respiratory Rate 26 Oxygen Saturation 94 - Vital Signs at end of GRANTS DIRECTOR Vital Signs at end of GRANTS DIRECTOR: Rapid Response End Vital Sign Blood Pressure 130/80 Pulse Rate 118 Respiratory Rate 26 O2 Sat by Pulse Oximetry 94 Attending/Attestation - Attestation I have personally seen and examined this patient.: Yes I have fully participated in the care of the patient.: Yes I have reviewed all pertinent clinical information, including history, physical exam and plan: Yes Notes (Text): 10/19/17 08:16 seen examined discussed [facility] resident, agree with findings and plan as above.
--- NOTE | 2017-10-18 20:36 | CP.CCUPN ---
CCU Subjective - Physician Review Subjective (Free Text): Post NUCLEAR REACTOR ENGINEER transfer to ICU: Unobtainable history from patient, no H&P on chart as of the time of this Note- All available relevant [facility] Notes reviewed. 77M with h/o metastatic prostate CA, admitted today for " Acute Renal Failure." ER Notes show he was brought to hospital by family for generalized weakness, whole body pain and poor oral intake. NUCLEAR REACTOR ENGINEER called for resp distress and lethargy. He rec'd Dilaudid several hours earlier. Orders for Kayexalate not given due to "sleeping/sedated." Noted to be "gurgling" during NUCLEAR REACTOR ENGINEER assessment and suctioned naso/paulette-pharyngeally for thin bloody secretions. Lasix given with no urine production , Keating placed. Now transferred to ICU for further mgmt. Other vitals and I/O's reviewed. ROS: Unobtainable, no family available, patient is obtunded. No other pertinent negs or positives on 10+ system review. Allergies: Penicillin, ASA Home Meds: Casodex, CaCo3, Digoxin, Pepcid, FerrFumarate, Gabapentin, Lactulose, Megace, Metoprolol Succ, Naloxegol, Zofran, Flomax PMSFH: Paroxysmal A Fib, HTN, Hyperlipidemia, Depression, non-drinker, non- smoker- Otherwise all Nursing and physician documentation reviewed to date ; no new pertinent info noted relevant to current medical problems. EKG: sinus tachy 114, no acute T wave changes. CXR: bilateral perihilar interstitial changes, no gross consolidation (my interp) IMPRESSION / MAJOR PROBLEMS NOW: 1. Acute Resp Insuff 2' bilateral pneumonia ( Aspiration type) ; there is no clinical CHF / fluid overload evident. 2. AMS/ Obtundation, r/o Structural DIRECTOR SPECIALTY disease vs Metabolic Encephalopathy, vs Dilaudid effect 3. Azotemia / Dehydration with Hyperkalemia 4. Obstructive Uropathy with Right Hydronephrosis, Prostate CA 5. r/o Acute - SubAcute Cholecystitis 6. Metastatic Liver Disease, r/o Hyperammonemia 7. Severe Aortic Stenosis with preserved LVEF 8. Chronic Disease Anemia PLAN: 1. IVF hydration, additional fluid challenge. 2. Urine Analysis, spot urine lytes, urine culture. 3. Blood cultures 4. Empiric abx coverage. Lactate and PCT level. 5. CT Brain, Ammonia level, Neurochecks, Seizure precautions, HOB elevation. Try Naloxone reversal. 6. Calcium, D50W, Insulin, Albuterol nebs, Bicarbonate, NGT for Kayexalate. Check EKG. No indication yet for acute NUCLEAR REACTOR ENGINEER/HD. 7. Consider HIDA scan. 8. May need airway protection with oral intubation. 9. Check for any Advance Directives. Full Code status as per PMD. Discuss with /family. CCU Objective - Vital Signs / Intake & Output Vital Signs (Last 4 hours): Vital Signs Temp Pulse Resp BP Pulse Ox 10/18/17 19:35 122/73 10/18/17 17:35 20 10/18/17 17:25 97.8 F 94 H 18 98/69 L 95 10/18/17 16:45 92 H 20 98/68 L 94 L Intake and Output (Last 8hrs): Intake & Output 10/18/17 10/18/17 10/18/17 06:59 14:59 22:59 Weight 120 lb - Physical Exam Physical Exam Limitations: Positive for: Altered Mental Status Head: Positive for: Normocephalic Pupils: Positive for: PERRL Extroacular Muscles: Positive for: EOMI Conjunctiva: Positive for: Normal Mouth: Positive for: Dry Neck: Negative for: Meningeal Signs, JVD Respiratory/Chest: Positive for: Rhonchi. Negative for: Accessory Muscle Use, Wheezes, Decreased Breath Sounds Cardiovascular: Positive for: Murmurs, Normal S1, S2, Tachycardic. Negative for : Rub Abdomen: Positive for: Normal Bowel Sounds. Negative for: Tenderness, Distention, Mass/Organomegaly Lower Extremity: Positive for: Edema, NORMAL PULSES. Negative for: CALF TENDERNESS, Cyanosis Neurological: Positive for: Other (GCS= 9 (E2V2M5)) Psychiatric: Positive for: Lethargic - Medications Active Medications: Active Medications Generic Name Dose Route Start Last Admin Trade Name Freq PRN Reason Stop Dose Admin Famotidine 20 mg 10/18/17 21:00 Pepcid IVP Q12 [facility] Dextrose/Sodium Chloride 1,000 mls @ 125 mls/hr 10/18/17 19:30 Dextrose 5%-0.9% Ns 500 Ml IV 10/19/17 19:16 .Q8H ASHTYN Vancomycin HCl 1 gm/ Sodium 250 mls @ 166.667 mls/hr 10/18/17 19:25 Chloride IVPB 10/18/17 20:54 ONCE ONE Levofloxacin/Dextrose 750 mg in 150 mls @ 150 mls/hr 10/18/17 09:00 Levaquin 750mg IVPB DAILY ASHTYN - Patient Studies Lab Studies: Lab Studies 10/18/17 10/18/17 10/18/17 Range/Units 19:29 19:27 18:58 WBC 12.1 H (4.8-10.8) K/uL RBC 2.81 L (4.40-5.90) Mil/uL Hgb 8.5 L (12.0-18.0) g/dL Hct 26.4 L (35.0-51.0) % MCV 94.1 H (80.0-94.0) fl MCH 30.4 (27.0-31.0) pg MCHC 32.3 L (33.0-37.0) g/dL RDW 19.1 H (11.5-14.5) % Plt Count 289 (130-400) K/uL MPV 6.6 L (7.2-11.7) fl Neut % (Auto) 66.5 (50.0-75.0) % Lymph % (Auto) 19.6 L (20.0-40.0) % [place] % (Auto) 11.9 H (0.0-10.0) % Eos % (Auto) 1.6 (0.0-4.0) % Baso % (Auto) 0.4 (0.0-2.0) % Neut # 8.0 H (1.8-7.0) K/uL Lymph # 2.4 (1.0-4.3) K/uL [place] # 1.4 H (0.0-0.8) K/uL Eos # 0.2 (0.0-0.7) K/uL Baso # 0.1 (0.0-0.2) K/uL PT (9.8-13.1) Seconds INR (0.9-1.2) APTT (25.6-37.1) Seconds pCO2 (35-45) mm/Hg pO2 (80-100) mm/Hg HCO3 (21-28) mmol/L ABG pH (7.35-7.45) ABG Total CO2 (22-28) mmol/L ABG O2 Saturation (95-98) % ABG O2 Content (15-23) ML/dL ABG Base Excess (-2.0-3.0) mmol/L ABG Hemoglobin (11.7-17.4) g/dL ABG Carboxyhemoglobin (0.5-1.5) % POC ABG HHb (Measured) (0.0-5.0) % ABG Methemoglobin (0.0-3.0) % ABG O2 Capacity (16-24) mL/dL Jagjit Test A-a O2 Difference mm/Hg Hgb O2 Saturation (95.0-98.0) % Liter Flow Vent Mode FiO2 % Sodium 137 (132-148) mmol/l Potassium 6.0 H (3.6-5.0) MMOL/L Chloride 109 H (98-107) mmol/L Carbon Dioxide 19 L (22-30) mmol/L Anion Gap 15 (10-20) BUN 66 H (9-20) mg/dl Creatinine 3.1 H (0.8-1.5) mg/dl Est GFR ( Amer) 24 Est GFR (Non-Af Amer) 20 POC Glucose (mg/dL) 69 (65-110) mg/dL Random Glucose 78 (75-110) mg/dL Calcium 7.9 L (8.4-10.2) mg/dL Total Bilirubin 1.4 H (0.2-1.3) mg/dl AST 244 H (17-59) U/L ALT 98 H (21-72) U/L Alkaline Phosphatase 576 H (38-126) U/L Troponin I 0.0270 (0.00-0.120) ng/mL Total Protein 6.4 (6.3-8.2) G/DL Albumin 3.1 L (3.5-5.0) g/dL Globulin 3.3 (2.2-3.9) gm/dL Albumin/Globulin Ratio 0.9 L (1.0-2.1) 10/18/17 10/18/17 10/18/17 Range/Units 18:53 12:43 12:43 WBC (4.8-10.8) K/uL RBC (4.40-5.90) Mil/uL Hgb (12.0-18.0) g/dL Hct (35.0-51.0) % MCV (80.0-94.0) fl MCH (27.0-31.0) pg MCHC (33.0-37.0) g/dL RDW (11.5-14.5) % Plt Count (130-400) K/uL MPV (7.2-11.7) fl Neut % (Auto) (50.0-75.0) % Lymph % (Auto) (20.0-40.0) % [place] % (Auto) (0.0-10.0) % Eos % (Auto) (0.0-4.0) % Baso % (Auto) (0.0-2.0) % Neut # (1.8-7.0) K/uL Lymph # (1.0-4.3) K/uL [place] # (0.0-0.8) K/uL Eos # (0.0-0.7) K/uL Baso # (0.0-0.2) K/uL PT 16.6 H (9.8-13.1) Seconds INR 1.5 H (0.9-1.2) APTT 32.6 (25.6-37.1) Seconds pCO2 34 L (35-45) mm/Hg pO2 82 (80-100) mm/Hg HCO3 19.6 L (21-28) mmol/L ABG pH 7.34 L (7.35-7.45) ABG Total CO2 19.3 L (22-28) mmol/L ABG O2 Saturation 99.0 H (95-98) % ABG O2 Content 12.0 L (15-23) ML/dL ABG Base Excess -6.8 L (-2.0-3.0) mmol/L ABG Hemoglobin 8.8 L (11.7-17.4) g/dL ABG Carboxyhemoglobin 1.7 H (0.5-1.5) % POC ABG HHb (Measured) 1.0 (0.0-5.0) % ABG Methemoglobin 1.0 (0.0-3.0) % ABG O2 Capacity 12.1 L (16-24) mL/dL Jagjit Test Yes A-a O2 Difference 104.0 mm/Hg Hgb O2 Saturation 96.3 (95.0-98.0) % Liter Flow 3 Vent Mode Nc FiO2 32.0 % Sodium 137 (132-148) mmol/l Potassium 6.1 H (3.6-5.0) MMOL/L Chloride 106 (98-107) mmol/L Carbon Dioxide 20 L (22-30) mmol/L Anion Gap 17 (10-20) BUN 66 H (9-20) mg/dl Creatinine 3.4 H (0.8-1.5) mg/dl Est GFR ( Amer) 21 Est GFR (Non-Af Amer) 18 POC Glucose (mg/dL) (65-110) mg/dL Random Glucose 121 H (75-110) mg/dL Calcium 8.2 L (8.4-10.2) mg/dL Total Bilirubin 1.5 H (0.2-1.3) mg/dl AST 257 H D (17-59) U/L ALT 105 H (21-72) U/L Alkaline Phosphatase 656 H D (38-126) U/L Troponin I 0.0290 (0.00-0.120) ng/mL Total Protein 6.7 (6.3-8.2) G/DL Albumin 3.3 L (3.5-5.0) g/dL Globulin 3.4 (2.2-3.9) gm/dL Albumin/Globulin Ratio 1.0 (1.0-2.1) 10/18/17 Range/Units 12:43 WBC 11.7 H (4.8-10.8) K/uL RBC 3.14 L (4.40-5.90) Mil/uL Hgb 9.7 L (12.0-18.0) g/dL Hct 29.2 L (35.0-51.0) % MCV 93.1 (80.0-94.0) fl MCH 30.8 (27.0-31.0) pg MCHC 33.1 (33.0-37.0) g/dL RDW 19.4 H (11.5-14.5) % Plt Count 315 (130-400) K/uL MPV 6.5 L (7.2-11.7) fl Neut % (Auto) 75.3 H (50.0-75.0) % Lymph % (Auto) 11.0 L (20.0-40.0) % [place] % (Auto) 11.2 H (0.0-10.0) % Eos % (Auto) 2.2 (0.0-4.0) % Baso % (Auto) 0.3 (0.0-2.0) % Neut # 8.8 H (1.8-7.0) K/uL Lymph # 1.3 (1.0-4.3) K/uL [place] # 1.3 H (0.0-0.8) K/uL Eos # 0.3 (0.0-0.7) K/uL Baso # 0.0 (0.0-0.2) K/uL PT (9.8-13.1) Seconds INR (0.9-1.2) APTT (25.6-37.1) Seconds pCO2 (35-45) mm/Hg pO2 (80-100) mm/Hg HCO3 (21-28) mmol/L ABG pH (7.35-7.45) ABG Total CO2 (22-28) mmol/L ABG O2 Saturation (95-98) % ABG O2 Content (15-23) ML/dL ABG Base Excess (-2.0-3.0) mmol/L ABG Hemoglobin (11.7-17.4) g/dL ABG Carboxyhemoglobin (0.5-1.5) % POC ABG HHb (Measured) (0.0-5.0) % ABG Methemoglobin (0.0-3.0) % ABG O2 Capacity (16-24) mL/dL Jagjit Test A-a O2 Difference mm/Hg Hgb O2 Saturation (95.0-98.0) % Liter Flow Vent Mode FiO2 % Sodium (132-148) mmol/l Potassium (3.6-5.0) MMOL/L Chloride (98-107) mmol/L Carbon Dioxide (22-30) mmol/L Anion Gap (10-20) BUN (9-20) mg/dl Creatinine (0.8-1.5) mg/dl Est GFR ( Amer) Est GFR (Non-Af Amer) POC Glucose (mg/dL) (65-110) mg/dL Random Glucose (75-110) mg/dL Calcium (8.4-10.2) mg/dL Total Bilirubin (0.2-1.3) mg/dl AST (17-59) U/L ALT (21-72) U/L Alkaline Phosphatase (38-126) U/L Troponin I (0.00-0.120) ng/mL Total Protein (6.3-8.2) G/DL Albumin (3.5-5.0) g/dL Globulin (2.2-3.9) gm/dL Albumin/Globulin Ratio (1.0-2.1) Laboratory Results - last 24 hr 10/18/17 10/18/17 10/18/17 12:43 12:43 12:43 WBC 11.7 H RBC 3.14 L Hgb 9.7 L Hct 29.2 L MCV 93.1 MCH 30.8 MCHC 33.1 RDW 19.4 H Plt Count 315 MPV 6.5 L Neut % (Auto) 75.3 H Lymph % (Auto) 11.0 L [place] % (Auto) 11.2 H Eos % (Auto) 2.2 Baso % (Auto) 0.3 Neut # 8.8 H Lymph # 1.3 [place] # 1.3 H Eos # 0.3 Baso # 0.0 PT 16.6 H INR 1.5 H APTT 32.6 pCO2 pO2 HCO3 ABG pH ABG Total CO2 ABG O2 Saturation ABG O2 Content ABG Base Excess ABG Hemoglobin ABG Carboxyhemoglobin POC ABG HHb (Measured) ABG Methemoglobin ABG O2 Capacity Jagjit Test A-a O2 Difference Hgb O2 Saturation Liter Flow Vent Mode FiO2 Sodium 137 Potassium 6.1 H Chloride 106 Carbon Dioxide 20 L Anion Gap 17 BUN 66 H Creatinine 3.4 H Est GFR ( Amer) 21 Est GFR (Non-Af Amer) 18 POC Glucose (mg/dL) Random Glucose 121 H Calcium 8.2 L Total Bilirubin 1.5 H AST 257 H D ALT 105 H Alkaline Phosphatase 656 H D Troponin I 0.0290 Total Protein 6.7 Albumin 3.3 L Globulin 3.4 Albumin/Globulin Ratio 1.0 10/18/17 10/18/17 10/18/17 18:53 18:58 19:27 WBC 12.1 H RBC 2.81 L Hgb 8.5 L Hct 26.4 L MCV 94.1 H MCH 30.4 MCHC 32.3 L RDW 19.1 H Plt Count 289 MPV 6.6 L Neut % (Auto) 66.5 Lymph % (Auto) 19.6 L [place] % (Auto) 11.9 H Eos % (Auto) 1.6 Baso % (Auto) 0.4 Neut # 8.0 H Lymph # 2.4 [place] # 1.4 H Eos # 0.2 Baso # 0.1 PT INR APTT pCO2 34 L pO2 82 HCO3 19.6 L ABG pH 7.34 L ABG Total CO2 19.3 L ABG O2 Saturation 99.0 H ABG O2 Content 12.0 L ABG Base Excess -6.8 L ABG Hemoglobin 8.8 L ABG Carboxyhemoglobin 1.7 H POC ABG HHb (Measured) 1.0 ABG Methemoglobin 1.0 ABG O2 Capacity 12.1 L Jagjit Test Yes A-a O2 Difference 104.0 Hgb O2 Saturation 96.3 Liter Flow 3 Vent Mode Nc FiO2 32.0 Sodium Potassium Chloride Carbon Dioxide Anion Gap BUN Creatinine Est GFR ( Amer) Est GFR (Non-Af Amer) POC Glucose (mg/dL) 69 Random Glucose Calcium Total Bilirubin AST ALT Alkaline Phosphatase Troponin I Total Protein Albumin Globulin Albumin/Globulin Ratio 10/18/17 19:29 WBC RBC Hgb Hct MCV MCH MCHC RDW Plt Count MPV Neut % (Auto) Lymph % (Auto) [place] % (Auto) Eos % (Auto) Baso % (Auto) Neut # Lymph # [place] # Eos # Baso # PT INR APTT pCO2 pO2 HCO3 ABG pH ABG Total CO2 ABG O2 Saturation ABG O2 Content ABG Base Excess ABG Hemoglobin ABG Carboxyhemoglobin POC ABG HHb (Measured) ABG Methemoglobin ABG O2 Capacity Jagjit Test A-a O2 Difference Hgb O2 Saturation Liter Flow Vent Mode FiO2 Sodium 137 Potassium 6.0 H Chloride 109 H Carbon Dioxide 19 L Anion Gap 15 BUN 66 H Creatinine 3.1 H Est GFR ( Amer) 24 Est GFR (Non-Af Amer) 20 POC Glucose (mg/dL) Random Glucose 78 Calcium 7.9 L Total Bilirubin 1.4 H AST 244 H ALT 98 H Alkaline Phosphatase 576 H Troponin I 0.0270 Total Protein 6.4 Albumin 3.1 L Globulin 3.3 Albumin/Globulin Ratio 0.9 L Radiology Interpretations (Free Text): see above EKG/Cardiology Studies: Cardiology / EKG Studies see above Review of Systems - Review of Systems Systems not reviewed;Unavailable: Altered Mental Status Critical Care Progress Note - Extremities/Vascular Does the Patient have a Central Venous Catheter?: No Does the Patient need a Central Venous Catheter?: No Does the Patient have a Keating Catheter?: Yes Does the Patient need a Keating Catheter?: Yes Catheter Insertion Criteria: Need for accurate measurement of output in critically ill patient - Prophylaxis GI Prophylaxis GI: Pepsid - Prophylaxis DVT Prophylaxis DVT: SCDs - Nutrition Nutrition: Nutrition Category Date Time Status Heart Healthy Diet [DIET] Diets 10/18/17 Breakfast Active
[2017-10-18] MEDS ORDERED: Chlorhexidine Gluconate 1 APPL/PKT TP ONE (20:55)
--- NOTE | 2017-10-19 04:44 | CT ---
EXAM: CT Head Without Intravenous Contrast EXAM DATE/TIME: 10/18/2017 7:19 PM CLINICAL HISTORY: 77 years old, male; Signs and symptoms; Altered mental status/memory loss; Additional info: AMS, obtundation, metastatic prostate to liver TECHNIQUE: Axial computed tomography images of the head/brain without intravenous contrast. All CT scans at this facility use one or more dose reduction techniques, viz.: automated exposure control; ma/kV adjustment per patient size (including targeted exams where dose is matched to indication; i.e. head); or iterative reconstruction technique. Coronal and sagittal reformatted images were created and reviewed. COMPARISON: No relevant prior studies available. FINDINGS: Patient motion is present limiting exam. There is atrophy. There is chronic small vessel ischemic disease. Faint basal ganglia calcifications. There is no hemorrhage or edema. There is partial opacification of the left ethmoid sinus. It could be chronic or alternatively represent mild acute sinusitis. Clinical correlation is recommended. The osseous structures are normal. IMPRESSION: No acute intracranial findings. Sinus disease.
[2017-10-19] MEDS ORDERED: Midazolam 2 MG/2 ML VIAL ONE (05:36)
--- NOTE | 2017-10-19 05:56 | PCM.PROC ---
Procedures Attestation:: I certify that I have explained the specified Operation(s) or Procedure(s), risks, benefits and reasonable alternatives to the Patient and/or other person responsible. The opportunity was given to ask questions and all questions answered - Central Line Placement Right Femoral Aseptic technique was employed throughout the procedure: Hand Hygiene done prior to procedure, Full sterile barriers (mask, hair cover, sterile gown, sterile gloves), Full body sterile drape, Chloraprep Antiseptic: 2 minute prep for Femoral CVP Time Out Performed: No Pt. Placed on Pulse Ox Monitor: Yes Central Line Prep: Chlorhexidine-Alcohol Combination Local Anesthesia Used: Lidocaine 1% Ultrasound Used for Placement: Yes Central Line Lumen Inserted: triple Central Line Length: 20 cm Post Procedure: Sutured in Place, Good Blood Return, All Ports Aspirated, Flushed, Capped, Sterile Dressing Applied Secured by: Suture Post procedure dressing: Gauze, Clear vapor permeable Post Procedure X-Ray: Yes Patient Tolerated Procedure: Well Immediate Complications: None
--- NOTE | 2017-10-19 05:58 | PCM.PROC ---
Procedures Attestation:: I certify that I have explained the specified Operation(s) or Procedure(s), risks, benefits and reasonable alternatives to the Patient and/or other person responsible. The opportunity was given to ask questions and all questions answered - Intubation Time Out Performed: Yes Sedative: Versed Laryngoscope: Juan Francisco ET Tube Size: 8.0 ET Tube Uncuffed: No ET Tube Secured Locarion: Lips ET Tube Placement Confirmation: Visualized Passing Through Cords, Breath Sounds Equal Bilaterally, No Breath Sounds Over Epigastrum, Confirmation w/Capnometry Patient Tolerated Procedure: Well, No Complications Procedure Immediate Complications: None
[2017-10-19 06:30] LABS: ABG ALLEN TEST YES; ABG MECHANICAL RATE 14; ARTERIAL BLOOD GAS HCO3 17.9 mmol/L (21-28); ARTERIAL BLOOD GAS MODE A/C; ARTERIAL BLOOD GAS O2 CAPACITY 11.3 mL/dL (16-24); ARTERIAL BLOOD GAS O2 CONTENT 11.3 ML/dL (15-23); ARTERIAL BLOOD GAS PH 7.35 (7.35-7.45); ARTERIAL BLOOD GAS PO2 121 mm/Hg (80-100); ATERIAL BLOOD GAS PEEP 5; CARBOXYHEMOGLOBIN 1.6 % (0.5-1.5); HHB -0.3 % (0.0-5.0); METHEMOGLOBIN 0.7 % (0.0-3.0)
[2017-10-19 06:41] LABS: BASO % 0.3 % (0.0-2.0); EOS # 0.2 K/uL (0.0-0.7); EOS % 1.5 % (0.0-4.0); HEMATOCRIT 24.4 % (35.0-51.0); LYMPH % 9.6 % (20.0-40.0); MEAN CORPUSCULAR HEMOGLOBIN 30.4 pg (27.0-31.0); MEAN PLATELET VOLUME 6.2 fl (7.2-11.7); MONO # 1.1 K/uL (0.0-0.8); MONO % 11.2 % (0.0-10.0); NEUT # 7.9 K/uL (1.8-7.0); NEUT % 77.4 % (50.0-75.0); NRBC % 1.3 % (0.0-0.0); PLATELET COUNT 251 K/uL (130-400); RED CELL DISTRIBUTION WIDTH 19.4 % (11.5-14.5); WHITE BLOOD COUNT 10.3 K/uL (4.8-10.8)
[2017-10-19] MEDS ORDERED: Midazolam 2 MG/2 ML VIAL IV ONE (06:47)
[2017-10-19 07:01] LABS: ALB/GLOB RATIO 0.9 (1.0-2.1); BILIRUBIN,TOTAL 1.2 mg/dl (0.2-1.3); CALCIUM 7.7 mg/dL (8.4-10.2); POTASSIUM 5.3 MMOL/L (3.6-5.0); TOTAL PROTEIN 5.8 G/DL (6.3-8.2)
[2017-10-19 07:04] LABS: TROPONIN I 0.044 ng/mL (0.00-0.120)
[2017-10-19 07:12] LABS: PARTIAL THROMBOPLASTIN TIME 33.3 Seconds (25.6-37.1)
--- NOTE | 2017-10-19 08:04 | RAD ---
PROCEDURE: CHEST RADIOGRAPH, 1 VIEW HISTORY: SOB COMPARISON: 10/18/2017 FINDINGS: LUNGS: Mild bibasilar interstitial infiltrates. PLEURA: No pneumothorax or pleural fluid seen. CARDIOVASCULAR: Normal. OSSEOUS STRUCTURES: No significant abnormalities. VISUALIZED UPPER ABDOMEN: Normal. OTHER FINDINGS: None. IMPRESSION: Mild bibasilar interstitial infiltrates.
--- NOTE | 2017-10-19 08:08 | CP.CCUPN ---
CCU Subjective - Physician Review Events Since Last Encounter (Free Text): 10/19/17 08:05 Patient on ventilator on PRVC TV 450, RR 14, FIO2 50%, no response to verbal stimuli, on levophed drip, events reviewed CCU Objective - Vital Signs / Intake & Output Vital Signs (Last 4 hours): Vital Signs Pulse Resp BP Pulse Ox 10/19/17 06:00 129 H 14 108/51 L 100 10/19/17 05:00 124 H 17 92/58 L 100 Intake and Output (Last 8hrs): Intake & Output 10/18/17 10/19/17 10/19/17 22:59 06:59 14:59 Intake Total 1475 1750 Output Total 3050 Balance 1475 -1300 Intake: IV 1125 1750 Intake, Piggyback 350 Output: Urine 3050 Urethral ([place]) 3050 - Physical Exam Head: Positive for: Normocephalic Pupils: Positive for: PERRL Conjunctiva: Positive for: Normal Mouth: Positive for: Dry Neck: Negative for: Meningeal Signs, JVD Respiratory/Chest: Positive for: Rhonchi. Negative for: Accessory Muscle Use, Wheezes, Decreased Breath Sounds Cardiovascular: Positive for: Murmurs, Normal S1, S2. Negative for: Rub Abdomen: Positive for: Normal Bowel Sounds. Negative for: Tenderness, Distention, Mass/Organomegaly Lower Extremity: Positive for: Edema, NORMAL PULSES. Negative for: CALF TENDERNESS, Cyanosis Neurological: Positive for: Other (on ventilator) - Medications Active Medications: Active Medications Generic Name Dose Route Start Last Admin Trade Name Freq PRN Reason Stop Dose Admin Famotidine 20 mg 10/18/17 21:00 10/18/17 22:06 Pepcid IVP 20 mg Q12 ASHTYN Administration Levofloxacin/Dextrose 750 mg in 150 mls @ 150 mls/hr 10/18/17 09:00 Levaquin 750mg IVPB DAILY ASHTYN Norepinephrine Bitartrate 4 mg 254 mls @ 9.52 mls/hr 10/19/17 07:15 / Dextrose IV .Q24H ASHTYN Protocol 2.5 MCG/MIN Dextrose/Sodium Chloride 1,000 mls @ 200 mls/hr 10/19/17 07:19 Dextrose 5%-0.9% Ns 500 Ml IV 10/19/17 19:16 .Q5H ASHTYN Lorazepam 1 mg 10/19/17 06:50 Ativan IVP Q4 PRN Agitation - Patient Studies Lab Studies: Lab Studies 10/19/17 10/19/17 10/19/17 Range/Units 06:20 05:30 05:30 WBC (4.8-10.8) K/uL RBC (4.40-5.90) Mil/uL Hgb (12.0-18.0) g/dL Hct (35.0-51.0) % MCV (80.0-94.0) fl MCH (27.0-31.0) pg MCHC (33.0-37.0) g/dL RDW (11.5-14.5) % Plt Count (130-400) K/uL MPV (7.2-11.7) fl Neut % (Auto) (50.0-75.0) % Lymph % (Auto) (20.0-40.0) % Pickett % (Auto) (0.0-10.0) % Eos % (Auto) (0.0-4.0) % Baso % (Auto) (0.0-2.0) % Neut # (1.8-7.0) K/uL Lymph # (1.0-4.3) K/uL Pickett # (0.0-0.8) K/uL Eos # (0.0-0.7) K/uL Baso # (0.0-0.2) K/uL PT 16.5 H (9.8-13.1) Seconds INR 1.5 H (0.9-1.2) APTT 33.3 (25.6-37.1) Seconds pCO2 28 L (35-45) mm/Hg pO2 121 H (80-100) mm/Hg HCO3 17.9 L (21-28) mmol/L ABG pH 7.35 (7.35-7.45) ABG Total CO2 16.4 L (22-28) mmol/L ABG O2 Saturation 100.3 H (95-98) % ABG O2 Content 11.3 L (15-23) ML/dL ABG Base Excess -9.1 L (-2.0-3.0) mmol/L ABG Hemoglobin 8.0 L (11.7-17.4) g/dL ABG Carboxyhemoglobin 1.6 H (0.5-1.5) % POC ABG HHb (Measured) -0.3 L (0.0-5.0) % ABG Methemoglobin 0.7 (0.0-3.0) % ABG O2 Capacity 11.3 L (16-24) mL/dL Jagjit Test Yes A-a O2 Difference 201.0 mm/Hg Hgb O2 Saturation 98.0 (95.0-98.0) % Liter Flow Vent Mode A/c Mechanical Rate 14 FiO2 50.0 % Tidal Volume 450 PEEP 5 Crit Value Called To Dr sherri goel Crit Value Called By Jose F Crit Value Read Back Y Blood Gas Notified Time 629 Sodium (132-148) mmol/l Potassium (3.6-5.0) MMOL/L Chloride (98-107) mmol/L Carbon Dioxide (22-30) mmol/L Anion Gap (10-20) BUN (9-20) mg/dl Creatinine (0.8-1.5) mg/dl Est GFR ( Amer) Est GFR (Non-Af Amer) POC Glucose (mg/dL) (65-110) mg/dL Random Glucose (75-110) mg/dL Lactic Acid 5.1 H* (0.7-2.1) MMOL/L Calcium (8.4-10.2) mg/dL Total Bilirubin (0.2-1.3) mg/dl AST (17-59) U/L ALT (21-72) U/L Alkaline Phosphatase (38-126) U/L Ammonia (16-60) umo/L Troponin I (0.00-0.120) ng/mL NT-Pro-B Natriuret Pep (0-900) pg/ml Total Protein (6.3-8.2) G/DL Albumin (3.5-5.0) g/dL Globulin (2.2-3.9) gm/dL Albumin/Globulin Ratio (1.0-2.1) 10/19/17 10/19/17 10/18/17 Range/Units 05:30 05:30 20:39 WBC 10.3 (4.8-10.8) K/uL RBC 2.57 L (4.40-5.90) Mil/uL Hgb 7.8 L (12.0-18.0) g/dL Hct 24.4 L (35.0-51.0) % MCV 95.0 H (80.0-94.0) fl MCH 30.4 (27.0-31.0) pg MCHC 32.0 L (33.0-37.0) g/dL RDW 19.4 H (11.5-14.5) % Plt Count 251 (130-400) K/uL MPV 6.2 L (7.2-11.7) fl Neut % (Auto) 77.4 H (50.0-75.0) % Lymph % (Auto) 9.6 L (20.0-40.0) % Pickett % (Auto) 11.2 H (0.0-10.0) % Eos % (Auto) 1.5 (0.0-4.0) % Baso % (Auto) 0.3 (0.0-2.0) % Neut # 7.9 H (1.8-7.0) K/uL Lymph # 1.0 (1.0-4.3) K/uL Pickett # 1.1 H (0.0-0.8) K/uL Eos # 0.2 (0.0-0.7) K/uL Baso # 0.0 (0.0-0.2) K/uL PT (9.8-13.1) Seconds INR (0.9-1.2) APTT (25.6-37.1) Seconds pCO2 (35-45) mm/Hg pO2 (80-100) mm/Hg HCO3 (21-28) mmol/L ABG pH (7.35-7.45) ABG Total CO2 (22-28) mmol/L ABG O2 Saturation (95-98) % ABG O2 Content (15-23) ML/dL ABG Base Excess (-2.0-3.0) mmol/L ABG Hemoglobin (11.7-17.4) g/dL ABG Carboxyhemoglobin (0.5-1.5) % POC ABG HHb (Measured) (0.0-5.0) % ABG Methemoglobin (0.0-3.0) % ABG O2 Capacity (16-24) mL/dL Jagjit Test A-a O2 Difference mm/Hg Hgb O2 Saturation (95.0-98.0) % Liter Flow Vent Mode Mechanical Rate FiO2 % Tidal Volume PEEP Crit Value Called To Crit Value Called By Crit Value Read Back Blood Gas Notified Time Sodium 143 (132-148) mmol/l Potassium 5.3 H (3.6-5.0) MMOL/L Chloride 112 H (98-107) mmol/L Carbon Dioxide 18 L (22-30) mmol/L Anion Gap 18 (10-20) BUN 60 H (9-20) mg/dl Creatinine 2.8 H (0.8-1.5) mg/dl Est GFR ( Amer) 27 Est GFR (Non-Af Amer) 22 POC Glucose (mg/dL) (65-110) mg/dL Random Glucose 114 H (75-110) mg/dL Lactic Acid (0.7-2.1) MMOL/L Calcium 7.7 L (8.4-10.2) mg/dL Total Bilirubin 1.2 (0.2-1.3) mg/dl AST 228 H (17-59) U/L ALT 89 H (21-72) U/L Alkaline Phosphatase 557 H (38-126) U/L Ammonia (16-60) umo/L Troponin I 0.0440 (0.00-0.120) ng/mL NT-Pro-B Natriuret Pep 1280 H (0-900) pg/ml Total Protein 5.8 L (6.3-8.2) G/DL Albumin 2.8 L (3.5-5.0) g/dL Globulin 3.1 (2.2-3.9) gm/dL Albumin/Globulin Ratio 0.9 L (1.0-2.1) 10/18/17 10/18/17 10/18/17 Range/Units 20:30 20:30 19:29 WBC (4.8-10.8) K/uL RBC (4.40-5.90) Mil/uL Hgb (12.0-18.0) g/dL Hct (35.0-51.0) % MCV (80.0-94.0) fl MCH (27.0-31.0) pg MCHC (33.0-37.0) g/dL RDW (11.5-14.5) % Plt Count (130-400) K/uL MPV (7.2-11.7) fl Neut % (Auto) (50.0-75.0) % Lymph % (Auto) (20.0-40.0) % Pickett % (Auto) (0.0-10.0) % Eos % (Auto) (0.0-4.0) % Baso % (Auto) (0.0-2.0) % Neut # (1.8-7.0) K/uL Lymph # (1.0-4.3) K/uL Pickett # (0.0-0.8) K/uL Eos # (0.0-0.7) K/uL Baso # (0.0-0.2) K/uL PT (9.8-13.1) Seconds INR (0.9-1.2) APTT (25.6-37.1) Seconds pCO2 (35-45) mm/Hg pO2 (80-100) mm/Hg HCO3 (21-28) mmol/L ABG pH (7.35-7.45) ABG Total CO2 (22-28) mmol/L ABG O2 Saturation (95-98) % ABG O2 Content (15-23) ML/dL ABG Base Excess (-2.0-3.0) mmol/L ABG Hemoglobin (11.7-17.4) g/dL ABG Carboxyhemoglobin (0.5-1.5) % POC ABG HHb (Measured) (0.0-5.0) % ABG Methemoglobin (0.0-3.0) % ABG O2 Capacity (16-24) mL/dL Jagjit Test A-a O2 Difference mm/Hg Hgb O2 Saturation (95.0-98.0) % Liter Flow Vent Mode Mechanical Rate FiO2 % Tidal Volume PEEP Crit Value Called To Crit Value Called By Crit Value Read Back Blood Gas Notified Time Sodium 137 (132-148) mmol/l Potassium 6.0 H (3.6-5.0) MMOL/L Chloride 109 H (98-107) mmol/L Carbon Dioxide 19 L (22-30) mmol/L Anion Gap 15 (10-20) BUN 66 H (9-20) mg/dl Creatinine 3.1 H (0.8-1.5) mg/dl Est GFR ( Amer) 24 Est GFR (Non-Af Amer) 20 POC Glucose (mg/dL) (65-110) mg/dL Random Glucose 78 (75-110) mg/dL Lactic Acid 3.3 H (0.7-2.1) MMOL/L Calcium 7.9 L (8.4-10.2) mg/dL Total Bilirubin 1.4 H (0.2-1.3) mg/dl AST 244 H (17-59) U/L ALT 98 H (21-72) U/L Alkaline Phosphatase 576 H (38-126) U/L Ammonia 25 (16-60) umo/L Troponin I 0.0270 (0.00-0.120) ng/mL NT-Pro-B Natriuret Pep (0-900) pg/ml Total Protein 6.4 (6.3-8.2) G/DL Albumin 3.1 L (3.5-5.0) g/dL Globulin 3.3 (2.2-3.9) gm/dL Albumin/Globulin Ratio 0.9 L (1.0-2.1) 10/18/17 10/18/17 10/18/17 Range/Units 19:27 18:58 18:53 WBC 12.1 H (4.8-10.8) K/uL RBC 2.81 L (4.40-5.90) Mil/uL Hgb 8.5 L (12.0-18.0) g/dL Hct 26.4 L (35.0-51.0) % MCV 94.1 H (80.0-94.0) fl MCH 30.4 (27.0-31.0) pg MCHC 32.3 L (33.0-37.0) g/dL RDW 19.1 H (11.5-14.5) % Plt Count 289 (130-400) K/uL MPV 6.6 L (7.2-11.7) fl Neut % (Auto) 66.5 (50.0-75.0) % Lymph % (Auto) 19.6 L (20.0-40.0) % Pickett % (Auto) 11.9 H (0.0-10.0) % Eos % (Auto) 1.6 (0.0-4.0) % Baso % (Auto) 0.4 (0.0-2.0) % Neut # 8.0 H (1.8-7.0) K/uL Lymph # 2.4 (1.0-4.3) K/uL Pickett # 1.4 H (0.0-0.8) K/uL Eos # 0.2 (0.0-0.7) K/uL Baso # 0.1 (0.0-0.2) K/uL PT (9.8-13.1) Seconds INR (0.9-1.2) APTT (25.6-37.1) Seconds pCO2 34 L (35-45) mm/Hg pO2 82 (80-100) mm/Hg HCO3 19.6 L (21-28) mmol/L ABG pH 7.34 L (7.35-7.45) ABG Total CO2 19.3 L (22-28) mmol/L ABG O2 Saturation 99.0 H (95-98) % ABG O2 Content 12.0 L (15-23) ML/dL ABG Base Excess -6.8 L (-2.0-3.0) mmol/L ABG Hemoglobin 8.8 L (11.7-17.4) g/dL ABG Carboxyhemoglobin 1.7 H (0.5-1.5) % POC ABG HHb (Measured) 1.0 (0.0-5.0) % ABG Methemoglobin 1.0 (0.0-3.0) % ABG O2 Capacity 12.1 L (16-24) mL/dL Jagjit Test Yes A-a O2 Difference 104.0 mm/Hg Hgb O2 Saturation 96.3 (95.0-98.0) % Liter Flow 3 Vent Mode Nc Mechanical Rate FiO2 32.0 % Tidal Volume PEEP Crit Value Called To Crit Value Called By Crit Value Read Back Blood Gas Notified Time Sodium (132-148) mmol/l Potassium (3.6-5.0) MMOL/L Chloride (98-107) mmol/L Carbon Dioxide (22-30) mmol/L Anion Gap (10-20) BUN (9-20) mg/dl Creatinine (0.8-1.5) mg/dl Est GFR ( Amer) Est GFR (Non-Af Amer) POC Glucose (mg/dL) 69 (65-110) mg/dL Random Glucose (75-110) mg/dL Lactic Acid (0.7-2.1) MMOL/L Calcium (8.4-10.2) mg/dL Total Bilirubin (0.2-1.3) mg/dl AST (17-59) U/L ALT (21-72) U/L Alkaline Phosphatase (38-126) U/L Ammonia (16-60) umo/L Troponin I (0.00-0.120) ng/mL NT-Pro-B Natriuret Pep (0-900) pg/ml Total Protein (6.3-8.2) G/DL Albumin (3.5-5.0) g/dL Globulin (2.2-3.9) gm/dL Albumin/Globulin Ratio (1.0-2.1) 10/18/17 10/18/17 10/18/17 Range/Units 12:43 12:43 12:43 WBC 11.7 H (4.8-10.8) K/uL RBC 3.14 L (4.40-5.90) Mil/uL Hgb 9.7 L (12.0-18.0) g/dL Hct 29.2 L (35.0-51.0) % MCV 93.1 (80.0-94.0) fl MCH 30.8 (27.0-31.0) pg MCHC 33.1 (33.0-37.0) g/dL RDW 19.4 H (11.5-14.5) % Plt Count 315 (130-400) K/uL MPV 6.5 L (7.2-11.7) fl Neut % (Auto) 75.3 H (50.0-75.0) % Lymph % (Auto) 11.0 L (20.0-40.0) % Pickett % (Auto) 11.2 H (0.0-10.0) % Eos % (Auto) 2.2 (0.0-4.0) % Baso % (Auto) 0.3 (0.0-2.0) % Neut # 8.8 H (1.8-7.0) K/uL Lymph # 1.3 (1.0-4.3) K/uL Pickett # 1.3 H (0.0-0.8) K/uL Eos # 0.3 (0.0-0.7) K/uL Baso # 0.0 (0.0-0.2) K/uL PT 16.6 H (9.8-13.1) Seconds INR 1.5 H (0.9-1.2) APTT 32.6 (25.6-37.1) Seconds pCO2 (35-45) mm/Hg pO2 (80-100) mm/Hg HCO3 (21-28) mmol/L ABG pH (7.35-7.45) ABG Total CO2 (22-28) mmol/L ABG O2 Saturation (95-98) % ABG O2 Content (15-23) ML/dL ABG Base Excess (-2.0-3.0) mmol/L ABG Hemoglobin (11.7-17.4) g/dL ABG Carboxyhemoglobin (0.5-1.5) % POC ABG HHb (Measured) (0.0-5.0) % ABG Methemoglobin (0.0-3.0) % ABG O2 Capacity (16-24) mL/dL Jagjit Test A-a O2 Difference mm/Hg Hgb O2 Saturation (95.0-98.0) % Liter Flow Vent Mode Mechanical Rate FiO2 % Tidal Volume PEEP Crit Value Called To Crit Value Called By Crit Value Read Back Blood Gas Notified Time Sodium 137 (132-148) mmol/l Potassium 6.1 H (3.6-5.0) MMOL/L Chloride 106 (98-107) mmol/L Carbon Dioxide 20 L (22-30) mmol/L Anion Gap 17 (10-20) BUN 66 H (9-20) mg/dl Creatinine 3.4 H (0.8-1.5) mg/dl Est GFR ( Amer) 21 Est GFR (Non-Af Amer) 18 POC Glucose (mg/dL) (65-110) mg/dL Random Glucose 121 H (75-110) mg/dL Lactic Acid (0.7-2.1) MMOL/L Calcium 8.2 L (8.4-10.2) mg/dL Total Bilirubin 1.5 H (0.2-1.3) mg/dl AST 257 H D (17-59) U/L ALT 105 H (21-72) U/L Alkaline Phosphatase 656 H D (38-126) U/L Ammonia (16-60) umo/L Troponin I 0.0290 (0.00-0.120) ng/mL NT-Pro-B Natriuret Pep (0-900) pg/ml Total Protein 6.7 (6.3-8.2) G/DL Albumin 3.3 L (3.5-5.0) g/dL Globulin 3.4 (2.2-3.9) gm/dL Albumin/Globulin Ratio 1.0 (1.0-2.1) Laboratory Results - last 24 hr 10/18/17 10/18/17 10/18/17 12:43 12:43 12:43 WBC 11.7 H RBC 3.14 L Hgb 9.7 L Hct 29.2 L MCV 93.1 MCH 30.8 MCHC 33.1 RDW 19.4 H Plt Count 315 MPV 6.5 L Neut % (Auto) 75.3 H Lymph % (Auto) 11.0 L Pickett % (Auto) 11.2 H Eos % (Auto) 2.2 Baso % (Auto) 0.3 Neut # 8.8 H Lymph # 1.3 Pickett # 1.3 H Eos # 0.3 Baso # 0.0 PT 16.6 H INR 1.5 H APTT 32.6 pCO2 pO2 HCO3 ABG pH ABG Total CO2 ABG O2 Saturation ABG O2 Content ABG Base Excess ABG Hemoglobin ABG Carboxyhemoglobin POC ABG HHb (Measured) ABG Methemoglobin ABG O2 Capacity Jagjit Test A-a O2 Difference Hgb O2 Saturation Liter Flow Vent Mode Mechanical Rate FiO2 Tidal Volume PEEP Crit Value Called To Crit Value Called By Crit Value Read Back Blood Gas Notified Time Sodium 137 Potassium 6.1 H Chloride 106 Carbon Dioxide 20 L Anion Gap 17 BUN 66 H Creatinine 3.4 H Est GFR ( Amer) 21 Est GFR (Non-Af Amer) 18 POC Glucose (mg/dL) Random Glucose 121 H Lactic Acid Calcium 8.2 L Total Bilirubin 1.5 H AST 257 H D ALT 105 H Alkaline Phosphatase 656 H D Ammonia Troponin I 0.0290 NT-Pro-B Natriuret Pep Total Protein 6.7 Albumin 3.3 L Globulin 3.4 Albumin/Globulin Ratio 1.0 10/18/17 10/18/17 10/18/17 18:53 18:58 19:27 WBC 12.1 H RBC 2.81 L Hgb 8.5 L Hct 26.4 L MCV 94.1 H MCH 30.4 MCHC 32.3 L RDW 19.1 H Plt Count 289 MPV 6.6 L Neut % (Auto) 66.5 Lymph % (Auto) 19.6 L Pickett % (Auto) 11.9 H Eos % (Auto) 1.6 Baso % (Auto) 0.4 Neut # 8.0 H Lymph # 2.4 Pickett # 1.4 H Eos # 0.2 Baso # 0.1 PT INR APTT pCO2 34 L pO2 82 HCO3 19.6 L ABG pH 7.34 L ABG Total CO2 19.3 L ABG O2 Saturation 99.0 H ABG O2 Content 12.0 L ABG Base Excess -6.8 L ABG Hemoglobin 8.8 L ABG Carboxyhemoglobin 1.7 H POC ABG HHb (Measured) 1.0 ABG Methemoglobin 1.0 ABG O2 Capacity 12.1 L Jagjit Test Yes A-a O2 Difference 104.0 Hgb O2 Saturation 96.3 Liter Flow 3 Vent Mode Nc Mechanical Rate FiO2 32.0 Tidal Volume PEEP Crit Value Called To Crit Value Called By Crit Value Read Back Blood Gas Notified Time Sodium Potassium Chloride Carbon Dioxide Anion Gap BUN Creatinine Est GFR ( Amer) Est GFR (Non-Af Amer) POC Glucose (mg/dL) 69 Random Glucose Lactic Acid Calcium Total Bilirubin AST ALT Alkaline Phosphatase Ammonia Troponin I NT-Pro-B Natriuret Pep Total Protein Albumin Globulin Albumin/Globulin Ratio 10/18/17 10/18/17 10/18/17 19:29 20:30 20:30 WBC RBC Hgb Hct MCV MCH MCHC RDW Plt Count MPV Neut % (Auto) Lymph % (Auto) Pickett % (Auto) Eos % (Auto) Baso % (Auto) Neut # Lymph # Pickett # Eos # Baso # PT INR APTT pCO2 pO2 HCO3 ABG pH ABG Total CO2 ABG O2 Saturation ABG O2 Content ABG Base Excess ABG Hemoglobin ABG Carboxyhemoglobin POC ABG HHb (Measured) ABG Methemoglobin ABG O2 Capacity Jagjit Test A-a O2 Difference Hgb O2 Saturation Liter Flow Vent Mode Mechanical Rate FiO2 Tidal Volume PEEP Crit Value Called To Crit Value Called By Crit Value Read Back Blood Gas Notified Time Sodium 137 Potassium 6.0 H Chloride 109 H Carbon Dioxide 19 L Anion Gap 15 BUN 66 H Creatinine 3.1 H Est GFR ( Amer) 24 Est GFR (Non-Af Amer) 20 POC Glucose (mg/dL) Random Glucose 78 Lactic Acid 3.3 H Calcium 7.9 L Total Bilirubin 1.4 H AST 244 H ALT 98 H Alkaline Phosphatase 576 H Ammonia 25 Troponin I 0.0270 NT-Pro-B Natriuret Pep Total Protein 6.4 Albumin 3.1 L Globulin 3.3 Albumin/Globulin Ratio 0.9 L 10/18/17 10/19/17 10/19/17 20:39 05:30 05:30 WBC 10.3 RBC 2.57 L Hgb 7.8 L Hct 24.4 L MCV 95.0 H MCH 30.4 MCHC 32.0 L RDW 19.4 H Plt Count 251 MPV 6.2 L Neut % (Auto) 77.4 H Lymph % (Auto) 9.6 L Pickett % (Auto) 11.2 H Eos % (Auto) 1.5 Baso % (Auto) 0.3 Neut # 7.9 H Lymph # 1.0 Pickett # 1.1 H Eos # 0.2 Baso # 0.0 PT INR APTT pCO2 pO2 HCO3 ABG pH ABG Total CO2 ABG O2 Saturation ABG O2 Content ABG Base Excess ABG Hemoglobin ABG Carboxyhemoglobin POC ABG HHb (Measured) ABG Methemoglobin ABG O2 Capacity Jagjit Test A-a O2 Difference Hgb O2 Saturation Liter Flow Vent Mode Mechanical Rate FiO2 Tidal Volume PEEP Crit Value Called To Crit Value Called By Crit Value Read Back Blood Gas Notified Time Sodium 143 Potassium 5.3 H Chloride 112 H Carbon Dioxide 18 L Anion Gap 18 BUN 60 H Creatinine 2.8 H Est GFR ( Amer) 27 Est GFR (Non-Af Amer) 22 POC Glucose (mg/dL) Random Glucose 114 H Lactic Acid Calcium 7.7 L Total Bilirubin 1.2 AST 228 H ALT 89 H Alkaline Phosphatase 557 H Ammonia Troponin I 0.0440 NT-Pro-B Natriuret Pep 1280 H Total Protein 5.8 L Albumin 2.8 L Globulin 3.1 Albumin/Globulin Ratio 0.9 L 10/19/17 10/19/17 10/19/17 05:30 05:30 06:20 WBC RBC Hgb Hct MCV MCH MCHC RDW Plt Count MPV Neut % (Auto) Lymph % (Auto) Pickett % (Auto) Eos % (Auto) Baso % (Auto) Neut # Lymph # Pickett # Eos # Baso # PT 16.5 H INR 1.5 H APTT 33.3 pCO2 28 L pO2 121 H HCO3 17.9 L ABG pH 7.35 ABG Total CO2 16.4 L ABG O2 Saturation 100.3 H ABG O2 Content 11.3 L ABG Base Excess -9.1 L ABG Hemoglobin 8.0 L ABG Carboxyhemoglobin 1.6 H POC ABG HHb (Measured) -0.3 L ABG Methemoglobin 0.7 ABG O2 Capacity 11.3 L Jagjit Test Yes A-a O2 Difference 201.0 Hgb O2 Saturation 98.0 Liter Flow Vent Mode A/c Mechanical Rate 14 FiO2 50.0 Tidal Volume 450 PEEP 5 Crit Value Called To Dr sherri goel Crit Value Called By Jose F Crit Value Read Back Y Blood Gas Notified Time 629 Sodium Potassium Chloride Carbon Dioxide Anion Gap BUN Creatinine Est GFR ( Amer) Est GFR (Non-Af Amer) POC Glucose (mg/dL) Random Glucose Lactic Acid 5.1 H* Calcium Total Bilirubin AST ALT Alkaline Phosphatase Ammonia Troponin I NT-Pro-B Natriuret Pep Total Protein Albumin Globulin Albumin/Globulin Ratio EKG/Cardiology Studies: Cardiology / EKG Studies 10/18/17 12:17 ELECTROCARDIOGRAM Stat Comment: Mode Of Transportation: Reason For Exam: needed Critical Care Progress Note - Nutrition Nutrition: Nutrition Category Date Time Status Heart Healthy Diet [DIET] Diets 10/18/17 Breakfast Active Assessment/Plan - Assessment and Plan (Free Text) Assessment: A/P Respiratory failure, pneumonia, sepsis, AMS, metastatic prostate ca, A Fib, dehydration, , renal failure, anemia, hyperkalemia - Ventilatory support - Pulmonary toilets - antibiotics - IV fluid - Pressors as needed - Continue meds - Multiorgan failure - Poor prognosis
[2017-10-19] MEDS: Dextrose 5%/0.9% NS 1,000 ML IV SCH ×2 (09:00→15:49)
--- NOTE | 2017-10-19 10:28 | RAD ---
HISTORY: Post intubation COMPARISON: 10/18/2017 FINDINGS: LUNGS: Mild bibasilar interstitial changes. PLEURA: No significant pleural effusion identified, no pneumothorax apparent. CARDIOVASCULAR: Normal. OSSEOUS STRUCTURES: No significant abnormalities. VISUALIZED UPPER ABDOMEN: Normal. OTHER FINDINGS: ETT above the héctor. IMPRESSION: Mild bibasilar interstitial changes. ETT above the héctor.
[2017-10-19 11:21] LABS: METAMYELOCYTE 3 % (0-0); MYELOCYTE 3 % (0-0); NEUTROPHIL 52 % (42-75); NUCLEATED RED BLOOD CELL 5 % (0-0); REACTIVE LYMPHOCYTES 1 % (0-0); TOTAL CELLS COUNTED 100
[2017-10-19] MEDS: Digoxin 125 mcg (0.125 mg) Tab PO SCH (13:23)
[2017-10-19] MEDS ORDERED: Sodium Chloride 0.9% 1,000 ML IV SCH (15:15)
--- NOTE | 2017-10-19 16:29 | CP.PCM.PN ---
Subjective - Date & Time of Evaluation Date of Evaluation: 10/19/17 Time of Evaluation: 16:28 - Subjective Subjective: renal consult dictated orders written Dr Nick to follow Objective - Vital Signs/Intake and Output Vital Signs (last 24 hours): Temp Pulse Resp BP Pulse Ox 97.6 F 116 H 17 96/70 L 100 10/19/17 12:00 10/19/17 15:00 10/19/17 15:00 10/19/17 15:00 10/19/17 15:00 Intake and Output: 10/19/17 10/19/17 06:59 18:59 Intake Total 3225 1500 Output Total 3050 Balance 175 1500 - Medications Medications: Current Medications Digoxin (Lanoxin) 0.125 mg PO DAILY ASHTYN Last Admin: 10/19/17 13:23 Dose: 0.125 mg Famotidine (Pepcid) 20 mg IVP Q12 ASHTYN Last Admin: 10/19/17 09:00 Dose: 20 mg Norepinephrine Bitartrate 4 mg (/ Dextrose) 254 mls @ 9.52 mls/hr IV .Q24H ASHTYN ; 2.5 MCG/MIN PRN Reason: Protocol Last Titration: 10/19/17 13:00 Dose: 2.5 mcg/min, 9.52 mls/hr Dextrose/Sodium Chloride (Dextrose 5%/0.9% Ns 1000 Ml) 1,000 mls @ 200 mls/hr IV .Q5H ASHTYN Stop: 10/19/17 19:16 Last Admin: 10/19/17 15:49 Dose: 200 mls/hr Levofloxacin/Dextrose (Levaquin 500mg) 500 mg in 100 mls @ 100 mls/hr IVPB DAILY ASHTYN PRN Reason: Protocol Sodium Chloride (Sodium Chloride 0.9%) 1,000 mls @ 999 mls/hr IV .Q1H1M ASHTYN Stop: 10/20/17 15:44 Last Admin: 10/19/17 15:15 Dose: 999 mls/hr Lorazepam (Ativan) 1 mg IVP Q4 PRN PRN Reason: Agitation Last Admin: 10/19/17 09:48 Dose: 1 mg - Labs Labs: 10/19/17 05:30 10/19/17 05:30 PT 16.5 Seconds (9.8-13.1) H 10/19/17 05:30 INR 1.5 (0.9-1.2) H 10/19/17 05:30 APTT 33.3 Seconds (25.6-37.1) 10/19/17 05:30
--- NOTE | 2017-10-20 01:30 | CON ---
DATE: 10/19/2017 REQUESTING PHYSICIAN: Dr. Carroll. HISTORY OF PRESENT ILLNESS: This 77-year-old gentleman is being seen in renal consultation because of acute kidney injury. He is being seen in the Intensive Care Unit. He earlier today had some respiratory distress and was intubated. He also had problems with hyperkalemia with potassium of 6, metabolic acidosis with an anion gap of 17 along with a serum creatinine of 3.4 giving him MDRD clearance on 21 mL per minute. Through the night and day, he has been fluid resuscitated and IV antibiotics are ongoing. The BUN dropped to 60, the creatinine improved to 2.8. History is obtained from review of the present chart and my discussions with the ICU staff. The patient is unable to give a history. He does have a history of hypertension, but no history of diabetes. There is no prior documentation of renal dysfunction or problems, but he has had significant prostatic problems and indeed he has a history of metastatic cancer I believe of the prostate. He has been receiving chemotherapy. He had been in a long-term, but recently was brought back to home for about one week. He was not eating and drinking well and he was on fentanyl, Dilaudid and Percocet. He does have a history of arthritis. Med list is reviewed. There are no nonsteroidal antiinflammatory agents. He was on tamsulosin, gabapentin, famotidine, Casodex, Lanoxin, calcium carbonate, Megace, Toprol-XL, Zofran, p.r.n. iron, lactulose and Movantik. He does have a past history besides the prostate malignancy of atrial fibrillation, depression, hypercholesterolemia and arthritis and also ongoing anemia. He presented with generalized weakness and high potassium, some nauseousness and abdominal pain. [place] is in place draining dark-colored urine, Lasix has been given from yesterday. ALLERGIES: PENICILLIN, ASPIRIN. FAMILY HISTORY: No recorded history of kidney problems. SOCIAL HISTORY: No recent smoking or drinking. REVIEW OF SYSTEMS: Rest of the 12-point review of systems was negative, unobtainable or as outlined above. PHYSICAL EXAMINATION GENERAL: Shows a thin, frail, chronically ill-appearing gentleman, poorly responsive, on a ventilator, on pressors, moves to painful stimuli without focality. HEENT: Head normocephalic, atraumatic. Unable to visualize fundi. NECK: Supple. Neck veins flat from above. No bruit. Thyroid not enlarged. Thorax symmetric. LUNGS: Decreased breath sounds and scattered rhonchi. CARDIAC: PMI in the fifth left intercostal space at the midclavicular line. Heart rate is rapid with a II to III/ systolic murmur. No S3, no rub. ABDOMEN: Soft. Liver edge 2 fingerbreadths below the costal margin, some [id number] in general without focality and no rebound. EXTREMITIES: No significant edema. Pulses diminished. NEUROLOGIC: Lethargic, moves to painful stimuli. No focal findings. IMPRESSION: Hypertensive 77-year-old with probable [id number] renal injury, chronic component from longstanding hypertensive arterionephrosclerosis, perhaps obstructive uropathy from his prostatic cancer in the past, acute component from prerenal factors, sepsis, sepsis in terms of inflammatory response syndrome. Encourage with fluid resuscitation, broad spectrum antibiotic coverage, follow serial chemistries, check for metabolic derangements associated with stage IV chronic kidney disease. Dr. Nick will follow. PLAN: See order sheet. Orders were written. Thank you for involving me in patients care. Parth Christian MD
[2017-10-20 04:17] LABS: ABG ALLEN TEST YES; ABG MECHANICAL RATE 14; ARTERIAL BLOOD GAS HCO3 18.4 mmol/L (21-28); ARTERIAL BLOOD GAS MODE A/C; ARTERIAL BLOOD GAS O2 CAPACITY 10.8 mL/dL (16-24); ARTERIAL BLOOD GAS O2 CONTENT 10.9 ML/dL (15-23); ARTERIAL BLOOD GAS PH 7.41 (7.35-7.45); ARTERIAL BLOOD GAS PO2 193 mm/Hg (80-100); ARTERIAL BLOOD HGB O2 SAT 98.3 % (95.0-98.0); ATERIAL BLOOD GAS PEEP 5; CARBOXYHEMOGLOBIN 1.4 % (0.5-1.5); HHB -0.5 % (0.0-5.0); METHEMOGLOBIN 0.8 % (0.0-3.0)
[2017-10-20 06:52] LABS: HEMATOCRIT 19.5 % (35.0-51.0); MEAN CELL VOLUME 95.1 fl (80.0-94.0); MEAN CORPUSCULAR HEMOGLOBIN 30.2 pg (27.0-31.0); MEAN CORPUSCULAR HGB CONC 31.7 g/dL (33.0-37.0); RED CELL DISTRIBUTION WIDTH 20.1 % (11.5-14.5); WHITE BLOOD COUNT 14.3 K/uL (4.8-10.8)
[2017-10-20 07:12] LABS: CALCIUM 6.9 mg/dL (8.4-10.2); PHOSPHOROUS 3.1 mg/dl (2.5-4.5); POTASSIUM 3.4 MMOL/L (3.6-5.0)
--- NOTE | 2017-10-20 07:21 | CP.CCUPN ---
CCU Subjective - Physician Review Events Since Last Encounter (Free Text): 10/20/17 07:21 Patient on ventilator on PRVC TV 450, RR 14, FIO2 50%, no response to verbal stimuli, on levophed drip, events reviewed CCU Objective - Vital Signs / Intake & Output Intake and Output (Last 8hrs): Intake & Output 10/19/17 10/20/17 10/20/17 22:59 06:59 14:59 Intake Total 2000 800 Output Total 500 Balance 1500 800 Intake: IV 2000 800 Output: Urine 500 Urethral ([place]) 500 - Physical Exam Head: Positive for: Normocephalic Pupils: Positive for: PERRL Extroacular Muscles: Positive for: EOMI Conjunctiva: Positive for: Normal Mouth: Positive for: Dry Neck: Negative for: Meningeal Signs, JVD Respiratory/Chest: Positive for: Rhonchi. Negative for: Accessory Muscle Use, Wheezes, Decreased Breath Sounds Cardiovascular: Positive for: Murmurs, Normal S1, S2. Negative for: Rub Abdomen: Positive for: Normal Bowel Sounds. Negative for: Tenderness, Distention, Mass/Organomegaly Lower Extremity: Positive for: Edema, NORMAL PULSES. Negative for: CALF TENDERNESS, Cyanosis Neurological: Positive for: Other (on ventilator) Psychiatric: Positive for: Lethargic - Medications Active Medications: Active Medications Generic Name Dose Route Start Last Admin Trade Name Freq PRN Reason Stop Dose Admin Digoxin 0.125 mg 10/19/17 11:00 10/19/17 13:23 Lanoxin PO 0.125 mg DAILY ASHTYN Administration Famotidine 20 mg 10/18/17 21:00 10/19/17 22:25 Pepcid IVP 20 mg Q12 ASHTYN Administration Norepinephrine Bitartrate 4 mg 254 mls @ 9.52 mls/hr 10/19/17 07:15 10/19/17 16:00 / Dextrose IV 0 mcg/min .Q24H ASHTYN 0 mls/hr Protocol Titration 2.5 MCG/MIN Levofloxacin/Dextrose 500 mg in 100 mls @ 100 mls/hr 10/20/17 09:00 Levaquin 500mg IVPB DAILY ASHTYN Protocol Sodium Chloride 1,000 mls @ 999 mls/hr 10/19/17 15:15 10/19/17 15:15 Sodium Chloride 0.9% IV 11/26/17 15:44 999 mls/hr .Q1H1M ASHTYN Administration Lorazepam 1 mg 10/19/17 06:50 10/20/17 05:50 Ativan IVP 1 mg Q4 PRN Administration Agitation - Patient Studies Lab Studies: Microbiology Studies 10/18/17 20:30 Blood Culture - Preliminary Blood-Venous NO GROWTH AFTER 24 HOURS 10/18/17 20:00 Blood Culture - Preliminary Blood-Venous NO GROWTH AFTER 24 HOURS Lab Studies 10/20/17 10/20/17 10/20/17 Range/Units 06:44 06:44 04:10 WBC 14.3 H (4.8-10.8) K/uL RBC 2.05 L (4.40-5.90) Mil/uL Hgb 6.2 L* (12.0-18.0) g/dL Hct 19.5 L (35.0-51.0) % MCV 95.1 H (80.0-94.0) fl MCH 30.2 (27.0-31.0) pg MCHC 31.7 L (33.0-37.0) g/dL RDW 20.1 H (11.5-14.5) % Plt Count 220 (130-400) K/uL Neutrophils % (Manual) (42-75) % Band Neutrophils % (0-2) % Lymphocytes % (Manual) (20-50) % Reactive Lymphs % (0-0) % Monocytes % (Manual) (0-10) % Metamyelocytes % (0-0) % Myelocytes % (0-0) % Nucleated RBC % (0-0) % Toxic Granulation Platelet Estimate (NORMAL) Polychromasia Hypochromasia (manual) Anisocytosis (manual) Tear Drop Cells Ovalocytes pCO2 24 L (35-45) mm/Hg pO2 193 H (80-100) mm/Hg HCO3 18.4 L (21-28) mmol/L ABG pH 7.41 (7.35-7.45) ABG Total CO2 15.9 L (22-28) mmol/L ABG O2 Saturation 100.5 H (95-98) % ABG O2 Content 10.9 L (15-23) ML/dL ABG Base Excess -8.4 L (-2.0-3.0) mmol/L ABG Hemoglobin 7.5 L (11.7-17.4) g/dL ABG Carboxyhemoglobin 1.4 (0.5-1.5) % POC ABG HHb (Measured) -0.5 L (0.0-5.0) % ABG Methemoglobin 0.8 (0.0-3.0) % ABG O2 Capacity 10.8 L (16-24) mL/dL Jagjit Test Yes A-a O2 Difference 134.0 mm/Hg Hgb O2 Saturation 98.3 H (95.0-98.0) % Vent Mode A/c Mechanical Rate 14 FiO2 50.0 % Tidal Volume 450 PEEP 5 Sodium 149 H (132-148) mmol/l Potassium 3.4 L (3.6-5.0) MMOL/L Chloride 120 H (98-107) mmol/L Carbon Dioxide 18 L (22-30) mmol/L Anion Gap 14 (10-20) BUN 56 H (9-20) mg/dl Creatinine 2.2 H (0.8-1.5) mg/dl Est GFR ( Amer) 35 Est GFR (Non-Af Amer) 29 POC Glucose (mg/dL) (65-110) mg/dL Random Glucose 124 H (75-110) mg/dL Calcium 6.9 L (8.4-10.2) mg/dL Phosphorus 3.1 (2.5-4.5) mg/dl Ur Random Creatinine mg/dL Ur Random Sodium meq/L Ur Random Potassium mmol/L 10/19/17 10/19/17 10/19/17 Range/Units 17:00 17:00 08:31 WBC (4.8-10.8) K/uL RBC (4.40-5.90) Mil/uL Hgb (12.0-18.0) g/dL Hct (35.0-51.0) % MCV (80.0-94.0) fl MCH (27.0-31.0) pg MCHC (33.0-37.0) g/dL RDW (11.5-14.5) % Plt Count (130-400) K/uL Neutrophils % (Manual) (42-75) % Band Neutrophils % (0-2) % Lymphocytes % (Manual) (20-50) % Reactive Lymphs % (0-0) % Monocytes % (Manual) (0-10) % Metamyelocytes % (0-0) % Myelocytes % (0-0) % Nucleated RBC % (0-0) % Toxic Granulation Platelet Estimate (NORMAL) Polychromasia Hypochromasia (manual) Anisocytosis (manual) Tear Drop Cells Ovalocytes pCO2 (35-45) mm/Hg pO2 (80-100) mm/Hg HCO3 (21-28) mmol/L ABG pH (7.35-7.45) ABG Total CO2 (22-28) mmol/L ABG O2 Saturation (95-98) % ABG O2 Content (15-23) ML/dL ABG Base Excess (-2.0-3.0) mmol/L ABG Hemoglobin (11.7-17.4) g/dL ABG Carboxyhemoglobin (0.5-1.5) % POC ABG HHb (Measured) (0.0-5.0) % ABG Methemoglobin (0.0-3.0) % ABG O2 Capacity (16-24) mL/dL Jagjit Test A-a O2 Difference mm/Hg Hgb O2 Saturation (95.0-98.0) % Vent Mode Mechanical Rate FiO2 % Tidal Volume PEEP Sodium (132-148) mmol/l Potassium (3.6-5.0) MMOL/L Chloride (98-107) mmol/L Carbon Dioxide (22-30) mmol/L Anion Gap (10-20) BUN (9-20) mg/dl Creatinine (0.8-1.5) mg/dl Est GFR ( Amer) Est GFR (Non-Af Amer) POC Glucose (mg/dL) 139 H (65-110) mg/dL Random Glucose (75-110) mg/dL Calcium (8.4-10.2) mg/dL Phosphorus (2.5-4.5) mg/dl Ur Random Creatinine 74.8 mg/dL Ur Random Sodium 38 meq/L Ur Random Potassium 56.2 mmol/L 10/19/17 Range/Units 05:30 WBC (4.8-10.8) K/uL RBC (4.40-5.90) Mil/uL Hgb (12.0-18.0) g/dL Hct (35.0-51.0) % MCV (80.0-94.0) fl MCH (27.0-31.0) pg MCHC (33.0-37.0) g/dL RDW (11.5-14.5) % Plt Count (130-400) K/uL Neutrophils % (Manual) 52 (42-75) % Band Neutrophils % 9 H (0-2) % Lymphocytes % (Manual) 17 L (20-50) % Reactive Lymphs % 1 H (0-0) % Monocytes % (Manual) 15 H (0-10) % Metamyelocytes % 3 H (0-0) % Myelocytes % 3 H (0-0) % Nucleated RBC % 5 H (0-0) % Toxic Granulation Present Platelet Estimate Normal (NORMAL) Polychromasia Slight Hypochromasia (manual) Slight Anisocytosis (manual) Slight Tear Drop Cells Slight Ovalocytes Slight pCO2 (35-45) mm/Hg pO2 (80-100) mm/Hg HCO3 (21-28) mmol/L ABG pH (7.35-7.45) ABG Total CO2 (22-28) mmol/L ABG O2 Saturation (95-98) % ABG O2 Content (15-23) ML/dL ABG Base Excess (-2.0-3.0) mmol/L ABG Hemoglobin (11.7-17.4) g/dL ABG Carboxyhemoglobin (0.5-1.5) % POC ABG HHb (Measured) (0.0-5.0) % ABG Methemoglobin (0.0-3.0) % ABG O2 Capacity (16-24) mL/dL Jagjit Test A-a O2 Difference mm/Hg Hgb O2 Saturation (95.0-98.0) % Vent Mode Mechanical Rate FiO2 % Tidal Volume PEEP Sodium (132-148) mmol/l Potassium (3.6-5.0) MMOL/L Chloride (98-107) mmol/L Carbon Dioxide (22-30) mmol/L Anion Gap (10-20) BUN (9-20) mg/dl Creatinine (0.8-1.5) mg/dl Est GFR ( Amer) Est GFR (Non-Af Amer) POC Glucose (mg/dL) (65-110) mg/dL Random Glucose (75-110) mg/dL Calcium (8.4-10.2) mg/dL Phosphorus (2.5-4.5) mg/dl Ur Random Creatinine mg/dL Ur Random Sodium meq/L Ur Random Potassium mmol/L Laboratory Results - last 24 hr 10/19/17 10/19/17 10/19/17 05:30 08:31 17:00 WBC RBC Hgb Hct MCV MCH MCHC RDW Plt Count Neutrophils % (Manual) 52 Band Neutrophils % 9 H Lymphocytes % (Manual) 17 L Reactive Lymphs % 1 H Monocytes % (Manual) 15 H Metamyelocytes % 3 H Myelocytes % 3 H Nucleated RBC % 5 H Toxic Granulation Present Platelet Estimate Normal Polychromasia Slight Hypochromasia (manual) Slight Anisocytosis (manual) Slight Tear Drop Cells Slight Ovalocytes Slight pCO2 pO2 HCO3 ABG pH ABG Total CO2 ABG O2 Saturation ABG O2 Content ABG Base Excess ABG Hemoglobin ABG Carboxyhemoglobin POC ABG HHb (Measured) ABG Methemoglobin ABG O2 Capacity Jagjit Test A-a O2 Difference Hgb O2 Saturation Vent Mode Mechanical Rate FiO2 Tidal Volume PEEP Sodium Potassium Chloride Carbon Dioxide Anion Gap BUN Creatinine Est GFR ( Amer) Est GFR (Non-Af Amer) POC Glucose (mg/dL) 139 H Random Glucose Calcium Phosphorus Ur Random Creatinine 74.8 Ur Random Sodium Ur Random Potassium 10/19/17 10/20/17 10/20/17 17:00 04:10 06:44 WBC RBC Hgb Hct MCV MCH MCHC RDW Plt Count Neutrophils % (Manual) Band Neutrophils % Lymphocytes % (Manual) Reactive Lymphs % Monocytes % (Manual) Metamyelocytes % Myelocytes % Nucleated RBC % Toxic Granulation Platelet Estimate Polychromasia Hypochromasia (manual) Anisocytosis (manual) Tear Drop Cells Ovalocytes pCO2 24 L pO2 193 H HCO3 18.4 L ABG pH 7.41 ABG Total CO2 15.9 L ABG O2 Saturation 100.5 H ABG O2 Content 10.9 L ABG Base Excess -8.4 L ABG Hemoglobin 7.5 L ABG Carboxyhemoglobin 1.4 POC ABG HHb (Measured) -0.5 L ABG Methemoglobin 0.8 ABG O2 Capacity 10.8 L Jagjit Test Yes A-a O2 Difference 134.0 Hgb O2 Saturation 98.3 H Vent Mode A/c Mechanical Rate 14 FiO2 50.0 Tidal Volume 450 PEEP 5 Sodium 149 H Potassium 3.4 L Chloride 120 H Carbon Dioxide 18 L Anion Gap 14 BUN 56 H Creatinine 2.2 H Est GFR ( Amer) 35 Est GFR (Non-Af Amer) 29 POC Glucose (mg/dL) Random Glucose 124 H Calcium 6.9 L Phosphorus 3.1 Ur Random Creatinine Ur Random Sodium 38 Ur Random Potassium 56.2 10/20/17 06:44 WBC 14.3 H RBC 2.05 L Hgb 6.2 L* Hct 19.5 L MCV 95.1 H MCH 30.2 MCHC 31.7 L RDW 20.1 H Plt Count 220 Neutrophils % (Manual) Band Neutrophils % Lymphocytes % (Manual) Reactive Lymphs % Monocytes % (Manual) Metamyelocytes % Myelocytes % Nucleated RBC % Toxic Granulation Platelet Estimate Polychromasia Hypochromasia (manual) Anisocytosis (manual) Tear Drop Cells Ovalocytes pCO2 pO2 HCO3 ABG pH ABG Total CO2 ABG O2 Saturation ABG O2 Content ABG Base Excess ABG Hemoglobin ABG Carboxyhemoglobin POC ABG HHb (Measured) ABG Methemoglobin ABG O2 Capacity Jagjit Test A-a O2 Difference Hgb O2 Saturation Vent Mode Mechanical Rate FiO2 Tidal Volume PEEP Sodium Potassium Chloride Carbon Dioxide Anion Gap BUN Creatinine Est GFR ( Amer) Est GFR (Non-Af Amer) POC Glucose (mg/dL) Random Glucose Calcium Phosphorus Ur Random Creatinine Ur Random Sodium Ur Random Potassium Critical Care Progress Note - Nutrition Nutrition: Nutrition Category Date Time Status NPO Diet [DIET] Diets 10/19/17 Lunch Active Assessment/Plan - Assessment and Plan (Free Text) Assessment: A/P Respiratory failure, pneumonia, sepsis, AMS, metastatic prostate ca, A Fib, dehydration, , renal failure, anemia, hyperkalemia - Ventilatory support - Pulmonary toilets - antibiotics - IV fluid - Pressors as needed - Continue meds - transfusion as needed - Multiorgan failure - Poor prognosis critical care 40 min
--- NOTE | 2017-10-20 07:33 | RAD ---
HISTORY: Intubated. COMPARISON: No prior. FINDINGS: LUNGS: Bilateral interstitial infiltrates. PLEURA: No significant pleural effusion identified, no pneumothorax apparent. CARDIOVASCULAR: Normal. OSSEOUS STRUCTURES: No significant abnormalities. VISUALIZED UPPER ABDOMEN: Normal. OTHER FINDINGS: ETT above the héctor. IMPRESSION: As above.
[2017-10-20] MEDS: levoFLOXacin 500 mg in D5W 500 MG/100 ML BAG IVPB SCH (08:02)
[2017-10-20] MEDS: Digoxin 125 mcg (0.125 mg) Tab PO SCH (08:25)
[2017-10-21] MEDS: Dextrose 5%/0.9% NS 1,000 ML IV SCH ×2 (03:00→15:04)
[2017-10-21 05:24] LABS: HEMATOCRIT 33.9 % (35.0-51.0); MEAN CELL VOLUME 89.1 fl (80.0-94.0); MEAN CORPUSCULAR HEMOGLOBIN 28.3 pg (27.0-31.0); MEAN CORPUSCULAR HGB CONC 31.8 g/dL (33.0-37.0); RED CELL DISTRIBUTION WIDTH 22.9 % (11.5-14.5); WHITE BLOOD COUNT 22.8 K/uL (4.8-10.8)
[2017-10-21 05:34] LABS: ABG ALLEN TEST YES; ABG MECHANICAL RATE 14; ARTERIAL BLOOD GAS HCO3 16.6 mmol/L (21-28); ARTERIAL BLOOD GAS MODE PRVC/AC; ARTERIAL BLOOD GAS O2 CONTENT 15.8 ML/dL (15-23); ARTERIAL BLOOD GAS PH 7.28 (7.35-7.45); ARTERIAL BLOOD GAS PO2 160 mm/Hg (80-100); ARTERIAL BLOOD HGB O2 SAT 95.6 % (95.0-98.0); ATERIAL BLOOD GAS PEEP 5; CARBOXYHEMOGLOBIN 1.1 % (0.5-1.5); HHB 1.3 % (0.0-5.0); METHEMOGLOBIN 1.9 % (0.0-3.0)
[2017-10-21 05:37] LABS: CALCIUM 7.4 mg/dL (8.4-10.2); POTASSIUM 3.5 MMOL/L (3.6-5.0)
--- NOTE | 2017-10-21 08:27 | PN ---
DATE: 10/20/2017 SUBJECTIVE: The patient is seen today, 10/20/2017. He is on sedation and on ventilator. Hemoglobin dropped to 6.2. PHYSICAL EXAMINATION: VITAL SIGNS: Blood pressure is 109/78, temperature 98.3, respiratory rate 19, pulse 104. NECK: No JVD. No carotid bruits. No lymph node. No thyromegaly. CHEST AND LUNGS: Bilateral significant expansion. Decreased air entry at both lower lung ortega. CARDIOVASCULAR SYSTEM: PMI not localized. S1 and S2. No additional sounds. ABDOMEN: Normoactive bowel sounds. No tenderness. No organomegaly. No masses. EXTREMITIES: No cyanosis, no clubbing, no edema. CENTRAL NERVOUS SYSTEM: The patient is sedated on ventilator. ASSESSMENT: 1. Acute kidney failure, which is improving, likely secondary to prerenal azotemia and dehydration. 2. Anemia of acute blood loss as the patient has coffee-ground material. 3. Metastatic cancer of prostate. 4. Diastolic congestive heart failure with pro-BNP 1280. 5. Severe aortic stenosis. PLAN: 1. Blood transfusion, 2 units of packed RBCs. 2. Continue IV fluid and ventilator management. 3. Guarded prognosis. Clinton Carroll MD
--- NOTE | 2017-10-21 08:45 | PN ---
DATE: 10/19/2017 SUBJECTIVE: The patient is seen today in intensive care unit, 10/19/2017. Patient was sedated and he was intubated for airway protection. PHYSICAL EXAMINATION: VITAL SIGNS: Blood pressure 104/62, temperature 98.2, respiratory rate 24 and pulse 129. HEENT: Pale mucosa of the conjunctivae. NECK: Supple. No JVD. No carotid bruit. No lymph node. No thyromegaly. CHEST AND LUNGS: Bilateral symmetrical expansion. Good air exchange. No rales, no rhonchi. CARDIOVASCULAR: PMI not localized. S1 and S2. No additional sounds. ABDOMEN: Normoactive bowel sounds. No tenderness. No organomegaly. No masses. EXTREMITIES: No cyanosis, no clubbing, no edema. CENTRAL NERVOUS SYSTEM: Patient is sedated, on ventilator. ASSESSMENT: 1. Acute kidney injury, likely secondary to decreased oral intake and dehydration. 2. Hyperkalemia. 3. Uremic encephalopathy. PLAN: Continue ventilator management, Nephrology consult and follow recommendations. Started patient empirically on antibiotics. Nasogastric tube and resume patient's home medications. Follow up blood work and electrolytes. Clinton Carroll MD
--- NOTE | 2017-10-21 08:45 | HP ---
HISTORY OF PRESENT ILLNESS: This is a 77-year-old [place] male with history of metastatic cancer prostate and severe aortic stenosis, presented to emergency room with symptoms of generalized weakness and loss of appetite. The patient was evaluated in the emergency room and he was found to have acute renal failure with serum creatinine of 3.1 and potassium of 6.1. The patient was to be in emergency room and he was given IV fluid. At the time of evaluation of the patient on the floor, the patient was found to be short of breath with gargling sounds. The patient was suctioned and he was severely lethargic. DIVE SUPERINTENDENT was cold and ____ evaluation was done and the patient was admitted to Intensive Care Unit. The patient was started also on antibiotics by transfer worker. Other review of systems is not obtained because the patient is lethargic and no further history could be obtained from the patient. ALLERGIES: POSITIVE FOR ASPIRIN AND PENICILLIN. PAST MEDICAL HISTORY: Severe aortic stenosis, metastatic prostate cancer. SOCIAL HISTORY: No history of smoking, EtOH or substance abuse. FAMILY HISTORY: Noncontributory. MEDICATIONS: As per MAR. PHYSICAL EXAMINATION: GENERAL: The patient was again dysarthric and no history could be obtained from him VITAL SIGNS: Blood pressure was 80/50, temperature 98.3, respiratory rate of 1659, pulse of 130. HEENT: Pale mucosa of the conjunctivae. NECK: Supple. No JVD. No carotid bruit. No lymph node. No thyromegaly. CHEST/LUNGS: Bilateral symmetrical expansion. Decreased air entry both lower lung ortega. CARDIOVASCULAR: PMI not localized. S1. S2. No additional sounds. ABDOMEN: Normoactive bowel sounds. No tenderness. No organomegaly. No masses. EXTREMITIES: No cyanosis, no clubbing or edema. SHEET METAL FORMER: Lethargy and moves all extremities equally. ASSESSMENT: 1. Acute renal failure. 2. Hyperkalemia. 3. Metastatic prostate cancer. 4. Severe aortic stenosis. PLAN: Admit the patient to intensive care unit and resume the patient's home medications as tolerated and Nephrology consult. Will give the patient Kayexalate 30 g. Clinton Carroll MD [facility] # [phone]
[2017-10-21] MEDS: levoFLOXacin 500 mg in D5W 500 MG/100 ML BAG IVPB SCH (09:25)
--- NOTE | 2017-10-21 11:00 | RAD ---
HISTORY: Intubated. COMPARISON: 10/20/2017 FINDINGS: LUNGS: No definite infiltrate. Ill-defined multifocal bilateral opacity on prior examination is no longer evident. PLEURA: No significant pleural effusion identified, no pneumothorax apparent. CARDIOVASCULAR: Normal heart size. ET tube and NG tube unchanged. OSSEOUS STRUCTURES: No significant abnormalities. VISUALIZED UPPER ABDOMEN: Normal. OTHER FINDINGS: None. IMPRESSION: No pulmonary infiltrate.
[2017-10-21] MEDS: Digoxin 125 mcg (0.125 mg) Tab PO SCH (13:17)
[2017-10-21] MEDS ORDERED: Sodium Chloride 3% for Inhalation 4 ML VIAL.NEB IH PRN (15:42)
[2017-10-21] MEDS ORDERED: Potassium Chloride 10 MEQ in Dextrose 5%/0.45% NS 1,000 ML IV SCH (16:00)
[2017-10-21 16:33] LABS: RBC URINE 144 /hpf (0-3); URINE BACTERIA RARE (<OCC); URINE BILIRUBIN NEGATIVE (NEGATIVE); URINE BLOOD LARGE (NEGATIVE); URINE COLOR YELLOW (YELLOW); URINE GLUCOSE (UA) NEG (Normal); URINE KETONE NEGATIVE (NEGATIVE); URINE LEUKOCYTE ESTERASE NEG Leu/uL (Negative); URINE PROTEIN 100 mg/dL (NEGATIVE); WBC URINE 3 /hpf (0-5)
[2017-10-21] MEDS ORDERED: Digoxin 500 mcg/2ml (0.5 mg/2ml) Inj IVP STA (18:10)
[2017-10-21 18:42] LABS: CALCIUM 6.9 mg/dL (8.6-10.3)
--- NOTE | 2017-10-21 18:54 | CP.PCM.CON ---
History of Present Illness - History of Present Illness History of Present Illness: THE PATIENT IS A 77 YEAR OLD MALE WHO HAS A HISTORY OF PROSTATE CANCER WITH METASTASIS TO THE LIVER. HE IS UNDERGOING CHEMOTHERAPY AND SINCE HIS LAST TREATMENT HE HAS NOT BEEN EATING OR DRINKING WELL AND A VISITING NURSE SAW HIM AND RECOMMENDED THAT HE GO TO THE ER AND HE WAS FOUND TO BE DEHYDRATED, HYPOTENSIVE, HAVE SINUS TACHYCARDIA AND LISBETH. HE WAS FOUND TO HAVE BILATERAL PNEUMONIA AND A PROBABLE UTI AND HE WAS GIVEN IV FLUIDS, PRESSORS, ANTIBIOTICS, DIGOXIN AND HE WAS INTUBATED AND PLACED ON MV DUE TO RESPIRATORY DISTRESS. HIS BLOOD PRESSURE IMPROVED AND HE WAS EVENTUALLY ALSO GIVEN IV CARDIZEM FOR HIS TACHYCARDIA. I HAVE KNOW HIM SINCE THIS PAST SUMMER AND HE HAS A HISTORY OF ATRIAL FIBRILLATION AND SVT USUALLY WHEN HE IS DEHYDRATED AND HE RESPONDS TO IV FLUIDS AND WAS TREATED WITH DIGOXIN AND METOPROLOL. HE WAS NOT GIVEN AMIODARONE OR PROPAFENONE DUE TO A FEAR OF TOXICITY FROM NOT BEING ABLE TO METABOLIZE THIS MEDICATIONS BECAUSE OF HIS LIVER METASTASIS. HE WAS ALSO FOUND TO HAVE SEVERE AORTIC STENOSIS ON AN ECHOCARDIOGRAM. HE DECLINED TO CONSIDER AN AV REPLACEMENT INCLUDING TAVR STATING THAT HE WOULD ONLY CONSIDER THAT IF HE RESPONDED WELL TO CHEMOTHERAPY FOR HIS PROSTATE CANCER. CARDIOLOGY HAS NOW BEEN ASKED TO SEE AND FOLLOW HIM ON THIS ADMISSION. Past Patient History - Past Medical History & Family History Past Medical History?: Yes - Past Social History Smoking Status: Never Smoked - CARDIAC Hx Cardiac Disorders: Yes Hx Atrial Fibrillation: Yes Hx Hypercholesterolemia: Yes Hx Hypertension: Yes - PULMONARY Hx Respiratory Disorders: No - NEUROLOGICAL Hx Neurological Disorder: No Hx Seizures: No - HEENT Hx HEENT Problems: No - RENAL Hx Chronic Kidney Disease: No - ENDOCRINE/METABOLIC Hx Endocrine Disorders: No - HEMATOLOGICAL/ONCOLOGICAL Hx Blood Disorders: Yes Hx Anemia: Yes Hx Blood Transfusions: Yes Hx Cancer: Yes Hx Chemotherapy: Yes Hx Human Immunodeficiency Virus (HIV): No Hx Metastesis: Yes - INTEGUMENTARY Hx Dermatological Problems: No - MUSCULOSKELETAL/RHEUMATOLOGICAL Hx Musculoskeletal Disorders: Yes Hx Arthritis: Yes Hx Falls: No - GASTROINTESTINAL Hx Gastrointestinal Disorders: No - GENITOURINARY/GYNECOLOGICAL Hx Genitourinary Disorders: Yes Hx Prostate Cancer: Yes - PSYCHIATRIC Hx Psychophysiologic Disorder: No Hx Substance Use: No - SURGICAL HISTORY Hx Surgeries: No - ANESTHESIA Hx Anesthesia: No Hx Anesthesia Reactions: No Hx Malignant Hyperthermia: No Has any member of the family had a problem w/ anesthesia?: No Meds Allergies/Adverse Reactions: Allergies Allergy/AdvReac Type Severity Reaction Status Date / Time aspirin Allergy PAIN Verified 09/06/17 23:57 Penicillins Allergy NAUSEA Verified 09/06/17 23:57 - Medications Medications: Current Medications Digoxin (Lanoxin) 0.125 mg PO DAILY [facility] Last Admin: 10/21/17 13:17 Dose: Not Given Famotidine (Pepcid) 20 mg IVP Q12 [facility] Last Admin: 10/21/17 09:27 Dose: 20 mg Levofloxacin/Dextrose (Levaquin 500mg) 500 mg in 100 mls @ 100 mls/hr IVPB DAILY ASHTYN PRN Reason: Protocol Last Admin: 10/21/17 09:25 Dose: 100 mls/hr Diltiazem HCl 100 mg/ Sodium (Chloride) 100 mls @ 5 mls/hr IV .Q20H ONE; 5 MG/ HR PRN Reason: Protocol Stop: 10/22/17 04:47 Last Admin: 10/21/17 18:00 Dose: 12.5 mg/hr, 12.5 mls/hr Potassium Chloride 10 meq/ (Dextrose/Sodium Chloride) 1,005 mls @ 100 mls/hr IV .Q10H3M [facility] Stop: 10/22/17 15:55 Last Admin: 10/21/17 17:05 Dose: 100 mls/hr Lorazepam (Ativan) 1 mg IVP Q4 PRN PRN Reason: Agitation Last Admin: 10/21/17 16:40 Dose: 1 mg Physical Exam - Respiratory Exam Additional comments: MV, MILD RALES AT THE BASES - Cardiovascular Exam Cardiovascular Exam: Tachycardia, REGULAR RHYTHM, +S1, +S2, Systolic Murmur - Extremities Exam Extremities exam: Positive for: normal inspection - Additional Findings Additional findings: EKG 10/18/17 ST, R 114 MODEL AND PATTERN SUPERVISOR NOW ST, R 118 RECENT ECHO WITH SEVERE , GOOD LV SYSTOLIC FUNCTION CXR BILATERAL INFILTRATES TROPONIN NEGATIVE PBNP MILDLY ELEVATED WBC 22K BUN/CR 59/2.1 Results - Vital Signs Recent Vital Signs: Last Vital Signs Temp 99.4 F 10/21/17 16:00 Pulse 119 H 10/21/17 17:00 Resp 19 10/21/17 17:00 BP 106/66 10/21/17 17:00 Pulse Ox 99 10/21/17 17:00 - Labs Result Diagrams: 10/21/17 04:20 10/21/17 04:20 Labs: Laboratory Results - last 24 hr 10/18/17 10/18/17 10/18/17 19:19 19:29 19:29 WBC RBC Hgb Hct MCV MCH MCHC RDW Plt Count pCO2 pO2 HCO3 ABG pH ABG Total CO2 ABG O2 Saturation ABG O2 Content ABG Base Excess ABG Hemoglobin ABG Carboxyhemoglobin POC ABG HHb (Measured) ABG Methemoglobin ABG O2 Capacity Jagjit Test A-a O2 Difference Hgb O2 Saturation Vent Mode Mechanical Rate FiO2 Tidal Volume PEEP Sodium Potassium Chloride Carbon Dioxide Anion Gap BUN Creatinine Est GFR ( Amer) Est GFR (Non-Af Amer) Random Glucose Calcium GGT 1471 H Procalcitonin Prolactin 42.7 H Calcium (PTH Intact) PTH w/Ion &Tot Calcium Urine Color Urine Clarity Urine pH Ur Specific [place] Urine Protein Urine Glucose (UA) Urine Ketones Urine Blood Urine Nitrate Urine Bilirubin Urine Urobilinogen Ur Leukocyte Esterase Urine RBC (Auto) Urine Microscopic WBC Amorphous Sediment Urine Bacteria 10/19/17 10/21/17 10/21/17 17:00 04:20 04:20 WBC 22.8 H D RBC 3.81 L Hgb 10.8 L D Hct 33.9 L MCV 89.1 D MCH 28.3 MCHC 31.8 L RDW 22.9 H Plt Count 219 pCO2 pO2 HCO3 ABG pH ABG Total CO2 ABG O2 Saturation ABG O2 Content ABG Base Excess ABG Hemoglobin ABG Carboxyhemoglobin POC ABG HHb (Measured) ABG Methemoglobin ABG O2 Capacity Jagjit Test A-a O2 Difference Hgb O2 Saturation Vent Mode Mechanical Rate FiO2 Tidal Volume PEEP Sodium 154 H Potassium 3.5 L Chloride 124 H Carbon Dioxide 19 L Anion Gap 15 BUN 59 H Creatinine 2.1 H Est GFR ( Amer) 37 Est GFR (Non-Af Amer) 31 Random Glucose 117 H Calcium 7.4 L GGT Procalcitonin Prolactin Calcium (PTH Intact) 6.9 L PTH w/Ion &Tot Calcium 129 H Urine Color Urine Clarity Urine pH Ur Specific [place] Urine Protein Urine Glucose (UA) Urine Ketones Urine Blood Urine Nitrate Urine Bilirubin Urine Urobilinogen Ur Leukocyte Esterase Urine RBC (Auto) Urine Microscopic WBC Amorphous Sediment Urine Bacteria 10/21/17 10/21/17 05:25 16:24 WBC RBC Hgb Hct MCV MCH MCHC RDW Plt Count pCO2 32 L pO2 160 H HCO3 16.6 L ABG pH 7.28 L ABG Total CO2 16.0 L ABG O2 Saturation 98.7 H ABG O2 Content 15.8 ABG Base Excess -10.7 L ABG Hemoglobin 11.5 L ABG Carboxyhemoglobin 1.1 POC ABG HHb (Measured) 1.3 ABG Methemoglobin 1.9 ABG O2 Capacity 16.0 Jagjit Test Yes A-a O2 Difference 157.0 Hgb O2 Saturation 95.6 Vent Mode Prvc/ac Mechanical Rate 14 FiO2 50.0 Tidal Volume 450 PEEP 5 Sodium Potassium Chloride Carbon Dioxide Anion Gap BUN Creatinine Est GFR ( Amer) Est GFR (Non-Af Amer) Random Glucose Calcium GGT Procalcitonin Prolactin Calcium (PTH Intact) PTH w/Ion &Tot Calcium Urine Color Yellow Urine Clarity Cloudy Urine pH 6.0 Ur Specific [place] 1.017 Urine Protein 100 Urine Glucose (UA) Neg Urine Ketones Negative Urine Blood Large Urine Nitrate Negative Urine Bilirubin Negative Urine Urobilinogen 2.0 Ur Leukocyte Esterase Neg Urine RBC (Auto) 144 H Urine Microscopic WBC 3 Amorphous Sediment Rare H Urine Bacteria Rare Assessment & Plan - Assessment and Plan (Free Text) Assessment: PROSTATE CA WITH LIVER METASTASIS DEHYDRATION ON ADMISSION PNEUMONIA SEVERE AORTIC STENOSIS PRESENT RHYTHM IS SINUS TACHYCARDIA FROM BOTH DEHYDRATION AND INFECTION PROGNOSIS IS GRAVE Plan: CONTINUE MV, IV FLUIDS, IV ANTIBIOTICS, DIGOXIN, IV CARDIZEM LONG TALK HELD WITH THE DAUGHTER WHO UNDERSTANDS THE SEVERITY OF HIS PRESENT CONDITION AVR HAS BEEN DISCUSSED WITH THE PATIENT ON PREVIOUS ADMISSIONS WHEN HE WAS MORE STABLE AND HE DECLINED, AND HE IS TOO SICK TO CONSIDER IT AT THE PRESENT TIME AND HIS PROGNOSIS IS VERY, VERY GUARDED
--- NOTE | 2017-10-21 18:55 | PN ---
DATE: 10/21/2017 CRITICAL CARE PROGRESS NOTE LOCATION: Patient in ICU, bed 433. TIME SPENT: 45 minutes. SUBJECTIVE: The patient is seen, examined at the bedside. Case discussed in multidisciplinary ICU rounds. Past medical, surgical, social history noted. 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 Remains lethargic but wakeful. Opens eyes when requested by the patient's daughter. PHYSICAL EXAMINATION: VITAL SIGNS: Temperature 98.5, heart rate of 119 to 122 regular, blood pressure 129/84, mean arterial pressure 99, respiratory rate 26, saturating 100%, on FIO2 of 50%. Intake 3180, output 800, positive balance 2380. Weight 120 pounds. HEAD, EYES, EARS, NOSE AND THROAT: Pupils reactive. Conjunctivae pale. Sclerae are anicteric. CHEST: Bilateral breath sounds. Scattered rhonchi. HEART: Rhythm regular. 2/6 systolic murmur at the right sternal border. ABDOMEN: Bowel sounds present. Soft. No tenderness. EXTREMITIES: Positive for trace edema. DP palpable. No palpable cord. NEUROLOGIC: Lethargic. Able to follow commands. Opens eyes. CURRENT MEDICATIONS: Include D5 normal at 100 mL per hour, Lanoxin 0.125 mg daily, diltiazem drip at 5 mg per hour, titrate to heart rate around 100, Pepcid 20 mg IV q. 12 hours, levofloxacin 500 mg IV daily, Ativan 1 ml IV q. 4 hours p.r.n. for agitation. LABORATORY DATA: SMA-7, sodium 137, potassium 6, chloride 109, CO2 of 19, blood urea nitrogen 66, creatinine 3.1, random glucose 78, calcium 7.9, total bilirubin 1.4, GGT 1471, AST 244, ALT 98, alkaline phosphatase 576, albumin 3.1, prolactin 42.7. ProBNP 1280. Lactic acid 3.3, lactic acid repeat today 5.1. PTH 129. Microbiology, blood culture positive for gram-positive cocci in clusters. Chest x-ray, no pulmonary infiltrate, normal heart size, no significant abnormalities of the osseous structures. IMPRESSION: 1. Neurologic: Metabolic septic encephalopathy. CT head negative for any acute event. No metastasis noted. 2. Pulmonary: Hypoxic respiratory failure, bilateral infiltrate resolved, not a candidate to go for extubation today as the patient's mental status is not improved, continue for airway protection. 3. Cardiac: History of paroxysmal atrial fibrillation, currently remains on sinus tachycardia, on Cardizem and digoxin, history of aortic stenosis, patient declined previous advice for otic valve replacement because of his underlying carcinoma of prostate and not sure about the prognosis. 4. Endocrine. No history of diabetes. 5. Renal: Acute on chronic renal insufficiency, seen by renal consult, appreciate recommendations. 6. Hematology: Leukocytosis secondary to multifactorial infection in the lung with metastases in the liver, status post chemo, with possible necrosis and suspected pneumonia. 7. Deep vein thrombosis prophylaxis with mechanical device. Anticoagulation on hold given guaiac positive stool and anemia. 8. Electrolyte imbalance with hypokalemia, supplement potassium, follow magnesium and phosphorus level. 9. Infectious disease: Blood culture for gram-positive cocci. X-ray on admission shows bilateral infiltrate, suspected aspiration pneumonia. 10. Skin: Without any breakdown. Infectious Disease consult requested. Cardiology consult to address aortic stenosis, atrial fibrillation and now sinus tachycardia. Renal consult onboard for acute on chronic renal insufficiency. Ap Oconnell MD
[2017-10-21] MEDS ORDERED: Aztreonam 1 GM in Sodium Chloride 0.9% 100 ML IVPB SCH (21:30)
--- NOTE | 2017-10-21 23:46 | CP.PCM.PN ---
Subjective - Date & Time of Evaluation Date of Evaluation: 10/21/17 Time of Evaluation: 15:00 - Subjective Subjective: SEEN ON RENAL F/U IN ICU DAUGHTER ON THE BED SIDE ON IVF .. 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 [employer] [facility] Objective - Vital Signs/Intake and Output Vital Signs (last 24 hours): Temp Pulse Resp BP Pulse Ox 99.4 F 119 H 19 106/66 99 10/21/17 16:00 10/21/17 17:00 10/21/17 17:00 10/21/17 17:00 10/21/17 17:00 Intake and Output: 10/21/17 10/22/17 18:59 06:59 Intake Total 1000 Balance 1000 - Medications Medications: Current Medications Digoxin (Lanoxin) 0.125 mg IVP DAILY [facility] Famotidine (Pepcid) 20 mg IVP Q12 [facility] Last Admin: 10/21/17 21:57 Dose: 20 mg Levofloxacin/Dextrose (Levaquin 500mg) 500 mg in 100 mls @ 100 mls/hr IVPB DAILY [facility] PRN Reason: Protocol Last Admin: 10/21/17 09:25 Dose: 100 mls/hr Diltiazem HCl 100 mg/ Sodium (Chloride) 100 mls @ 5 mls/hr IV .Q20H ONE; 5 MG/ HR PRN Reason: Protocol Stop: 10/22/17 04:47 Last Admin: 10/21/17 18:00 Dose: 12.5 mg/hr, 12.5 mls/hr Potassium Chloride 10 meq/ (Dextrose/Sodium Chloride) 1,005 mls @ 100 mls/hr IV .Q10H3M [facility] Stop: 10/22/17 15:55 Last Admin: 10/21/17 17:05 Dose: 100 mls/hr Aztreonam 1 gm/ Sodium (Chloride) 50 mls @ 50 mls/hr IVPB Q12 [facility] PRN Reason: Protocol Last Admin: 10/21/17 22:36 Dose: 50 mls/hr Lorazepam (Ativan) 1 mg IVP Q4 PRN PRN Reason: Agitation Last Admin: 10/21/17 16:40 Dose: 1 mg - Labs Labs: 10/21/17 04:20 10/21/17 04:20 PT 16.5 Seconds (9.8-13.1) H 10/19/17 05:30 INR 1.5 (0.9-1.2) H 10/19/17 05:30 APTT 33.3 Seconds (25.6-37.1) 10/19/17 05:30 Assessment and Plan - Assessment and Plan (Free Text) Assessment: C/O PRESENT CARE C/O CURRENT MANAGEMENT
[2017-10-22 05:33] LABS: HEMATOCRIT 33.2 % (35.0-51.0); MEAN CELL VOLUME 88.2 fl (80.0-94.0); MEAN CORPUSCULAR HEMOGLOBIN 28.3 pg (27.0-31.0); MEAN CORPUSCULAR HGB CONC 32.1 g/dL (33.0-37.0); RED CELL DISTRIBUTION WIDTH 23.2 % (11.5-14.5)
[2017-10-22 05:50] LABS: CALCIUM 7.1 mg/dL (8.4-10.2); POTASSIUM 3.7 MMOL/L (3.6-5.0)
[2017-10-22 05:52] LABS: ABG ALLEN TEST YES; ABG MECHANICAL RATE 14; ARTERIAL BLOOD GAS HCO3 17.9 mmol/L (21-28); ARTERIAL BLOOD GAS MODE A/C; ARTERIAL BLOOD GAS O2 CAPACITY 18.9 mL/dL (16-24); ARTERIAL BLOOD GAS O2 CONTENT 18.7 ML/dL (15-23); ARTERIAL BLOOD GAS PH 7.38 (7.35-7.45); ARTERIAL BLOOD GAS PO2 175 mm/Hg (80-100); ARTERIAL BLOOD HGB O2 SAT 96.1 % (95.0-98.0); ATERIAL BLOOD GAS PEEP 5; CARBOXYHEMOGLOBIN 1.3 % (0.5-1.5); METHEMOGLOBIN 1.6 % (0.0-3.0)
--- NOTE | 2017-10-22 07:36 | CP.PCM.CON ---
<Yanira Bowers - Last Filed: 10/22/17 10:58> History of Present Illness - History of Present Illness History of Present Illness: PGY 4 Initial GI Consult Note Divina Ray is a 77M w/ hx of metastatic prostate cancer currently on chemo, A-fib (not on anticoag), AVR who presented to the ER due to weakness, AMS , and dehydration. Pt is actively receiving chemo with last administration was apparently a few weeks ago. Pt is currently intubated and cannot give hx, so all information is obtained from MINING TECHNICIAN and EMR. Pt was initially admitted to regular medical floor when an STAFF ANESTHETIST was called for respiratory distress. He was found to be desaturating due to underlying pneumonia and was eventually intubated in the ICU. He was eventually started on Levophed which had since been titrated off. Two days ago, pt had a drop in his hgb to 6.4 and supposed melena x1-2. He received 2 units PRBC and his hgb has been stable. As per RN, there have been no additional episodes of melena. RN denies any hematemesis or coffee-ground emesis. He was initially receiving feeds but his OG was displaced and there have been multiple failed attempts at reinsertion. PMH: Anemia, Arthritis, Atrial Fibrillation, Depression, HTN, Hypercholesterolemia, Malignancy (Prostate) PSHx none FHx Espohageal cancer, Colon cancer ROS A comprehensive review of systems was performed and was negative apart from HPI SHx ex smoker, social etoh use, no drugs ROS- 12 point ROS conducted, neg other than above Past Patient History - Past Medical History & Family History Past Medical History?: Yes - Past Social History Smoking Status: Never Smoked - CARDIAC Hx Cardiac Disorders: Yes Hx Atrial Fibrillation: Yes Hx Hypercholesterolemia: Yes Hx Hypertension: Yes - PULMONARY Hx Respiratory Disorders: No - NEUROLOGICAL Hx Neurological Disorder: No Hx Seizures: No - HEENT Hx HEENT Problems: No - RENAL Hx Chronic Kidney Disease: No - ENDOCRINE/METABOLIC Hx Endocrine Disorders: No - HEMATOLOGICAL/ONCOLOGICAL Hx Blood Disorders: Yes Hx Anemia: Yes Hx Blood Transfusions: Yes Hx Cancer: Yes Hx Chemotherapy: Yes Hx Human Immunodeficiency Virus (HIV): No Hx Metastesis: Yes - INTEGUMENTARY Hx Dermatological Problems: No - MUSCULOSKELETAL/RHEUMATOLOGICAL Hx Musculoskeletal Disorders: Yes Hx Arthritis: Yes Hx Falls: No - GASTROINTESTINAL Hx Gastrointestinal Disorders: No - GENITOURINARY/GYNECOLOGICAL Hx Genitourinary Disorders: Yes Hx Prostate Cancer: Yes - PSYCHIATRIC Hx Psychophysiologic Disorder: No Hx Substance Use: No - SURGICAL HISTORY Hx Surgeries: No - ANESTHESIA Hx Anesthesia: No Hx Anesthesia Reactions: No Hx Malignant Hyperthermia: No Has any member of the family had a problem w/ anesthesia?: No Meds Allergies/Adverse Reactions: Allergies Allergy/AdvReac Type Severity Reaction Status Date / Time aspirin Allergy PAIN Verified 09/06/17 23:57 Penicillins Allergy NAUSEA Verified 09/06/17 23:57 - Medications Medications: Current Medications Digoxin (Lanoxin) 0.125 mg IVP DAILY [facility] Famotidine (Pepcid) 20 mg IVP Q12 [facility] Last Admin: 10/21/17 21:57 Dose: 20 mg Levofloxacin/Dextrose (Levaquin 500mg) 500 mg in 100 mls @ 100 mls/hr IVPB DAILY [facility] PRN Reason: Protocol Last Admin: 10/21/17 09:25 Dose: 100 mls/hr Potassium Chloride 10 meq/ (Dextrose/Sodium Chloride) 1,005 mls @ 100 mls/hr IV .Q10H3M [facility] Stop: 10/22/17 15:55 Last Admin: 10/21/17 17:05 Dose: 100 mls/hr Aztreonam 1 gm/ Sodium (Chloride) 50 mls @ 50 mls/hr IVPB Q12 [facility] PRN Reason: Protocol Last Admin: 10/21/17 22:36 Dose: 50 mls/hr Physical Exam - Constitutional Appears: No Acute Distress - Head Exam Head Exam: ATRAUMATIC, NORMOCEPHALIC - Eye Exam Eye Exam: Normal appearance - ENT Exam ENT Exam: Mucous Membranes Moist - Respiratory Exam Respiratory Exam: Clear to Auscultation Bilateral, NORMAL BREATHING PATTERN. absent: Rales, Rhonchi, Wheezes, Respiratory Distress - Cardiovascular Exam Cardiovascular Exam: Irregular Rhythm - GI/Abdominal Exam GI & Abdominal Exam: Normal Bowel Sounds, Soft. absent: Distended, Guarding, Hypoactive Bowel Sounds, Organomegaly, Rigid - Extremities Exam Extremities exam: Negative for: joint swelling, pedal edema - Neurological Exam Neurological exam: Altered - Psychiatric Exam Additional comments: could not assess - Skin Skin Exam: Dry, Intact, Normal Color, Warm Results - Vital Signs Recent Vital Signs: Last Vital Signs Temp 98.7 F 10/22/17 04:00 Pulse 123 H 10/22/17 06:00 Resp 27 H 10/22/17 06:00 BP 108/74 10/22/17 06:00 Pulse Ox 99 10/22/17 06:00 - Labs Result Diagrams: 10/22/17 04:20 10/22/17 04:20 Labs: Laboratory Results - last 24 hr 10/18/17 10/18/17 10/18/17 19:19 19:29 19:29 WBC RBC Hgb Hct MCV MCH MCHC RDW Plt Count pCO2 pO2 HCO3 ABG pH ABG Total CO2 ABG O2 Saturation ABG O2 Content ABG Base Excess ABG Hemoglobin ABG Carboxyhemoglobin POC ABG HHb (Measured) ABG Methemoglobin ABG O2 Capacity Jagjit Test A-a O2 Difference Hgb O2 Saturation Vent Mode Mechanical Rate FiO2 Tidal Volume PEEP Sodium Potassium Chloride Carbon Dioxide Anion Gap BUN Creatinine Est GFR ( Amer) Est GFR (Non-Af Amer) Random Glucose Calcium GGT 1471 H Procalcitonin Prolactin 42.7 H Calcium (PTH Intact) PTH w/Ion &Tot Calcium Urine Color Urine Clarity Urine pH Ur Specific [place] Urine Protein Urine Glucose (UA) Urine Ketones Urine Blood Urine Nitrate Urine Bilirubin Urine Urobilinogen Ur Leukocyte Esterase Urine RBC (Auto) Urine Microscopic WBC Amorphous Sediment Urine Bacteria Digoxin 10/19/17 10/21/17 10/22/17 17:00 16:24 04:20 WBC 24.0 H RBC 3.76 L Hgb 10.6 L Hct 33.2 L MCV 88.2 MCH 28.3 MCHC 32.1 L RDW 23.2 H Plt Count 202 pCO2 pO2 HCO3 ABG pH ABG Total CO2 ABG O2 Saturation ABG O2 Content ABG Base Excess ABG Hemoglobin ABG Carboxyhemoglobin POC ABG HHb (Measured) ABG Methemoglobin ABG O2 Capacity Jagjit Test A-a O2 Difference Hgb O2 Saturation Vent Mode Mechanical Rate FiO2 Tidal Volume PEEP Sodium Potassium Chloride Carbon Dioxide Anion Gap BUN Creatinine Est GFR ( Amer) Est GFR (Non-Af Amer) Random Glucose Calcium GGT Procalcitonin Prolactin Calcium (PTH Intact) 6.9 L PTH w/Ion &Tot Calcium 129 H Urine Color Yellow Urine Clarity Cloudy Urine pH 6.0 Ur Specific [place] 1.017 Urine Protein 100 Urine Glucose (UA) Neg Urine Ketones Negative Urine Blood Large Urine Nitrate Negative Urine Bilirubin Negative Urine Urobilinogen 2.0 Ur Leukocyte Esterase Neg Urine RBC (Auto) 144 H Urine Microscopic WBC 3 Amorphous Sediment Rare H Urine Bacteria Rare Digoxin 10/22/17 10/22/17 10/22/17 04:20 05:00 05:25 WBC RBC Hgb Hct MCV MCH MCHC RDW Plt Count pCO2 24 L pO2 175 H HCO3 17.9 L ABG pH 7.38 ABG Total CO2 14.9 L ABG O2 Saturation 99.0 H ABG O2 Content 18.7 ABG Base Excess -9.0 L ABG Hemoglobin 13.6 ABG Carboxyhemoglobin 1.3 POC ABG HHb (Measured) 1.0 ABG Methemoglobin 1.6 ABG O2 Capacity 18.9 Jagjit Test Yes A-a O2 Difference 152.0 Hgb O2 Saturation 96.1 Vent Mode A/c Mechanical Rate 14 FiO2 50.0 Tidal Volume 450 PEEP 5 Sodium 155 H Potassium 3.7 Chloride 128 H Carbon Dioxide 17 L Anion Gap 14 BUN 65 H Creatinine 2.2 H Est GFR ( Amer) 35 Est GFR (Non-Af Amer) 29 Random Glucose 107 Calcium 7.1 L GGT Procalcitonin Prolactin Calcium (PTH Intact) PTH w/Ion &Tot Calcium Urine Color Urine Clarity Urine pH Ur Specific [place] Urine Protein Urine Glucose (UA) Urine Ketones Urine Blood Urine Nitrate Urine Bilirubin Urine Urobilinogen Ur Leukocyte Esterase Urine RBC (Auto) Urine Microscopic WBC Amorphous Sediment Urine Bacteria Digoxin 1.4 Assessment & Plan - Assessment and Plan (Free Text) Assessment: Divina Ray is a 77M w/ hx of metastatic prostate cancer on chemo, aortic stenosis who presented with weakness and SOB. Pt was ultimately intubated and his being treated for PNA. He reportedly had 1-2 episodes of melena with a drop in hgb to ~6.4. Pt was transfused 2 units PRBC. Normocytic Anemia Melena? PNA VDRF Metastatic Prostate Cancer with lesions to the liver Plan: -can continue feeds -continue to monitor -no additional episodes of melena -continue PPI IV 40mg BID -Will hold any endoscopy at this time -maintain Hgb > 9 due to hx of cardiac disease -rest of care as per primary team -would get a set of LFTs today -INR in the AM -off of pressors -guarded prognosis Will D/W Dr. Alarcon <Amilcar Alarcon MD - Last Filed: 10/22/17 15:26> Meds - Medications Medications: Current Medications Digoxin (Lanoxin) 0.125 mg IVP DAILY [facility] Last Admin: 10/22/17 09:08 Dose: 0.125 mg Famotidine (Pepcid) 20 mg IVP Q12 [facility] Last Admin: 10/22/17 09:38 Dose: 20 mg Levofloxacin/Dextrose (Levaquin 500mg) 500 mg in 100 mls @ 100 mls/hr IVPB DAILY [facility] PRN Reason: Protocol Last Admin: 10/22/17 09:09 Dose: 100 mls/hr Potassium Chloride 10 meq/ (Dextrose/Sodium Chloride) 1,005 mls @ 100 mls/hr IV .Q10H3M [facility] Stop: 10/22/17 15:55 Last Admin: 10/21/17 17:05 Dose: 100 mls/hr Aztreonam 1 gm/ Sodium (Chloride) 50 mls @ 50 mls/hr IVPB Q12 [facility] PRN Reason: Protocol Last Admin: 10/22/17 09:07 Dose: 50 mls/hr Diltiazem HCl 100 mg/ Sodium (Chloride) 100 mls @ 5 mls/hr IV .Q20H [facility]; 5 MG/ HR PRN Reason: Protocol Stop: 10/23/17 05:02 Meropenem 500 mg/ Sodium (Chloride) 100 mls @ 100 mls/hr IVPB Q8 [facility] PRN Reason: Protocol Daptomycin 410 mg/ Sodium (Chloride) 100 mls @ 100 mls/hr IV Q24H [facility] Stop: 10/27/17 15:01 Results - Vital Signs Recent Vital Signs: Last Vital Signs Temp 100.9 F H 10/22/17 12:00 Pulse 126 H 10/22/17 12:00 Resp 13 10/22/17 12:00 BP 108/77 10/22/17 12:00 Pulse Ox 100 10/22/17 12:00 - Labs Result Diagrams: 10/22/17 04:20 10/22/17 04:20 Labs: Laboratory Results - last 24 hr 10/19/17 10/21/17 10/22/17 17:00 16:24 04:20 WBC 24.0 H RBC 3.76 L Hgb 10.6 L Hct 33.2 L MCV 88.2 MCH 28.3 MCHC 32.1 L RDW 23.2 H Plt Count 202 pCO2 pO2 HCO3 ABG pH ABG Total CO2 ABG O2 Saturation ABG O2 Content ABG Base Excess ABG Hemoglobin ABG Carboxyhemoglobin POC ABG HHb (Measured) ABG Methemoglobin ABG O2 Capacity Jagjit Test A-a O2 Difference Hgb O2 Saturation Vent Mode Mechanical Rate FiO2 Tidal Volume PEEP Sodium Potassium Chloride Carbon Dioxide Anion Gap BUN Creatinine Est GFR ( Amer) Est GFR (Non-Af Amer) Random Glucose Calcium Total Bilirubin Direct Bilirubin AST ALT Alkaline Phosphatase Total Protein Albumin Globulin Albumin/Globulin Ratio Calcium (PTH Intact) 6.9 L Urine Color Yellow Urine Clarity Cloudy Urine pH 6.0 Ur Specific [place] 1.017 Urine Protein 100 Urine Glucose (UA) Neg Urine Ketones Negative Urine Blood Large Urine Nitrate Negative Urine Bilirubin Negative Urine Urobilinogen 2.0 Ur Leukocyte Esterase Neg Urine RBC (Auto) 144 H Urine Microscopic WBC 3 Amorphous Sediment Rare H Urine Bacteria Rare Digoxin 10/22/17 10/22/17 10/22/17 04:20 05:00 05:25 WBC RBC Hgb Hct MCV MCH MCHC RDW Plt Count pCO2 24 L pO2 175 H HCO3 17.9 L ABG pH 7.38 ABG Total CO2 14.9 L ABG O2 Saturation 99.0 H ABG O2 Content 18.7 ABG Base Excess -9.0 L ABG Hemoglobin 13.6 ABG Carboxyhemoglobin 1.3 POC ABG HHb (Measured) 1.0 ABG Methemoglobin 1.6 ABG O2 Capacity 18.9 Jagjit Test Yes A-a O2 Difference 152.0 Hgb O2 Saturation 96.1 Vent Mode A/c Mechanical Rate 14 FiO2 50.0 Tidal Volume 450 PEEP 5 Sodium 155 H Potassium 3.7 Chloride 128 H Carbon Dioxide 17 L Anion Gap 14 BUN 65 H Creatinine 2.2 H Est GFR ( Amer) 35 Est GFR (Non-Af Amer) 29 Random Glucose 107 Calcium 7.1 L Total Bilirubin Direct Bilirubin AST ALT Alkaline Phosphatase Total Protein Albumin Globulin Albumin/Globulin Ratio Calcium (PTH Intact) Urine Color Urine Clarity Urine pH Ur Specific [place] Urine Protein Urine Glucose (UA) Urine Ketones Urine Blood Urine Nitrate Urine Bilirubin Urine Urobilinogen Ur Leukocyte Esterase Urine RBC (Auto) Urine Microscopic WBC Amorphous Sediment Urine Bacteria Digoxin 1.4 10/22/17 06:49 WBC RBC Hgb Hct MCV MCH MCHC RDW Plt Count pCO2 pO2 HCO3 ABG pH ABG Total CO2 ABG O2 Saturation ABG O2 Content ABG Base Excess ABG Hemoglobin ABG Carboxyhemoglobin POC ABG HHb (Measured) ABG Methemoglobin ABG O2 Capacity Jagjit Test A-a O2 Difference Hgb O2 Saturation Vent Mode Mechanical Rate FiO2 Tidal Volume PEEP Sodium Potassium Chloride Carbon Dioxide Anion Gap BUN Creatinine Est GFR ( Amer) Est GFR (Non-Af Amer) Random Glucose Calcium Total Bilirubin 0.9 Direct Bilirubin 0.9 H AST 228 H ALT 69 Alkaline Phosphatase 479 H Total Protein 5.4 L Albumin 2.4 L Globulin 2.9 Albumin/Globulin Ratio 0.8 L Calcium (PTH Intact) Urine Color Urine Clarity Urine pH Ur Specific [place] Urine Protein Urine Glucose (UA) Urine Ketones Urine Blood Urine Nitrate Urine Bilirubin Urine Urobilinogen Ur Leukocyte Esterase Urine RBC (Auto) Urine Microscopic WBC Amorphous Sediment Urine Bacteria Digoxin Attending/Attestation - Attestation I have personally seen and examined this patient.: Yes I have fully participated in the care of the patient.: Yes I have reviewed all pertinent clinical information: Yes Notes (Text): 10/22/17 15:20 Patient seen with GI fellow. This is a 77 yr old M with history of metastatic prostate cancer on chemo, aortic stenosis who presented with weakness and SOB with septic shock. Levophed weaned off. On broad spectrum antibiotics. Staph aureus bacteremia. The RN endorsed two nights ago had episode of melanotic stool ?. s/p two units PRBC. No further episodes of melena. Appropriate response to blood transfusions. Currently no GI symptoms. Will sign off. Please call us prn. Continue PPI via NGT. No urgent indication for endoscopy
[2017-10-22 08:07] LABS: ALB/GLOB RATIO 0.8 (1.0-2.1); BILIRUBIN,TOTAL 0.9 mg/dl (0.2-1.3); TOTAL PROTEIN 5.4 G/DL (6.3-8.2)
--- NOTE | 2017-10-22 08:41 | PN ---
DATE: 10/21/2017SUBJECTIVE: He is still intubated and heart rate is around 120 to 130. PHYSICAL EXAMINATION: VITAL SIGNS: Blood pressure is 106/66, temperature 99.4, respiratory rate 19. HEENT: Pupils equal, reactive to light. Slightly pale mucosa of the conjunctivae. NECK: No JVD. No carotid bruit. CHEST AND LUNGS: Bilateral symmetrical expansion. Good air exchange both lung ortega. CARDIOVASCULAR SYSTEM: PMI not localized. S1 and S2. No additional sounds. ABDOMEN: Decreased bowel sounds. EXTREMITIES: No cyanosis. No clubbing. No edema. CENTRAL NERVOUS SYSTEM: The patient is sedated on ventilator. LABORATORY DATA: Blood work today hemoglobin is up to 10.8 after transfusion of 3 units of packed RBC's. Chemistry showed BUN of 59, creatinine is down to 2.1, potassium 3.5. The patient has also urine output of 800 mL during the last 24 hours. ASSESSMENT: 1. Acute renal failure likely secondary to decrease oral intake and severe dehydration. Possible morphine toxicity with nausea and inability to eat. 2. Metastatic cancer prostate. 3. Severe aortic stenosis. PLAN: Continue current medications including antibiotics and IV fluids. Pain medicine as needed. Discussed with the patient's daughter and who still want the patient to be full code. Clinton Carroll MD
[2017-10-22] MEDS: Digoxin 500 mcg/2ml (0.5 mg/2ml) Inj IVP SCH (09:08)
[2017-10-22] MEDS: levoFLOXacin 500 mg in D5W 500 MG/100 ML BAG IVPB SCH (09:09)
--- NOTE | 2017-10-22 09:51 | RAD ---
HISTORY: Intubated COMPARISON: Portable chest 10/21/2017. FINDINGS: Endotracheal tube is unchanged in position. LUNGS: There is not of element of trace airspace disease the medial right lung base with remaining lung ortega clear. PLEURA: No significant pleural effusion identified, no pneumothorax apparent. CARDIOVASCULAR: Normal. OSSEOUS STRUCTURES: No significant abnormalities. VISUALIZED UPPER ABDOMEN: Normal. OTHER FINDINGS: None. IMPRESSION: Borderline infiltrate or atelectasis medial right base. Remaining lung ortega are clear.
--- NOTE | 2017-10-22 10:37 | CP.PCM.CON ---
History of Present Illness - History of Present Illness History of Present Illness: Infectious Disease Consultation Note- asked to see this patient at the request of for bacteremia/sepsis. HPI- Patient is intubated and not responsive except to painful stimuli and hence the history obtained from EMR and the ICU nurse and patient's who is at his bedside. Patient is a 77 year old male with PMH of prostate cancer with mets to the liver , severe aortic stenosis, A.fib amd his last chemo was few weeks ago who was noted to be weak and hypotensive by the home visiting nurse and hence was brought to the hospital and admitted with dehydration and ERIN and then had SEED CUTTER for resp distress and was intubated and transferred to ICU for further monitoring and management. pt. was also on levophed for BP support. I'm asked to see the patient because his Blood cx grew staph aureus. currently pt. is intubated and lethargic and not responding to my questions. as per nurse no diarrhea. Review of Systems - Review of Systems Review of Systems: ROS- Unable to obtain as patient is intubated and lethargic Past Patient History - Past Medical History & Family History Past Medical History?: Yes - Past Social History Smoking Status: Never Smoked Home Situation {Lives}: With Family - CARDIAC Hx Cardiac Disorders: Yes Hx Atrial Fibrillation: Yes Hx Hypercholesterolemia: Yes Hx Hypertension: Yes - PULMONARY Hx Respiratory Disorders: No - NEUROLOGICAL Hx Neurological Disorder: No Hx Seizures: No - HEENT Hx HEENT Problems: No - RENAL Hx Chronic Kidney Disease: No - ENDOCRINE/METABOLIC Hx Endocrine Disorders: No - HEMATOLOGICAL/ONCOLOGICAL Hx Anemia: Yes Hx Blood Transfusions: Yes Hx Cancer: Yes Hx Chemotherapy: Yes Hx Metastesis: Yes - INTEGUMENTARY Hx Dermatological Problems: No - MUSCULOSKELETAL/RHEUMATOLOGICAL Hx Musculoskeletal Disorders: Yes Hx Arthritis: Yes Hx Falls: No - GASTROINTESTINAL Hx Gastrointestinal Disorders: No - GENITOURINARY/GYNECOLOGICAL Hx Genitourinary Disorders: Yes Hx Prostate Cancer: Yes - PSYCHIATRIC Hx Psychophysiologic Disorder: No Hx Substance Use: No - SURGICAL HISTORY Hx Surgeries: No - ANESTHESIA Hx Anesthesia: No Hx Anesthesia Reactions: No Hx Malignant Hyperthermia: No Has any member of the family had a problem w/ anesthesia?: No Meds Allergies/Adverse Reactions: Allergies Allergy/AdvReac Type Severity Reaction Status Date / Time aspirin Allergy PAIN Verified 09/06/17 23:57 Penicillins Allergy NAUSEA Verified 09/06/17 23:57 - Medications Medications: Current Medications Digoxin (Lanoxin) 0.125 mg IVP DAILY [facility] Last Admin: 10/22/17 09:08 Dose: 0.125 mg Famotidine (Pepcid) 20 mg IVP Q12 [facility] Last Admin: 10/22/17 09:38 Dose: 20 mg Levofloxacin/Dextrose (Levaquin 500mg) 500 mg in 100 mls @ 100 mls/hr IVPB DAILY [facility] PRN Reason: Protocol Last Admin: 10/22/17 09:09 Dose: 100 mls/hr Potassium Chloride 10 meq/ (Dextrose/Sodium Chloride) 1,005 mls @ 100 mls/hr IV .Q10H3M [facility] Stop: 10/22/17 15:55 Last Admin: 10/21/17 17:05 Dose: 100 mls/hr Aztreonam 1 gm/ Sodium (Chloride) 50 mls @ 50 mls/hr IVPB Q12 [facility] PRN Reason: Protocol Last Admin: 10/22/17 09:07 Dose: 50 mls/hr Diltiazem HCl 100 mg/ Sodium (Chloride) 100 mls @ 5 mls/hr IV .Q20H ONE; 5 MG/ HR PRN Reason: Protocol Stop: 10/23/17 05:02 Physical Exam - Constitutional Appears: Chronically Ill - Head Exam Head Exam: ATRAUMATIC - ENT Exam Additional comments: ET tube in place - Neck Exam Additional comments: supple - Respiratory Exam Additional comments: breath sounds heard b/l decreased at bases - Cardiovascular Exam Cardiovascular Exam: Tachycardia, +S1, +S2 - GI/Abdominal Exam GI & Abdominal Exam: Normal Bowel Sounds, Soft Additional comments: NT, ND - Extremities Exam Additional comments: trace edema b/l LE - Neurological Exam Additional comments: lethargic - Additional Findings Additional findings: Lines- gonzales cath right femoral TLC 2 peripheral IVL in b/l hands Results - Vital Signs Recent Vital Signs: Last Vital Signs Temp 100.2 F H 10/22/17 08:00 Pulse 125 H 10/22/17 08:00 Resp 12 10/22/17 08:00 BP 114/83 10/22/17 08:00 Pulse Ox 99 10/22/17 08:00 - Labs Result Diagrams: 10/22/17 04:20 10/22/17 04:20 Labs: Laboratory Results - last 24 hr 10/18/17 10/18/17 10/19/17 19:19 19:29 17:00 WBC RBC Hgb Hct MCV MCH MCHC RDW Plt Count pCO2 pO2 HCO3 ABG pH ABG Total CO2 ABG O2 Saturation ABG O2 Content ABG Base Excess ABG Hemoglobin ABG Carboxyhemoglobin POC ABG HHb (Measured) ABG Methemoglobin ABG O2 Capacity Jagjit Test A-a O2 Difference Hgb O2 Saturation Vent Mode Mechanical Rate FiO2 Tidal Volume PEEP Sodium Potassium Chloride Carbon Dioxide Anion Gap BUN Creatinine Est GFR ( Amer) Est GFR (Non-Af Amer) Random Glucose Calcium Total Bilirubin Direct Bilirubin GGT 1471 H AST ALT Alkaline Phosphatase Total Protein Albumin Globulin Albumin/Globulin Ratio Prolactin 42.7 H Calcium (PTH Intact) 6.9 L PTH w/Ion &Tot Calcium 129 H Urine Color Urine Clarity Urine pH Ur Specific [place] Urine Protein Urine Glucose (UA) Urine Ketones Urine Blood Urine Nitrate Urine Bilirubin Urine Urobilinogen Ur Leukocyte Esterase Urine RBC (Auto) Urine Microscopic WBC Amorphous Sediment Urine Bacteria Digoxin 10/21/17 10/22/17 10/22/17 16:24 04:20 04:20 WBC 24.0 H RBC 3.76 L Hgb 10.6 L Hct 33.2 L MCV 88.2 MCH 28.3 MCHC 32.1 L RDW 23.2 H Plt Count 202 pCO2 pO2 HCO3 ABG pH ABG Total CO2 ABG O2 Saturation ABG O2 Content ABG Base Excess ABG Hemoglobin ABG Carboxyhemoglobin POC ABG HHb (Measured) ABG Methemoglobin ABG O2 Capacity Jagjit Test A-a O2 Difference Hgb O2 Saturation Vent Mode Mechanical Rate FiO2 Tidal Volume PEEP Sodium 155 H Potassium 3.7 Chloride 128 H Carbon Dioxide 17 L Anion Gap 14 BUN 65 H Creatinine 2.2 H Est GFR ( Amer) 35 Est GFR (Non-Af Amer) 29 Random Glucose 107 Calcium 7.1 L Total Bilirubin Direct Bilirubin GGT AST ALT Alkaline Phosphatase Total Protein Albumin Globulin Albumin/Globulin Ratio Prolactin Calcium (PTH Intact) PTH w/Ion &Tot Calcium Urine Color Yellow Urine Clarity Cloudy Urine pH 6.0 Ur Specific [place] 1.017 Urine Protein 100 Urine Glucose (UA) Neg Urine Ketones Negative Urine Blood Large Urine Nitrate Negative Urine Bilirubin Negative Urine Urobilinogen 2.0 Ur Leukocyte Esterase Neg Urine RBC (Auto) 144 H Urine Microscopic WBC 3 Amorphous Sediment Rare H Urine Bacteria Rare Digoxin 10/22/17 10/22/17 10/22/17 05:00 05:25 06:49 WBC RBC Hgb Hct MCV MCH MCHC RDW Plt Count pCO2 24 L pO2 175 H HCO3 17.9 L ABG pH 7.38 ABG Total CO2 14.9 L ABG O2 Saturation 99.0 H ABG O2 Content 18.7 ABG Base Excess -9.0 L ABG Hemoglobin 13.6 ABG Carboxyhemoglobin 1.3 POC ABG HHb (Measured) 1.0 ABG Methemoglobin 1.6 ABG O2 Capacity 18.9 Jagjit Test Yes A-a O2 Difference 152.0 Hgb O2 Saturation 96.1 Vent Mode A/c Mechanical Rate 14 FiO2 50.0 Tidal Volume 450 PEEP 5 Sodium Potassium Chloride Carbon Dioxide Anion Gap BUN Creatinine Est GFR ( Amer) Est GFR (Non-Af Amer) Random Glucose Calcium Total Bilirubin 0.9 Direct Bilirubin 0.9 H GGT AST 228 H ALT 69 Alkaline Phosphatase 479 H Total Protein 5.4 L Albumin 2.4 L Globulin 2.9 Albumin/Globulin Ratio 0.8 L Prolactin Calcium (PTH Intact) PTH w/Ion &Tot Calcium Urine Color Urine Clarity Urine pH Ur Specific [place] Urine Protein Urine Glucose (UA) Urine Ketones Urine Blood Urine Nitrate Urine Bilirubin Urine Urobilinogen Ur Leukocyte Esterase Urine RBC (Auto) Urine Microscopic WBC Amorphous Sediment Urine Bacteria Digoxin 1.4 Laboratory Results - last 72 hr 10/18/17 10/18/17 10/18/17 19:19 19:29 19:29 WBC RBC Hgb Hct MCV MCH MCHC RDW Plt Count pCO2 pO2 HCO3 ABG pH ABG Total CO2 ABG O2 Saturation ABG O2 Content ABG Base Excess ABG Hemoglobin ABG Carboxyhemoglobin POC ABG HHb (Measured) ABG Methemoglobin ABG O2 Capacity Jagjit Test A-a O2 Difference Hgb O2 Saturation Vent Mode Mechanical Rate FiO2 Tidal Volume PEEP Sodium Potassium Chloride Carbon Dioxide Anion Gap BUN Creatinine Est GFR ( Amer) Est GFR (Non-Af Amer) Random Glucose Calcium Phosphorus Total Bilirubin Direct Bilirubin GGT 1471 H AST ALT Alkaline Phosphatase Total Protein Albumin Globulin Albumin/Globulin Ratio Procalcitonin Prolactin 42.7 H Calcium (PTH Intact) PTH w/Ion &Tot Calcium Urine Color Urine Clarity Urine pH Ur Specific [place] Urine Protein Urine Glucose (UA) Urine Ketones Urine Blood Urine Nitrate Urine Bilirubin Urine Urobilinogen Ur Leukocyte Esterase Urine RBC (Auto) Urine Microscopic WBC Amorphous Sediment Urine Bacteria Ur Random Creatinine Ur Random Sodium Ur Random Potassium Digoxin Blood Type Antibody Screen Crossmatch BBK History Checked 10/19/17 10/19/17 10/19/17 17:00 17:00 17:00 WBC RBC Hgb Hct MCV MCH MCHC RDW Plt Count pCO2 pO2 HCO3 ABG pH ABG Total CO2 ABG O2 Saturation ABG O2 Content ABG Base Excess ABG Hemoglobin ABG Carboxyhemoglobin POC ABG HHb (Measured) ABG Methemoglobin ABG O2 Capacity Jagjit Test A-a O2 Difference Hgb O2 Saturation Vent Mode Mechanical Rate FiO2 Tidal Volume PEEP Sodium Potassium Chloride Carbon Dioxide Anion Gap BUN Creatinine Est GFR ( Amer) Est GFR (Non-Af Amer) Random Glucose Calcium Phosphorus Total Bilirubin Direct Bilirubin GGT AST ALT Alkaline Phosphatase Total Protein Albumin Globulin Albumin/Globulin Ratio Procalcitonin Prolactin Calcium (PTH Intact) 6.9 L PTH w/Ion &Tot Calcium 129 H Urine Color Urine Clarity Urine pH Ur Specific [place] Urine Protein Urine Glucose (UA) Urine Ketones Urine Blood Urine Nitrate Urine Bilirubin Urine Urobilinogen Ur Leukocyte Esterase Urine RBC (Auto) Urine Microscopic WBC Amorphous Sediment Urine Bacteria Ur Random Creatinine 74.8 Ur Random Sodium 38 Ur Random Potassium 56.2 Digoxin Blood Type Antibody Screen Crossmatch BBK History Checked 10/20/17 10/20/17 10/20/17 04:10 06:44 06:44 WBC 14.3 H RBC 2.05 L Hgb 6.2 L* Hct 19.5 L MCV 95.1 H MCH 30.2 MCHC 31.7 L RDW 20.1 H Plt Count 220 pCO2 24 L pO2 193 H HCO3 18.4 L ABG pH 7.41 ABG Total CO2 15.9 L ABG O2 Saturation 100.5 H ABG O2 Content 10.9 L ABG Base Excess -8.4 L ABG Hemoglobin 7.5 L ABG Carboxyhemoglobin 1.4 POC ABG HHb (Measured) -0.5 L ABG Methemoglobin 0.8 ABG O2 Capacity 10.8 L Jagjit Test Yes A-a O2 Difference 134.0 Hgb O2 Saturation 98.3 H Vent Mode A/c Mechanical Rate 14 FiO2 50.0 Tidal Volume 450 PEEP 5 Sodium 149 H Potassium 3.4 L Chloride 120 H Carbon Dioxide 18 L Anion Gap 14 BUN 56 H Creatinine 2.2 H Est GFR ( Amer) 35 Est GFR (Non-Af Amer) 29 Random Glucose 124 H Calcium 6.9 L Phosphorus 3.1 Total Bilirubin Direct Bilirubin GGT AST ALT Alkaline Phosphatase Total Protein Albumin Globulin Albumin/Globulin Ratio Procalcitonin Prolactin Calcium (PTH Intact) PTH w/Ion &Tot Calcium Urine Color Urine Clarity Urine pH Ur Specific [place] Urine Protein Urine Glucose (UA) Urine Ketones Urine Blood Urine Nitrate Urine Bilirubin Urine Urobilinogen Ur Leukocyte Esterase Urine RBC (Auto) Urine Microscopic WBC Amorphous Sediment Urine Bacteria Ur Random Creatinine Ur Random Sodium Ur Random Potassium Digoxin Blood Type Antibody Screen Crossmatch BBK History Checked 10/20/17 10/21/17 10/21/17 06:44 04:20 04:20 WBC 22.8 H D RBC 3.81 L Hgb 10.8 L D Hct 33.9 L MCV 89.1 D MCH 28.3 MCHC 31.8 L RDW 22.9 H Plt Count 219 pCO2 pO2 HCO3 ABG pH ABG Total CO2 ABG O2 Saturation ABG O2 Content ABG Base Excess ABG Hemoglobin ABG Carboxyhemoglobin POC ABG HHb (Measured) ABG Methemoglobin ABG O2 Capacity Jagjit Test A-a O2 Difference Hgb O2 Saturation Vent Mode Mechanical Rate FiO2 Tidal Volume PEEP Sodium 154 H Potassium 3.5 L Chloride 124 H Carbon Dioxide 19 L Anion Gap 15 BUN 59 H Creatinine 2.1 H Est GFR ( Amer) 37 Est GFR (Non-Af Amer) 31 Random Glucose 117 H Calcium 7.4 L Phosphorus Total Bilirubin Direct Bilirubin GGT AST ALT Alkaline Phosphatase Total Protein Albumin Globulin Albumin/Globulin Ratio Procalcitonin Prolactin Calcium (PTH Intact) PTH w/Ion &Tot Calcium Urine Color Urine Clarity Urine pH Ur Specific [place] Urine Protein Urine Glucose (UA) Urine Ketones Urine Blood Urine Nitrate Urine Bilirubin Urine Urobilinogen Ur Leukocyte Esterase Urine RBC (Auto) Urine Microscopic WBC Amorphous Sediment Urine Bacteria Ur Random Creatinine Ur Random Sodium Ur Random Potassium Digoxin Blood Type B POSITIVE Antibody Screen Negative Crossmatch See Detail BBK History Checked Patient has bt 10/21/17 10/21/17 10/22/17 05:25 16:24 04:20 WBC 24.0 H RBC 3.76 L Hgb 10.6 L Hct 33.2 L MCV 88.2 MCH 28.3 MCHC 32.1 L RDW 23.2 H Plt Count 202 pCO2 32 L pO2 160 H HCO3 16.6 L ABG pH 7.28 L ABG Total CO2 16.0 L ABG O2 Saturation 98.7 H ABG O2 Content 15.8 ABG Base Excess -10.7 L ABG Hemoglobin 11.5 L ABG Carboxyhemoglobin 1.1 POC ABG HHb (Measured) 1.3 ABG Methemoglobin 1.9 ABG O2 Capacity 16.0 Jagjit Test Yes A-a O2 Difference 157.0 Hgb O2 Saturation 95.6 Vent Mode Prvc/ac Mechanical Rate 14 FiO2 50.0 Tidal Volume 450 PEEP 5 Sodium Potassium Chloride Carbon Dioxide Anion Gap BUN Creatinine Est GFR ( Amer) Est GFR (Non-Af Amer) Random Glucose Calcium Phosphorus Total Bilirubin Direct Bilirubin GGT AST ALT Alkaline Phosphatase Total Protein Albumin Globulin Albumin/Globulin Ratio Procalcitonin Prolactin Calcium (PTH Intact) PTH w/Ion &Tot Calcium Urine Color Yellow Urine Clarity Cloudy Urine pH 6.0 Ur Specific [place] 1.017 Urine Protein 100 Urine Glucose (UA) Neg Urine Ketones Negative Urine Blood Large Urine Nitrate Negative Urine Bilirubin Negative Urine Urobilinogen 2.0 Ur Leukocyte Esterase Neg Urine RBC (Auto) 144 H Urine Microscopic WBC 3 Amorphous Sediment Rare H Urine Bacteria Rare Ur Random Creatinine Ur Random Sodium Ur Random Potassium Digoxin Blood Type Antibody Screen Crossmatch BBK History Checked 10/22/17 10/22/17 10/22/17 04:20 05:00 05:25 WBC RBC Hgb Hct MCV MCH MCHC RDW Plt Count pCO2 24 L pO2 175 H HCO3 17.9 L ABG pH 7.38 ABG Total CO2 14.9 L ABG O2 Saturation 99.0 H ABG O2 Content 18.7 ABG Base Excess -9.0 L ABG Hemoglobin 13.6 ABG Carboxyhemoglobin 1.3 POC ABG HHb (Measured) 1.0 ABG Methemoglobin 1.6 ABG O2 Capacity 18.9 Jagjit Test Yes A-a O2 Difference 152.0 Hgb O2 Saturation 96.1 Vent Mode A/c Mechanical Rate 14 FiO2 50.0 Tidal Volume 450 PEEP 5 Sodium 155 H Potassium 3.7 Chloride 128 H Carbon Dioxide 17 L Anion Gap 14 BUN 65 H Creatinine 2.2 H Est GFR ( Amer) 35 Est GFR (Non-Af Amer) 29 Random Glucose 107 Calcium 7.1 L Phosphorus Total Bilirubin Direct Bilirubin GGT AST ALT Alkaline Phosphatase Total Protein Albumin Globulin Albumin/Globulin Ratio Procalcitonin Prolactin Calcium (PTH Intact) PTH w/Ion &Tot Calcium Urine Color Urine Clarity Urine pH Ur Specific [place] Urine Protein Urine Glucose (UA) Urine Ketones Urine Blood Urine Nitrate Urine Bilirubin Urine Urobilinogen Ur Leukocyte Esterase Urine RBC (Auto) Urine Microscopic WBC Amorphous Sediment Urine Bacteria Ur Random Creatinine Ur Random Sodium Ur Random Potassium Digoxin 1.4 Blood Type Antibody Screen Crossmatch BBK History Checked 10/22/17 06:49 WBC RBC Hgb Hct MCV MCH MCHC RDW Plt Count pCO2 pO2 HCO3 ABG pH ABG Total CO2 ABG O2 Saturation ABG O2 Content ABG Base Excess ABG Hemoglobin ABG Carboxyhemoglobin POC ABG HHb (Measured) ABG Methemoglobin ABG O2 Capacity Jagjit Test A-a O2 Difference Hgb O2 Saturation Vent Mode Mechanical Rate FiO2 Tidal Volume PEEP Sodium Potassium Chloride Carbon Dioxide Anion Gap BUN Creatinine Est GFR ( Amer) Est GFR (Non-Af Amer) Random Glucose Calcium Phosphorus Total Bilirubin 0.9 Direct Bilirubin 0.9 H GGT AST 228 H ALT 69 Alkaline Phosphatase 479 H Total Protein 5.4 L Albumin 2.4 L Globulin 2.9 Albumin/Globulin Ratio 0.8 L Procalcitonin Prolactin Calcium (PTH Intact) PTH w/Ion &Tot Calcium Urine Color Urine Clarity Urine pH Ur Specific [place] Urine Protein Urine Glucose (UA) Urine Ketones Urine Blood Urine Nitrate Urine Bilirubin Urine Urobilinogen Ur Leukocyte Esterase Urine RBC (Auto) Urine Microscopic WBC Amorphous Sediment Urine Bacteria Ur Random Creatinine Ur Random Sodium Ur Random Potassium Digoxin Blood Type Antibody Screen Crossmatch BBK History Checked Microbiology 10/18/17 20:30 Blood-Venous S.aureus & Coag-Neg Staph PNA FISH - Final 10/18/17 20:30 Blood-Venous Blood Culture - Final Staphylococcus Aureus 10/18/17 20:30 Blood-Venous Gram Stain - Final 10/18/17 20:00 Blood-Venous Blood Culture - Preliminary NO GROWTH AFTER 3 DAYS 10/18/17 10:00 Naris MRSA Culture (Admit) - Final MRSA NOT DETECTED Accession No. : [id number] Patient Name / ID : HAILE RODRIGUEZ / [id number] Exam Date : 10/22/2017 04:34:18 ( Approved ) Study Comment : Sex / Age : M / 77Y Creator : Jorge Mccoy MD Dictator : Jorge Mccoy MD Asset Protection Detective : Line Tester : Jorge Mccoy MD Approver2 : Report Date : 10/22/2017 09:45:50 My Comment : HISTORY: Intubated COMPARISON: Portable chest 10/21/2017. FINDINGS: Endotracheal tube is unchanged in position. LUNGS: There is not of element of trace airspace disease the medial right lung base with remaining lung ortega clear. PLEURA: No significant pleural effusion identified, no pneumothorax apparent. CARDIOVASCULAR: Normal. OSSEOUS STRUCTURES: No significant abnormalities. VISUALIZED UPPER ABDOMEN: Normal. OTHER FINDINGS: None. IMPRESSION: Borderline infiltrate or atelectasis medial right base. Remaining lung ortega are clear. Accession No. : [id number] Patient Name / ID : HAILE RODRIGUEZ / [id number] Exam Date : 10/18/2017 15:04:21 ( Approved ) Study Comment : Sex / Age : M / 77Y Creator : Johny Mendez MD Dictator : Johny Mendez MD Asset Protection Detective : Line Tester : Johny Mendez MD Approver2 : Report Date : 10/18/2017 16:09:47 My Comment : HISTORY: elevated liver enzymes COMPARISON: Comparison is made to the previous study dated 05/06/2017 TECHNIQUE: Sonographic evaluation of the right upper quadrant of the abdomen. FINDINGS: LIVER: Measures 17.8 cm in length. Heterogeneous echogenicity of the liver parenchyma. There are multiple cystic and solid lesions in the liver suspicious for liver metastasis. GALLBLADDER: The gallbladder is partially contracted demonstrate diffuse wall thickening. No evidence of cholelithiasis. COMMON BILE DUCT: Measures 5.3 mm. No stones. No dilatation. PANCREAS: Unremarkable as visualized. No mass. No ductal dilatation. RIGHT KIDNEY: Measures 10 x 5.9 x 4.8 cm in length. There is [id number] right hydronephrosis. AORTA: Was not clearly visualized due to overlying bowel gas. IVC: Was not clearly visualized due to overlying bowel gas. OTHER FINDINGS: None . IMPRESSION: Markedly heterogeneous liver. Multiple liver lesions are noted suspicious for metastasis. Semi contracted gallbladder demonstrate diffuse wall thickening. [id number] right hydronephrosis. Assessment & Plan (1) Leukocytosis Status: Acute (2) Metastatic cancer Status: Acute (3) Weakness Status: Acute (4) Renal insufficiency Status: Acute - Assessment and Plan (Free Text) Assessment: A/P- 77 year old male with multiple medical conditions including A.fib, aortic stenosis, metastatic prostate cancer admitted with weakness found to be in resp distress and acute renal insufficiency . pt. source of leukocytosis most likely multifactorial including staph aureus bacteremia (source unclear at this time), UTI, aspiration vs HAP. pt. s/p 1 dose vanco by Primary doc but sicne his renal function is not good would advise to place on daptomycin for now for the staph bacteremia. advise to continue with levaquin for the pneumonia, however I would also add meroepenm (renal dose) , sicne we need broad gram neg coverage and as per pt's it's unclear if he has real PCN allergy and unclear what reaction and since meropenem is carbapenemchance of cross reactivity is low and patient is already intubated. d/c aztreonam. 1.staph bacteremia 2.leukocytois 3.resp distress/pneumonia 4.ERIN 5. aortic stenosi Plan- check 2 more blood cx . change gonzales cath to a new one and send from old gonzales UA and urine culture. check TTE r/o any vegetations. start daptomycin (renal dose for staph bacteremia). start meropenem for HAP vs aspiration pneumonia. continue with the levaquin that was already initiated by the primary team. All imaging and labs and other doctor's notes reviewed. all above d/w patient's who is at his bedside. d/w ICU team. ICU time spent 60 minutes.
--- NOTE | 2017-10-22 11:26 | CP.PCM.PN ---
Subjective - Date & Time of Evaluation Date of Evaluation: 10/22/17 Time of Evaluation: 10:15 - Subjective Subjective: ON MV Objective - Vital Signs/Intake and Output Vital Signs (last 24 hours): Temp Pulse Resp BP Pulse Ox 100.2 F H 125 H 12 114/83 99 10/22/17 08:00 10/22/17 08:00 10/22/17 08:00 10/22/17 08:00 10/22/17 08:00 Intake and Output: 10/22/17 10/22/17 06:59 18:59 Intake Total 1367 Output Total 400 Balance 967 - Medications Medications: Current Medications Digoxin (Lanoxin) 0.125 mg IVP DAILY [facility] Last Admin: 10/22/17 09:08 Dose: 0.125 mg Famotidine (Pepcid) 20 mg IVP Q12 [facility] Last Admin: 10/22/17 09:38 Dose: 20 mg Levofloxacin/Dextrose (Levaquin 500mg) 500 mg in 100 mls @ 100 mls/hr IVPB DAILY [facility] PRN Reason: Protocol Last Admin: 10/22/17 09:09 Dose: 100 mls/hr Potassium Chloride 10 meq/ (Dextrose/Sodium Chloride) 1,005 mls @ 100 mls/hr IV .Q10H3M [facility] Stop: 10/22/17 15:55 Last Admin: 10/21/17 17:05 Dose: 100 mls/hr Aztreonam 1 gm/ Sodium (Chloride) 50 mls @ 50 mls/hr IVPB Q12 [facility] PRN Reason: Protocol Last Admin: 10/22/17 09:07 Dose: 50 mls/hr Diltiazem HCl 100 mg/ Sodium (Chloride) 100 mls @ 5 mls/hr IV .Q20H ONE; 5 MG/ HR PRN Reason: Protocol Stop: 10/23/17 05:02 - Labs Labs: 10/22/17 04:20 10/22/17 04:20 PT 16.5 Seconds (9.8-13.1) H 10/19/17 05:30 INR 1.5 (0.9-1.2) H 10/19/17 05:30 APTT 33.3 Seconds (25.6-37.1) 10/19/17 05:30 - Respiratory Exam Respiratory Exam: Decreased Breath Sounds - Cardiovascular Exam Cardiovascular Exam: Tachycardia, REGULAR RHYTHM, +S1, +S2 - Extremities Exam Extremities Exam: Normal Inspection - Additional Findings Additional findings: TAXICAB STARTER ST, R110 WBC 24K DIG LEVEL 1.4 K+ 3.7 Assessment and Plan - Assessment and Plan (Free Text) Assessment: SEVERE AORTIC STENOSIS SINUS TACHYCARDIA PNEUMONIA PROSTATE CA WITH LIVER METASTASIS Plan: CONTINUE MV, IV FLUIDS, IV ANTIBIOTICS, IV CARDIZEM AND IV DIGOXIN
--- NOTE | 2017-10-22 14:09 | CON ---
DATE: HISTORY OF PRESENT ILLNESS: Mr. Ray is a 77-year-old male, who is referred for pulmonary evaluation and followup, following endotracheal intubation and ventilation for respiratory failure. He is unable to give any history. He is presently being ventilated and does not respond to deep painful stimuli. 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 As per medical records, he also has a history of severe aortic stenosis and chronic anemia. No further history is obtained. PHYSICAL EXAMINATION: VITAL SIGNS: Remarkable for blood pressure of 108/74, pulse of 123, respiratory rate 27 per minute. The patient is presently on a respirator, assist control, O2 sat 99%. GENERAL: The patient does not respond to deep painful stimuli, is intubated and being ventilated. LUNGS: With coarse bilateral rales. HEART: Tachycardic. ABDOMEN: Distended, but otherwise unremarkable. EXTREMITIES: He has bilateral 2+ pitting pedal edema. LABORATORY DATA: Remarkable for WBC of 21.0, hemoglobin 10.6, platelet count 202,000. Sodium 155, potassium 3.7, BUN 65, creatinine 2.2. Chest x-ray done on 10/21/2017 shows no definite cardiac pathology, but ill-defined multifocal bilateral opacities in the lungs. EKG shows sinus tachycardia, otherwise unremarkable. Arterial blood gas; pH of 7.38, pCO2 of 24, pO2 of 175, O2 saturation 99%; this is on assist control, rate of 14, FiO2 of 50%, tidal volume of 450, and PEEP of 5. IMPRESSION: 1. Acute respiratory failure. 2. Multi-organ disease in a patient with prostate cancer with metastasis. 3. Bilateral pneumonia. 4. Valvular heart disease. 5. Azotemia with dehydration. 6. Hypokalemia. 7. Chronic anemia. 8. Metabolic encephalopathy. PLAN: Would be to continue therapy as ordered. Continue ventilator care and airway toiletry. I will continue to follow with you. The prognosis is extremely poor. We will only attempt to extubate if and when clinically stable. Francis Del Rosario MD [facility] # [id number] CECILIA
[2017-10-22] MEDS ORDERED: DAPTOmycin 500 mg Inj (Cubicin) IV SCH (15:00)
[2017-10-22] MEDS: Meropenem 500 MG in Sodium Chloride 0.9% 100 ML IVPB SCH (16:15)
[2017-10-22] MEDS ORDERED: diltiaZEM 100 mg Vial ( ADD-VANTAGE ) IV ONE (17:13)
--- NOTE | 2017-10-22 19:14 | CP.PCM.PN ---
Subjective - Date & Time of Evaluation Date of Evaluation: 10/22/17 Time of Evaluation: 15:00 - Subjective Subjective: SEEN ON RENAL F/U IN ICU NA IS GOING UP .. NEED TO DISOLVE ALL IV MEDS IN D5W COMPATIBLE REMAINS INTUBATED ALL PREVIOUS EMR REVIEWED Objective - Vital Signs/Intake and Output Vital Signs (last 24 hours): Temp Pulse Resp BP Pulse Ox 97.8 F 131 H 13 112/72 100 10/22/17 16:00 10/22/17 16:00 10/22/17 12:00 10/22/17 16:00 10/22/17 16:00 - Medications Medications: Current Medications Digoxin (Lanoxin) 0.125 mg IVP DAILY [facility] Last Admin: 10/22/17 09:08 Dose: 0.125 mg Famotidine (Pepcid) 20 mg PO DAILY [facility] Levofloxacin/Dextrose (Levaquin 500mg) 500 mg in 100 mls @ 100 mls/hr IVPB DAILY [facility] PRN Reason: Protocol Last Admin: 10/22/17 09:09 Dose: 100 mls/hr Diltiazem HCl 100 mg/ Sodium (Chloride) 100 mls @ 5 mls/hr IV .Q20H ONE; 5 MG/ HR PRN Reason: Protocol Stop: 10/23/17 05:02 Last Admin: 10/22/17 09:05 Dose: 5 mg/hr, 5 mls/hr Meropenem 500 mg/ Sodium (Chloride) 100 mls @ 100 mls/hr IVPB Q8 [facility] PRN Reason: Protocol Last Admin: 10/22/17 16:15 Dose: 100 mls/hr Daptomycin 410 mg/ Sodium (Chloride) 100 mls @ 100 mls/hr IV Q24H [facility] Stop: 10/27/17 15:01 Last Admin: 10/22/17 15:30 Dose: 100 mls/hr Dextrose (Dextrose 5% In Water 1000 Ml) 1,000 mls @ 100 mls/hr IV .Q10H [facility] Stop: 10/23/17 16:32 - Labs Labs: 10/22/17 04:20 10/22/17 04:20 PT 16.5 Seconds (9.8-13.1) H 10/19/17 05:30 INR 1.5 (0.9-1.2) H 10/19/17 05:30 APTT 33.3 Seconds (25.6-37.1) 10/19/17 05:30
--- NOTE | 2017-10-22 21:42 | PN ---
DATE: 10/22/2017 CRITICAL CARE PROGRESS NOTE LOCATION: Patient in ICU, bed 433. TIME SPENT: 45 minutes. SUBJECTIVE: The patient is seen and evaluated at the bed side. Case discussed in multidisciplinary ICU rounds. Past medical, surgical, and social history noted. A 77-year-old male with history of hypertension, severe aortic valve stenosis, paroxysmal atrial fibrillation, hyperlipidemia, depression, metastatic CA of prostate involving liver, status post chemo since 3 weeks, admitted with cachexia, reduced p.o. intake, respiratory failure, and sepsis, remains intubated on AC/PRVC rate 14, tidal volume 450, FiO2 of 50%, PEEP 5, saturating 100%. Tried spontaneous breathing trial, failed, noted increasing heart rate. Reduced blood pressure and desaturation, back on the current setting. Exhaled rate 26, observed tidal volume 650, minute ventilation 15.9 liters, oxygen saturation 100%. Peak airway pressure 26 and end-tidal CO2 of 13. PHYSICAL EXAMINATION: VITAL SIGNS: Temperature 100.9, heart rate 126. blood pressure 108/77, mean arterial pressure 87. HEAD, EYES, EARS, NOSE, AND THROAT: Pupils reactive. Conjunctivae pale. Sclerae white. NECK: Supple. Trachea is central. CHEST: Bilateral breath sounds. Rhonchi bilaterally. HEART: Rhythm regular. A 2/6 systolic murmur at the right sternal border. ABDOMEN: Bowel sounds present. Soft. No tenderness. EXTREMITIES: Positive for trace edema. DP palpable, reduced in intensity. No palpable cord. NEUROLOGIC: Remains lethargic but arousable. Follows commands. Opens eyes on request. CURRENT MEDICATIONS: Include daptomycin mg daily, Lanoxin 0.125 mg IV daily, Cardizem drip at 5 mg per hour, Pepcid 20 mg IV q. 12, levofloxacin 500 mg IV daily, meropenem 500 mg IV q. 8 hours, potassium chloride supplement with D5W 100 mL/hour. LABORATORY DATA: WBC 24, hemoglobin 10.6, hematocrit 33.2, platelet count 202. PT 16.5, INR 1.5, PTT 33.3. ABG; pH 7.38, pCO2 of 24, pO2 of 175 on AC 14, 450, FiO2 of 50%. SMA-7; sodium 155, potassium 3.7, chloride 128, BUN 65, creatinine 2.2. Total bilirubin 0.9, direct bilirubin 0.9. AST 228, ALT 69, alkaline phos 479, total protein 5.5, and albumin 2.4. PTH intact 6.9. Microbiology, blood culture positive for Staph aureus. Chest x-ray done this morning, endotracheal tube in place. No pneumothorax. Borderline infiltrate or atelectasis, medial right base. IMPRESSION: 1. Neurologic: Septic metabolic encephalopathy. CT head negative for any acute event and/or metastasis noted. 2. Pulmonary: Hypoxic respiratory failure. Bilateral infiltrate, resolving. Tried spontaneous breathing trial this morning, failed. Continue on the current setting. 3. Cardiac: Paroxysmal atrial fibrillation, currently remains on sinus rhythm with sinus tachycardia, on Cardizem and digoxin. History of aortic valve stenosis, seen by Cardiology consult, not a candidate now for valve replacement. 4. Infection: Staph aureus bacteremia, source unclear. Bilateral pneumonia, vent dependent related pneumonia. Suspect necrosis of the metastasis in the liver. 5. Hematology. Leukocytosis, multifactorial. Metastasis in the liver, status post chemotherapy, suspected pneumonia, possibly urinary tract infection. 6. Infectious Disease: Blood culture positive for Gram-positive cocci. X-ray showed bilateral infiltrate, but improving. Skin without any breakdown. Suspected urinary tract infection. Recommended by Infectious Disease to change the [place]. 7. Electrolyte imbalance with hypokalemia, being supplemented. 8. Continue deep venous thrombosis prophylaxis. Continue IV hydration as recommended by Renal consult. Prognosis remains guarded. Ap Oconnell MD
--- NOTE | 2017-10-23 00:01 | PN ---
DATE: 10/22/2017 SUBJECTIVE: The patient is seen today, 10/22/2017. He was still intubated and trials for weaning were failing today. PHYSICAL EXAMINATION: VITAL SIGNS: Blood pressure 92/55, temperature 99.5, respiratory rate 25, and pulse 123. NECK: No JVD. No carotid bruit. No lymph node. No thyromegaly. CHEST AND LUNGS: Good air exchange bilaterally. CARDIOVASCULAR SYSTEM: PMI not localized. S1 and S2. Tachycardiac. ABDOMEN: Decreased bowel sounds. EXTREMITIES: No cyanosis. No clubbing. No edema. CENTRAL NERVOUS SYSTEM: Patient is sedated, on ventilator. LABORATORY DATA: Blood work done today showed white blood cell count of 24,000 and serum creatinine came down to 2.2. ASSESSMENT: 1. Acute renal failure. 2. Metastatic prostate cancer. 3. Intubated secondary to respiratory distress and for airway protection. 4. Severe aortic stenosis. PLAN: 1. Continue current IV antibiotics and follow recommendations of consultants. 2. Guarded prognosis. [facility] MD [place]
[2017-10-23] MEDS: Meropenem 500 MG in Sodium Chloride 0.9% 100 ML IVPB SCH ×3 (01:11→17:55)
[2017-10-23 05:11] LABS: BASO # 0.1 K/uL (0.0-0.2); BASO % 0.3 % (0.0-2.0); EOS % 0.1 % (0.0-4.0); HEMATOCRIT 33.6 % (35.0-51.0); LYMPH # 2.3 K/uL (1.0-4.3); MEAN CELL VOLUME 90.3 fl (80.0-94.0); MEAN CORPUSCULAR HEMOGLOBIN 28.3 pg (27.0-31.0); MEAN CORPUSCULAR HGB CONC 31.3 g/dL (33.0-37.0); MEAN PLATELET VOLUME 7.3 fl (7.2-11.7); MONO # 1.6 K/uL (0.0-0.8); MONO % 6.4 % (0.0-10.0); NEUT # 21.7 K/uL (1.8-7.0); NEUT % 84.2 % (50.0-75.0); NRBC % 0.5 % (0.0-0.0); PLATELET COUNT 189 K/uL (130-400); RED CELL DISTRIBUTION WIDTH 23.5 % (11.5-14.5); WHITE BLOOD COUNT 25.7 K/uL (4.8-10.8)
[2017-10-23 05:57] LABS: CALCIUM 6.6 mg/dL (8.4-10.2); POTASSIUM 4.3 MMOL/L (3.6-5.0)
[2017-10-23 06:10] LABS: ABG ALLEN TEST YES; ABG MECHANICAL RATE 14; ARTERIAL BLOOD GAS HCO3 14.8 mmol/L (21-28); ARTERIAL BLOOD GAS MODE A/C; ARTERIAL BLOOD GAS O2 CONTENT 15.9 ML/dL (15-23); ARTERIAL BLOOD GAS PH 7.28 (7.35-7.45); ARTERIAL BLOOD GAS PO2 194 mm/Hg (80-100); ARTERIAL BLOOD HGB O2 SAT 96.4 % (95.0-98.0); ATERIAL BLOOD GAS PEEP 5; CARBOXYHEMOGLOBIN 1.2 % (0.5-1.5); HHB 0.6 % (0.0-5.0); METHEMOGLOBIN 1.7 % (0.0-3.0)
[2017-10-23] MEDS: Digoxin 500 mcg/2ml (0.5 mg/2ml) Inj IVP SCH (08:33)
[2017-10-23] MEDS: levoFLOXacin 500 mg in D5W 500 MG/100 ML BAG IVPB SCH (08:33)
--- NOTE | 2017-10-23 08:59 | CP.PCM.PN ---
Subjective - Date & Time of Evaluation Date of Evaluation: 10/23/17 Time of Evaluation: 09:03 - Subjective Subjective: more awake today still intubated and being ventilated Objective - Vital Signs/Intake and Output Vital Signs (last 24 hours): Temp Pulse Resp BP Pulse Ox 100.7 F H 113 H 23 98/56 L 100 10/23/17 04:00 10/23/17 06:40 10/23/17 06:40 10/23/17 06:40 10/23/17 06:40 Intake and Output: 10/23/17 10/23/17 06:59 18:59 Intake Total 1625 Balance 1625 - Medications Medications: Current Medications Acetaminophen (Tylenol 650 Mg Supp) 650 mg OR ONCE PRN PRN Reason: Fever >100.4 F Digoxin (Lanoxin) 0.125 mg IVP DAILY [facility] Last Admin: 10/23/17 08:33 Dose: 0.125 mg Famotidine (Pepcid) 20 mg PO DAILY [facility] Hydromorphone HCl (Dilaudid) 1 mg IVP Q4 PRN PRN Reason: Pain, moderate (4-7) Levofloxacin/Dextrose (Levaquin 500mg) 500 mg in 100 mls @ 100 mls/hr IVPB DAILY [facility] PRN Reason: Protocol Last Admin: 10/23/17 08:33 Dose: 100 mls/hr Meropenem 500 mg/ Sodium (Chloride) 100 mls @ 100 mls/hr IVPB Q8 [facility] PRN Reason: Protocol Last Admin: 10/23/17 08:32 Dose: 100 mls/hr Daptomycin 410 mg/ Sodium (Chloride) 100 mls @ 100 mls/hr IV Q24H [facility] Stop: 10/27/17 15:01 Last Admin: 10/22/17 15:30 Dose: 100 mls/hr Dextrose (Dextrose 5% In Water 1000 Ml) 1,000 mls @ 100 mls/hr IV .Q10H [facility] Stop: 10/23/17 16:32 Last Admin: 10/22/17 21:31 Dose: 100 mls/hr - Labs Labs: 10/23/17 04:10 10/23/17 04:10 PT 16.5 Seconds (9.8-13.1) H 10/19/17 05:30 INR 1.5 (0.9-1.2) H 10/19/17 05:30 APTT 33.3 Seconds (25.6-37.1) 10/19/17 05:30 - Constitutional Appears: Chronically Ill - Head Exam Head Exam: ATRAUMATIC, NORMAL INSPECTION, NORMOCEPHALIC - Eye Exam Eye Exam: EOMI, Normal appearance, PERRL Pupil Exam: NORMAL ACCOMODATION, PERRL - ENT Exam ENT Exam: Mucous Membranes Moist, Normal Exam - Neck Exam Neck Exam: Full ROM, Normal Inspection. absent: Lymphadenopathy - Respiratory Exam Respiratory Exam: Rales Additional comments: on the respirator - Cardiovascular Exam Cardiovascular Exam: Tachycardia, +S1, +S2. absent: Murmur Additional comments: hypotensive - GI/Abdominal Exam GI & Abdominal Exam: Soft, Normal Bowel Sounds. absent: Tenderness - Rectal Exam Rectal Exam: NORMAL INSPECTION - Extremities Exam Extremities Exam: Full ROM, Normal Capillary Refill, Normal Inspection, Pedal Edema. absent: Joint Swelling - Back Exam Back Exam: NORMAL INSPECTION - Neurological Exam Neurological Exam: Awake - Skin Skin Exam: Dry, Intact, Normal Color, Warm Assessment and Plan - Assessment and Plan (Free Text) Assessment: respiratory failure multiorgan failure cxr reviewed--no active dz--official report pending hypernatremia leukocytosis Plan: continue vent care continue attempts to wean off vent prognosis is poor
[2017-10-23] MEDS: Famotidine 40 MG/5 ML PO SCH (09:00)
--- NOTE | 2017-10-23 09:16 | RAD ---
HISTORY: Intubated. Portable study 04:31. COMPARISON: Multiple serial examinations preceding the most recent study: October 22, 2017. Time of the most recent examination: 04:36 FINDINGS: LUNGS: No active pulmonary disease. PLEURA: No significant pleural effusion identified, no pneumothorax apparent. CARDIOVASCULAR: No radiographic findings to suggest acute or significant cardiovascular disease. OSSEOUS STRUCTURES: No significant abnormalities. VISUALIZED UPPER ABDOMEN: Normal. OTHER FINDINGS: Endotracheal tube remains in satisfactory position. IMPRESSION: No active pulmonary disease, no interval change. Endotracheal tube tip aboe the héctor (cm): 2.5.
[2017-10-23 11:16] LABS: METAMYELOCYTE 6 % (0-0); MYELOCYTE 6 % (0-0); NEUTROPHIL 71 % (42-75); NUCLEATED RED BLOOD CELL 2 % (0-0); TOTAL CELLS COUNTED 100
--- NOTE | 2017-10-23 11:38 | CARD ---
APPROVED REPORT EXAM: Two-dimensional and M-mode echocardiogram with Doppler and color Doppler. Other Information Quality : PoorRhythm : Tachycardia Technically limited study due to Very Poor Echo Window. INDICATION Infection:Subacute bacterial endocarditis Mitral Valve E/A ratio0.0 TDI E/Lateral E'0.0E/Medial E'0.0 LEFT VENTRICLE The left ventricle is normal size. The left ventricular function is normal. The left ventricular ejection fraction is within the normal range. The Ejection Fraction is 55-60%. There is normal LV segmental wall motion. The left ventricular diastolic function is normal. RIGHT VENTRICLE Not well visualized Not well visualized ATRIA Not well visualized Not well visualized AORTIC VALVE Not well visualized Not well visualized Not well visualized MITRAL VALVE Not well visualized Not well visualized Not well visualized TRICUSPID VALVE Not well visualized Not well visualized PULMONIC VALVE Not well visualized Not well visualized GREAT VESSELS Not well visualized Not well visualized PERICARDIAL EFFUSION Not well visualized <Conclusion> Extremely poor echo most structures are Not well visualized
--- NOTE | 2017-10-23 12:06 | CP.PCM.PN ---
Subjective - Date & Time of Evaluation Date of Evaluation: 10/23/17 Objective - Vital Signs/Intake and Output Vital Signs (last 24 hours): Temp Pulse Resp BP Pulse Ox 97.5 F L 117 H 23 88/60 L 99 10/23/17 08:00 10/23/17 08:00 10/23/17 08:00 10/23/17 08:00 10/23/17 08:00 Intake and Output: 10/23/17 10/23/17 06:59 18:59 Intake Total 1625 Balance 1625 - Medications Medications: Current Medications Acetaminophen (Tylenol 650 Mg Supp) 650 mg MO ONCE PRN PRN Reason: Fever >100.4 F Digoxin (Lanoxin) 0.125 mg IVP DAILY [facility] Last Admin: 10/23/17 08:33 Dose: 0.125 mg Famotidine (Pepcid) 20 mg PO DAILY [facility] Hydromorphone HCl (Dilaudid) 1 mg IVP Q4 PRN PRN Reason: Pain, moderate (4-7) Last Admin: 10/23/17 10:17 Dose: 1 mg Levofloxacin/Dextrose (Levaquin 500mg) 500 mg in 100 mls @ 100 mls/hr IVPB DAILY [facility] PRN Reason: Protocol Last Admin: 10/23/17 08:33 Dose: 100 mls/hr Meropenem 500 mg/ Sodium (Chloride) 100 mls @ 100 mls/hr IVPB Q8 [facility] PRN Reason: Protocol Last Admin: 10/23/17 08:32 Dose: 100 mls/hr Daptomycin 410 mg/ Sodium (Chloride) 100 mls @ 100 mls/hr IV Q24H [facility] Stop: 10/27/17 15:01 Last Admin: 10/22/17 15:30 Dose: 100 mls/hr Dextrose (Dextrose 5% In Water 1000 Ml) 1,000 mls @ 100 mls/hr IV .Q10H [facility] Stop: 10/23/17 16:32 Last Admin: 10/22/17 21:31 Dose: 100 mls/hr - Labs Labs: 10/23/17 04:10 10/23/17 04:10 PT 16.5 Seconds (9.8-13.1) H 10/19/17 05:30 INR 1.5 (0.9-1.2) H 10/19/17 05:30 APTT 33.3 Seconds (25.6-37.1) 10/19/17 05:30 Assessment and Plan (1) Leukocytosis Status: Acute (2) Metastatic cancer Status: Acute (3) Weakness Status: Acute (4) Renal insufficiency Status: Acute
--- NOTE | 2017-10-23 13:47 | CP.PCM.PN ---
<Yanira Bowers - Last Filed: 10/23/17 13:50> Subjective - Date & Time of Evaluation Date of Evaluation: 10/23/17 Time of Evaluation: 11:00 - Subjective Subjective: PGY 4 GI follow-up Pt seen and examined beside no overnight events reconsulted for elevated LFT ROS: could not be conducted Objective - Vital Signs/Intake and Output Vital Signs (last 24 hours): Temp Pulse Resp BP Pulse Ox 98.1 F 110 H 17 80/51 L 99 10/23/17 12:00 10/23/17 12:00 10/23/17 12:00 10/23/17 12:00 10/23/17 12:00 Intake and Output: 10/23/17 10/23/17 06:59 18:59 Intake Total 1625 Balance 1625 - Medications Medications: Current Medications Acetaminophen (Tylenol 650 Mg Supp) 650 mg [place] ONCE PRN PRN Reason: Fever >100.4 F Digoxin (Lanoxin) 0.125 mg IVP DAILY [facility] Last Admin: 10/23/17 08:33 Dose: 0.125 mg Famotidine (Pepcid) 20 mg PO DAILY [facility] Hydromorphone HCl (Dilaudid) 1 mg IVP Q4 PRN PRN Reason: Pain, moderate (4-7) Last Admin: 10/23/17 10:17 Dose: 1 mg Levofloxacin/Dextrose (Levaquin 500mg) 500 mg in 100 mls @ 100 mls/hr IVPB DAILY [facility] PRN Reason: Protocol Last Admin: 10/23/17 08:33 Dose: 100 mls/hr Meropenem 500 mg/ Sodium (Chloride) 100 mls @ 100 mls/hr IVPB Q8 [facility] PRN Reason: Protocol Last Admin: 10/23/17 08:32 Dose: 100 mls/hr Dextrose (Dextrose 5% In Water 1000 Ml) 1,000 mls @ 100 mls/hr IV .Q10H [facility] Stop: 10/23/17 16:32 Last Admin: 10/22/17 21:31 Dose: 100 mls/hr Daptomycin 410 mg/ Sodium (Chloride) 100 mls @ 100 mls/hr IV Q48H [facility] Stop: 10/29/17 12:31 - Labs Labs: 10/23/17 04:10 10/23/17 04:10 PT 16.5 Seconds (9.8-13.1) H 10/19/17 05:30 INR 1.5 (0.9-1.2) H 10/19/17 05:30 APTT 33.3 Seconds (25.6-37.1) 10/19/17 05:30 - Constitutional Appears: Confused, Chronically Ill - Head Exam Head Exam: ATRAUMATIC, NORMOCEPHALIC - Eye Exam Eye Exam: Normal appearance - ENT Exam ENT Exam: Mucous Membranes Moist - Respiratory Exam Respiratory Exam: Clear to Ausculation Bilateral, NORMAL BREATHING PATTERN. absent: Rales, Rhonchi, Wheezes, Respiratory Distress - Cardiovascular Exam Cardiovascular Exam: Irregular Rhythm - GI/Abdominal Exam GI & Abdominal Exam: Soft, Hypoactive Bowel Sounds, Normal Bowel Sounds. absent : Guarding, Rigid, Tenderness - Extremities Exam Extremities Exam: absent: Joint Swelling, Pedal Edema - Neurological Exam Neurological Exam: Altered - Psychiatric Exam Additional comments: can not assess - Skin Skin Exam: Dry, Intact, Normal Color, Warm Assessment and Plan - Assessment and Plan (Free Text) Assessment: Divina Ray is a 77M w/ hx of metastatic prostate cancer on chemo, aortic stenosis who presented with weakness and SOB. Pt was ultimately intubated and his being treated for PNA. He reportedly had 1-2 episodes of melena with a drop in hgb to ~6.4. Pt was transfused 2 units PRBC. Pt has elevated LFTs with elevated Alk Phos, AST, and GGT ~1400; etiology is likely from liver and bone mets. Normocytic Anemia Melena? PNA VDRF Metastatic Prostate Cancer with lesions to the liver Elevated LFTs Diffuse GB wall thickening on Abdominal U/S without stones, etiology acalcanous cholecystitis? Plan: -would recommend conservative management for now -can consult surgery for opinion -guarded prognosis -Cholcysostomy tube is likely not a good idea for it can become another infectious source -continue antibiotic -trend LFTs -hgb stable, no need for additional transfusions -no report of additional melena as per RN D/W Dr. Crowley <Robin Crowley - Last Filed: 10/23/17 14:51> Objective - Vital Signs/Intake and Output Vital Signs (last 24 hours): Temp Pulse Resp BP Pulse Ox 98.1 F 110 H 17 80/51 L 99 10/23/17 12:00 10/23/17 12:00 10/23/17 12:00 10/23/17 12:00 10/23/17 12:00 Intake and Output: 10/23/17 10/23/17 06:59 18:59 Intake Total 1625 Balance 1625 - Medications Medications: Current Medications Acetaminophen (Tylenol 650 Mg Supp) 650 mg [place] ONCE PRN PRN Reason: Fever >100.4 F Digoxin (Lanoxin) 0.125 mg IVP DAILY [facility] Last Admin: 10/23/17 08:33 Dose: 0.125 mg Famotidine (Pepcid) 20 mg PO DAILY [facility] Hydromorphone HCl (Dilaudid) 1 mg IVP Q4 PRN PRN Reason: Pain, moderate (4-7) Last Admin: 10/23/17 10:17 Dose: 1 mg Levofloxacin/Dextrose (Levaquin 500mg) 500 mg in 100 mls @ 100 mls/hr IVPB DAILY [facility] PRN Reason: Protocol Last Admin: 10/23/17 08:33 Dose: 100 mls/hr Meropenem 500 mg/ Sodium (Chloride) 100 mls @ 100 mls/hr IVPB Q8 [facility] PRN Reason: Protocol Last Admin: 10/23/17 08:32 Dose: 100 mls/hr Dextrose (Dextrose 5% In Water 1000 Ml) 1,000 mls @ 100 mls/hr IV .Q10H [facility] Stop: 10/23/17 16:32 Last Admin: 10/22/17 21:31 Dose: 100 mls/hr Daptomycin 410 mg/ Sodium (Chloride) 100 mls @ 100 mls/hr IV Q48H [facility] Stop: 10/29/17 12:31 - Labs Labs: 10/23/17 04:10 10/23/17 04:10 PT 16.5 Seconds (9.8-13.1) H 10/19/17 05:30 INR 1.5 (0.9-1.2) H 10/19/17 05:30 APTT 33.3 Seconds (25.6-37.1) 10/19/17 05:30 Attending/Attestation - Attestation I have personally seen and examined this patient.: Yes I have fully participated in the care of the patient.: Yes I have reviewed all pertinent clinical information, including history, physical exam and plan: Yes Notes (Text): 10/23/17 14:45 I have seen and examined patient with GI fellow. He is seen intubated in critical care unit, remains on vasopressor therapy. As per nursing staff, no reported abdominal pain, vomiting. Review of vitals shows hypotension and tachycardia. Metastatic prostate cancer on chemotherapy Aortic stenosis Septic shock, pneumonia Transaminitis - multifactorial in setting of sepsis with liver metastatic disease Abdominal US from 10/18 reviewed by me showing gallbladder wall thickness, no cholelithiasis or CBD dilation - Patient very well may have acalculous cholecystitis given current clinical scenario and septic condition. Ideally would favor HIDA imaging for further evaluation, though patient currently not stable to undergo procedure due to vasopressor requirement. - Continue with broad spectrum antibiotic therapy, monitor blood cultures - Continue to monitor LFTs - Would not recommend PTC drain at this time given inconclusive diagnosis and additional potential infectious source - Overall patient prognosis is quite poor, will continue to monitor
--- NOTE | 2017-10-23 15:49 | CP.CCUPN ---
CCU Subjective - Physician Review Subjective (Free Text): Opens eyes to verbal stimuli, moves head to pain questions and given Dilaudid. BP levels remain borderline, tachycardic, Tmax 100.9F overnight. Oliguric overnight, in positive fluid balance last several days. Day#4 MV support. Other vitals and I/O's reviewed. ROS: Unobtainable, intubated. No other pertinent negs or positives on 10+ system review. PMSFH: Paroxysmal A Fib, HTN, Hyperlipidemia, Depression, non-drinker, non- smoker- Otherwise all Nursing and physician documentation reviewed to date ; no new pertinent info noted relevant to current medical problems. CXR: ETT position OK abopve héctor, overall improved bilateral perihilar interstitial changes, no gross consolidation (my interp). IMPRESSION / MAJOR PROBLEMS NOW: 1. Acute Resp Insuff 2' bilateral pneumonia ( Aspiration type) ; there is no clinical CHF / fluid overload evident. 2. AMS/ Obtundation, r/o Structural EXCHANGE MECHANIC disease vs Metabolic Encephalopathy, vs Dilaudid effect 3. s/p A Fib with RVR 4. Azotemia / Dehydration with Hyperkalemia 5. r/o Acute - SubAcute Cholecystitis 6. Metastatic Liver Disease 7. Severe Aortic Stenosis with preserved LVEF 8. Chronic Disease Anemia PLAN: 1. Decrease FiO2 to 40% as tolerated. 2. s/p 2 units PRBCs on 10/20. 3. GGT results finally resulted on 10/21/17. GI re-eval noted and appreciated. 4. Cardizem drip stopped, he is in sinus tachycardia now. 5. Renal function not imporved and he has R hydronephrosis on last US study. Renal / Urology evals. 6. Daughter and have now requested DNR status. They are aware of present clinical status and his poor prognosis. 7. Abx changes noted: Cisco / Dapto / Levaquin as per ID. CCU Objective - Vital Signs / Intake & Output Vital Signs (Last 4 hours): Vital Signs Temp Pulse Resp BP Pulse Ox 10/23/17 12:00 98.1 F 110 H 17 80/51 L 99 Intake and Output (Last 8hrs): Intake & Output 10/23/17 10/23/17 10/23/17 06:59 14:59 22:59 Intake Total 1180 Balance 1180 Weight 152 lb Intake: IV 1080 Intake, Piggyback 100 Oral 0 Other: # Voids Urethral ([place]) 150 - Physical Exam Head: Positive for: Normocephalic Pupils: Positive for: PERRL Extroacular Muscles: Positive for: EOMI Conjunctiva: Positive for: Normal Mouth: Positive for: Dry Neck: Negative for: Meningeal Signs, JVD Respiratory/Chest: Positive for: Rhonchi. Negative for: Accessory Muscle Use, Wheezes, Decreased Breath Sounds Cardiovascular: Positive for: Murmurs, Normal S1, S2. Negative for: Rub Abdomen: Positive for: Normal Bowel Sounds. Negative for: Tenderness, Distention, Mass/Organomegaly Lower Extremity: Positive for: Edema, NORMAL PULSES. Negative for: CALF TENDERNESS, Cyanosis Neurological: Positive for: Other (on ventilator) Psychiatric: Positive for: Lethargic - Medications Active Medications: Active Medications Generic Name Dose Route Start Last Admin Trade Name Freq PRN Reason Stop Dose Admin Acetaminophen 650 mg 10/23/17 02:25 Tylenol 650 Mg Supp [place] ONCE PRN Fever >100.4 F Digoxin 0.125 mg 10/22/17 09:00 10/23/17 08:33 Lanoxin IVP 0.125 mg DAILY [facility] Administration Famotidine 20 mg 10/23/17 09:00 Pepcid PO DAILY AS[facility] Hydromorphone HCl 1 mg 10/23/17 08:45 10/23/17 10:17 Dilaudid IVP 1 mg Q4 PRN Administration Pain, moderate (4-7) Levofloxacin/Dextrose 500 mg in 100 mls @ 100 mls/hr 10/20/17 09:00 10/23/17 08:33 Levaquin 500mg IVPB 100 mls/hr DAILY [facility] Administration Protocol Meropenem 500 mg/ Sodium 100 mls @ 100 mls/hr 10/22/17 17:00 10/23/17 08:32 Chloride IVPB 100 mls/hr Q8 ASHTYN Administration Protocol Dextrose 1,000 mls @ 100 mls/hr 10/22/17 10:00 10/22/17 21:31 Dextrose 5% In Water 1000 Ml IV 10/23/17 16:32 100 mls/hr .Q10H [facility] Administration Daptomycin 410 mg/ Sodium 100 mls @ 100 mls/hr 10/24/17 12:30 Chloride IV 10/29/17 12:31 Q48H AS[facility]YN - Patient Studies Lab Studies: Microbiology Studies 10/21/17 16:50 S.aureus & Coag-Neg Staph PNA FISH - Final Blood-Venous Blood Culture - Preliminary Gram Positive Cocci Gram Stain - Final 10/21/17 16:24 Urine Culture - Final Urine,[place] No Growth (<1,000 CFU/ML) 10/21/17 05:00 Gram Stain - Final Trachasp Sputum Culture - Preliminary Staphylococcus Aureus 10/18/17 20:00 Blood Culture - Preliminary Blood-Venous NO GROWTH AFTER 4 DAYS 10/21/17 17:01 Blood Culture - Preliminary Blood-Thru Central Line NO GROWTH AFTER 24 HOURS Lab Studies 10/23/17 10/23/17 10/23/17 Range/Units 05:13 04:14 04:10 WBC (4.8-10.8) K/uL RBC (4.40-5.90) Mil/uL Hgb (12.0-18.0) g/dL Hct (35.0-51.0) % MCV (80.0-94.0) fl MCH (27.0-31.0) pg MCHC (33.0-37.0) g/dL RDW (11.5-14.5) % Plt Count (130-400) K/uL MPV (7.2-11.7) fl Neut % (Auto) (50.0-75.0) % Lymph % (Auto) (20.0-40.0) % [place] % (Auto) (0.0-10.0) % Eos % (Auto) (0.0-4.0) % Baso % (Auto) (0.0-2.0) % Neut # (1.8-7.0) K/uL Lymph # (1.0-4.3) K/uL [place] # (0.0-0.8) K/uL Eos # (0.0-0.7) K/uL Baso # (0.0-0.2) K/uL Neutrophils % (Manual) (42-75) % Band Neutrophils % (0-2) % Lymphocytes % (Manual) (20-50) % Monocytes % (Manual) (0-10) % Metamyelocytes % (0-0) % Myelocytes % (0-0) % Nucleated RBC % (0-0) % Toxic Granulation Platelet Estimate (NORMAL) Hypochromasia (manual) Anisocytosis (manual) Tear Drop Cells Ovalocytes pCO2 26 L (35-45) mm/Hg pO2 194 H (80-100) mm/Hg HCO3 14.8 L (21-28) mmol/L ABG pH 7.28 L (7.35-7.45) ABG Total CO2 13.0 L (22-28) mmol/L ABG O2 Saturation 99.4 H (95-98) % ABG O2 Content 15.9 (15-23) ML/dL ABG Base Excess -13.0 L (-2.0-3.0) mmol/L ABG Hemoglobin 11.4 L (11.7-17.4) g/dL ABG Carboxyhemoglobin 1.2 (0.5-1.5) % POC ABG HHb (Measured) 0.6 (0.0-5.0) % ABG Methemoglobin 1.7 (0.0-3.0) % ABG O2 Capacity 16.0 (16-24) mL/dL Jagjit Test Yes A-a O2 Difference 59.0 mm/Hg Hgb O2 Saturation 96.4 (95.0-98.0) % Vent Mode A/c Mechanical Rate 14 FiO2 40.0 % Tidal Volume 450 PEEP 5 Sodium 153 H (132-148) mmol/l Potassium 4.3 (3.6-5.0) MMOL/L Chloride 126 H (98-107) mmol/L Carbon Dioxide 15 L (22-30) mmol/L Anion Gap 16 (10-20) BUN 78 H (9-20) mg/dl Creatinine 2.8 H (0.8-1.5) mg/dl Est GFR ( Amer) 27 Est GFR (Non-Af Amer) 22 POC Glucose (mg/dL) 143 H (65-110) mg/dL Random Glucose 107 (75-110) mg/dL Calcium 6.6 L (8.4-10.2) mg/dL Urine Immunofixation (Not Detected) 10/23/17 10/22/17 10/22/17 Range/Units 04:10 21:36 17:08 WBC 25.7 H (4.8-10.8) K/uL RBC 3.72 L (4.40-5.90) Mil/uL Hgb 10.5 L (12.0-18.0) g/dL Hct 33.6 L (35.0-51.0) % MCV 90.3 D (80.0-94.0) fl MCH 28.3 (27.0-31.0) pg MCHC 31.3 L (33.0-37.0) g/dL RDW 23.5 H (11.5-14.5) % Plt Count 189 (130-400) K/uL MPV 7.3 (7.2-11.7) fl Neut % (Auto) 84.2 H (50.0-75.0) % Lymph % (Auto) 9.0 L (20.0-40.0) % [place] % (Auto) 6.4 (0.0-10.0) % Eos % (Auto) 0.1 (0.0-4.0) % Baso % (Auto) 0.3 (0.0-2.0) % Neut # 21.7 H (1.8-7.0) K/uL Lymph # 2.3 (1.0-4.3) K/uL [place] # 1.6 H (0.0-0.8) K/uL Eos # 0.0 (0.0-0.7) K/uL Baso # 0.1 (0.0-0.2) K/uL Neutrophils % (Manual) 71 (42-75) % Band Neutrophils % 5 H (0-2) % Lymphocytes % (Manual) 8 L (20-50) % Monocytes % (Manual) 4 (0-10) % Metamyelocytes % 6 H (0-0) % Myelocytes % 6 H (0-0) % Nucleated RBC % 2 H (0-0) % Toxic Granulation Present Platelet Estimate Normal (NORMAL) Hypochromasia (manual) Slight Anisocytosis (manual) Marked Tear Drop Cells Slight Ovalocytes Slight pCO2 (35-45) mm/Hg pO2 (80-100) mm/Hg HCO3 (21-28) mmol/L ABG pH (7.35-7.45) ABG Total CO2 (22-28) mmol/L ABG O2 Saturation (95-98) % ABG O2 Content (15-23) ML/dL ABG Base Excess (-2.0-3.0) mmol/L ABG Hemoglobin (11.7-17.4) g/dL ABG Carboxyhemoglobin (0.5-1.5) % POC ABG HHb (Measured) (0.0-5.0) % ABG Methemoglobin (0.0-3.0) % ABG O2 Capacity (16-24) mL/dL Jagjit Test A-a O2 Difference mm/Hg Hgb O2 Saturation (95.0-98.0) % Vent Mode Mechanical Rate FiO2 % Tidal Volume PEEP Sodium (132-148) mmol/l Potassium (3.6-5.0) MMOL/L Chloride (98-107) mmol/L Carbon Dioxide (22-30) mmol/L Anion Gap (10-20) BUN (9-20) mg/dl Creatinine (0.8-1.5) mg/dl Est GFR ( Amer) Est GFR (Non-Af Amer) POC Glucose (mg/dL) 93 106 (65-110) mg/dL Random Glucose (75-110) mg/dL Calcium (8.4-10.2) mg/dL Urine Immunofixation (Not Detected) 10/19/17 Range/Units 17:00 WBC (4.8-10.8) K/uL RBC (4.40-5.90) Mil/uL Hgb (12.0-18.0) g/dL Hct (35.0-51.0) % MCV (80.0-94.0) fl MCH (27.0-31.0) pg MCHC (33.0-37.0) g/dL RDW (11.5-14.5) % Plt Count (130-400) K/uL MPV (7.2-11.7) fl Neut % (Auto) (50.0-75.0) % Lymph % (Auto) (20.0-40.0) % [place] % (Auto) (0.0-10.0) % Eos % (Auto) (0.0-4.0) % Baso % (Auto) (0.0-2.0) % Neut # (1.8-7.0) K/uL Lymph # (1.0-4.3) K/uL [place] # (0.0-0.8) K/uL Eos # (0.0-0.7) K/uL Baso # (0.0-0.2) K/uL Neutrophils % (Manual) (42-75) % Band Neutrophils % (0-2) % Lymphocytes % (Manual) (20-50) % Monocytes % (Manual) (0-10) % Metamyelocytes % (0-0) % Myelocytes % (0-0) % Nucleated RBC % (0-0) % Toxic Granulation Platelet Estimate (NORMAL) Hypochromasia (manual) Anisocytosis (manual) Tear Drop Cells Ovalocytes pCO2 (35-45) mm/Hg pO2 (80-100) mm/Hg HCO3 (21-28) mmol/L ABG pH (7.35-7.45) ABG Total CO2 (22-28) mmol/L ABG O2 Saturation (95-98) % ABG O2 Content (15-23) ML/dL ABG Base Excess (-2.0-3.0) mmol/L ABG Hemoglobin (11.7-17.4) g/dL ABG Carboxyhemoglobin (0.5-1.5) % POC ABG HHb (Measured) (0.0-5.0) % ABG Methemoglobin (0.0-3.0) % ABG O2 Capacity (16-24) mL/dL Jagjit Test A-a O2 Difference mm/Hg Hgb O2 Saturation (95.0-98.0) % Vent Mode Mechanical Rate FiO2 % Tidal Volume PEEP Sodium (132-148) mmol/l Potassium (3.6-5.0) MMOL/L Chloride (98-107) mmol/L Carbon Dioxide (22-30) mmol/L Anion Gap (10-20) BUN (9-20) mg/dl Creatinine (0.8-1.5) mg/dl Est GFR ( Amer) Est GFR (Non-Af Amer) POC Glucose (mg/dL) (65-110) mg/dL Random Glucose (75-110) mg/dL Calcium (8.4-10.2) mg/dL Urine Immunofixation Not detected (Not Detected) Laboratory Results - last 24 hr 10/19/17 10/22/17 10/22/17 17:00 17:08 21:36 WBC RBC Hgb Hct MCV MCH MCHC RDW Plt Count MPV Neut % (Auto) Lymph % (Auto) [place] % (Auto) Eos % (Auto) Baso % (Auto) Neut # Lymph # [place] # Eos # Baso # Neutrophils % (Manual) Band Neutrophils % Lymphocytes % (Manual) Monocytes % (Manual) Metamyelocytes % Myelocytes % Nucleated RBC % Toxic Granulation Platelet Estimate Hypochromasia (manual) Anisocytosis (manual) Tear Drop Cells Ovalocytes pCO2 pO2 HCO3 ABG pH ABG Total CO2 ABG O2 Saturation ABG O2 Content ABG Base Excess ABG Hemoglobin ABG Carboxyhemoglobin POC ABG HHb (Measured) ABG Methemoglobin ABG O2 Capacity Jagjit Test A-a O2 Difference Hgb O2 Saturation Vent Mode Mechanical Rate FiO2 Tidal Volume PEEP Sodium Potassium Chloride Carbon Dioxide Anion Gap BUN Creatinine Est GFR ( Amer) Est GFR (Non-Af Amer) POC Glucose (mg/dL) 106 93 Random Glucose Calcium Urine Immunofixation Not detected 10/23/17 10/23/17 10/23/17 04:10 04:10 04:14 WBC 25.7 H RBC 3.72 L Hgb 10.5 L Hct 33.6 L MCV 90.3 D MCH 28.3 MCHC 31.3 L RDW 23.5 H Plt Count 189 MPV 7.3 Neut % (Auto) 84.2 H Lymph % (Auto) 9.0 L [place] % (Auto) 6.4 Eos % (Auto) 0.1 Baso % (Auto) 0.3 Neut # 21.7 H Lymph # 2.3 [place] # 1.6 H Eos # 0.0 Baso # 0.1 Neutrophils % (Manual) 71 Band Neutrophils % 5 H Lymphocytes % (Manual) 8 L Monocytes % (Manual) 4 Metamyelocytes % 6 H Myelocytes % 6 H Nucleated RBC % 2 H Toxic Granulation Present Platelet Estimate Normal Hypochromasia (manual) Slight Anisocytosis (manual) Marked Tear Drop Cells Slight Ovalocytes Slight pCO2 pO2 HCO3 ABG pH ABG Total CO2 ABG O2 Saturation ABG O2 Content ABG Base Excess ABG Hemoglobin ABG Carboxyhemoglobin POC ABG HHb (Measured) ABG Methemoglobin ABG O2 Capacity Jagjit Test A-a O2 Difference Hgb O2 Saturation Vent Mode Mechanical Rate FiO2 Tidal Volume PEEP Sodium 153 H Potassium 4.3 Chloride 126 H Carbon Dioxide 15 L Anion Gap 16 BUN 78 H Creatinine 2.8 H Est GFR ( Amer) 27 Est GFR (Non-Af Amer) 22 POC Glucose (mg/dL) 143 H Random Glucose 107 Calcium 6.6 L Urine Immunofixation 10/23/17 05:13 WBC RBC Hgb Hct MCV MCH MCHC RDW Plt Count MPV Neut % (Auto) Lymph % (Auto) [place] % (Auto) Eos % (Auto) Baso % (Auto) Neut # Lymph # [place] # Eos # Baso # Neutrophils % (Manual) Band Neutrophils % Lymphocytes % (Manual) Monocytes % (Manual) Metamyelocytes % Myelocytes % Nucleated RBC % Toxic Granulation Platelet Estimate Hypochromasia (manual) Anisocytosis (manual) Tear Drop Cells Ovalocytes pCO2 26 L pO2 194 H HCO3 14.8 L ABG pH 7.28 L ABG Total CO2 13.0 L ABG O2 Saturation 99.4 H ABG O2 Content 15.9 ABG Base Excess -13.0 L ABG Hemoglobin 11.4 L ABG Carboxyhemoglobin 1.2 POC ABG HHb (Measured) 0.6 ABG Methemoglobin 1.7 ABG O2 Capacity 16.0 Jagjit Test Yes A-a O2 Difference 59.0 Hgb O2 Saturation 96.4 Vent Mode A/c Mechanical Rate 14 FiO2 40.0 Tidal Volume 450 PEEP 5 Sodium Potassium Chloride Carbon Dioxide Anion Gap BUN Creatinine Est GFR ( Amer) Est GFR (Non-Af Amer) POC Glucose (mg/dL) Random Glucose Calcium Urine Immunofixation Fingerstick Blood Sugar Results: 143 Review of Systems - Review of Systems Systems not reviewed;Unavailable: Intubated Critical Care Progress Note - Ventilator Checklist Head of Bed 30 Degrees: Yes Daily Sedation Vacation: Yes Daily Assessment of Readiness to Wean: Yes Daily Spontaneous Breathing Trial: Yes PUD Prophalyxis: Yes DVT Prophylaxis: Yes Oral Care with Chlorhexidine Gluconate {CHG}: Yes - Vent Settings MODE:: ASSIST CONTROL TIDAL VOLUME:: 450 RESP RATE:: 14 FIO2:: 40 PEEP:: 5 - Extremities/Vascular Does the Patient have a Central Venous Catheter?: Yes Does the Patient have a [place] Catheter?: Yes Does the Patient need a [place] Catheter?: Yes Catheter Insertion Criteria: Need for accurate measurement of output in critically ill patient - Prophylaxis GI Prophylaxis GI: PPI - Prophylaxis DVT Prophylaxis DVT: SCDs - Nutrition Nutrition: Nutrition Category Date Time Status NPO Diet [DIET] Diets 10/19/17 Lunch Active
--- NOTE | 2017-10-23 16:50 | CP.PCM.PN ---
Subjective - Date & Time of Evaluation Date of Evaluation: 10/23/17 Time of Evaluation: 11:00 - Subjective Subjective: ON MV Objective - Vital Signs/Intake and Output Vital Signs (last 24 hours): Temp Pulse Resp BP Pulse Ox 99.8 F H 114 H 17 88/60 L 99 10/23/17 16:00 10/23/17 16:00 10/23/17 12:00 10/23/17 16:00 10/23/17 16:00 Intake and Output: 10/23/17 10/23/17 06:59 18:59 Intake Total 1625 Balance 1625 - Medications Medications: Current Medications Acetaminophen (Tylenol 650 Mg Supp) 650 mg [place] ONCE PRN PRN Reason: Fever >100.4 F Digoxin (Lanoxin) 0.125 mg IVP DAILY [facility] Last Admin: 10/23/17 08:33 Dose: 0.125 mg Famotidine (Pepcid) 20 mg PO DAILY [facility] Hydromorphone HCl (Dilaudid) 1 mg IVP Q4 PRN PRN Reason: Pain, moderate (4-7) Last Admin: 10/23/17 10:17 Dose: 1 mg Levofloxacin/Dextrose (Levaquin 500mg) 500 mg in 100 mls @ 100 mls/hr IVPB DAILY [facility] PRN Reason: Protocol Last Admin: 10/23/17 08:33 Dose: 100 mls/hr Meropenem 500 mg/ Sodium (Chloride) 100 mls @ 100 mls/hr IVPB Q8 [facility] PRN Reason: Protocol Last Admin: 10/23/17 08:32 Dose: 100 mls/hr Daptomycin 410 mg/ Sodium (Chloride) 100 mls @ 100 mls/hr IV Q48H [facility] Stop: 10/29/17 12:31 - Labs Labs: 10/23/17 04:10 10/23/17 04:10 PT 16.5 Seconds (9.8-13.1) H 10/19/17 05:30 INR 1.5 (0.9-1.2) H 10/19/17 05:30 APTT 33.3 Seconds (25.6-37.1) 10/19/17 05:30 - Respiratory Exam Respiratory Exam: Clear to Ausculation Bilateral - Cardiovascular Exam Cardiovascular Exam: Tachycardia, REGULAR RHYTHM, +S1, +S2, Murmur - Extremities Exam Extremities Exam: Normal Inspection - Additional Findings Additional findings: EKG SINUS TACHYCADIA, R 110 CARDIZEM STOPPED DUE TO HYPOTENSION Assessment and Plan - Assessment and Plan (Free Text) Assessment: 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
[2017-10-23] MEDS ORDERED: Chlorhexidine Gluconate 1 APPL/PKT TP ONE ×2 (19:21→22:24)
--- NOTE | 2017-10-23 23:36 | CP.PCM.CON ---
History of Present Illness - History of Present Illness History of Present Illness: SEEN ON RENAL F/U IN ICU REMAINS INTUBATED NOW CAN OPEN EYES PARTIALY IN RESPONSE TO TACLILE AND VERBAL STIMULI ALL PREVIOUS EMR REVIEWED THERE BUMP IN BUN AND CREATININ FROM TODAY Past Patient History - Past Medical History & Family History Past Medical History?: Yes - Past Social History Smoking Status: Never Smoked Home Situation {Lives}: With Family - CARDIAC Hx Cardiac Disorders: Yes Hx Atrial Fibrillation: Yes Hx Hypercholesterolemia: Yes Hx Hypertension: Yes - PULMONARY Hx Respiratory Disorders: No - NEUROLOGICAL Hx Neurological Disorder: No Hx Seizures: No - HEENT Hx HEENT Problems: No - RENAL Hx Chronic Kidney Disease: No - ENDOCRINE/METABOLIC Hx Endocrine Disorders: No - HEMATOLOGICAL/ONCOLOGICAL Hx Anemia: Yes Hx Blood Transfusions: Yes Hx Cancer: Yes Hx Chemotherapy: Yes Hx Metastesis: Yes - INTEGUMENTARY Hx Dermatological Problems: No - MUSCULOSKELETAL/RHEUMATOLOGICAL Hx Musculoskeletal Disorders: Yes Hx Arthritis: Yes Hx Falls: No - GASTROINTESTINAL Hx Gastrointestinal Disorders: No - GENITOURINARY/GYNECOLOGICAL Hx Genitourinary Disorders: Yes Hx Prostate Cancer: Yes - PSYCHIATRIC Hx Psychophysiologic Disorder: No Hx Substance Use: No - SURGICAL HISTORY Hx Surgeries: No - ANESTHESIA Hx Anesthesia: No Hx Anesthesia Reactions: No Hx Malignant Hyperthermia: No Has any member of the family had a problem w/ anesthesia?: No Meds Allergies/Adverse Reactions: Allergies Allergy/AdvReac Type Severity Reaction Status Date / Time aspirin Allergy PAIN Verified 09/06/17 23:57 Penicillins Allergy NAUSEA Verified 09/06/17 23:57 - Medications Medications: Current Medications Acetaminophen (Tylenol 650 Mg Supp) 650 mg [place] ONCE PRN PRN Reason: Fever >100.4 F Digoxin (Lanoxin) 0.125 mg IVP DAILY [facility] Last Admin: 10/23/17 08:33 Dose: 0.125 mg Famotidine (Pepcid) 20 mg PO DAILY [facility] Last Admin: 10/23/17 09:00 Dose: Not Given Hydromorphone HCl (Dilaudid) 1 mg IVP Q4 PRN PRN Reason: Pain, moderate (4-7) Last Admin: 10/23/17 18:00 Dose: 1 mg Levofloxacin/Dextrose (Levaquin 500mg) 500 mg in 100 mls @ 100 mls/hr IVPB DAILY [facility] PRN Reason: Protocol Last Admin: 10/23/17 08:33 Dose: 100 mls/hr Meropenem 500 mg/ Sodium (Chloride) 100 mls @ 100 mls/hr IVPB Q8 [facility] PRN Reason: Protocol Last Admin: 10/23/17 17:55 Dose: 100 mls/hr Daptomycin 410 mg/ Sodium (Chloride) 100 mls @ 100 mls/hr IV Q48H [facility] Stop: 10/29/17 12:31 Dextrose (Dextrose 5% In Water 1000 Ml) 1,000 mls @ 50 mls/hr IV .Q20H [facility] Stop: 10/24/17 23:31 Results - Vital Signs Recent Vital Signs: Last Vital Signs Temp 99.8 F H 10/23/17 16:00 Pulse 110 H 10/23/17 18:00 Resp 14 10/23/17 18:00 BP 101/68 10/23/17 18:00 Pulse Ox 99 10/23/17 18:00 - Labs Result Diagrams: 10/23/17 04:10 10/23/17 04:10 Labs: Laboratory Results - last 24 hr 10/23/17 10/23/17 10/23/17 04:10 04:10 04:14 WBC 25.7 H RBC 3.72 L Hgb 10.5 L Hct 33.6 L MCV 90.3 D MCH 28.3 MCHC 31.3 L RDW 23.5 H Plt Count 189 MPV 7.3 Neut % (Auto) 84.2 H Lymph % (Auto) 9.0 L [place] % (Auto) 6.4 Eos % (Auto) 0.1 Baso % (Auto) 0.3 Neut # 21.7 H Lymph # 2.3 [place] # 1.6 H Eos # 0.0 Baso # 0.1 Neutrophils % (Manual) 71 Band Neutrophils % 5 H Lymphocytes % (Manual) 8 L Monocytes % (Manual) 4 Metamyelocytes % 6 H Myelocytes % 6 H Nucleated RBC % 2 H Toxic Granulation Present Platelet Estimate Normal Hypochromasia (manual) Slight Anisocytosis (manual) Marked Tear Drop Cells Slight Ovalocytes Slight pCO2 pO2 HCO3 ABG pH ABG Total CO2 ABG O2 Saturation ABG O2 Content ABG Base Excess ABG Hemoglobin ABG Carboxyhemoglobin POC ABG HHb (Measured) ABG Methemoglobin ABG O2 Capacity Jagjit Test A-a O2 Difference Hgb O2 Saturation Vent Mode Mechanical Rate FiO2 Tidal Volume PEEP Sodium 153 H Potassium 4.3 Chloride 126 H Carbon Dioxide 15 L Anion Gap 16 BUN 78 H Creatinine 2.8 H Est GFR ( Amer) 27 Est GFR (Non-Af Amer) 22 POC Glucose (mg/dL) 143 H Random Glucose 107 Calcium 6.6 L 10/23/17 10/23/17 05:13 17:05 WBC RBC Hgb Hct MCV MCH MCHC RDW Plt Count MPV Neut % (Auto) Lymph % (Auto) [place] % (Auto) Eos % (Auto) Baso % (Auto) Neut # Lymph # [place] # Eos # Baso # Neutrophils % (Manual) Band Neutrophils % Lymphocytes % (Manual) Monocytes % (Manual) Metamyelocytes % Myelocytes % Nucleated RBC % Toxic Granulation Platelet Estimate Hypochromasia (manual) Anisocytosis (manual) Tear Drop Cells Ovalocytes pCO2 26 L pO2 194 H HCO3 14.8 L ABG pH 7.28 L ABG Total CO2 13.0 L ABG O2 Saturation 99.4 H ABG O2 Content 15.9 ABG Base Excess -13.0 L ABG Hemoglobin 11.4 L ABG Carboxyhemoglobin 1.2 POC ABG HHb (Measured) 0.6 ABG Methemoglobin 1.7 ABG O2 Capacity 16.0 Jagjit Test Yes A-a O2 Difference 59.0 Hgb O2 Saturation 96.4 Vent Mode A/c Mechanical Rate 14 FiO2 40.0 Tidal Volume 450 PEEP 5 Sodium Potassium Chloride Carbon Dioxide Anion Gap BUN Creatinine Est GFR ( Amer) Est GFR (Non-Af Amer) POC Glucose (mg/dL) 81 Random Glucose Calcium Assessment & Plan - Date & Time Date: 10/23/17 Time: 15:00
[2017-10-24] MEDS: Meropenem 500 MG in Sodium Chloride 0.9% 100 ML IVPB SCH ×3 (00:43→16:17)
--- NOTE | 2017-10-24 02:25 | PN ---
DATE: 10/23/2017 SUBJECTIVE: The patient is seen today, 10/23/2017. He is still intubated and not able to extubate to wean him off ventilator. Patient is off Cardizem drip. PHYSICAL EXAMINATION: VITAL SIGNS: Blood pressure 101/68, temperature 99.8, respiratory rate 13, and pulse 110. NECK: No JVD. No carotid bruit. No lymph node. No thyromegaly. CHEST AND LUNGS: Bilateral symmetrical expansion. Decreased air entry in both lower lung ortega. CARDIOVASCULAR SYSTEM: PMI not localized. S1 and S2. No additional sounds. ABDOMEN: Normoactive bowel sounds. No tenderness. No organomegaly. No masses. EXTREMITIES: No cyanosis, no clubbing. No edema. SENIOR OFFICE ASSISTANT: Patient is on ventilator, sedated. ASSESSMENT: 1. Acute kidney injury, likely secondary to dehydration with prerenal azotemia. 2. Metastatic cancer of prostate. 3. Severe aortic stenosis. PLAN: Continue current medications and antibiotics. Follow recommendations of the consultants. Guarded prognosis. [facility] MD [place]
[2017-10-24 05:21] LABS: BASO # 0.1 K/uL (0.0-0.2); BASO % 0.6 % (0.0-2.0); EOS % 0.1 % (0.0-4.0); HEMATOCRIT 34.3 % (35.0-51.0); LYMPH % 8.8 % (20.0-40.0); MEAN CELL VOLUME 90.5 fl (80.0-94.0); MEAN CORPUSCULAR HEMOGLOBIN 28.3 pg (27.0-31.0); MEAN CORPUSCULAR HGB CONC 31.3 g/dL (33.0-37.0); MEAN PLATELET VOLUME 7.4 fl (7.2-11.7); MONO # 1.2 K/uL (0.0-0.8); MONO % 5.1 % (0.0-10.0); NEUT # 19.9 K/uL (1.8-7.0); NEUT % 85.4 % (50.0-75.0); NRBC % 0.2 % (0.0-0.0); RED CELL DISTRIBUTION WIDTH 23.4 % (11.5-14.5); WHITE BLOOD COUNT 23.3 K/uL (4.8-10.8)
[2017-10-24 05:29] LABS: ABG ALLEN TEST YES; ABG MECHANICAL RATE 14; ARTERIAL BLOOD GAS HCO3 14.4 mmol/L (21-28); ARTERIAL BLOOD GAS MODE A/C; ARTERIAL BLOOD GAS PH 7.28 (7.35-7.45); ARTERIAL BLOOD GAS PO2 148 mm/Hg (80-100); ATERIAL BLOOD GAS PEEP 5
[2017-10-24 05:32] LABS: ALB/GLOB RATIO 0.8 (1.0-2.1); BILIRUBIN,TOTAL 0.9 mg/dl (0.2-1.3); CALCIUM 6.4 mg/dL (8.4-10.2); POTASSIUM 4.5 MMOL/L (3.6-5.0)
[2017-10-24 06:08] LABS: PARTIAL THROMBOPLASTIN TIME 36.5 Seconds (25.6-37.1)
--- NOTE | 2017-10-24 07:51 | CP.PCM.PN ---
<Yanira Bowers - Last Filed: 10/24/17 14:11> Subjective - Date & Time of Evaluation Date of Evaluation: 10/24/17 Time of Evaluation: 07:50 - Subjective Subjective: PGY 4 GI follow-up Pt seen and examined beside no overnight events reconsulted for elevated LFT BP still borderline ROS: could not be conducted Objective - Vital Signs/Intake and Output Vital Signs (last 24 hours): Temp Pulse Resp BP Pulse Ox 100.2 F H 108 H 16 103/71 100 10/24/17 04:00 10/24/17 07:00 10/24/17 07:00 10/24/17 07:00 10/24/17 07:00 Intake and Output: 10/24/17 10/24/17 06:59 18:59 Intake Total 800 Output Total 200 Balance 600 - Medications Medications: Current Medications Acetaminophen (Tylenol 650 Mg Supp) 650 mg [place] ONCE PRN PRN Reason: Fever >100.4 F Digoxin (Lanoxin) 0.125 mg IVP DAILY [facility] Last Admin: 10/23/17 08:33 Dose: 0.125 mg Famotidine (Pepcid) 20 mg PO DAILY [facility] Last Admin: 10/23/17 09:00 Dose: Not Given Hydromorphone HCl (Dilaudid) 1 mg IVP Q4 PRN PRN Reason: Pain, moderate (4-7) Last Admin: 10/24/17 00:45 Dose: 1 mg Levofloxacin/Dextrose (Levaquin 500mg) 500 mg in 100 mls @ 100 mls/hr IVPB DAILY [facility] PRN Reason: Protocol Last Admin: 10/23/17 08:33 Dose: 100 mls/hr Meropenem 500 mg/ Sodium (Chloride) 100 mls @ 100 mls/hr IVPB Q8 [facility] PRN Reason: Protocol Last Admin: 10/24/17 00:43 Dose: 100 mls/hr Daptomycin 410 mg/ Sodium (Chloride) 100 mls @ 100 mls/hr IV Q48H [facility] Stop: 10/29/17 12:31 Dextrose (Dextrose 5% In Water 1000 Ml) 1,000 mls @ 50 mls/hr IV .Q20H [facility] Stop: 10/24/17 23:31 Last Admin: 10/24/17 00:43 Dose: 50 mls/hr Lorazepam (Ativan) 1 mg IVP Q6 [facility] Last Admin: 10/24/17 04:11 Dose: 1 mg - Labs Labs: 10/24/17 04:20 10/24/17 04:20 PT 28.9 Seconds (9.8-13.1) H 10/24/17 04:20 INR 2.6 (0.9-1.2) H 10/24/17 04:20 APTT 36.5 Seconds (25.6-37.1) 10/24/17 04:20 - Constitutional Appears: No Acute Distress, Chronically Ill - Head Exam Head Exam: ATRAUMATIC, NORMOCEPHALIC - Eye Exam Eye Exam: Normal appearance - ENT Exam ENT Exam: Mucous Membranes Moist - Respiratory Exam Respiratory Exam: Clear to Ausculation Bilateral, NORMAL BREATHING PATTERN. absent: Rales, Rhonchi, Wheezes, Respiratory Distress - Cardiovascular Exam Cardiovascular Exam: REGULAR RHYTHM, +S1, +S2 - GI/Abdominal Exam GI & Abdominal Exam: Distended, Normal Bowel Sounds. absent: Guarding, Rigid, Hypoactive Bowel Sounds, Organomegaly - Extremities Exam Extremities Exam: absent: Joint Swelling, Pedal Edema - Neurological Exam Neurological Exam: Altered. absent: Alert, Awake, Oriented x3 - Psychiatric Exam Additional comments: could not assess - Skin Skin Exam: Dry, Intact, Normal Color, Warm Assessment and Plan - Assessment and Plan (Free Text) Assessment: Divina Ray is a 77M w/ hx of metastatic prostate cancer on chemo, aortic stenosis who presented with weakness and SOB. Pt was ultimately intubated and his being treated for PNA. He reportedly had 1-2 episodes of melena with a drop in hgb to ~6.4. Pt was transfused 2 units PRBC. Pt has elevated LFTs with elevated Alk Phos, AST, and GGT ~1400; etiology is likely from liver and bone mets. Sepsis VDRF Metastatic Prostate Cancer with lesions to the liver Elevated LFTs; DDx: ischemic hepatitis, abx/drug induced liver injury, cholestatis Diffuse GB wall thickening on Abdominal U/S without stones, etiology acalcanous cholecystitis? LISBETH Plan: -guarded prognosis -if LFTs are worsening with no improvement in Sepsis, can consider cholecystostomy -though a tube could become a potential source of infection -Maintain MAP > 65 to avoid hypoperfusion -trend LFTs -hgb stable, no need for additional transfusions -code status changed to DNR -in the setting of multiorgan failure, consider hospice consult Will D/W Dr. Alarcon <Amilcar Alarcon MD - Last Filed: 10/24/17 16:37> Objective - Vital Signs/Intake and Output Vital Signs (last 24 hours): Temp Pulse Resp BP Pulse Ox 98.1 F 126 H 15 79/60 L 99 10/24/17 16:00 10/24/17 16:00 10/24/17 14:00 10/24/17 16:00 10/24/17 16:00 Intake and Output: 10/24/17 10/24/17 06:59 18:59 Intake Total 800 780 Output Total 200 Balance 600 780 - Medications Medications: Current Medications Acetaminophen (Tylenol 650 Mg Supp) 650 mg [place] ONCE PRN PRN Reason: Fever >100.4 F Digoxin (Lanoxin) 0.125 mg IVP DAILY [facility] Last Admin: 10/24/17 08:40 Dose: 0.125 mg Famotidine (Pepcid) 20 mg PO DAILY [facility] Last Admin: 10/24/17 11:20 Dose: 20 mg Hydromorphone HCl (Dilaudid) 1 mg IVP Q4 PRN PRN Reason: Pain, moderate (4-7) Last Admin: 10/24/17 10:24 Dose: 1 mg Levofloxacin/Dextrose (Levaquin 500mg) 500 mg in 100 mls @ 100 mls/hr IVPB DAILY [facility] PRN Reason: Protocol Last Admin: 10/24/17 11:38 Dose: 100 mls/hr Meropenem 500 mg/ Sodium (Chloride) 100 mls @ 100 mls/hr IVPB Q8 [facility] PRN Reason: Protocol Last Admin: 10/24/17 16:17 Dose: 100 mls/hr Daptomycin 410 mg/ Sodium (Chloride) 100 mls @ 100 mls/hr IV Q48H [facility] Stop: 10/29/17 12:31 Last Admin: 10/24/17 11:38 Dose: 100 mls/hr Dextrose (Dextrose 5% In Water 1000 Ml) 1,000 mls @ 50 mls/hr IV .Q20H [facility] Stop: 10/24/17 23:31 Last Admin: 10/24/17 00:43 Dose: 50 mls/hr Vancomycin HCl 500 mg/ Sodium (Chloride) 100 mls @ 100 mls/hr IVPB QOTHERDAY [facility] PRN Reason: Protocol Lorazepam (Ativan) 1 mg IVP Q6 [facility] Last Admin: 10/24/17 16:15 Dose: Not Given - Labs Labs: 10/24/17 04:20 10/24/17 04:20 PT 28.9 Seconds (9.8-13.1) H 10/24/17 04:20 INR 2.6 (0.9-1.2) H 10/24/17 04:20 APTT 36.5 Seconds (25.6-37.1) 10/24/17 04:20 Attending/Attestation - Attestation I have personally seen and examined this patient.: Yes I have fully participated in the care of the patient.: Yes I have reviewed all pertinent clinical information, including history, physical exam and plan: Yes Notes (Text): 10/24/17 16:33 77 yr old M w/ hx of metastatic prostate cancer on chemo, aortic stenosis who presented with weakness and SOB. Respiratory distress led to intubation with underlying PNA being treated with broad spectrum antibiotics. He reportedly had 1-2 episodes of dark stool ? with a drop in hgb to ~6.4 s/p 2 units PRBC. Pt has elevated LFTs with elevated Alk Phos, AST, and GGT ~1400; etiology is likely from liver and bone mets, ischemic hepatitis due to hypotension. Sonogram shows diffuse GB wall thickening. Rule out acalculous cholecystitis and consider IR percutaneous cholecystostomy. Guarded prognosis with multi organ failure. Team to discuss hospice with family. No Gi intervention required currently.
[2017-10-24] MEDS: Digoxin 500 mcg/2ml (0.5 mg/2ml) Inj IVP SCH (08:40)
--- NOTE | 2017-10-24 09:03 | RAD ---
HISTORY: intubated COMPARISON: Chest radiograph dated 10/23/2017. FINDINGS: LUNGS: No active pulmonary disease. PLEURA: No significant pleural effusion identified, no pneumothorax apparent. CARDIOVASCULAR: Normal. OSSEOUS STRUCTURES: Unchanged. VISUALIZED UPPER ABDOMEN: Normal. OTHER FINDINGS: Endotracheal tube, unchanged. IMPRESSION: No active disease. No significant interval change.
--- NOTE | 2017-10-24 09:27 | CP.PCM.PN ---
Subjective - Date & Time of Evaluation Date of Evaluation: 10/24/17 Time of Evaluation: 09:28 - Subjective Subjective: MORE AWAKE HYPOTENSIVE AND TACHYCARDIC STILL ON THE VENT Objective - Vital Signs/Intake and Output Vital Signs (last 24 hours): Temp Pulse Resp BP Pulse Ox 97.3 F L 120 H 12 99/71 L 100 10/24/17 08:00 10/24/17 08:00 10/24/17 08:00 10/24/17 08:00 10/24/17 08:00 Intake and Output: 10/24/17 10/24/17 06:59 18:59 Intake Total 800 100 Output Total 200 Balance 600 100 - Medications Medications: Current Medications Acetaminophen (Tylenol 650 Mg Supp) 650 mg [place] ONCE PRN PRN Reason: Fever >100.4 F Digoxin (Lanoxin) 0.125 mg IVP DAILY [facility] Last Admin: 10/24/17 08:40 Dose: 0.125 mg Famotidine (Pepcid) 20 mg PO DAILY [facility] Last Admin: 10/23/17 09:00 Dose: Not Given Hydromorphone HCl (Dilaudid) 1 mg IVP Q4 PRN PRN Reason: Pain, moderate (4-7) Last Admin: 10/24/17 00:45 Dose: 1 mg Levofloxacin/Dextrose (Levaquin 500mg) 500 mg in 100 mls @ 100 mls/hr IVPB DAILY [facility] PRN Reason: Protocol Last Admin: 10/23/17 08:33 Dose: 100 mls/hr Meropenem 500 mg/ Sodium (Chloride) 100 mls @ 100 mls/hr IVPB Q8 [facility] PRN Reason: Protocol Last Admin: 10/24/17 08:41 Dose: 100 mls/hr Daptomycin 410 mg/ Sodium (Chloride) 100 mls @ 100 mls/hr IV Q48H [facility] Stop: 10/29/17 12:31 Dextrose (Dextrose 5% In Water 1000 Ml) 1,000 mls @ 50 mls/hr IV .Q20H [facility] Stop: 10/24/17 23:31 Last Admin: 10/24/17 00:43 Dose: 50 mls/hr Lorazepam (Ativan) 1 mg IVP Q6 [facility] Last Admin: 10/24/17 04:11 Dose: 1 mg - Labs Labs: 10/24/17 04:20 10/24/17 04:20 PT 28.9 Seconds (9.8-13.1) H 10/24/17 04:20 INR 2.6 (0.9-1.2) H 10/24/17 04:20 APTT 36.5 Seconds (25.6-37.1) 10/24/17 04:20 - Constitutional Appears: Well, Chronically Ill - Head Exam Head Exam: ATRAUMATIC, NORMAL INSPECTION, NORMOCEPHALIC - Eye Exam Eye Exam: EOMI, Normal appearance, PERRL Pupil Exam: NORMAL ACCOMODATION, PERRL - ENT Exam ENT Exam: Mucous Membranes Moist, Normal Exam - Neck Exam Neck Exam: Full ROM, Normal Inspection. absent: Lymphadenopathy - Respiratory Exam Respiratory Exam: Decreased Breath Sounds, Clear to Ausculation Bilateral, Rales - Cardiovascular Exam Cardiovascular Exam: Tachycardia, REGULAR RHYTHM, +S1, +S2. absent: Murmur - GI/Abdominal Exam GI & Abdominal Exam: Soft, Normal Bowel Sounds. absent: Tenderness - Rectal Exam Rectal Exam: NORMAL INSPECTION - Extremities Exam Extremities Exam: Full ROM, Normal Capillary Refill, Pedal Edema. absent: Joint Swelling - Back Exam Back Exam: NORMAL INSPECTION - Neurological Exam Neurological Exam: Alert, Awake - Psychiatric Exam Psychiatric exam: Normal Affect, Normal Mood - Skin Skin Exam: Dry, Intact, Normal Color, Warm Assessment and Plan - Assessment and Plan (Free Text) Assessment: MULTIORGAN FAILURE Plan: CONTINUE PRESENT RX AND ATTEMPTS TO EXTUBATE
--- NOTE | 2017-10-24 10:54 | CP.PCM.PN ---
Subjective - Date & Time of Evaluation Date of Evaluation: 10/24/17 Time of Evaluation: 10:54 - Subjective Subjective: ID Note- Pt. seen and examined today in ICU. his daughter and are also at his bedside. pt. remains lethargic but as per nurse and also as per his daughter he was more responsive earlier today but he was given sedation to place NGT for feeds. Objective - Vital Signs/Intake and Output Vital Signs (last 24 hours): Temp Pulse Resp BP Pulse Ox 97.3 F L 116 H 28 H 113/74 94 L 10/24/17 08:00 10/24/17 10:00 10/24/17 10:00 10/24/17 10:00 10/24/17 10:00 Intake and Output: 10/24/17 10/24/17 06:59 18:59 Intake Total 800 200 Output Total 200 Balance 600 200 - Medications Medications: Current Medications Acetaminophen (Tylenol 650 Mg Supp) 650 mg TX ONCE PRN PRN Reason: Fever >100.4 F Digoxin (Lanoxin) 0.125 mg IVP DAILY [facility] Last Admin: 10/24/17 08:40 Dose: 0.125 mg Famotidine (Pepcid) 20 mg PO DAILY [facility] Last Admin: 10/23/17 09:00 Dose: Not Given Hydromorphone HCl (Dilaudid) 1 mg IVP Q4 PRN PRN Reason: Pain, moderate (4-7) Last Admin: 10/24/17 10:24 Dose: 1 mg Levofloxacin/Dextrose (Levaquin 500mg) 500 mg in 100 mls @ 100 mls/hr IVPB DAILY [facility] PRN Reason: Protocol Last Admin: 10/23/17 08:33 Dose: 100 mls/hr Meropenem 500 mg/ Sodium (Chloride) 100 mls @ 100 mls/hr IVPB Q8 [facility] PRN Reason: Protocol Last Admin: 10/24/17 08:41 Dose: 100 mls/hr Daptomycin 410 mg/ Sodium (Chloride) 100 mls @ 100 mls/hr IV Q48H [facility] Stop: 10/29/17 12:31 Dextrose (Dextrose 5% In Water 1000 Ml) 1,000 mls @ 50 mls/hr IV .Q20H [facility] Stop: 10/24/17 23:31 Last Admin: 10/24/17 00:43 Dose: 50 mls/hr Lorazepam (Ativan) 1 mg IVP Q6 [facility] Last Admin: 10/24/17 10:24 Dose: 1 mg - Labs Labs: - Additional Findings Additional findings: - Constitutional Appears: Chronically Ill - Head Exam Head Exam: ATRAUMATIC - ENT Exam Additional comments: ET tube in place - Neck Exam Additional comments: supple - Respiratory Exam Additional comments: breath sounds heard b/l decreased at bases - Cardiovascular Exam Cardiovascular Exam: Tachycardia, +S1, +S2 - GI/Abdominal Exam GI & Abdominal Exam: Normal Bowel Sounds, Soft Additional comments: NT, ND - Extremities Exam Additional comments: trace edema b/l LE - Neurological Exam Additional comments: lethargic - Additional Findings Additional findings: Lines- gonzales cath right femoral TLC 2 peripheral IVL in b/l hands Laboratory Results - last 72 hr 10/19/17 10/19/17 10/21/17 17:00 17:00 16:24 WBC RBC Hgb Hct MCV MCH MCHC RDW Plt Count MPV Neut % (Auto) Lymph % (Auto) [place] % (Auto) Eos % (Auto) Baso % (Auto) Neut # Lymph # [place] # Eos # Baso # Neutrophils % (Manual) Band Neutrophils % Lymphocytes % (Manual) Monocytes % (Manual) Metamyelocytes % Myelocytes % Nucleated RBC % Toxic Granulation Platelet Estimate Hypochromasia (manual) Anisocytosis (manual) Tear Drop Cells Ovalocytes PT INR APTT pCO2 pO2 HCO3 ABG pH ABG Total CO2 ABG O2 Saturation ABG O2 Content ABG Base Excess ABG Hemoglobin ABG Carboxyhemoglobin POC ABG HHb (Measured) ABG Methemoglobin ABG O2 Capacity Jagjit Test ABG Potassium A-a O2 Difference Hgb O2 Saturation Glucose Lactate Vent Mode Mechanical Rate FiO2 Tidal Volume PEEP Sodium Potassium Chloride Carbon Dioxide Anion Gap BUN Creatinine Est GFR ( Amer) Est GFR (Non-Af Amer) POC Glucose (mg/dL) Random Glucose Calcium Total Bilirubin Direct Bilirubin AST ALT Alkaline Phosphatase Total Protein Albumin Globulin Albumin/Globulin Ratio Calcium (PTH Intact) 6.9 L PTH w/Ion &Tot Calcium 129 H Arterial Blood Potassium Urine Color Yellow Urine Clarity Cloudy Urine pH 6.0 Ur Specific [place] 1.017 Urine Protein 100 Urine Glucose (UA) Neg Urine Ketones Negative Urine Blood Large Urine Nitrate Negative Urine Bilirubin Negative Urine Urobilinogen 2.0 Ur Leukocyte Esterase Neg Urine RBC (Auto) 144 H Urine Microscopic WBC 3 Amorphous Sediment Rare H Urine Bacteria Rare Digoxin Urine Immunofixation Not detected 10/22/17 10/22/17 10/22/17 04:20 04:20 05:00 WBC 24.0 H RBC 3.76 L Hgb 10.6 L Hct 33.2 L MCV 88.2 MCH 28.3 MCHC 32.1 L RDW 23.2 H Plt Count 202 MPV Neut % (Auto) Lymph % (Auto) [place] % (Auto) Eos % (Auto) Baso % (Auto) Neut # Lymph # [place] # Eos # Baso # Neutrophils % (Manual) Band Neutrophils % Lymphocytes % (Manual) Monocytes % (Manual) Metamyelocytes % Myelocytes % Nucleated RBC % Toxic Granulation Platelet Estimate Hypochromasia (manual) Anisocytosis (manual) Tear Drop Cells Ovalocytes PT INR APTT pCO2 pO2 HCO3 ABG pH ABG Total CO2 ABG O2 Saturation ABG O2 Content ABG Base Excess ABG Hemoglobin ABG Carboxyhemoglobin POC ABG HHb (Measured) ABG Methemoglobin ABG O2 Capacity Jagjit Test ABG Potassium A-a O2 Difference Hgb O2 Saturation Glucose Lactate Vent Mode Mechanical Rate FiO2 Tidal Volume PEEP Sodium 155 H Potassium 3.7 Chloride 128 H Carbon Dioxide 17 L Anion Gap 14 BUN 65 H Creatinine 2.2 H Est GFR ( Amer) 35 Est GFR (Non-Af Amer) 29 POC Glucose (mg/dL) Random Glucose 107 Calcium 7.1 L Total Bilirubin Direct Bilirubin AST ALT Alkaline Phosphatase Total Protein Albumin Globulin Albumin/Globulin Ratio Calcium (PTH Intact) PTH w/Ion &Tot Calcium Arterial Blood Potassium Urine Color Urine Clarity Urine pH Ur Specific [place] Urine Protein Urine Glucose (UA) Urine Ketones Urine Blood Urine Nitrate Urine Bilirubin Urine Urobilinogen Ur Leukocyte Esterase Urine RBC (Auto) Urine Microscopic WBC Amorphous Sediment Urine Bacteria Digoxin 1.4 Urine Immunofixation 10/22/17 10/22/17 10/22/17 05:25 06:49 17:08 WBC RBC Hgb Hct MCV MCH MCHC RDW Plt Count MPV Neut % (Auto) Lymph % (Auto) [place] % (Auto) Eos % (Auto) Baso % (Auto) Neut # Lymph # [place] # Eos # Baso # Neutrophils % (Manual) Band Neutrophils % Lymphocytes % (Manual) Monocytes % (Manual) Metamyelocytes % Myelocytes % Nucleated RBC % Toxic Granulation Platelet Estimate Hypochromasia (manual) Anisocytosis (manual) Tear Drop Cells Ovalocytes PT INR APTT pCO2 24 L pO2 175 H HCO3 17.9 L ABG pH 7.38 ABG Total CO2 14.9 L ABG O2 Saturation 99.0 H ABG O2 Content 18.7 ABG Base Excess -9.0 L ABG Hemoglobin 13.6 ABG Carboxyhemoglobin 1.3 POC ABG HHb (Measured) 1.0 ABG Methemoglobin 1.6 ABG O2 Capacity 18.9 Jagjit Test Yes ABG Potassium A-a O2 Difference 152.0 Hgb O2 Saturation 96.1 Glucose Lactate Vent Mode A/c Mechanical Rate 14 FiO2 50.0 Tidal Volume 450 PEEP 5 Sodium Potassium Chloride Carbon Dioxide Anion Gap BUN Creatinine Est GFR ( Amer) Est GFR (Non-Af Amer) POC Glucose (mg/dL) 106 Random Glucose Calcium Total Bilirubin 0.9 Direct Bilirubin 0.9 H AST 228 H ALT 69 Alkaline Phosphatase 479 H Total Protein 5.4 L Albumin 2.4 L Globulin 2.9 Albumin/Globulin Ratio 0.8 L Calcium (PTH Intact) PTH w/Ion &Tot Calcium Arterial Blood Potassium Urine Color Urine Clarity Urine pH Ur Specific [place] Urine Protein Urine Glucose (UA) Urine Ketones Urine Blood Urine Nitrate Urine Bilirubin Urine Urobilinogen Ur Leukocyte Esterase Urine RBC (Auto) Urine Microscopic WBC Amorphous Sediment Urine Bacteria Digoxin Urine Immunofixation 10/22/17 10/23/17 10/23/17 21:36 04:10 04:10 WBC 25.7 H RBC 3.72 L Hgb 10.5 L Hct 33.6 L MCV 90.3 D MCH 28.3 MCHC 31.3 L RDW 23.5 H Plt Count 189 MPV 7.3 Neut % (Auto) 84.2 H Lymph % (Auto) 9.0 L [place] % (Auto) 6.4 Eos % (Auto) 0.1 Baso % (Auto) 0.3 Neut # 21.7 H Lymph # 2.3 [place] # 1.6 H Eos # 0.0 Baso # 0.1 Neutrophils % (Manual) 71 Band Neutrophils % 5 H Lymphocytes % (Manual) 8 L Monocytes % (Manual) 4 Metamyelocytes % 6 H Myelocytes % 6 H Nucleated RBC % 2 H Toxic Granulation Present Platelet Estimate Normal Hypochromasia (manual) Slight Anisocytosis (manual) Marked Tear Drop Cells Slight Ovalocytes Slight PT INR APTT pCO2 pO2 HCO3 ABG pH ABG Total CO2 ABG O2 Saturation ABG O2 Content ABG Base Excess ABG Hemoglobin ABG Carboxyhemoglobin POC ABG HHb (Measured) ABG Methemoglobin ABG O2 Capacity Jagjit Test ABG Potassium A-a O2 Difference Hgb O2 Saturation Glucose Lactate Vent Mode Mechanical Rate FiO2 Tidal Volume PEEP Sodium 153 H Potassium 4.3 Chloride 126 H Carbon Dioxide 15 L Anion Gap 16 BUN 78 H Creatinine 2.8 H Est GFR ( Amer) 27 Est GFR (Non-Af Amer) 22 POC Glucose (mg/dL) 93 Random Glucose 107 Calcium 6.6 L Total Bilirubin Direct Bilirubin AST ALT Alkaline Phosphatase Total Protein Albumin Globulin Albumin/Globulin Ratio Calcium (PTH Intact) PTH w/Ion &Tot Calcium Arterial Blood Potassium Urine Color Urine Clarity Urine pH Ur Specific [place] Urine Protein Urine Glucose (UA) Urine Ketones Urine Blood Urine Nitrate Urine Bilirubin Urine Urobilinogen Ur Leukocyte Esterase Urine RBC (Auto) Urine Microscopic WBC Amorphous Sediment Urine Bacteria Digoxin Urine Immunofixation 10/23/17 10/23/17 10/23/17 04:14 05:13 17:05 WBC RBC Hgb Hct MCV MCH MCHC RDW Plt Count MPV Neut % (Auto) Lymph % (Auto) [place] % (Auto) Eos % (Auto) Baso % (Auto) Neut # Lymph # [place] # Eos # Baso # Neutrophils % (Manual) Band Neutrophils % Lymphocytes % (Manual) Monocytes % (Manual) Metamyelocytes % Myelocytes % Nucleated RBC % Toxic Granulation Platelet Estimate Hypochromasia (manual) Anisocytosis (manual) Tear Drop Cells Ovalocytes PT INR APTT pCO2 26 L pO2 194 H HCO3 14.8 L ABG pH 7.28 L ABG Total CO2 13.0 L ABG O2 Saturation 99.4 H ABG O2 Content 15.9 ABG Base Excess -13.0 L ABG Hemoglobin 11.4 L ABG Carboxyhemoglobin 1.2 POC ABG HHb (Measured) 0.6 ABG Methemoglobin 1.7 ABG O2 Capacity 16.0 Jagjit Test Yes ABG Potassium A-a O2 Difference 59.0 Hgb O2 Saturation 96.4 Glucose Lactate Vent Mode A/c Mechanical Rate 14 FiO2 40.0 Tidal Volume 450 PEEP 5 Sodium Potassium Chloride Carbon Dioxide Anion Gap BUN Creatinine Est GFR ( Amer) Est GFR (Non-Af Amer) POC Glucose (mg/dL) 143 H 81 Random Glucose Calcium Total Bilirubin Direct Bilirubin AST ALT Alkaline Phosphatase Total Protein Albumin Globulin Albumin/Globulin Ratio Calcium (PTH Intact) PTH w/Ion &Tot Calcium Arterial Blood Potassium Urine Color Urine Clarity Urine pH Ur Specific [place] Urine Protein Urine Glucose (UA) Urine Ketones Urine Blood Urine Nitrate Urine Bilirubin Urine Urobilinogen Ur Leukocyte Esterase Urine RBC (Auto) Urine Microscopic WBC Amorphous Sediment Urine Bacteria Digoxin Urine Immunofixation 10/24/17 10/24/17 10/24/17 04:20 04:20 04:20 WBC 23.3 H RBC 3.79 L Hgb 10.7 L Hct 34.3 L MCV 90.5 MCH 28.3 MCHC 31.3 L RDW 23.4 H Plt Count 172 MPV 7.4 Neut % (Auto) 85.4 H Lymph % (Auto) 8.8 L [place] % (Auto) 5.1 Eos % (Auto) 0.1 Baso % (Auto) 0.6 Neut # 19.9 H Lymph # 2.0 [place] # 1.2 H Eos # 0.0 Baso # 0.1 Neutrophils % (Manual) Band Neutrophils % Lymphocytes % (Manual) Monocytes % (Manual) Metamyelocytes % Myelocytes % Nucleated RBC % Toxic Granulation Platelet Estimate Hypochromasia (manual) Anisocytosis (manual) Tear Drop Cells Ovalocytes PT 28.9 H INR 2.6 H APTT 36.5 pCO2 pO2 HCO3 ABG pH ABG Total CO2 ABG O2 Saturation ABG O2 Content ABG Base Excess ABG Hemoglobin ABG Carboxyhemoglobin POC ABG HHb (Measured) ABG Methemoglobin ABG O2 Capacity Jagjit Test ABG Potassium A-a O2 Difference Hgb O2 Saturation Glucose Lactate Vent Mode Mechanical Rate FiO2 Tidal Volume PEEP Sodium 149 H Potassium 4.5 Chloride 122 H Carbon Dioxide 14 L Anion Gap 18 BUN 96 H Creatinine 3.7 H Est GFR ( Amer) 19 Est GFR (Non-Af Amer) 16 POC Glucose (mg/dL) Random Glucose 94 Calcium 6.4 L Total Bilirubin 0.9 Direct Bilirubin AST 524 H D ALT 88 H D Alkaline Phosphatase 454 H Total Protein 5.0 L Albumin 2.2 L Globulin 2.7 Albumin/Globulin Ratio 0.8 L Calcium (PTH Intact) PTH w/Ion &Tot Calcium Arterial Blood Potassium Urine Color Urine Clarity Urine pH Ur Specific [place] Urine Protein Urine Glucose (UA) Urine Ketones Urine Blood Urine Nitrate Urine Bilirubin Urine Urobilinogen Ur Leukocyte Esterase Urine RBC (Auto) Urine Microscopic WBC Amorphous Sediment Urine Bacteria Digoxin Urine Immunofixation 10/24/17 05:23 WBC RBC Hgb Hct MCV MCH MCHC RDW Plt Count MPV Neut % (Auto) Lymph % (Auto) [place] % (Auto) Eos % (Auto) Baso % (Auto) Neut # Lymph # [place] # Eos # Baso # Neutrophils % (Manual) Band Neutrophils % Lymphocytes % (Manual) Monocytes % (Manual) Metamyelocytes % Myelocytes % Nucleated RBC % Toxic Granulation Platelet Estimate Hypochromasia (manual) Anisocytosis (manual) Tear Drop Cells Ovalocytes PT INR APTT pCO2 24 L pO2 148 H HCO3 14.4 L ABG pH 7.28 L ABG Total CO2 12.0 L ABG O2 Saturation 99.2 H ABG O2 Content ABG Base Excess -13.6 L ABG Hemoglobin ABG Carboxyhemoglobin POC ABG HHb (Measured) ABG Methemoglobin ABG O2 Capacity Jagjit Test Yes ABG Potassium 4.6 A-a O2 Difference 107.0 Hgb O2 Saturation Glucose 99 Lactate 3.0 H Vent Mode A/c Mechanical Rate 14 FiO2 40.0 Tidal Volume 450 PEEP 5 Sodium 143.0 Potassium Chloride 120.0 H Carbon Dioxide Anion Gap BUN Creatinine Est GFR ( Amer) Est GFR (Non-Af Amer) POC Glucose (mg/dL) Random Glucose Calcium Total Bilirubin Direct Bilirubin AST ALT Alkaline Phosphatase Total Protein Albumin Globulin Albumin/Globulin Ratio Calcium (PTH Intact) PTH w/Ion &Tot Calcium Arterial Blood Potassium 4.6 Urine Color Urine Clarity Urine pH Ur Specific [place] Urine Protein Urine Glucose (UA) Urine Ketones Urine Blood Urine Nitrate Urine Bilirubin Urine Urobilinogen Ur Leukocyte Esterase Urine RBC (Auto) Urine Microscopic WBC Amorphous Sediment Urine Bacteria Digoxin Urine Immunofixation Microbiology 10/21/17 05:00 Trachasp Gram Stain - Final 10/21/17 05:00 Trachasp Sputum Culture - Final Staphylococcus Aureus 10/21/17 16:50 Blood-Venous S.aureus & Coag-Neg Staph PNA FISH - Final 10/21/17 16:50 Blood-Venous Blood Culture - Preliminary Gram Positive Cocci 10/21/17 16:50 Blood-Venous Gram Stain - Final 10/18/17 20:00 Blood-Venous Blood Culture - Final NO GROWTH AFTER 5 DAYS 10/18/17 20:00 Blood-Venous Gram Stain - Final TEST NOT PERFORMED 10/21/17 17:01 Blood-Thru Central Line Blood Culture - Preliminary NO GROWTH AFTER 48 HOURS 10/21/17 16:24 Urine,Gonzales Urine Culture - Final No Growth (<1,000 CFU/ML) 10/18/17 20:30 Blood-Venous S.aureus & Coag-Neg Staph PNA FISH - Final 10/18/17 20:30 Blood-Venous Blood Culture - Final Staphylococcus Aureus 10/18/17 20:30 Blood-Venous Gram Stain - Final 10/18/17 10:00 Naris MRSA Culture (Admit) - Final MRSA NOT DETECTED Assessment and Plan (1) Leukocytosis Status: Acute (2) Metastatic cancer Status: Acute (3) Weakness Status: Acute (4) Renal insufficiency Status: Acute - Assessment and Plan (Free Text) Assessment: A/P- 77 year old male with multiple medical conditions including A.fib, aortic stenosis, metastatic prostate cancer admitted with weakness found to be in resp distress and acute renal insufficiency . afebrile slightly reduced leukocytosis blood cx- mssa x 2 trach asp cx- MSSA TTE- inconclusive result as per report. 1.staph bacteremia 2.leukocytois 3.resp distress/pneumonia 4.ERIN 5. aortic stenosi Plan- continue with daptomycin for MSSA bacteremia ( renal dose) sicne pt. is PCN allergic and since his renal function is not good vanco to be given q48 hours only since daptomycin does not cover staph in pulmonary infection , hence will need to use both but q48 hours for both. check 2 more blood cx. advise to d/c the femoral TLC. advise to have better reading of the TTE r/o IE. all above d/w patient's daughter and and they verbalize full understanding of all above. all above also d/w [employer] Mauro HANNAH. ICU time 45 minutes.
--- NOTE | 2017-10-24 11:17 | CP.PCM.PN ---
Subjective - Date & Time of Evaluation Date of Evaluation: 10/24/17 Time of Evaluation: 10:15 - Subjective Subjective: INTUBATED Objective - Vital Signs/Intake and Output Vital Signs (last 24 hours): Temp Pulse Resp BP Pulse Ox 97.3 F L 116 H 28 H 113/74 94 L 10/24/17 08:00 10/24/17 10:00 10/24/17 10:00 10/24/17 10:00 10/24/17 10:00 Intake and Output: 10/24/17 10/24/17 06:59 18:59 Intake Total 800 200 Output Total 200 Balance 600 200 - Medications Medications: Current Medications Acetaminophen (Tylenol 650 Mg Supp) [address] ONCE PRN PRN Reason: Fever >100.4 F Digoxin (Lanoxin) 0.125 mg IVP DAILY [facility] Last Admin: 10/24/17 08:40 Dose: 0.125 mg Famotidine (Pepcid) 20 mg PO DAILY [facility] Last Admin: 10/23/17 09:00 Dose: Not Given Hydromorphone HCl (Dilaudid) 1 mg IVP Q4 PRN PRN Reason: Pain, moderate (4-7) Last Admin: 10/24/17 10:24 Dose: 1 mg Levofloxacin/Dextrose (Levaquin 500mg) 500 mg in 100 mls @ 100 mls/hr IVPB DAILY [facility] PRN Reason: Protocol Last Admin: 10/23/17 08:33 Dose: 100 mls/hr Meropenem 500 mg/ Sodium (Chloride) 100 mls @ 100 mls/hr IVPB Q8 [facility] PRN Reason: Protocol Last Admin: 10/24/17 08:41 Dose: 100 mls/hr Daptomycin 410 mg/ Sodium (Chloride) 100 mls @ 100 mls/hr IV Q48H [facility] Stop: 10/29/17 12:31 Dextrose (Dextrose 5% In Water 1000 Ml) 1,000 mls @ 50 mls/hr IV .Q20H [facility] Stop: 10/24/17 23:31 Last Admin: 10/24/17 00:43 Dose: 50 mls/hr Lorazepam (Ativan) 1 mg IVP Q6 [facility] Last Admin: 10/24/17 10:24 Dose: 1 mg - Labs Labs: 10/24/17 04:20 10/24/17 04:20 PT 28.9 Seconds (9.8-13.1) H 10/24/17 04:20 INR 2.6 (0.9-1.2) H 10/24/17 04:20 APTT 36.5 Seconds (25.6-37.1) 10/24/17 04:20 - Respiratory Exam Respiratory Exam: Rales - Cardiovascular Exam Cardiovascular Exam: Tachycardia, REGULAR RHYTHM, +S1, +S2 - Extremities Exam Extremities Exam: Normal Inspection (EKG SINUS TACHYCARDIA) - Additional Findings Additional findings: SPINNING FRAME FIXER ST, R120 WBC 23K Assessment and Plan - Assessment and Plan (Free Text) Assessment: RESPIRATORY FAILURE SINUS TACHYCARDIA SEVERE PROSTATE 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
[2017-10-24] MEDS: Famotidine 40 MG/5 ML PO SCH (11:20)
[2017-10-24] MEDS: levoFLOXacin 500 mg in D5W 500 MG/100 ML BAG IVPB SCH (11:38)
--- NOTE | 2017-10-24 16:32 | CP.CCUPN ---
CCU Subjective - Physician Review Subjective (Free Text): Awake this Am and responds to simple questions with eyes and head movements, does not appear distressed, but breathing appears to be a bit labored, thought does not appear diaphoretic, tachycardic, or febrile. SBT attempted on CPAP 5, PS up to 20 with rapid shallow breathing and RR at 34, Ve increasing from 12.6 to 16.7. Day#5 MV support. and Opens eyes to verbal stimuli, moves head to pain questions and given Dilaudid. BP levels remain borderline, tachycardic, Tmax 100.9F yesterday. Oliguric overnight again. Other vitals and I/O's reviewed. ROS: Unobtainable, intubated. No other pertinent negs or positives on 10+ system review. PMSFH: Paroxysmal A Fib, HTN, Hyperlipidemia, Depression, non-drinker, non- smoker- Otherwise all Nursing and physician documentation reviewed to date; no new pertinent info noted relevant to current medical problems. CXR: ETT position OK above héctor, overall improved bilateral perihilar interstitial changes, no gross consolidation (my interp). IMPRESSION / MAJOR PROBLEMS NOW: 1. Acute Resp Insuff 2' bilateral pneumonia ( Aspiration type) 2. AMS/ Obtundation, r/o Structural CAD DESIGN ENGINEER disease vs Metabolic Encephalopathy, vs Dilaudid effect 3. s/p A Fib with RVR 4. Azotemia / Dehydration with Hyperkalemia 5. r/o Acute - SubAcute Cholecystitis 6. Metastatic Liver Disease 7. Severe Aortic Stenosis with preserved LVEF 8. Chronic Disease Anemia PLAN: 1. Lactate still elevated at 3.0. CXR looks improved, other possible sources: Bacteremia, / GI tract/Biliary tract. Dapto / Cisco/Levoquin/Vanco as per ID. 2. s/p 2 units PRBCs on 10/20. HGB stable at expected levels and not decreasing. 3. Renal function not improved and he has R hydronephrosis on last US study. Renal and Urology evals. May need HD, K levels are OK, but he is acidotic. Will start alkalinized IV fluids. 4. ECHO results reviewed: ?? repeat study for better view of structures, or TATIANNA?? LVEF appears unchanged, though. 5. NGT finally placed successfully, tube feeds to start as tolerated. CCU Objective - Vital Signs / Intake & Output Vital Signs (Last 4 hours): Vital Signs Temp Pulse Resp BP Pulse Ox 10/24/17 16:00 98.1 F 126 H 79/60 L 99 10/24/17 14:00 113 H 15 85/63 L 99 Intake and Output (Last 8hrs): Intake & Output 10/24/17 10/24/17 10/24/17 06:59 14:59 22:59 Intake Total 800 780 Output Total 200 Balance 600 780 Intake: IV 800 300 Intake, Piggyback 350 Oral 0 Tube Feeding 130 Output: Urine 200 Urethral ([place]) 200 Other: # Bowel Movements 1 - Physical Exam Head: Positive for: Normocephalic Pupils: Positive for: PERRL Extroacular Muscles: Positive for: EOMI Conjunctiva: Positive for: Normal Mouth: Positive for: Dry Neck: Negative for: Meningeal Signs, JVD Respiratory/Chest: Positive for: Rhonchi. Negative for: Accessory Muscle Use, Wheezes, Decreased Breath Sounds Cardiovascular: Positive for: Murmurs, Normal S1, S2. Negative for: Rub Abdomen: Positive for: Normal Bowel Sounds. Negative for: Tenderness, Distention, Mass/Organomegaly Lower Extremity: Positive for: Edema, NORMAL PULSES. Negative for: CALF TENDERNESS, Cyanosis Neurological: Positive for: Other (on ventilator) Psychiatric: Positive for: Lethargic - Medications Active Medications: Active Medications Generic Name Dose Route Start Last Admin Trade Name Freq PRN Reason Stop Dose Admin Acetaminophen 650 mg 10/23/17 02:25 Tylenol 650 Mg Supp [place] ONCE PRN Fever >100.4 F Digoxin 0.125 mg 10/22/17 09:00 10/24/17 08:40 Lanoxin IVP 0.125 mg DAILY ASHTYN Administration Famotidine 20 mg 10/23/17 09:00 10/24/17 11:20 Pepcid PO 20 mg DAILY ASHTYN Administration Hydromorphone HCl 1 mg 10/23/17 08:45 10/24/17 10:24 Dilaudid IVP 1 mg Q4 PRN Administration Pain, moderate (4-7) Levofloxacin/Dextrose 500 mg in 100 mls @ 100 mls/hr 10/20/17 09:00 10/24/17 11:38 Levaquin 500mg IVPB 100 mls/hr DAILY ASHTYN Administration Protocol Meropenem 500 mg/ Sodium 100 mls @ 100 mls/hr 10/22/17 17:00 10/24/17 16:17 Chloride IVPB 100 mls/hr Q8 ASHTYN Administration Protocol Daptomycin 410 mg/ Sodium 100 mls @ 100 mls/hr 10/24/17 12:30 10/24/17 11:38 Chloride IV 10/29/17 12:31 100 mls/hr Q48H ASHTYN Administration Dextrose 1,000 mls @ 50 mls/hr 10/23/17 23:45 10/24/17 00:43 Dextrose 5% In Water 1000 Ml IV 10/24/17 23:31 50 mls/hr .Q20H ASHTYN Administration Vancomycin HCl 500 mg/ Sodium 100 mls @ 100 mls/hr 10/26/17 09:00 Chloride IVPB QOTHERDAY ASHTYN Protocol Lorazepam 1 mg 10/24/17 04:00 10/24/17 16:15 Ativan IVP Not Given Q6 ASHTYN - Patient Studies Lab Studies: Microbiology Studies 10/21/17 05:00 Gram Stain - Final Trachasp Sputum Culture - Final Staphylococcus Aureus 10/21/17 16:50 S.aureus & Coag-Neg Staph PNA FISH - Final Blood-Venous Blood Culture - Preliminary Gram Positive Cocci Gram Stain - Final 10/18/17 20:00 Blood Culture - Final Blood-Venous NO GROWTH AFTER 5 DAYS Gram Stain - Final TEST NOT PERFORMED 10/21/17 17:01 Blood Culture - Preliminary Blood-Thru Central Line NO GROWTH AFTER 48 HOURS Lab Studies 10/24/17 10/24/17 10/24/17 Range/Units 05:23 04:20 04:20 WBC (4.8-10.8) K/uL RBC (4.40-5.90) Mil/uL Hgb (12.0-18.0) g/dL Hct (35.0-51.0) % MCV (80.0-94.0) fl MCH (27.0-31.0) pg MCHC (33.0-37.0) g/dL RDW (11.5-14.5) % Plt Count (130-400) K/uL MPV (7.2-11.7) fl Neut % (Auto) (50.0-75.0) % Lymph % (Auto) (20.0-40.0) % [place] % (Auto) (0.0-10.0) % Eos % (Auto) (0.0-4.0) % Baso % (Auto) (0.0-2.0) % Neut # (1.8-7.0) K/uL Lymph # (1.0-4.3) K/uL [place] # (0.0-0.8) K/uL Eos # (0.0-0.7) K/uL Baso # (0.0-0.2) K/uL PT 28.9 H (9.8-13.1) Seconds INR 2.6 H (0.9-1.2) APTT 36.5 (25.6-37.1) Seconds pCO2 24 L (35-45) mm/Hg pO2 148 H (80-100) mm/Hg HCO3 14.4 L (21-28) mmol/L ABG pH 7.28 L (7.35-7.45) ABG Total CO2 12.0 L (22-28) mmol/L ABG O2 Saturation 99.2 H (95-98) % ABG Base Excess -13.6 L (-2.0-3.0) mmol/L Jagjit Test Yes ABG Potassium 4.6 (3.6-5.2) mmol/L A-a O2 Difference 107.0 mm/Hg Glucose 99 (75-110) mg/dL Lactate 3.0 H (0.7-2.1) mmol/L Vent Mode A/c Mechanical Rate 14 FiO2 40.0 % Tidal Volume 450 PEEP 5 Sodium 143.0 149 H (132-148) mmol/l Potassium 4.5 (3.6-5.0) MMOL/L Chloride 120.0 H 122 H (98-107) mmol/L Carbon Dioxide 14 L (22-30) mmol/L Anion Gap 18 (10-20) BUN 96 H (9-20) mg/dl Creatinine 3.7 H (0.8-1.5) mg/dl Est GFR ( Amer) 19 Est GFR (Non-Af Amer) 16 POC Glucose (mg/dL) (65-110) mg/dL Random Glucose 94 (75-110) mg/dL Calcium 6.4 L (8.4-10.2) mg/dL Total Bilirubin 0.9 (0.2-1.3) mg/dl AST 524 H D (17-59) U/L ALT 88 H D (21-72) U/L Alkaline Phosphatase 454 H (38-126) U/L Total Protein 5.0 L (6.3-8.2) G/DL Albumin 2.2 L (3.5-5.0) g/dL Globulin 2.7 (2.2-3.9) gm/dL Albumin/Globulin Ratio 0.8 L (1.0-2.1) Arterial Blood Potassium 4.6 (3.6-5.2) mmol/L 10/24/17 10/23/17 Range/Units 04:20 17:05 WBC 23.3 H (4.8-10.8) K/uL RBC 3.79 L (4.40-5.90) Mil/uL Hgb 10.7 L (12.0-18.0) g/dL Hct 34.3 L (35.0-51.0) % MCV 90.5 (80.0-94.0) fl MCH 28.3 (27.0-31.0) pg MCHC 31.3 L (33.0-37.0) g/dL RDW 23.4 H (11.5-14.5) % Plt Count 172 (130-400) K/uL MPV 7.4 (7.2-11.7) fl Neut % (Auto) 85.4 H (50.0-75.0) % Lymph % (Auto) 8.8 L (20.0-40.0) % [place] % (Auto) 5.1 (0.0-10.0) % Eos % (Auto) 0.1 (0.0-4.0) % Baso % (Auto) 0.6 (0.0-2.0) % Neut # 19.9 H (1.8-7.0) K/uL Lymph # 2.0 (1.0-4.3) K/uL [place] # 1.2 H (0.0-0.8) K/uL Eos # 0.0 (0.0-0.7) K/uL Baso # 0.1 (0.0-0.2) K/uL PT (9.8-13.1) Seconds INR (0.9-1.2) APTT (25.6-37.1) Seconds pCO2 (35-45) mm/Hg pO2 (80-100) mm/Hg HCO3 (21-28) mmol/L ABG pH (7.35-7.45) ABG Total CO2 (22-28) mmol/L ABG O2 Saturation (95-98) % ABG Base Excess (-2.0-3.0) mmol/L Jagjit Test ABG Potassium (3.6-5.2) mmol/L A-a O2 Difference mm/Hg Glucose (75-110) mg/dL Lactate (0.7-2.1) mmol/L Vent Mode Mechanical Rate FiO2 % Tidal Volume PEEP Sodium (132-148) mmol/l Potassium (3.6-5.0) MMOL/L Chloride (98-107) mmol/L Carbon Dioxide (22-30) mmol/L Anion Gap (10-20) BUN (9-20) mg/dl Creatinine (0.8-1.5) mg/dl Est GFR ( Amer) Est GFR (Non-Af Amer) POC Glucose (mg/dL) 81 (65-110) mg/dL Random Glucose (75-110) mg/dL Calcium (8.4-10.2) mg/dL Total Bilirubin (0.2-1.3) mg/dl AST (17-59) U/L ALT (21-72) U/L Alkaline Phosphatase (38-126) U/L Total Protein (6.3-8.2) G/DL Albumin (3.5-5.0) g/dL Globulin (2.2-3.9) gm/dL Albumin/Globulin Ratio (1.0-2.1) Arterial Blood Potassium (3.6-5.2) mmol/L Laboratory Results - last 24 hr 10/23/17 10/24/17 10/24/17 17:05 04:20 04:20 WBC 23.3 H RBC 3.79 L Hgb 10.7 L Hct 34.3 L MCV 90.5 MCH 28.3 MCHC 31.3 L RDW 23.4 H Plt Count 172 MPV 7.4 Neut % (Auto) 85.4 H Lymph % (Auto) 8.8 L [place] % (Auto) 5.1 Eos % (Auto) 0.1 Baso % (Auto) 0.6 Neut # 19.9 H Lymph # 2.0 [place] # 1.2 H Eos # 0.0 Baso # 0.1 PT 28.9 H INR 2.6 H APTT 36.5 pCO2 pO2 HCO3 ABG pH ABG Total CO2 ABG O2 Saturation ABG Base Excess Jagjit Test ABG Potassium A-a O2 Difference Glucose Lactate Vent Mode Mechanical Rate FiO2 Tidal Volume PEEP Sodium Potassium Chloride Carbon Dioxide Anion Gap BUN Creatinine Est GFR ( Amer) Est GFR (Non-Af Amer) POC Glucose (mg/dL) 81 Random Glucose Calcium Total Bilirubin AST ALT Alkaline Phosphatase Total Protein Albumin Globulin Albumin/Globulin Ratio Arterial Blood Potassium 10/24/17 10/24/17 04:20 05:23 WBC RBC Hgb Hct MCV MCH MCHC RDW Plt Count MPV Neut % (Auto) Lymph % (Auto) [place] % (Auto) Eos % (Auto) Baso % (Auto) Neut # Lymph # [place] # Eos # Baso # PT INR APTT pCO2 24 L pO2 148 H HCO3 14.4 L ABG pH 7.28 L ABG Total CO2 12.0 L ABG O2 Saturation 99.2 H ABG Base Excess -13.6 L Jagjit Test Yes ABG Potassium 4.6 A-a O2 Difference 107.0 Glucose 99 Lactate 3.0 H Vent Mode A/c Mechanical Rate 14 FiO2 40.0 Tidal Volume 450 PEEP 5 Sodium 149 H 143.0 Potassium 4.5 Chloride 122 H 120.0 H Carbon Dioxide 14 L Anion Gap 18 BUN 96 H Creatinine 3.7 H Est GFR ( Amer) 19 Est GFR (Non-Af Amer) 16 POC Glucose (mg/dL) Random Glucose 94 Calcium 6.4 L Total Bilirubin 0.9 AST 524 H D ALT 88 H D Alkaline Phosphatase 454 H Total Protein 5.0 L Albumin 2.2 L Globulin 2.7 Albumin/Globulin Ratio 0.8 L Arterial Blood Potassium 4.6 Fingerstick Blood Sugar Results: 143 Review of Systems - Review of Systems Systems not reviewed;Unavailable: Intubated Critical Care Progress Note - Ventilator Checklist Head of Bed 30 Degrees: Yes Daily Sedation Vacation: Yes Daily Assessment of Readiness to Wean: Yes Daily Spontaneous Breathing Trial: Yes PUD Prophalyxis: Yes DVT Prophylaxis: Yes Oral Care with Chlorhexidine Gluconate {CHG}: Yes - Vent Settings MODE:: ASSIST CONTROL TIDAL VOLUME:: 450 RESP RATE:: 14 FIO2:: 40 PEEP:: 5 - Extremities/Vascular Does the Patient have a Central Venous Catheter?: Yes Insertion Site: Femoral Vein Does the Patient need a Central Venous Catheter?: Yes Does the Patient have a Ke[place] Catheter?: Yes Does the Patient need a [place] Catheter?: Yes Catheter Insertion Criteria: Need for accurate measurement of output in critically ill patient - Prophylaxis GI Prophylaxis GI: Pepsid - Prophylaxis DVT Prophylaxis DVT: Heparin SQ, SCDs - Nutrition Nutrition: Nutrition Category Date Time Status NPO Diet [DIET] Diets 10/19/17 Lunch Active
[2017-10-24] MEDS: Sodium Bicarbonate 8.4% 80 MEQ in Dextrose 5% In Water 1,000 ML IV SCH (18:02)
--- NOTE | 2017-10-24 18:34 | CP.PCM.PN ---
Subjective - Date & Time of Evaluation Date of Evaluation: 10/24/17 Time of Evaluation: 15:00 - Subjective Subjective: SEEN ON RENAL F/U IN ICU NOT DOING WELL ..WAS MADE DNR REMAINS INTUBATED RENAL FUNCTION WORSENING .. MAY NEED MORE IVF SEPSIS ON IVAB PER ID Objective - Vital Signs/Intake and Output Vital Signs (last 24 hours): Temp Pulse Resp BP Pulse Ox 98.1 F 119 H 19 89/51 L 98 10/24/17 16:00 10/24/17 17:56 10/24/17 17:56 10/24/17 17:56 10/24/17 17:56 Intake and Output: 10/24/17 10/24/17 06:59 18:59 Intake Total 800 1540 Output Total 200 100 Balance 600 1440 - Medications Medications: Current Medications Acetaminophen (Tylenol 650 Mg Supp) 650 mg [place] ONCE PRN PRN Reason: Fever >100.4 F Digoxin (Lanoxin) 0.125 mg IVP DAILY [facility] Last Admin: 10/24/17 08:40 Dose: 0.125 mg Famotidine (Pepcid) 20 mg PO DAILY [facility] Last Admin: 10/24/17 11:20 Dose: 20 mg Hydromorphone HCl (Dilaudid) 1 mg IVP Q4 PRN PRN Reason: Pain, moderate (4-7) Last Admin: 10/24/17 10:24 Dose: 1 mg Levofloxacin/Dextrose (Levaquin 500mg) 500 mg in 100 mls @ 100 mls/hr IVPB DAILY [facility] PRN Reason: Protocol Last Admin: 10/24/17 11:38 Dose: 100 mls/hr Meropenem 500 mg/ Sodium (Chloride) 100 mls @ 100 mls/hr IVPB Q8 ASHTYN PRN Reason: Protocol Last Admin: 10/24/17 16:17 Dose: 100 mls/hr Daptomycin 410 mg/ Sodium (Chloride) 100 mls @ 100 mls/hr IV Q48H [facility] Stop: 10/29/17 12:31 Last Admin: 10/24/17 11:38 Dose: 100 mls/hr Vancomycin HCl 500 mg/ Sodium (Chloride) 100 mls @ 100 mls/hr IVPB QOTHERDAY [facility] PRN Reason: Protocol Sodium Bicarbonate 80 meq/ (Dextrose) 1,080 mls @ 100 mls/hr IV .[id number] [facility] Stop: 10/25/17 16:43 Last Admin: 10/24/17 18:02 Dose: 100 mls/hr Lorazepam (Ativan) 1 mg IVP Q6 [facility] Last Admin: 10/24/17 16:15 Dose: Not Given - Labs Labs: 10/24/17 04:20 10/24/17 04:20 PT 28.9 Seconds (9.8-13.1) H 10/24/17 04:20 INR 2.6 (0.9-1.2) H 10/24/17 04:20 APTT 36.5 Seconds (25.6-37.1) 10/24/17 04:20 Assessment and Plan - Assessment and Plan (Free Text) Assessment: C/O D5W + I AMP NA BICARB AT 100 CC/H
[2017-10-25] MEDS: Meropenem 500 MG in Sodium Chloride 0.9% 100 ML IVPB SCH ×3 (01:06→17:08)
[2017-10-25] MEDS: Sodium Bicarbonate 8.4% 80 MEQ in Dextrose 5% In Water 1,000 ML IV SCH ×2 (04:26→20:57)
[2017-10-25 05:52] LABS: BASO % 0.2 % (0.0-2.0); EOS # 0.1 K/uL (0.0-0.7); EOS % 0.2 % (0.0-4.0); HEMATOCRIT 35.1 % (35.0-51.0); LYMPH % 8.2 % (20.0-40.0); MEAN CORPUSCULAR HEMOGLOBIN 28.3 pg (27.0-31.0); MEAN CORPUSCULAR HGB CONC 31.5 g/dL (33.0-37.0); MEAN PLATELET VOLUME 7.7 fl (7.2-11.7); MONO # 1.2 K/uL (0.0-0.8); MONO % 4.8 % (0.0-10.0); NEUT # 20.8 K/uL (1.8-7.0); NEUT % 86.6 % (50.0-75.0); NRBC % 0.6 % (0.0-0.0); RED CELL DISTRIBUTION WIDTH 22.8 % (11.5-14.5); WHITE BLOOD COUNT 24.1 K/uL (4.8-10.8)
[2017-10-25 06:03] LABS: ABG ALLEN TEST YES; ABG MECHANICAL RATE 14; ARTERIAL BLOOD GAS HCO3 13.9 mmol/L (21-28); ARTERIAL BLOOD GAS MODE PRVC AC; ARTERIAL BLOOD GAS O2 CAPACITY 16.5 mL/dL (16-24); ARTERIAL BLOOD GAS O2 CONTENT 16.4 ML/dL (15-23); ARTERIAL BLOOD GAS PH 7.28 (7.35-7.45); ARTERIAL BLOOD GAS PO2 160 mm/Hg (80-100); ARTERIAL BLOOD HGB O2 SAT 95.6 % (95.0-98.0); ATERIAL BLOOD GAS PEEP 5; CARBOXYHEMOGLOBIN 1.4 % (0.5-1.5); HHB 0.7 % (0.0-5.0); METHEMOGLOBIN 2.3 % (0.0-3.0)
[2017-10-25 06:42] LABS: ALB/GLOB RATIO 0.9 (1.0-2.1); CALCIUM 6.1 mg/dL (8.4-10.2); POTASSIUM 4.9 MMOL/L (3.6-5.0)
[2017-10-25] MEDS ORDERED: Sodium Chloride 0.9% 1,000 ML IV SCH (09:00)
[2017-10-25] MEDS: Digoxin 500 mcg/2ml (0.5 mg/2ml) Inj IVP SCH (09:07)
[2017-10-25] MEDS: levoFLOXacin 500 mg in D5W 500 MG/100 ML BAG IVPB SCH (09:08)
[2017-10-25] MEDS: Famotidine 40 MG/5 ML PO SCH (09:09)
--- NOTE | 2017-10-25 09:46 | CP.CCUPN ---
CCU Subjective - Physician Review Subjective (Free Text): Less awake this AM and not as responsive yesterday to simple questions with eyes and head movements, does not appear distressed, does not appear diaphoretic , tachycardic, nor has been febrile. Weaning trial on CPAP 5, PS 15 not tolerated again with RR at 30, but SPO2 maintained at 100% on 40% oxygen. Day #6 MV support. Other vitals and I/O's reviewed. Still tachycardic, but in sinus. On alkalinized fluids at 100ml/hr. Remains oliguric. ROS: Unobtainable, intubated. No other pertinent negs or positives on 10+ system review. PMSFH: Paroxysmal A Fib, HTN, Hyperlipidemia, Depression, non-drinker, non- smoker- Otherwise all Nursing and physician documentation reviewed to date; no new pertinent info noted relevant to current medical problems. CXR: ETT position OK above héctor, overall improved bilateral perihilar interstitial changes, no gross consolidation (my interp). IMPRESSION / MAJOR PROBLEMS NOW: 1. Acute Resp Insuff 2' bilateral pneumonia ( Aspiration type) 2. AMS/ Obtundation, r/o Structural PATIENT OBSERVATION ASSISTANT disease vs Metabolic Encephalopathy, vs Dilaudid effect 3. s/p A Fib with RVR 4. Azotemia / Dehydration with progression to Acute renal failure 5. r/o Acute - SubAcute Cholecystitis 6. Metastatic Liver Disease 7. Severe Aortic Stenosis with preserved LVEF 8. Chronic Disease Anemia PLAN: 1. CXR improved, other possible sources: Bacteremia, / GI tract/Biliary tract. Dapto / Cisco/Levoquin/Vanco as per ID. 2. s/p 2 units PRBCs on 10/20. HGB stable at expected levels and not decreasing. 3. Renal function not improved and he has R hydronephrosis on last US study. Renal and Urology evals. May need HD, K levels are OK, but he is acidotic. Will continue alkalinized IV fluids. Fluid challenge now. 4. ECHO results reviewed: ?? repeat study for better view of structures, or TATIANNA?? LVEF appears unchanged, though. 5. DNR, but will consider starting vasopressors after more volume infused if BP remains low. CCU Objective - Vital Signs / Intake & Output Vital Signs (Last 4 hours): Vital Signs Temp Pulse Resp BP Pulse Ox 10/25/17 08:00 99.1 F 121 H 15 78/57 L 99 10/25/17 06:00 124 H 26 H 80/60 L 99 Intake and Output (Last 8hrs): Intake & Output 10/24/17 10/25/17 10/25/17 22:59 06:59 14:59 Intake Total 760 280 Output Total 100 50 Balance 660 -50 280 Intake: IV 200 200 Intake, Piggyback 100 Tube Feeding 160 80 Free Water Flush 300 Output: Urine 100 50 Urethral ([place]) 100 50 Other: # Bowel Movements 1 - Physical Exam Head: Positive for: Normocephalic Pupils: Positive for: PERRL Extroacular Muscles: Positive for: EOMI Conjunctiva: Positive for: Normal Mouth: Positive for: Dry Neck: Negative for: Meningeal Signs, JVD Respiratory/Chest: Positive for: Rhonchi. Negative for: Accessory Muscle Use, Wheezes, Decreased Breath Sounds Cardiovascular: Positive for: Murmurs, Normal S1, S2. Negative for: Rub Abdomen: Positive for: Normal Bowel Sounds. Negative for: Tenderness, Distention, Mass/Organomegaly Lower Extremity: Positive for: Edema, NORMAL PULSES. Negative for: CALF TENDERNESS, Cyanosis Neurological: Positive for: Other (on ventilator) Psychiatric: Positive for: Lethargic - Medications Active Medications: Active Medications Generic Name Dose Route Start Last Admin Trade Name Freq PRN Reason Stop Dose Admin Acetaminophen 650 mg 10/23/17 02:25 Tylenol 650 Mg Supp [place] ONCE PRN Fever >100.4 F Digoxin 0.125 mg 10/22/17 09:00 10/25/17 09:07 Lanoxin IVP 0.125 mg DAILY ASHTYN Administration Famotidine 20 mg 10/23/17 09:00 10/25/17 09:09 Pepcid PO 20 mg DAILY ASHTYN Administration Hydromorphone HCl 1 mg 10/23/17 08:45 10/24/17 10:24 Dilaudid IVP 1 mg Q4 PRN Administration Pain, moderate (4-7) Levofloxacin/Dextrose 500 mg in 100 mls @ 100 mls/hr 10/20/17 09:00 10/25/17 09:08 Levaquin 500mg IVPB 100 mls/hr DAILY ASHTYN Administration Protocol Meropenem 500 mg/ Sodium 100 mls @ 100 mls/hr 10/22/17 17:00 10/25/17 09:09 Chloride IVPB 100 mls/hr Q8 ASHTYN Administration Protocol Daptomycin 410 mg/ Sodium 100 mls @ 100 mls/hr 10/24/17 12:30 10/24/17 11:38 Chloride IV 10/29/17 12:31 100 mls/hr Q48H ASHTYN Administration Vancomycin HCl 500 mg/ Sodium 100 mls @ 100 mls/hr 10/26/17 09:00 Chloride IVPB QOTHERDAY ASHTYN Protocol Sodium Bicarbonate 80 meq/ 1,080 mls @ 100 mls/hr 10/24/17 16:45 10/25/17 04: 26 Dextrose IV 10/25/17 16:43 100 mls/hr .[id number] ASHTYN Administration Sodium Chloride 1,000 mls @ 1,000 mls/hr 10/25/17 09:00 10/25/17 09:18 Sodium Chloride 0.9% IV 10/25/17 09:59 1,000 mls/hr .Q1H ASHTYN Administration Lorazepam 1 mg 10/24/17 04:00 10/25/17 05:05 Ativan IVP Not Given Q6 ASHTYN - Patient Studies Lab Studies: Microbiology Studies 10/21/17 16:50 S.aureus & Coag-Neg Staph PNA FISH - Final Blood-Venous Blood Culture - Final Staphylococcus Aureus Gram Stain - Final 10/21/17 17:01 Blood Culture - Preliminary Blood-Thru Central Line NO GROWTH AFTER 3 DAYS 10/21/17 05:00 Gram Stain - Final Trachasp Sputum Culture - Final Staphylococcus Aureus Lab Studies 10/25/17 10/25/17 10/25/17 Range/Units 06:00 05:46 04:20 WBC 24.1 H (4.8-10.8) K/uL RBC 3.90 L (4.40-5.90) Mil/uL Hgb 11.0 L (12.0-18.0) g/dL Hct 35.1 (35.0-51.0) % MCV 90.0 (80.0-94.0) fl MCH 28.3 (27.0-31.0) pg MCHC 31.5 L (33.0-37.0) g/dL RDW 22.8 H (11.5-14.5) % Plt Count 206 (130-400) K/uL MPV 7.7 (7.2-11.7) fl Neut % (Auto) 86.6 H (50.0-75.0) % Lymph % (Auto) 8.2 L (20.0-40.0) % [place] % (Auto) 4.8 (0.0-10.0) % Eos % (Auto) 0.2 (0.0-4.0) % Baso % (Auto) 0.2 (0.0-2.0) % Neut # 20.8 H (1.8-7.0) K/uL Lymph # 2.0 (1.0-4.3) K/uL [place] # 1.2 H (0.0-0.8) K/uL Eos # 0.1 (0.0-0.7) K/uL Baso # 0.0 (0.0-0.2) K/uL pCO2 23 L (35-45) mm/Hg pO2 160 H (80-100) mm/Hg HCO3 13.9 L (21-28) mmol/L ABG pH 7.28 L (7.35-7.45) ABG Total CO2 11.5 L (22-28) mmol/L ABG O2 Saturation 99.3 H (95-98) % ABG O2 Content 16.4 (15-23) ML/dL ABG Base Excess -14.1 L (-2.0-3.0) mmol/L ABG Hemoglobin 12.0 (11.7-17.4) g/dL ABG Carboxyhemoglobin 1.4 (0.5-1.5) % POC ABG HHb (Measured) 0.7 (0.0-5.0) % ABG Methemoglobin 2.3 (0.0-3.0) % ABG O2 Capacity 16.5 (16-24) mL/dL Jagjit Test Yes A-a O2 Difference 96.0 mm/Hg Hgb O2 Saturation 95.6 (95.0-98.0) % Vent Mode Prvc ac Mechanical Rate 14 FiO2 40.0 % Tidal Volume 450 PEEP 5 Sodium 145 (132-148) mmol/l Potassium 4.9 (3.6-5.0) MMOL/L Chloride 116 H (98-107) mmol/L Carbon Dioxide 15 L (22-30) mmol/L Anion Gap 19 (10-20) BUN 108 H* (9-20) mg/dl Creatinine 4.3 H (0.8-1.5) mg/dl Est GFR ( Amer) 16 Est GFR (Non-Af Amer) 14 Random Glucose 280 H (75-110) mg/dL Calcium 6.1 L (8.4-10.2) mg/dL Total Bilirubin 1.0 (0.2-1.3) mg/dl AST 527 H (17-59) U/L ALT 103 H (21-72) U/L Alkaline Phosphatase 655 H D (38-126) U/L Total Protein 5.0 L (6.3-8.2) G/DL Albumin 2.3 L (3.5-5.0) g/dL Globulin 2.7 (2.2-3.9) gm/dL Albumin/Globulin Ratio 0.9 L (1.0-2.1) Laboratory Results - last 24 hr 10/25/17 10/25/17 10/25/17 04:20 05:46 06:00 WBC 24.1 H RBC 3.90 L Hgb 11.0 L Hct 35.1 MCV 90.0 MCH 28.3 MCHC 31.5 L RDW 22.8 H Plt Count 206 MPV 7.7 Neut % (Auto) 86.6 H Lymph % (Auto) 8.2 L [place] % (Auto) 4.8 Eos % (Auto) 0.2 Baso % (Auto) 0.2 Neut # 20.8 H Lymph # 2.0 [place] # 1.2 H Eos # 0.1 Baso # 0.0 pCO2 23 L pO2 160 H HCO3 13.9 L ABG pH 7.28 L ABG Total CO2 11.5 L ABG O2 Saturation 99.3 H ABG O2 Content 16.4 ABG Base Excess -14.1 L ABG Hemoglobin 12.0 ABG Carboxyhemoglobin 1.4 POC ABG HHb (Measured) 0.7 ABG Methemoglobin 2.3 ABG O2 Capacity 16.5 Jagjit Test Yes A-a O2 Difference 96.0 Hgb O2 Saturation 95.6 Vent Mode Prvc ac Mechanical Rate 14 FiO2 40.0 Tidal Volume 450 PEEP 5 Sodium 145 Potassium 4.9 Chloride 116 H Carbon Dioxide 15 L Anion Gap 19 BUN 108 H* Creatinine 4.3 H Est GFR ( Amer) 16 Est GFR (Non-Af Amer) 14 Random Glucose 280 H Calcium 6.1 L Total Bilirubin 1.0 AST 527 H ALT 103 H Alkaline Phosphatase 655 H D Total Protein 5.0 L Albumin 2.3 L Globulin 2.7 Albumin/Globulin Ratio 0.9 L Fingerstick Blood Sugar Results: 143 Review of Systems - Review of Systems Systems not reviewed;Unavailable: Altered Mental Status Critical Care Progress Note - Ventilator Checklist Head of Bed 30 Degrees: Yes Daily Sedation Vacation: No (Lethargic) Daily Assessment of Readiness to Wean: No (Lethargic) Daily Spontaneous Breathing Trial: No (Lethargic) PUD Prophalyxis: Yes DVT Prophylaxis: Yes Oral Care with Chlorhexidine Gluconate {CHG}: Yes - Vent Settings MODE:: ASSIST CONTROL TIDAL VOLUME:: 450 RESP RATE:: 14 FIO2:: 40 PEEP:: 5 - Extremities/Vascular Does the Patient have a Central Venous Catheter?: Yes Insertion Site: Femoral Vein Does the Patient need a Central Venous Catheter?: Yes Does the Patient have a [place] Catheter?: Yes Does the Patient need a [place] Catheter?: Yes Catheter Insertion Criteria: Need for accurate measurement of output in critically ill patient - Prophylaxis GI Prophylaxis GI: Pepsid - Prophylaxis DVT Prophylaxis DVT: SCDs - Nutrition Nutrition: Nutrition Category Date Time Status NPO Diet [DIET] Diets 10/19/17 Lunch Active
--- NOTE | 2017-10-25 10:12 | RAD ---
HISTORY: Mechanical Vent COMPARISON: Chest radiograph dated 10/24/2017 FINDINGS: LUNGS: No active pulmonary disease. PLEURA: No significant pleural effusion identified, no pneumothorax apparent. CARDIOVASCULAR: Normal. OSSEOUS STRUCTURES: Unchanged. VISUALIZED UPPER ABDOMEN: Normal. OTHER FINDINGS: interval placement of enteric tube with tip in the stomach. Endotracheal tube, unchanged. IMPRESSION: New enteric tube in satisfactory position. No other significant interval change.
--- NOTE | 2017-10-25 11:20 | CP.PCM.PN ---
Subjective - Date & Time of Evaluation Date of Evaluation: 10/25/17 Time of Evaluation: 11:00 - Subjective Subjective: ON MV Objective - Vital Signs/Intake and Output Vital Signs (last 24 hours): Temp Pulse Resp BP Pulse Ox 99.1 F 117 H 27 H 91/66 L 99 10/25/17 08:00 10/25/17 10:00 10/25/17 10:00 10/25/17 10:00 10/25/17 10:00 Intake and Output: 10/25/17 10/25/17 06:59 18:59 Intake Total 1780 Output Total 50 Balance -50 1780 - Medications Medications: Current Medications Acetaminophen (Tylenol 650 Mg Supp) 650 mg NE ONCE PRN PRN Reason: Fever >100.4 F Digoxin (Lanoxin) 0.125 mg IVP DAILY [facility] Last Admin: 10/25/17 09:07 Dose: 0.125 mg Famotidine (Pepcid) 20 mg PO DAILY [facility] Last Admin: 10/25/17 09:09 Dose: 20 mg Hydromorphone HCl (Dilaudid) 1 mg IVP Q4 PRN PRN Reason: Pain, moderate (4-7) Last Admin: 10/24/17 10:24 Dose: 1 mg Levofloxacin/Dextrose (Levaquin 500mg) 500 mg in 100 mls @ 100 mls/hr IVPB DAILY [facility] PRN Reason: Protocol Last Admin: 10/25/17 09:08 Dose: 100 mls/hr Meropenem 500 mg/ Sodium (Chloride) 100 mls @ 100 mls/hr IVPB Q8 [facility] PRN Reason: Protocol Last Admin: 10/25/17 09:09 Dose: 100 mls/hr Daptomycin 410 mg/ Sodium (Chloride) 100 mls @ 100 mls/hr IV Q48H [facility] Stop: 10/29/17 12:31 Last Admin: 10/24/17 11:38 Dose: 100 mls/hr Vancomycin HCl 500 mg/ Sodium (Chloride) 100 mls @ 100 mls/hr IVPB QOTHERDAY [facility] PRN Reason: Protocol Sodium Bicarbonate 80 meq/ (Dextrose) 1,080 mls @ 100 mls/hr IV .[id number] [facility] Stop: 10/25/17 16:43 Last Admin: 10/25/17 04:26 Dose: 100 mls/hr Lorazepam (Ativan) 1 mg IVP Q6 [facility] Last Admin: 10/25/17 10:54 Dose: Not Given - Labs Labs: 10/25/17 04:20 10/25/17 05:46 PT 28.9 Seconds (9.8-13.1) H 10/24/17 04:20 INR 2.6 (0.9-1.2) H 10/24/17 04:20 APTT 36.5 Seconds (25.6-37.1) 10/24/17 04:20 - Respiratory Exam Respiratory Exam: Clear to Ausculation Bilateral - Cardiovascular Exam Cardiovascular Exam: Tachycardia, REGULAR RHYTHM, +S1, +S2 - Extremities Exam Extremities Exam: Pedal Edema - Additional Findings Additional findings: [employer], R 115 BP 91/66 WBC 24K BUN/CR 108/4.3 Assessment and Plan - Assessment and Plan (Free Text) Assessment: PROSTATE CA WITH LIVER METASTASIS SEVERE AORTIC STENOSIS SINUS TACHYCARDIA RENAL FAILURE POOR PROGNOSIS Plan: DR GRECO HAD A LONG TALK WITH THE AND DAUGHTER THEY ARE CONSIDERING HOSPICE AND WILL SPEAK TO THE STENCIL TYPIST
--- NOTE | 2017-10-25 12:16 | CP.PCM.PN ---
Subjective - Date & Time of Evaluation Date of Evaluation: 10/25/17 Time of Evaluation: 13:10 - Subjective Subjective: ID note- Pt. seen and examined today. remains intubated and lethargic and is hypotensive and tachycardic. pt's at his bedside. Objective - Vital Signs/Intake and Output Vital Signs (last 24 hours): Temp Pulse Resp BP Pulse Ox 99.1 F 117 H 27 H 91/66 L 99 10/25/17 08:00 10/25/17 10:00 10/25/17 10:00 10/25/17 10:00 10/25/17 10:00 Intake and Output: 10/25/17 10/25/17 06:59 18:59 Intake Total 2059 Output Total 50 Balance -50 2059 - Medications Medications: Current Medications Acetaminophen (Tylenol 650 Mg Supp) 650 mg DC ONCE PRN PRN Reason: Fever >100.4 F Digoxin (Lanoxin) 0.125 mg IVP DAILY [facility] Last Admin: 10/25/17 09:07 Dose: 0.125 mg Famotidine (Pepcid) 20 mg PO DAILY [facility] Last Admin: 10/25/17 09:09 Dose: 20 mg Hydromorphone HCl (Dilaudid) 1 mg IVP Q4 PRN PRN Reason: Pain, moderate (4-7) Last Admin: 10/24/17 10:24 Dose: 1 mg Levofloxacin/Dextrose (Levaquin 500mg) 500 mg in 100 mls @ 100 mls/hr IVPB DAILY [facility] PRN Reason: Protocol Last Admin: 10/25/17 09:08 Dose: 100 mls/hr Meropenem 500 mg/ Sodium (Chloride) 100 mls @ 100 mls/hr IVPB Q8 [facility] PRN Reason: Protocol Last Admin: 10/25/17 09:09 Dose: 100 mls/hr Daptomycin 410 mg/ Sodium (Chloride) 100 mls @ 100 mls/hr IV Q48H [facility] Stop: 10/29/17 12:31 Last Admin: 10/24/17 11:38 Dose: 100 mls/hr Vancomycin HCl 500 mg/ Sodium (Chloride) 100 mls @ 100 mls/hr IVPB QOTHERDAY [facility] PRN Reason: Protocol Sodium Bicarbonate 80 meq/ (Dextrose) 1,080 mls @ 100 mls/hr IV .[id number] [facility] Stop: 10/25/17 16:43 Last Admin: 10/25/17 04:26 Dose: 100 mls/hr Lorazepam (Ativan) 1 mg IVP Q6 [facility] Last Admin: 10/25/17 10:54 Dose: Not Given - Labs Labs: - Additional Findings Additional findings: - Constitutional Appears: Chronically Ill - Head Exam Head Exam: ATRAUMATIC - ENT Exam Additional comments: ET tube in place - Neck Exam Additional comments: supple - Respiratory Exam Additional comments: breath sounds heard b/l decreased at bases - Cardiovascular Exam Cardiovascular Exam: Tachycardia, +S1, +S2 - GI/Abdominal Exam GI & Abdominal Exam: Normal Bowel Sounds, Soft Additional comments: NT, ND - Extremities Exam Additional comments: trace edema b/l LE - Neurological Exam Additional comments: lethargic Laboratory Results - last 72 hr 10/19/17 10/22/17 10/22/17 17:00 17:08 21:36 WBC RBC Hgb Hct MCV MCH MCHC RDW Plt Count MPV Neut % (Auto) Lymph % (Auto) Kemper % (Auto) Eos % (Auto) Baso % (Auto) Neut # Lymph # Kemper # Eos # Baso # Neutrophils % (Manual) Band Neutrophils % Lymphocytes % (Manual) Monocytes % (Manual) Metamyelocytes % Myelocytes % Nucleated RBC % Toxic Granulation Platelet Estimate Hypochromasia (manual) Anisocytosis (manual) Tear Drop Cells Ovalocytes PT INR APTT pCO2 pO2 HCO3 ABG pH ABG Total CO2 ABG O2 Saturation ABG O2 Content ABG Base Excess ABG Hemoglobin ABG Carboxyhemoglobin POC ABG HHb (Measured) ABG Methemoglobin ABG O2 Capacity Jagjit Test ABG Potassium A-a O2 Difference Hgb O2 Saturation Glucose Lactate Vent Mode Mechanical Rate FiO2 Tidal Volume PEEP Sodium Potassium Chloride Carbon Dioxide Anion Gap BUN Creatinine Est GFR ( Amer) Est GFR (Non-Af Amer) POC Glucose (mg/dL) 106 93 Random Glucose Calcium Total Bilirubin AST ALT Alkaline Phosphatase Total Protein Albumin Globulin Albumin/Globulin Ratio Arterial Blood Potassium IgG Urine Immunofixation Not detected Hepatitis A IgM Ab Hepatitis A Ab Total Hep Bs Antigen Hep Bs Antibody Hep B Core IgM Ab 10/23/17 10/23/17 10/23/17 04:10 04:10 04:14 WBC 25.7 H RBC 3.72 L Hgb 10.5 L Hct 33.6 L MCV 90.3 D MCH 28.3 MCHC 31.3 L RDW 23.5 H Plt Count 189 MPV 7.3 Neut % (Auto) 84.2 H Lymph % (Auto) 9.0 L Kemper % (Auto) 6.4 Eos % (Auto) 0.1 Baso % (Auto) 0.3 Neut # 21.7 H Lymph # 2.3 Kemper # 1.6 H Eos # 0.0 Baso # 0.1 Neutrophils % (Manual) 71 Band Neutrophils % 5 H Lymphocytes % (Manual) 8 L Monocytes % (Manual) 4 Metamyelocytes % 6 H Myelocytes % 6 H Nucleated RBC % 2 H Toxic Granulation Present Platelet Estimate Normal Hypochromasia (manual) Slight Anisocytosis (manual) Marked Tear Drop Cells Slight Ovalocytes Slight PT INR APTT pCO2 pO2 HCO3 ABG pH ABG Total CO2 ABG O2 Saturation ABG O2 Content ABG Base Excess ABG Hemoglobin ABG Carboxyhemoglobin POC ABG HHb (Measured) ABG Methemoglobin ABG O2 Capacity Jagjit Test ABG Potassium A-a O2 Difference Hgb O2 Saturation Glucose Lactate Vent Mode Mechanical Rate FiO2 Tidal Volume PEEP Sodium 153 H Potassium 4.3 Chloride 126 H Carbon Dioxide 15 L Anion Gap 16 BUN 78 H Creatinine 2.8 H Est GFR ( Amer) 27 Est GFR (Non-Af Amer) 22 POC Glucose (mg/dL) 143 H Random Glucose 107 Calcium 6.6 L Total Bilirubin AST ALT Alkaline Phosphatase Total Protein Albumin Globulin Albumin/Globulin Ratio Arterial Blood Potassium IgG Urine Immunofixation Hepatitis A IgM Ab Hepatitis A Ab Total Hep Bs Antigen Hep Bs Antibody Hep B Core IgM Ab 10/23/17 10/23/17 10/24/17 05:13 17:05 04:20 WBC 23.3 H RBC 3.79 L Hgb 10.7 L Hct 34.3 L MCV 90.5 MCH 28.3 MCHC 31.3 L RDW 23.4 H Plt Count 172 MPV 7.4 Neut % (Auto) 85.4 H Lymph % (Auto) 8.8 L Kemper % (Auto) 5.1 Eos % (Auto) 0.1 Baso % (Auto) 0.6 Neut # 19.9 H Lymph # 2.0 Kemper # 1.2 H Eos # 0.0 Baso # 0.1 Neutrophils % (Manual) Band Neutrophils % Lymphocytes % (Manual) Monocytes % (Manual) Metamyelocytes % Myelocytes % Nucleated RBC % Toxic Granulation Platelet Estimate Hypochromasia (manual) Anisocytosis (manual) Tear Drop Cells Ovalocytes PT INR APTT pCO2 26 L pO2 194 H HCO3 14.8 L ABG pH 7.28 L ABG Total CO2 13.0 L ABG O2 Saturation 99.4 H ABG O2 Content 15.9 ABG Base Excess -13.0 L ABG Hemoglobin 11.4 L ABG Carboxyhemoglobin 1.2 POC ABG HHb (Measured) 0.6 ABG Methemoglobin 1.7 ABG O2 Capacity 16.0 Jagjit Test Yes ABG Potassium A-a O2 Difference 59.0 Hgb O2 Saturation 96.4 Glucose Lactate Vent Mode A/c Mechanical Rate 14 FiO2 40.0 Tidal Volume 450 PEEP 5 Sodium Potassium Chloride Carbon Dioxide Anion Gap BUN Creatinine Est GFR ( Amer) Est GFR (Non-Af Amer) POC Glucose (mg/dL) 81 Random Glucose Calcium Total Bilirubin AST ALT Alkaline Phosphatase Total Protein Albumin Globulin Albumin/Globulin Ratio Arterial Blood Potassium IgG Urine Immunofixation Hepatitis A IgM Ab Hepatitis A Ab Total Hep Bs Antigen Hep Bs Antibody Hep B Core IgM Ab 10/24/17 10/24/17 10/24/17 04:20 04:20 05:23 WBC RBC Hgb Hct MCV MCH MCHC RDW Plt Count MPV Neut % (Auto) Lymph % (Auto) Kemper % (Auto) Eos % (Auto) Baso % (Auto) Neut # Lymph # Kemper # Eos # Baso # Neutrophils % (Manual) Band Neutrophils % Lymphocytes % (Manual) Monocytes % (Manual) Metamyelocytes % Myelocytes % Nucleated RBC % Toxic Granulation Platelet Estimate Hypochromasia (manual) Anisocytosis (manual) Tear Drop Cells Ovalocytes PT 28.9 H INR 2.6 H APTT 36.5 pCO2 24 L pO2 148 H HCO3 14.4 L ABG pH 7.28 L ABG Total CO2 12.0 L ABG O2 Saturation 99.2 H ABG O2 Content ABG Base Excess -13.6 L ABG Hemoglobin ABG Carboxyhemoglobin POC ABG HHb (Measured) ABG Methemoglobin ABG O2 Capacity Jagjit Test Yes ABG Potassium 4.6 A-a O2 Difference 107.0 Hgb O2 Saturation Glucose 99 Lactate 3.0 H Vent Mode A/c Mechanical Rate 14 FiO2 40.0 Tidal Volume 450 PEEP 5 Sodium 149 H 143.0 Potassium 4.5 Chloride 122 H 120.0 H Carbon Dioxide 14 L Anion Gap 18 BUN 96 H Creatinine 3.7 H Est GFR ( Amer) 19 Est GFR (Non-Af Amer) 16 POC Glucose (mg/dL) Random Glucose 94 Calcium 6.4 L Total Bilirubin 0.9 AST 524 H D ALT 88 H D Alkaline Phosphatase 454 H Total Protein 5.0 L Albumin 2.2 L Globulin 2.7 Albumin/Globulin Ratio 0.8 L Arterial Blood Potassium 4.6 IgG Urine Immunofixation Hepatitis A IgM Ab Hepatitis A Ab Total Hep Bs Antigen Hep Bs Antibody Hep B Core IgM Ab 10/25/17 10/25/17 10/25/17 04:20 04:20 04:20 WBC RBC Hgb Hct MCV MCH MCHC RDW Plt Count MPV Neut % (Auto) Lymph % (Auto) Kemper % (Auto) Eos % (Auto) Baso % (Auto) Neut # Lymph # Kemper # Eos # Baso # Neutrophils % (Manual) Band Neutrophils % Lymphocytes % (Manual) Monocytes % (Manual) Metamyelocytes % Myelocytes % Nucleated RBC % Toxic Granulation Platelet Estimate Hypochromasia (manual) Anisocytosis (manual) Tear Drop Cells Ovalocytes PT INR APTT pCO2 pO2 HCO3 ABG pH ABG Total CO2 ABG O2 Saturation ABG O2 Content ABG Base Excess ABG Hemoglobin ABG Carboxyhemoglobin POC ABG HHb (Measured) ABG Methemoglobin ABG O2 Capacity Jagjit Test ABG Potassium A-a O2 Difference Hgb O2 Saturation Glucose Lactate Vent Mode Mechanical Rate FiO2 Tidal Volume PEEP Sodium Potassium Chloride Carbon Dioxide Anion Gap BUN Creatinine Est GFR ( Amer) Est GFR (Non-Af Amer) POC Glucose (mg/dL) Random Glucose Calcium Total Bilirubin AST ALT Alkaline Phosphatase Total Protein Albumin Globulin Albumin/Globulin Ratio Arterial Blood Potassium IgG Urine Immunofixation Hepatitis A IgM Ab Negative Negative Hepatitis A Ab Total Antibody pos Hep Bs Antigen Negative Hep Bs Antibody Positive Hep B Core IgM Ab Negative Negative 10/25/17 10/25/17 10/25/17 04:20 04:20 05:46 WBC 24.1 H RBC 3.90 L Hgb 11.0 L Hct 35.1 MCV 90.0 MCH 28.3 MCHC 31.5 L RDW 22.8 H Plt Count 206 MPV 7.7 Neut % (Auto) 86.6 H Lymph % (Auto) 8.2 L Kemper % (Auto) 4.8 Eos % (Auto) 0.2 Baso % (Auto) 0.2 Neut # 20.8 H Lymph # 2.0 Kemper # 1.2 H Eos # 0.1 Baso # 0.0 Neutrophils % (Manual) Band Neutrophils % Lymphocytes % (Manual) Monocytes % (Manual) Metamyelocytes % Myelocytes % Nucleated RBC % Toxic Granulation Platelet Estimate Hypochromasia (manual) Anisocytosis (manual) Tear Drop Cells Ovalocytes PT INR APTT pCO2 pO2 HCO3 ABG pH ABG Total CO2 ABG O2 Saturation ABG O2 Content ABG Base Excess ABG Hemoglobin ABG Carboxyhemoglobin POC ABG HHb (Measured) ABG Methemoglobin ABG O2 Capacity Jagjit Test ABG Potassium A-a O2 Difference Hgb O2 Saturation Glucose Lactate Vent Mode Mechanical Rate FiO2 Tidal Volume PEEP Sodium 145 Potassium 4.9 Chloride 116 H Carbon Dioxide 15 L Anion Gap 19 BUN 108 H* Creatinine 4.3 H Est GFR ( Amer) 16 Est GFR (Non-Af Amer) 14 POC Glucose (mg/dL) Random Glucose 280 H Calcium 6.1 L Total Bilirubin 1.0 AST 527 H ALT 103 H Alkaline Phosphatase 655 H D Total Protein 5.0 L Albumin 2.3 L Globulin 2.7 Albumin/Globulin Ratio 0.9 L Arterial Blood Potassium IgG 724.8 Urine Immunofixation Hepatitis A IgM Ab Hepatitis A Ab Total Hep Bs Antigen Hep Bs Antibody Hep B Core IgM Ab 10/25/17 06:00 WBC RBC Hgb Hct MCV MCH MCHC RDW Plt Count MPV Neut % (Auto) Lymph % (Auto) Kemper % (Auto) Eos % (Auto) Baso % (Auto) Neut # Lymph # Kemper # Eos # Baso # Neutrophils % (Manual) Band Neutrophils % Lymphocytes % (Manual) Monocytes % (Manual) Metamyelocytes % Myelocytes % Nucleated RBC % Toxic Granulation Platelet Estimate Hypochromasia (manual) Anisocytosis (manual) Tear Drop Cells Ovalocytes PT INR APTT pCO2 23 L pO2 160 H HCO3 13.9 L ABG pH 7.28 L ABG Total CO2 11.5 L ABG O2 Saturation 99.3 H ABG O2 Content 16.4 ABG Base Excess -14.1 L ABG Hemoglobin 12.0 ABG Carboxyhemoglobin 1.4 POC ABG HHb (Measured) 0.7 ABG Methemoglobin 2.3 ABG O2 Capacity 16.5 Jagjit Test Yes ABG Potassium A-a O2 Difference 96.0 Hgb O2 Saturation 95.6 Glucose Lactate Vent Mode Prvc ac Mechanical Rate 14 FiO2 40.0 Tidal Volume 450 PEEP 5 Sodium Potassium Chloride Carbon Dioxide Anion Gap BUN Creatinine Est GFR ( Amer) Est GFR (Non-Af Amer) POC Glucose (mg/dL) Random Glucose Calcium Total Bilirubin AST ALT Alkaline Phosphatase Total Protein Albumin Globulin Albumin/Globulin Ratio Arterial Blood Potassium IgG Urine Immunofixation Hepatitis A IgM Ab Hepatitis A Ab Total Hep Bs Antigen Hep Bs Antibody Hep B Core IgM Ab Microbiology 10/21/17 16:50 Blood-Venous S.aureus & Coag-Neg Staph PNA FISH - Final 10/21/17 16:50 Blood-Venous Blood Culture - Final Staphylococcus Aureus 10/21/17 16:50 Blood-Venous Gram Stain - Final 10/21/17 17:01 Blood-Thru Central Line Blood Culture - Preliminary NO GROWTH AFTER 3 DAYS 10/21/17 05:00 Trachasp Gram Stain - Final 10/21/17 05:00 Trachasp Sputum Culture - Final Staphylococcus Aureus 10/18/17 20:00 Blood-Venous Blood Culture - Final NO GROWTH AFTER 5 DAYS 10/18/17 20:00 Blood-Venous Gram Stain - Final TEST NOT PERFORMED 10/21/17 16:24 Urine,[place] Urine Culture - Final No Growth (<1,000 CFU/ML) 10/18/17 20:30 Blood-Venous S.aureus & Coag-Neg Staph PNA FISH - Final 10/18/17 20:30 Blood-Venous Blood Culture - Final Staphylococcus Aureus 10/18/17 20:30 Blood-Venous Gram Stain - Final 10/18/17 10:00 Naris MRSA Culture (Admit) - Final MRSA NOT DETECTED Accession No. : [id number] Patient Name / ID : HAILE RODRIGUEZ / [id number] Exam Date : 10/25/2017 05:11:55 ( Approved ) Study Comment : Sex / Age : M / 77Y Creator : Adonis Sung MD Dictator : Adonis Sung MD Climatology Teacher : Screen Printing Cloth Spreader : Adonis Sung MD Approver2 : Report Date : 10/25/2017 10:07:04 My Comment : HISTORY: Mechanical Vent COMPARISON: Chest radiograph dated 10/24/2017 FINDINGS: LUNGS: No active pulmonary disease. PLEURA: No significant pleural effusion identified, no pneumothorax apparent. CARDIOVASCULAR: Normal. OSSEOUS STRUCTURES: Unchanged. VISUALIZED UPPER ABDOMEN: Normal. OTHER FINDINGS: interval placement of enteric tube with tip in the stomach. Endotracheal tube, unchanged. IMPRESSION: New enteric tube in satisfactory position. No other significant interval change. Assessment and Plan (1) Leukocytosis Status: Acute (2) Metastatic cancer Status: Acute (3) Weakness Status: Acute (4) Renal insufficiency Status: Acute - Assessment and Plan (Free Text) Assessment: A/P- 77 year old male with multiple medical conditions including A.fib, aortic stenosis, metastatic prostate cancer admitted with weakness found to be in resp distress and acute renal insufficiency . afebrile slightly reduced leukocytosis but still high blood cx- mssa x 3 trach asp cx- MSSA TTE- inconclusive result as per report. 1.staph bacteremia-MSSA 2.leukocytois 3.resp distress/pneumonia 4.ERIN 5. aortic stenosi Plan- continue with daptomycin for MSSA bacteremia ( renal dose) sicne pt. is PCN allergic and since his renal function is not good ,vanco to be given q48 hours only since daptomycin does not cover staph in pulmonary infection , hence will need to use both but q48 hours for both. check 2 more blood cx. advise to d/c the femoral TLC. advise to have better reading of the TTE r/o IE or TATIANNA. all above d/w patient's daughter and and they verbalize full understanding of all above. all above also d/w Truck Loader Mauro HANNAH. ICU time 45 minutes. prognosis poor.
--- NOTE | 2017-10-25 14:00 | CP.PCM.PN ---
Subjective - Date & Time of Evaluation Date of Evaluation: 10/25/17 Time of Evaluation: 14:00 - Subjective Subjective: STILL INTUBATED NO NEW CLINICAL FINDINGS WILL CONTINUE PRESENT RX PROGNOSIS IS GUARDED Objective - Vital Signs/Intake and Output Vital Signs (last 24 hours): Temp Pulse Resp BP Pulse Ox 98.2 F 117 H 18 96/56 L 99 10/25/17 12:00 10/25/17 12:00 10/25/17 12:00 10/25/17 12:00 10/25/17 12:00 Intake and Output: 10/25/17 10/25/17 06:59 18:59 Intake Total 2059 Output Total 50 Balance -50 2059 - Medications Medications: Current Medications Acetaminophen (Tylenol 650 Mg Supp) 650 mg KS ONCE PRN PRN Reason: Fever >100.4 F Digoxin (Lanoxin) 0.125 mg IVP DAILY [facility] Last Admin: 10/25/17 09:07 Dose: 0.125 mg Famotidine (Pepcid) 20 mg PO DAILY [facility] Last Admin: 10/25/17 09:09 Dose: 20 mg Hydromorphone HCl (Dilaudid) 1 mg IVP Q4 PRN PRN Reason: Pain, moderate (4-7) Last Admin: 10/24/17 10:24 Dose: 1 mg Levofloxacin/Dextrose (Levaquin 500mg) 500 mg in 100 mls @ 100 mls/hr IVPB DAILY [facility] PRN Reason: Protocol Last Admin: 10/25/17 09:08 Dose: 100 mls/hr Meropenem 500 mg/ Sodium (Chloride) 100 mls @ 100 mls/hr IVPB Q8 [facility] PRN Reason: Protocol Last Admin: 10/25/17 09:09 Dose: 100 mls/hr Daptomycin 410 mg/ Sodium (Chloride) 100 mls @ 100 mls/hr IV Q48H [facility] Stop: 10/29/17 12:31 Last Admin: 10/24/17 11:38 Dose: 100 mls/hr Vancomycin HCl 500 mg/ Sodium (Chloride) 100 mls @ 100 mls/hr IVPB QOTHERDAY [facility] PRN Reason: Protocol Sodium Bicarbonate 80 meq/ (Dextrose) 1,080 mls @ 100 mls/hr IV .[id number] [facility] Stop: 10/25/17 16:43 Last Admin: 10/25/17 04:26 Dose: 100 mls/hr Lorazepam (Ativan) 1 mg IVP Q6 [facility] Last Admin: 10/25/17 10:54 Dose: Not Given - Labs Labs: 10/25/17 04:20 10/25/17 05:46 PT 28.9 Seconds (9.8-13.1) H 10/24/17 04:20 INR 2.6 (0.9-1.2) H 10/24/17 04:20 APTT 36.5 Seconds (25.6-37.1) 10/24/17 04:20
[2017-10-26] MEDS: Meropenem 500 MG in Sodium Chloride 0.9% 100 ML IVPB SCH ×2 (01:18→08:28)
[2017-10-26] MEDS: Digoxin 500 mcg/2ml (0.5 mg/2ml) Inj IVP SCH (08:25)
[2017-10-26] MEDS: levoFLOXacin 500 mg in D5W 500 MG/100 ML BAG IVPB SCH (08:25)
[2017-10-26] MEDS: Famotidine 40 MG/5 ML PO SCH (08:26)
[2017-10-26] MEDS: Sodium Bicarbonate 8.4% 80 MEQ in Dextrose 5% In Water 1,000 ML IV SCH (08:26)
[2017-10-26 11:12] LABS: HB E AB Nonreactive (Nonreactive); HB E AG Nonreactive (Nonreactive)
--- NOTE | 2017-10-26 11:35 | CP.CCUPN ---
CCU Subjective - Physician Review Subjective (Free Text): Less responsive yesterday, not responding to verbal stimuli, grimaces to pain, does not appear distressed, does not appear diaphoretic, tachycardic, nor has been febrile.No weaning trials done to comatose state. BP levels have been trending lower. With marked positive fluid balance over 5 liters last 24H, will start vasopressors as and daughter wish to wait until Dec 4 to make decision regarding terminal withdrawal from MV support. Have informed them that he may deteriorate muck quicker than anticipated due to multiorgan failure evident now. Day #7 MV support. Other vitals and I/O's reviewed. ROS: Unobtainable, intubated. No other pertinent negs or positives on 10+ system review. PMSFH: Paroxysmal A Fib, HTN, Hyperlipidemia, Depression, non-drinker, non- smoker- Otherwise all Nursing and physician documentation reviewed to date; no new pertinent info noted relevant to current medical problems. CXR: none ordered today. IMPRESSION / MAJOR PROBLEMS NOW: 1. Acute Resp Insuff 2' bilateral pneumonia ( Aspiration type) 2. 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 s/p A Fib with RVR 4. Azotemia / Dehydration with progression to Acute renal failure 5. r/o Acute - SubAcute Cholecystitis 6. Metastatic Liver Disease 7. Severe Aortic Stenosis with preserved LVEF 8. Chronic Disease Anemia PLAN: 1. Add Neosynephrine drip in the interim to support BP as family undergoes the decision -making process. 2. Doubt acute HD will have any favorable impact on mortality if not adding to patient's overall morbidity. 3. Continue alkalinized IV fluids. 4. Multiple repeat BCs showing Staph aureus growth. TLC line remains now for vasopressor infusion. Nurses have been unable to obtain satisfactory peripheral IV access. 5. Maintain comfort care as well. CCU Objective - Vital Signs / Intake & Output Vital Signs (Last 4 hours): Vital Signs Temp Pulse Resp BP Pulse Ox 10/26/17 10:00 129 H 25 H 75/57 L 100 10/26/17 08:00 98.5 F 117 H 81/54 L 99 Intake and Output (Last 8hrs): Intake & Output 10/25/17 10/26/17 10/26/17 22:59 06:59 14:59 Intake Total 1720 1720 1020 Output Total 25 5 Balance 1695 1720 1015 Weight 164 lb 9.6 oz Intake: IV 700 800 300 Intake, Piggyback 100 300 Tube Feeding 320 320 120 Free Water Flush 600 600 300 Output: Urine 25 5 Urethral ([place]) 25 5 Other: # Bowel Movements 1 - Physical Exam Head: Positive for: Normocephalic Pupils: Positive for: PERRL Extroacular Muscles: Positive for: EOMI Conjunctiva: Positive for: Normal Mouth: Positive for: Dry Neck: Negative for: Meningeal Signs, JVD Respiratory/Chest: Positive for: Rhonchi. Negative for: Accessory Muscle Use, Wheezes, Decreased Breath Sounds Cardiovascular: Positive for: Murmurs, Normal S1, S2. Negative for: Rub Abdomen: Positive for: Normal Bowel Sounds. Negative for: Tenderness, Distention, Mass/Organomegaly Lower Extremity: Positive for: Edema, NORMAL PULSES. Negative for: CALF TENDERNESS, Cyanosis Neurological: Positive for: Other (on ventilator) Skin: Positive for: Warm, Dry. Negative for: Rashes Psychiatric: Positive for: Lethargic - Medications Active Medications: Active Medications Generic Name Dose Route Start Last Admin Trade Name Freq PRN Reason Stop Dose Admin Acetaminophen 650 mg 10/23/17 02:25 Tylenol 650 Mg Supp CO ONCE PRN Fever >100.4 F Digoxin 0.125 mg 10/22/17 09:00 10/26/17 08:25 Lanoxin IVP 0.125 mg DAILY [facility] Administration Famotidine 20 mg 10/23/17 09:00 10/26/17 08:26 Pepcid PO 20 mg DAILY [facility] Administration Daptomycin 410 mg/ Sodium 100 mls @ 100 mls/hr 10/24/17 12:30 10/24/17 11:38 Chloride IV 10/29/17 12:31 100 mls/hr Q48H [facility] Administration Vancomycin HCl 500 mg/ Sodium 100 mls @ 100 mls/hr 10/26/17 09:00 10/26/17 08 :27 Chloride IVPB 100 mls/hr QOTHERDAY [facility] Administration Protocol Sodium Bicarbonate 80 meq/ 1,080 mls @ 100 mls/hr 10/25/17 17:45 10/26/17 08: 26 Dextrose IV 10/26/17 17:36 100 mls/hr .[id number] [facility] Administration Meropenem 500 mg/ Sodium 50 mls @ 50 mls/hr 10/26/17 17:00 Chloride IVPB Q8 [facility] Protocol Phenylephrine HCl 10 mg/ 251 mls @ 30.12 mls/hr 10/26/17 11:15 Sodium Chloride IV .Q8H20M [facility] Protocol 20 MCG/MIN Lorazepam 1 mg 10/24/17 04:00 10/26/17 04:05 Ativan IVP Not Given Q6 [facility] - Patient Studies Lab Studies: Microbiology Studies 10/21/17 17:01 Blood Culture - Preliminary Blood-Thru Central Line NO GROWTH AFTER 4 DAYS 10/24/17 16:09 Blood Culture - Preliminary Blood-Venous NO GROWTH AFTER 24 HOURS 10/24/17 16:09 Blood Culture - Preliminary Blood-Venous NO GROWTH AFTER 24 HOURS 10/21/17 16:50 S.aureus & Coag-Neg Staph PNA FISH - Final Blood-Venous Blood Culture - Final Staphylococcus Aureus Gram Stain - Final Lab Studies 10/25/17 10/25/17 10/25/17 Range/Units 04:20 04:20 04:20 IgG 724.8 (700.0-1600.0) mg/dL Hepatitis A IgM Ab (NEGATIVE) Hepatitis A Ab Total (NEGATIVE) Hep Bs Antigen (NEGATIVE) Hep Bs Antibody Positive (NEGATIVE) Hep B Core IgM Ab (NEGATIVE) Hepatitis Be Antibody Nonreactive (Nonreactive) Hepatitis Be Antigen Nonreactive (Nonreactive) Hepatitis C Antibody (NEGATIVE) 10/25/17 10/25/17 Range/Units 04:20 04:20 IgG (700.0-1600.0) mg/dL Hepatitis A IgM Ab Negative Negative (NEGATIVE) Hepatitis A Ab Total Antibody pos (NEGATIVE) Hep Bs Antigen Negative (NEGATIVE) Hep Bs Antibody (NEGATIVE) Hep B Core IgM Ab Negative Negative (NEGATIVE) Hepatitis Be Antibody (Nonreactive) Hepatitis Be Antigen (Nonreactive) Hepatitis C Antibody Negative (NEGATIVE) Laboratory Results - last 24 hr 10/25/17 10/25/17 10/25/17 04:20 04:20 04:20 IgG Hepatitis A IgM Ab Negative Negative Hepatitis A Ab Total Antibody pos Hep Bs Antigen Negative Hep Bs Antibody Positive Hep B Core IgM Ab Negative Negative Hepatitis Be Antibody Hepatitis Be Antigen Hepatitis C Antibody Negative 10/25/17 10/25/17 04:20 04:20 IgG 724.8 Hepatitis A IgM Ab Hepatitis A Ab Total Hep Bs Antigen Hep Bs Antibody Hep B Core IgM Ab Hepatitis Be Antibody Nonreactive Hepatitis Be Antigen Nonreactive Hepatitis C Antibody Fingerstick Blood Sugar Results: 143 Review of Systems - Review of Systems Systems not reviewed;Unavailable: Altered Mental Status Critical Care Progress Note - Ventilator Checklist Head of Bed 30 Degrees: Yes Daily Sedation Vacation: No Daily Assessment of Readiness to Wean: No Daily Spontaneous Breathing Trial: No PUD Prophalyxis: Yes DVT Prophylaxis: Yes Oral Care with Chlorhexidine Gluconate {CHG}: Yes - Vent Settings MODE:: ASSIST CONTROL TIDAL VOLUME:: 450 RESP RATE:: 14 FIO2:: 40 PEEP:: 5 - Extremities/Vascular Does the Patient have a Central Venous Catheter?: Yes Insertion Site: Femoral Vein Does the Patient need a Central Venous Catheter?: Yes Does the Patient have a [place] Catheter?: Yes Does the Patient need a [place] Catheter?: Yes Catheter Insertion Criteria: Need for accurate measurement of output in critically ill patient - Prophylaxis GI Prophylaxis GI: Pepsid - Prophylaxis DVT Prophylaxis DVT: SCDs - Nutrition Nutrition: Nutrition Category Date Time Status NPO Diet [DIET] Diets 10/19/17 Lunch Active
--- NOTE | 2017-10-26 11:36 | CP.PCM.PN ---
Subjective - Date & Time of Evaluation Date of Evaluation: 10/26/17 Time of Evaluation: 11:39 - Subjective Subjective: HYPOTENSIVE NO RESPONSE TO PAINFUL STIMULI DAUGHTER AND AT BEDSIDE--CASE DISCUSSED WITH THEM[THEY ARE CONSIDERING TERMINAL EXTUBATION] Objective - Vital Signs/Intake and Output Vital Signs (last 24 hours): Temp Pulse Resp BP Pulse Ox 98.5 F 129 H 25 H 75/57 L 100 10/26/17 08:00 10/26/17 10:00 10/26/17 10:00 10/26/17 10:00 10/26/17 10:00 Intake and Output: 10/26/17 10/26/17 06:59 18:59 Intake Total 2580 1020 Output Total 5 Balance 2580 1015 - Medications Medications: Current Medications Acetaminophen (Tylenol 650 Mg Supp) 650 mg [place] ONCE PRN PRN Reason: Fever >100.4 F Digoxin (Lanoxin) 0.125 mg IVP DAILY [facility] Last Admin: 10/26/17 08:25 Dose: 0.125 mg Famotidine (Pepcid) 20 mg PO DAILY [facility] Last Admin: 10/26/17 08:26 Dose: 20 mg Daptomycin 410 mg/ Sodium (Chloride) 100 mls @ 100 mls/hr IV Q48H [facility] Stop: 10/29/17 12:31 Last Admin: 10/24/17 11:38 Dose: 100 mls/hr Vancomycin HCl 500 mg/ Sodium (Chloride) 100 mls @ 100 mls/hr IVPB QOTHERDAY [facility] PRN Reason: Protocol Last Admin: 10/26/17 08:27 Dose: 100 mls/hr Sodium Bicarbonate 80 meq/ (Dextrose) 1,080 mls @ 100 mls/hr IV .[id number] [facility] Stop: 10/26/17 17:36 Last Admin: 10/26/17 08:26 Dose: 100 mls/hr Meropenem 500 mg/ Sodium (Chloride) 50 mls @ 50 mls/hr IVPB Q8 [facility] PRN Reason: Protocol Phenylephrine HCl 10 mg/ (Sodium Chloride) 251 mls @ 30.12 mls/hr IV .Q8H20M [facility]; 20 MCG/MIN PRN Reason: Protocol Lorazepam (Ativan) 1 mg IVP Q6 [facility] Last Admin: 10/26/17 04:05 Dose: Not Given - Labs Labs: 10/25/17 04:20 10/25/17 05:46 PT 28.9 Seconds (9.8-13.1) H 10/24/17 04:20 INR 2.6 (0.9-1.2) H 10/24/17 04:20 APTT 36.5 Seconds (25.6-37.1) 10/24/17 04:20 - Constitutional Appears: Chronically Ill - Head Exam Head Exam: ATRAUMATIC, NORMAL INSPECTION, NORMOCEPHALIC - Eye Exam Eye Exam: EOMI, Normal appearance, PERRL Pupil Exam: NORMAL ACCOMODATION, PERRL - ENT Exam ENT Exam: Mucous Membranes Moist, Normal Exam - Neck Exam Neck Exam: Full ROM, Normal Inspection. absent: Lymphadenopathy - Respiratory Exam Respiratory Exam: Rales Additional comments: ETT IN PLACE----ON THE VENT - Cardiovascular Exam Cardiovascular Exam: Tachycardia, REGULAR RHYTHM, +S1, +S2. absent: Murmur - GI/Abdominal Exam GI & Abdominal Exam: Soft, Normal Bowel Sounds. absent: Tenderness - Rectal Exam Rectal Exam: NORMAL INSPECTION - Extremities Exam Extremities Exam: Normal Capillary Refill, Pedal Edema. absent: Joint Swelling - Back Exam Back Exam: NORMAL INSPECTION Assessment and Plan - Assessment and Plan (Free Text) Assessment: MULTIORGAN FAILURE Plan: CONTINUE [id number] RX PROGNOSIS IS POOR
--- NOTE | 2017-10-26 15:14 | CP.PCM.PN ---
Subjective - Date & Time of Evaluation Date of Evaluation: 10/26/17 Time of Evaluation: 15:14 - Subjective Subjective: ID Note- Pt. seen and examined today in ICU. pt. looks very lethargic and is now on pressors for hypotention. remains intubated. Objective - Vital Signs/Intake and Output Vital Signs (last 24 hours): Temp Pulse Resp BP Pulse Ox 98.4 F 127 H 26 H 77/46 L 100 10/26/17 12:00 10/26/17 15:00 10/26/17 15:00 10/26/17 15:00 10/26/17 15:00 Intake and Output: 10/26/17 10/26/17 06:59 18:59 Intake Total 2580 1980 Output Total 10 Balance 2580 1969 - Medications Medications: Current Medications Acetaminophen (Tylenol 650 Mg Supp) 650 mg [place] ONCE PRN PRN Reason: Fever >100.4 F Digoxin (Lanoxin) 0.125 mg IVP DAILY [facility] Last Admin: 10/26/17 08:25 Dose: 0.125 mg Famotidine (Pepcid) 20 mg PO DAILY [facility] Last Admin: 10/26/17 08:26 Dose: 20 mg Daptomycin 410 mg/ Sodium (Chloride) 100 mls @ 100 mls/hr IV Q48H [facility] Stop: 10/29/17 12:31 Last Admin: 10/26/17 13:55 Dose: 100 mls/hr Vancomycin HCl 500 mg/ Sodium (Chloride) 100 mls @ 100 mls/hr IVPB QOTHERDAY [facility] PRN Reason: Protocol Last Admin: 10/26/17 08:27 Dose: 100 mls/hr Sodium Bicarbonate 80 meq/ (Dextrose) 1,080 mls @ 100 mls/hr IV .[id number] [facility] Stop: 10/26/17 17:36 Last Admin: 10/26/17 08:26 Dose: 100 mls/hr Meropenem 500 mg/ Sodium (Chloride) 50 mls @ 50 mls/hr IVPB Q8 [facility] PRN Reason: Protocol Phenylephrine HCl 10 mg/ (Sodium Chloride) 251 mls @ 30.12 mls/hr IV .Q8H20M [facility]; 20 MCG/MIN PRN Reason: Protocol Last Titration: 10/26/17 15:06 Dose: 40 mcg/min, 60.24 mls/hr Lorazepam (Ativan) 1 mg IVP Q6 [facility] Last Admin: 10/26/17 10:00 Dose: Not Given - Labs Labs: - Additional Findings Additional findings: - Constitutional Appears: Chronically Ill - Head Exam Head Exam: ATRAUMATIC - ENT Exam Additional comments: ET tube in place - Neck Exam Additional comments: supple - Respiratory Exam Additional comments: breath sounds heard b/l decreased at bases - Cardiovascular Exam Cardiovascular Exam: Tachycardia, +S1, +S2 - GI/Abdominal Exam GI & Abdominal Exam: Normal Bowel Sounds, Soft Additional comments: NT, ND - Extremities Exam Additional comments: trace edema b/l LE - Neurological Exam Additional comments: lethargic Laboratory Results - last 72 hr 10/23/17 10/24/17 10/24/17 17:05 04:20 04:20 WBC 23.3 H RBC 3.79 L Hgb 10.7 L Hct 34.3 L MCV 90.5 MCH 28.3 MCHC 31.3 L RDW 23.4 H Plt Count 172 MPV 7.4 Neut % (Auto) 85.4 H Lymph % (Auto) 8.8 L [place] % (Auto) 5.1 Eos % (Auto) 0.1 Baso % (Auto) 0.6 Neut # 19.9 H Lymph # 2.0 [place] # 1.2 H Eos # 0.0 Baso # 0.1 PT 28.9 H INR 2.6 H APTT 36.5 pCO2 pO2 HCO3 ABG pH ABG Total CO2 ABG O2 Saturation ABG O2 Content ABG Base Excess ABG Hemoglobin ABG Carboxyhemoglobin POC ABG HHb (Measured) ABG Methemoglobin ABG O2 Capacity Jagjit Test ABG Potassium A-a O2 Difference Hgb O2 Saturation Glucose Lactate Vent Mode Mechanical Rate FiO2 Tidal Volume PEEP Sodium Potassium Chloride Carbon Dioxide Anion Gap BUN Creatinine Est GFR ( Amer) Est GFR (Non-Af Amer) POC Glucose (mg/dL) 81 Random Glucose Calcium Total Bilirubin AST ALT Alkaline Phosphatase Total Protein Albumin Globulin Albumin/Globulin Ratio Arterial Blood Potassium IgG Hepatitis A IgM Ab Hepatitis A Ab Total Hep Bs Antigen Hep Bs Antibody Hep B Core IgM Ab Hepatitis Be Antibody Hepatitis Be Antigen Hepatitis C Antibody 10/24/17 10/24/17 10/25/17 04:20 05:23 04:20 WBC RBC Hgb Hct MCV MCH MCHC RDW Plt Count MPV Neut % (Auto) Lymph % (Auto) [place] % (Auto) Eos % (Auto) Baso % (Auto) Neut # Lymph # [place] # Eos # Baso # PT INR APTT pCO2 24 L pO2 148 H HCO3 14.4 L ABG pH 7.28 L ABG Total CO2 12.0 L ABG O2 Saturation 99.2 H ABG O2 Content ABG Base Excess -13.6 L ABG Hemoglobin ABG Carboxyhemoglobin POC ABG HHb (Measured) ABG Methemoglobin ABG O2 Capacity Jagjit Test Yes ABG Potassium 4.6 A-a O2 Difference 107.0 Hgb O2 Saturation Glucose 99 Lactate 3.0 H Vent Mode A/c Mechanical Rate 14 FiO2 40.0 Tidal Volume 450 PEEP 5 Sodium 149 H 143.0 Potassium 4.5 Chloride 122 H 120.0 H Carbon Dioxide 14 L Anion Gap 18 BUN 96 H Creatinine 3.7 H Est GFR ( Amer) 19 Est GFR (Non-Af Amer) 16 POC Glucose (mg/dL) Random Glucose 94 Calcium 6.4 L Total Bilirubin 0.9 AST 524 H D ALT 88 H D Alkaline Phosphatase 454 H Total Protein 5.0 L Albumin 2.2 L Globulin 2.7 Albumin/Globulin Ratio 0.8 L Arterial Blood Potassium 4.6 IgG Hepatitis A IgM Ab Negative Hepatitis A Ab Total Hep Bs Antigen Negative Hep Bs Antibody Hep B Core IgM Ab Negative Hepatitis Be Antibody Hepatitis Be Antigen Hepatitis C Antibody Negative 10/25/17 10/25/17 10/25/17 04:20 04:20 04:20 WBC RBC Hgb Hct MCV MCH MCHC RDW Plt Count MPV Neut % (Auto) Lymph % (Auto) [place] % (Auto) Eos % (Auto) Baso % (Auto) Neut # Lymph # [place] # Eos # Baso # PT INR APTT pCO2 pO2 HCO3 ABG pH ABG Total CO2 ABG O2 Saturation ABG O2 Content ABG Base Excess ABG Hemoglobin ABG Carboxyhemoglobin POC ABG HHb (Measured) ABG Methemoglobin ABG O2 Capacity Jagjit Test ABG Potassium A-a O2 Difference Hgb O2 Saturation Glucose Lactate Vent Mode Mechanical Rate FiO2 Tidal Volume PEEP Sodium Potassium Chloride Carbon Dioxide Anion Gap BUN Creatinine Est GFR ( Amer) Est GFR (Non-Af Amer) POC Glucose (mg/dL) Random Glucose Calcium Total Bilirubin AST ALT Alkaline Phosphatase Total Protein Albumin Globulin Albumin/Globulin Ratio Arterial Blood Potassium IgG 724.8 Hepatitis A IgM Ab Negative Hepatitis A Ab Total Antibody pos Hep Bs Antigen Hep Bs Antibody Positive Hep B Core IgM Ab Negative Hepatitis Be Antibody Hepatitis Be Antigen Hepatitis C Antibody 10/25/17 10/25/17 10/25/17 04:20 04:20 05:46 WBC 24.1 H RBC 3.90 L Hgb 11.0 L Hct 35.1 MCV 90.0 MCH 28.3 MCHC 31.5 L RDW 22.8 H Plt Count 206 MPV 7.7 Neut % (Auto) 86.6 H Lymph % (Auto) 8.2 L [place] % (Auto) 4.8 Eos % (Auto) 0.2 Baso % (Auto) 0.2 Neut # 20.8 H Lymph # 2.0 [place] # 1.2 H Eos # 0.1 Baso # 0.0 PT INR APTT pCO2 pO2 HCO3 ABG pH ABG Total CO2 ABG O2 Saturation ABG O2 Content ABG Base Excess ABG Hemoglobin ABG Carboxyhemoglobin POC ABG HHb (Measured) ABG Methemoglobin ABG O2 Capacity Jagjit Test ABG Potassium A-a O2 Difference Hgb O2 Saturation Glucose Lactate Vent Mode Mechanical Rate FiO2 Tidal Volume PEEP Sodium 145 Potassium 4.9 Chloride 116 H Carbon Dioxide 15 L Anion Gap 19 BUN 108 H* Creatinine 4.3 H Est GFR ( Amer) 16 Est GFR (Non-Af Amer) 14 POC Glucose (mg/dL) Random Glucose 280 H Calcium 6.1 L Total Bilirubin 1.0 AST 527 H ALT 103 H Alkaline Phosphatase 655 H D Total Protein 5.0 L Albumin 2.3 L Globulin 2.7 Albumin/Globulin Ratio 0.9 L Arterial Blood Potassium IgG Hepatitis A IgM Ab Hepatitis A Ab Total Hep Bs Antigen Hep Bs Antibody Hep B Core IgM Ab Hepatitis Be Antibody Nonreactive Hepatitis Be Antigen Nonreactive Hepatitis C Antibody 10/25/17 06:00 WBC RBC Hgb Hct MCV MCH MCHC RDW Plt Count MPV Neut % (Auto) Lymph % (Auto) [place] % (Auto) Eos % (Auto) Baso % (Auto) Neut # Lymph # [place] # Eos # Baso # PT INR APTT pCO2 23 L pO2 160 H HCO3 13.9 L ABG pH 7.28 L ABG Total CO2 11.5 L ABG O2 Saturation 99.3 H ABG O2 Content 16.4 ABG Base Excess -14.1 L ABG Hemoglobin 12.0 ABG Carboxyhemoglobin 1.4 POC ABG HHb (Measured) 0.7 ABG Methemoglobin 2.3 ABG O2 Capacity 16.5 Jagjit Test Yes ABG Potassium A-a O2 Difference 96.0 Hgb O2 Saturation 95.6 Glucose Lactate Vent Mode Prvc ac Mechanical Rate 14 FiO2 40.0 Tidal Volume 450 PEEP 5 Sodium Potassium Chloride Carbon Dioxide Anion Gap BUN Creatinine Est GFR ( Amer) Est GFR (Non-Af Amer) POC Glucose (mg/dL) Random Glucose Calcium Total Bilirubin AST ALT Alkaline Phosphatase Total Protein Albumin Globulin Albumin/Globulin Ratio Arterial Blood Potassium IgG Hepatitis A IgM Ab Hepatitis A Ab Total Hep Bs Antigen Hep Bs Antibody Hep B Core IgM Ab Hepatitis Be Antibody Hepatitis Be Antigen Hepatitis C Antibody Microbiology 10/24/17 16:09 Blood-Venous Blood Culture - Preliminary NO GROWTH AFTER 48 HOURS 10/24/17 16:09 Blood-Venous Blood Culture - Preliminary NO GROWTH AFTER 48 HOURS 10/21/17 17:01 Blood-Thru Central Line Blood Culture - Preliminary NO GROWTH AFTER 4 DAYS 10/21/17 16:50 Blood-Venous S.aureus & Coag-Neg Staph PNA FISH - Final 10/21/17 16:50 Blood-Venous Blood Culture - Final Staphylococcus Aureus 10/21/17 16:50 Blood-Venous Gram Stain - Final 10/21/17 05:00 Trachasp Gram Stain - Final 10/21/17 05:00 Trachasp Sputum Culture - Final Staphylococcus Aureus 10/18/17 20:00 Blood-Venous Blood Culture - Final NO GROWTH AFTER 5 DAYS 10/18/17 20:00 Blood-Venous Gram Stain - Final TEST NOT PERFORMED 10/21/17 16:24 Urine,[place] Urine Culture - Final No Growth (<1,000 CFU/ML) 10/18/17 20:30 Blood-Venous S.aureus & Coag-Neg Staph PNA FISH - Final 10/18/17 20:30 Blood-Venous Blood Culture - Final Staphylococcus Aureus 10/18/17 20:30 Blood-Venous Gram Stain - Final 10/18/17 10:00 Naris MRSA Culture (Admit) - Final MRSA NOT DETECTED Assessment and Plan (1) Leukocytosis Status: Acute (2) Metastatic cancer Status: Acute (3) Weakness Status: Acute (4) Renal insufficiency Status: Acute - Assessment and Plan (Free Text) Assessment: A/P- 77 year old male with multiple medical conditions including A.fib, aortic stenosis, metastatic prostate cancer admitted with weakness found to be in resp distress and acute renal insufficiency . very lethargic today clinically worse hypotensive on pressors afebrile continues to have high wbc blood cx- mssa x 2 trach asp cx- MSSA TTE- inconclusive result as per report. repeat blood cx- neg x 3 1.staph bacteremia-MSSA 2.leukocytois 3.resp distress/pneumonia 4.ERIN 5. aortic stenosis Plan- continue with daptomycin for MSSA bacteremia ( renal dose) sicne pt. is PCN allergic and since his renal function is not good ,vanco to be given q48 hours only since daptomycin does not cover staph in pulmonary infection , hence will need to use both but q48 hours for both. advise to have better reading of the TTE r/o IE or TATIANNA. all above also d/w [employer]st Mauro HANNAH. ICU time 45 minutes. prognosis poor.
[2017-10-26] MEDS: Meropenem 500 MG in Sodium Chloride 0.9% 50 ML IVPB SCH (16:09)
[2017-10-26] MEDS ORDERED: Phenylephrine 10 mg/ml Inj ONE (17:25)
--- NOTE | 2017-10-26 23:23 | CP.PCM.PN ---
Subjective - Date & Time of Evaluation Date of Evaluation: 10/26/17 Time of Evaluation: 14:00 - Subjective Subjective: SEEN ON RENAL F/U IN ICU NOT DOING WELL REMAINS INTUBATED DOENT SEEM TO BE IN ACUTE DISTRESS UNFORTUNATELY RENAL FUNCTION WELL GENERAL CONDITIONS R DETERIORATING PT IS DNR .. HD IS NOT HELPFULL AND STATISTICALLY DOES NOT ALTER THE PROGNOSIS Objective - Vital Signs/Intake and Output Vital Signs (last 24 hours): Temp Pulse Resp BP Pulse Ox 98.3 F 110 H 23 91/59 L 99 10/26/17 20:00 10/26/17 22:00 10/26/17 22:00 10/26/17 22:00 10/26/17 22:00 Intake and Output: 10/26/17 10/27/17 18:59 06:59 Intake Total 3091 331 Output Total 35 Balance 3056 331 - Medications Medications: Current Medications Acetaminophen (Tylenol 650 Mg Supp) 650 mg [place] ONCE PRN PRN Reason: Fever >100.4 F Digoxin (Lanoxin) 0.125 mg IVP DAILY [facility] Last Admin: 10/26/17 08:25 Dose: 0.125 mg Famotidine (Pepcid) 20 mg PO DAILY [facility] Last Admin: 10/26/17 08:26 Dose: 20 mg Daptomycin 410 mg/ Sodium (Chloride) 100 mls @ 100 mls/hr IV Q48H [facility] Stop: 10/29/17 12:31 Last Admin: 10/26/17 13:55 Dose: 100 mls/hr Vancomycin HCl 500 mg/ Sodium (Chloride) 100 mls @ 100 mls/hr IVPB QOTHERDAY [facility] PRN Reason: Protocol Last Admin: 10/26/17 08:27 Dose: 100 mls/hr Meropenem 500 mg/ Sodium (Chloride) 50 mls @ 50 mls/hr IVPB Q8 [facility] PRN Reason: Protocol Last Admin: 10/26/17 16:09 Dose: 50 mls/hr Phenylephrine HCl 10 mg/ (Sodium Chloride) 251 mls @ 30.12 mls/hr IV .Q8H20M [facility]; 20 MCG/MIN PRN Reason: Protocol Last Admin: 10/26/17 21:10 Dose: 40 mcg/min, 60.24 mls/hr Sodium Bicarbonate 80 meq/ (Dextrose) 1,080 mls @ 100 mls/hr IV .[id number] [facility] Stop: 10/27/17 22:13 Lorazepam (Ativan) 1 mg IVP Q6 [facility] Last Admin: 10/26/17 21:09 Dose: Not Given - Labs Labs: 10/25/17 04:20 10/25/17 05:46 PT 28.9 Seconds (9.8-13.1) H 10/24/17 04:20 INR 2.6 (0.9-1.2) H 10/24/17 04:20 APTT 36.5 Seconds (25.6-37.1) 10/24/17 04:20 Assessment and Plan - Assessment and Plan (Free Text) Assessment: PT IS DNR .. VERY POOR PROGNOSIS C/O SUPPORTIVE CARE
[2017-10-27] MEDS: Sodium Bicarbonate 8.4% 80 MEQ in Dextrose 5% In Water 1,000 ML IV SCH ×2 (00:39→13:49)
[2017-10-27] MEDS: Meropenem 500 MG in Sodium Chloride 0.9% 50 ML IVPB SCH ×3 (00:41→16:53)
[2017-10-27 06:04] LABS: ABG ALLEN TEST YES; ABG MECHANICAL RATE 14; ARTERIAL BLOOD GAS HCO3 15.9 mmol/L (21-28); ARTERIAL BLOOD GAS MODE A/C; ARTERIAL BLOOD GAS O2 CONTENT 16.9 ML/dL (15-23); ARTERIAL BLOOD GAS PH 7.32 (7.35-7.45); ARTERIAL BLOOD GAS PO2 157 mm/Hg (80-100); ARTERIAL BLOOD HGB O2 SAT 95.9 % (95.0-98.0); ATERIAL BLOOD GAS PEEP 5; CARBOXYHEMOGLOBIN 1.4 % (0.5-1.5); HHB 0.7 % (0.0-5.0)
[2017-10-27 06:37] LABS: HEMATOCRIT 36.5 % (35.0-51.0); MEAN CELL VOLUME 88.3 fl (80.0-94.0); MEAN CORPUSCULAR HEMOGLOBIN 28.4 pg (27.0-31.0); MEAN CORPUSCULAR HGB CONC 32.2 g/dL (33.0-37.0); RED CELL DISTRIBUTION WIDTH 23.3 % (11.5-14.5); WHITE BLOOD COUNT 26.7 K/uL (4.8-10.8)
[2017-10-27 07:11] LABS: CALCIUM 6.1 mg/dL (8.4-10.2); POTASSIUM 4.8 MMOL/L (3.6-5.0)
[2017-10-27] MEDS: Digoxin 500 mcg/2ml (0.5 mg/2ml) Inj IVP SCH (08:56)
[2017-10-27] MEDS: Famotidine 40 MG/5 ML PO SCH (08:58)
--- NOTE | 2017-10-27 10:35 | RAD ---
HISTORY: Intubated. COMPARISON: Comparison made with chest radiograph dated 10/25/2017. FINDINGS: In situ ETT, tip of which lies approximately 4.3 cm above héctor. In situ ETT NGT, the tip of which overlies right parasagittal upper/mid abdomen. LUNGS: There appears to be some mild bibasilar atelectasis. Additionally, the interstitial markings are increased and coarsened appearance ; developing interstitial pneumonitis and or infiltrates cannot be excluded. . Note made of a small linear radiopaque density overlying right medial lung base which may be represent overlying artifact PLEURA: No significant pleural effusion identified, no pneumothorax apparent. CARDIOVASCULAR: Normal. OSSEOUS STRUCTURES: No significant abnormalities. VISUALIZED UPPER ABDOMEN: Normal. OTHER FINDINGS: None. IMPRESSION: ETT and NGT as above. Coarsened/ increased interstitial markings ; rule out developing interstitial pneumonitis or infiltrates.
--- NOTE | 2017-10-27 11:33 | CP.PCM.PN ---
Subjective - Date & Time of Evaluation Date of Evaluation: 10/27/17 Time of Evaluation: 11:33 - Subjective Subjective: NO NEW CLINICAL FINDINGS STILL INTUBATED AND BEING VENTILATED WILL CONTINUE CURRENT RX PROGNOSIS IS EXTREMELY POOR FAMILY TO CONSIDER TERMINAL EXTUBATION Objective - Vital Signs/Intake and Output Vital Signs (last 24 hours): Temp Pulse Resp BP Pulse Ox 99.5 F 97 H 20 92/58 L 99 10/27/17 08:00 10/27/17 10:00 10/27/17 10:00 10/27/17 10:00 10/27/17 10:00 Intake and Output: 10/27/17 10/27/17 06:59 18:59 Intake Total 941 301 Balance 941 301 - Medications Medications: Current Medications Acetaminophen (Tylenol 650 Mg Supp) 650 mg [place] ONCE PRN PRN Reason: Fever >100.4 F Digoxin (Lanoxin) 0.125 mg IVP DAILY [facility] Last Admin: 10/27/17 08:56 Dose: 0.125 mg Famotidine (Pepcid) 20 mg PO DAILY [facility] Last Admin: 10/27/17 08:58 Dose: 20 mg Daptomycin 410 mg/ Sodium (Chloride) 100 mls @ 100 mls/hr IV Q48H [facility] Stop: 10/29/17 12:31 Last Admin: 10/26/17 13:55 Dose: 100 mls/hr Vancomycin HCl 500 mg/ Sodium (Chloride) 100 mls @ 100 mls/hr IVPB QOTHERDAY [facility] PRN Reason: Protocol Last Admin: 10/26/17 08:27 Dose: 100 mls/hr Meropenem 500 mg/ Sodium (Chloride) 50 mls @ 50 mls/hr IVPB Q8 [facility] PRN Reason: Protocol Last Admin: 10/27/17 08:53 Dose: 50 mls/hr Phenylephrine HCl 10 mg/ (Sodium Chloride) 251 mls @ 30.12 mls/hr IV .[id number] [facility]HT[facility]; 20 MCG/MIN PRN Reason: Protocol Last Admin: 10/27/17 10:33 Dose: 60 mcg/min, 90.36 mls/hr Sodium Bicarbonate 80 meq/ (Dextrose) 1,080 mls @ 100 mls/hr IV .[id number] [facility] Stop: 10/27/17 22:13 Last Admin: 10/27/17 00:39 Dose: 100 mls/hr Phenylephrine HCl 20 mg/ (Sodium Chloride) 502 mls @ 30.12 mls/hr IV .[id number] [facility]; 20 MCG/MIN PRN Reason: Protocol - Labs Labs: 10/27/17 05:40 10/27/17 05:40 PT 28.9 Seconds (9.8-13.1) H 10/24/17 04:20 INR 2.6 (0.9-1.2) H 10/24/17 04:20 APTT 36.5 Seconds (25.6-37.1) 10/24/17 04:20
[2017-10-27] MEDS: PHENYLEPHRINE IV SCH (13:42)
[2017-10-27] MEDS: SODIUM CHLORIDE 0.9% IV SCH (13:42)
[2017-10-27] MEDS ORDERED: Chlorhexidine Gluconate 1 APPL/PKT TP ONE (13:55)
--- NOTE | 2017-10-27 16:37 | PN ---
DATE: 10/25/2017 SUBJECTIVE: Patient is seen today, 10/25/2017. He is still intubated and there is no improvement of the general condition. PHYSICAL EXAMINATION: VITAL SIGNS: Today, blood pressure 96/56, temperature 98.2, respiratory rate 18 and pulse 117. NECK: No JVD, no carotid bruit, no lymph node, no thyromegaly. CHEST AND LUNGS: Bilateral symmetrical expansion. Good air exchange bilaterally. CARDIOVASCULAR: PMI not localized, S1 and S2, tachycardic. ABDOMEN: Decreased bowel sounds. EXTREMITIES: No cyanosis, no clubbing, no edema. CENTRAL NERVOUS SYSTEM: Patient is sedated, on ventilator. LABORATORY DATA: Blood work today showed that BUN increased to 108, creatinine increased to 4.3. WBC is increased to 24,000. Liver enzymes also are increased, ALT to 103 and AST to 527. ASSESSMENT: 1. Respiratory failure. 2. Acute renal failure. 3. Rule out sepsis with increased white blood cell count. 4. Metastatic prostate cancer. 5. Severe aortic stenosis. PLAN: Discussed with daughter and , the option of hemodialysis versus comforting care. They are still deciding. Discussed also with Dr. Lawrence at the bedside. Guarded prognosis. Continue current ventilator management and antibiotics as per ID recommendations. Clinton Carroll MD
--- NOTE | 2017-10-27 16:38 | PN ---
DATE: 10/24/2017 SUBJECTIVE: The patient was seen on 10/24/2017. He was still on ventilator and not able to make any weaning attempt. PHYSICAL EXAMINATION: VITAL SIGNS: Blood pressure was 89/51, temperature 98.1, respiratory rate 19, and pulse 119. NECK: No JVD. No carotid bruit. No lymph node. No thyromegaly. CHEST AND LUNGS: Bilateral symmetrical expansion. Few basal rales. CARDIOVASCULAR SYSTEM: PMI not localized. S1 and S2. No additional sounds. ABDOMEN: Decreased bowel sounds. No tenderness. No organomegaly. No masses. EXTREMITIES: No cyanosis. No clubbing. No edema. CENTRAL NERVOUS SYSTEM: Sedated, on ventilator. ASSESSMENT: 1. Acute renal failure secondary to decreased oral intake. 2. Metastatic prostate cancer. 3. Respiratory failure with inability to wean off ventilator. 4. Severe aortic stenosis. PLAN: Continue current medications, antibiotics as well as feeding. Family, daughter and requested DNR. We will continue supportive care at this point. Guarded prognosis. [facility] MD [place]
[2017-10-27] MEDS ORDERED: Acetaminophen 650mg/20.3ml solution UD NG PRN (20:46)
[2017-10-27] MEDS: Sodium Bicarbonate 8.4% 100 MEQ in Dextrose 5% In Water 1,000 ML IV SCH (21:33)
[2017-10-28] MEDS: Meropenem 500 MG in Sodium Chloride 0.9% 50 ML IVPB SCH ×2 (00:59→10:43)
[2017-10-28] MEDS: PHENYLEPHRINE IV SCH ×2 (01:33→07:25)
[2017-10-28] MEDS: SODIUM CHLORIDE 0.9% IV SCH ×2 (01:33→07:25)
[2017-10-28 04:28] LABS: ABG ALLEN TEST YES; ABG MECHANICAL RATE 14; ARTERIAL BLOOD GAS HCO3 16.6 mmol/L (21-28); ARTERIAL BLOOD GAS MODE A/C; ARTERIAL BLOOD GAS O2 CAPACITY 15.7 mL/dL (16-24); ARTERIAL BLOOD GAS O2 CONTENT 15.5 ML/dL (15-23); ARTERIAL BLOOD GAS PH 7.36 (7.35-7.45); ARTERIAL BLOOD GAS PO2 124 mm/Hg (80-100); ARTERIAL BLOOD HGB O2 SAT 96.2 % (95.0-98.0); ATERIAL BLOOD GAS PEEP 5; CARBOXYHEMOGLOBIN 1.2 % (0.5-1.5); METHEMOGLOBIN 1.6 % (0.0-3.0)
[2017-10-28 06:40] LABS: HEMATOCRIT 35.1 % (35.0-51.0); MEAN CELL VOLUME 88.5 fl (80.0-94.0); MEAN CORPUSCULAR HEMOGLOBIN 27.9 pg (27.0-31.0); MEAN CORPUSCULAR HGB CONC 31.5 g/dL (33.0-37.0); RED CELL DISTRIBUTION WIDTH 22.3 % (11.5-14.5); WHITE BLOOD COUNT 26.1 K/uL (4.8-10.8)
[2017-10-28 06:55] LABS: CALCIUM 5.6 mg/dL (8.4-10.2); POTASSIUM 4.8 MMOL/L (3.6-5.0)
--- NOTE | 2017-10-28 07:09 | PN ---
DATE: 10/27/2017 DAILY PROGRESS NOTE SUBJECTIVE: The patient is seen today on 10/27/2017. He is still on ventilator, on vasopressors and IV fluid. The patient is very lethargic. PHYSICAL EXAMINATION: VITAL SIGNS: Blood pressure without the pressors are 93/56, temperature 98.3, respiratory rate 27 and pulse 96. HEENT: Pale mucosa of the conjunctivae. NECK: No JVD. No carotid bruit. No lymph node. No thyromegaly. CHEST AND LUNGS: Bilateral symmetrical expansion. Bilateral basal rales. CARDIOVASCULAR SYSTEM: PMI not localized. S1 and S2. Tachycardic. ABDOMEN: Decreased bowel sounds. No organomegaly. No masses. EXTREMITIES: No cyanosis. No clubbing. There is +2 edema on both lower extremities. CENTRAL NERVOUS SYSTEM: The patient is lethargic and on ventilator. ASSESSMENT: 1. Respiratory failure. 2. Acute renal failure. BUN 124 and creatinine 5.2. 3. Sepsis with leukocytosis of 26.7 today. PLAN: Continue current antibiotics as per ID. Continue IV fluid and vasopressors. Family to decide about hemodialysis. Guarded prognosis. Merlin MD [place]
[2017-10-28] MEDS: Sodium Bicarbonate 8.4% 100 MEQ in Dextrose 5% In Water 1,000 ML IV SCH (07:15)
--- NOTE | 2017-10-28 08:38 | PN ---
PROCEDURE DATE: 10/27/2017 CRITICAL CARE PROGRESS NOTE LOCATION: Patient in ICU, bed 433. TIME SPENT: 35 minutes. SUBJECTIVE: Patient is seen and examined at the bedside. Past medical, surgical, and social history reviewed. A 77-year-old male with history of hypertension, severe aortic valve stenosis, paroxysmal atrial fibrillation, hyperlipidemia, depression, metastatic CA of the prostate involving liver, status post chemo, admitted with cachexia, reduced p.o. intake, respiratory failure, sepsis, remains intubated, on AC 14, tidal volume 450, minute ventilation 12.1 liters, PEEP of 5, on FIO2 of 40%, saturating 99%. No sedation. Remains very lethargic. No distress noted. PHYSICAL EXAMINATION: VITAL SIGNS: Temperature 99.6, heart rate 98, blood pressure 89/51 with mean arterial pressure 63, respiratory rate 25, oxygen saturation 99%. Intake 4032, output 35 mL, positive balance 3997. HEAD, EYES, EARS, NOSE AND THROAT: Pupils reactive. Conjunctivae pink. Sclerae white. NECK: Supple. Trachea is central. CHEST: Bilateral breath sounds, bilateral rhonchi. HEART: Rhythm regular, 2/6 systolic murmur at the right sternal border. ABDOMEN: Bowel sounds present, soft, no tenderness. EXTREMITIES: Positive for trace edema. DP palpable. NEUROLOGIC: Remains very lethargic, arousable. Does not follow commands. CURRENT MEDICATIONS: Include Tylenol 650s, positive for temperature more than 100.4; daptomycin mg q. 48, Lanoxin 0.125 mg IV daily, Pepcid 20 mg daily, meropenem 500 mg IV q. 8, phenylephrine drip to maintain systolic pressure 100 and above, sodium bicarbonate 80 mEq at 100 mL/hour, vancomycin 500 mg IV daily. LABORATORY DATA: WBC is 26.7, hemoglobin 11.8, hematocrit 36.5, platelet count of 254. PT 28.9, INR 2.6, PTT 36.5. ABG: pH 7.32, pCO2 of 25, pO2 of 157, oxygen saturation 95.9%. SMA-7: Sodium 143, potassium 4.8, chloride 113, CO2 of 17, blood urea nitrogen 124, creatinine 5.2. Urinalysis: WBC 3, RBC 144. Toxicology level 1.4. Serology: Hepatitis E antibody negative, B antigen negative, C antibody negative. IMPRESSION: 1. Neurological: Septic metabolic encephalopathy. CT head negative. 2. Worsening renal function, pneumonia, history of metastatic cancer to liver. 3. Pulmonary: Hypoxic respiratory failure. Bilateral infiltrate. Not a candidate to wean from ventilator unless for terminal extubation. To discuss with family. Continue comfort care. 4. Cardiac: Paroxysmal atrial fibrillation, currently with rate control, on digoxin and Cardizem. History of aortic valve stenosis, not a candidate for valve replacement. 5. Infection: Staph aureus bacteremia, source unclear, transesophageal echocardiography reportedly negative. Bilateral pneumonia, vent-dependent related, suspect necrosis of the metastasis in the liver, currently on broad-spectrum antibiotic as per Infectious Disease consult. 6. Hematology: Leukocytosis, multifactorial. Anemia, no obvious gastrointestinal bleeding, on proton pump inhibitor. 7. Electrolyte imbalance: Corrected. 8. Prognosis: Remains guarded. Ap Oconnell MD
--- NOTE | 2017-10-28 09:20 | CP.PCM.PN ---
Subjective - Date & Time of Evaluation Date of Evaluation: 10/28/17 Time of Evaluation: 09:21 - Subjective Subjective: STILL INTUBATED AND BEING VENTILATED NO RESPONSE TO VERBAL COMMANDS HYPOTENSIVE AND TACHYCARDIC Objective - Vital Signs/Intake and Output Vital Signs (last 24 hours): Temp Pulse Resp BP Pulse Ox 99.2 F 90 24 86/60 L 99 10/28/17 08:00 10/28/17 08:00 10/28/17 08:00 10/28/17 08:00 10/28/17 08:00 Intake and Output: 10/28/17 10/28/17 06:59 18:59 Intake Total 3504 Output Total 150 Balance 3354 - Medications Medications: Current Medications Acetaminophen (Tylenol 650 Mg Supp) 650 mg [place] ONCE PRN PRN Reason: Fever >100.4 F Acetaminophen (Tylenol 650mg/20.3ml Solution Ud) 650 mg NG Q4 PRN PRN Reason: Temperature Last Admin: 10/27/17 21:17 Dose: 650 mg Digoxin (Lanoxin) 0.125 mg IVP DAILY [facility] Last Admin: 10/27/17 08:56 Dose: 0.125 mg Famotidine (Pepcid) 20 mg PO DAILY [facility] Last Admin: 10/27/17 08:58 Dose: 20 mg Daptomycin 410 mg/ Sodium (Chloride) 100 mls @ 100 mls/hr IV Q48H [facility] Stop: 10/29/17 12:31 Last Admin: 10/26/17 13:55 Dose: 100 mls/hr Vancomycin HCl 500 mg/ Sodium (Chloride) 100 mls @ 100 mls/hr IVPB QOTHERDAY [facility] PRN Reason: Protocol Last Admin: 10/26/17 08:27 Dose: 100 mls/hr Meropenem 500 mg/ Sodium (Chloride) 50 mls @ 50 mls/hr IVPB Q8 [facility] PRN Reason: Protocol Last Admin: 10/28/17 00:59 Dose: 50 mls/hr Phenylephrine HCl 20 mg/ (Sodium Chloride) 502 mls @ 30.12 mls/hr IV .[id number] [facility]; 20 MCG/MIN PRN Reason: Protocol Last Admin: 10/28/17 07:25 Dose: 80 mcg/min, 120.48 mls/hr Sodium Bicarbonate 100 meq/ (Dextrose) 1,100 mls @ 100 mls/hr IV .Q11H [facility] Stop: 10/28/17 20:05 Last Admin: 10/27/17 21:33 Dose: 100 mls/hr - Labs Labs: 10/28/17 06:10 10/28/17 06:10 PT 28.9 Seconds (9.8-13.1) H 10/24/17 04:20 INR 2.6 (0.9-1.2) H 10/24/17 04:20 APTT 36.5 Seconds (25.6-37.1) 10/24/17 04:20 - Constitutional Appears: Chronically Ill - Head Exam Head Exam: ATRAUMATIC, NORMAL INSPECTION, NORMOCEPHALIC - Eye Exam Eye Exam: EOMI, Normal appearance, PERRL Pupil Exam: NORMAL ACCOMODATION, PERRL - ENT Exam ENT Exam: Mucous Membranes Moist, Normal Exam - Neck Exam Neck Exam: Full ROM, Normal Inspection. absent: Lymphadenopathy - Respiratory Exam Respiratory Exam: Rales Additional comments: INTUBATED AND BEING VENTILATED - Cardiovascular Exam Cardiovascular Exam: Tachycardia, +S1, +S2. absent: Murmur - GI/Abdominal Exam GI & Abdominal Exam: Soft, Normal Bowel Sounds. absent: Tenderness - Rectal Exam Rectal Exam: NORMAL INSPECTION - Extremities Exam Extremities Exam: Pedal Edema. absent: Joint Swelling - Back Exam Back Exam: NORMAL INSPECTION - Psychiatric Exam Psychiatric exam: Normal Affect, Normal Mood - Skin Skin Exam: Dry, Intact, Normal Color, Warm Assessment and Plan - Assessment and Plan (Free Text) Assessment: MULTIORGAN FAILURE Plan: CONTINUE PRESENT RX PROGNOSIOS IS POOR FAMILY TO CONSIDER TERMINAL EXTUBATION
--- NOTE | 2017-10-28 09:41 | CP.PCM.PN ---
Subjective - Date & Time of Evaluation Date of Evaluation: 10/28/17 Time of Evaluation: 09:00 - Subjective Subjective: UNRESPONSIVE TO VERBAL STIMULI Objective - Vital Signs/Intake and Output Vital Signs (last 24 hours): Temp Pulse Resp BP Pulse Ox 99.2 F 90 24 86/60 L 99 10/28/17 08:00 10/28/17 08:00 10/28/17 08:00 10/28/17 08:00 10/28/17 08:00 Intake and Output: 10/28/17 10/28/17 06:59 18:59 Intake Total 3504 Output Total 150 Balance 3354 - Medications Medications: Current Medications Acetaminophen (Tylenol 650 Mg Supp) 650 mg IN ONCE PRN PRN Reason: Fever >100.4 F Acetaminophen (Tylenol 650mg/20.3ml Solution Ud) 650 mg NG Q4 PRN PRN Reason: Temperature Last Admin: 10/27/17 21:17 Dose: 650 mg Digoxin (Lanoxin) 0.125 mg IVP DAILY [facility] Last Admin: 10/27/17 08:56 Dose: 0.125 mg Famotidine (Pepcid) 20 mg PO DAILY [facility] Last Admin: 10/27/17 08:58 Dose: 20 mg Daptomycin 410 mg/ Sodium (Chloride) 100 mls @ 100 mls/hr IV Q48H [facility] Stop: 10/29/17 12:31 Last Admin: 10/26/17 13:55 Dose: 100 mls/hr Vancomycin HCl 500 mg/ Sodium (Chloride) 100 mls @ 100 mls/hr IVPB QOTHERDAY [facility] PRN Reason: Protocol Last Admin: 10/26/17 08:27 Dose: 100 mls/hr Meropenem 500 mg/ Sodium (Chloride) 50 mls @ 50 mls/hr IVPB Q8 [facility] PRN Reason: Protocol Last Admin: 10/28/17 00:59 Dose: 50 mls/hr Phenylephrine HCl 20 mg/ (Sodium Chloride) 502 mls @ 30.12 mls/hr IV .[id number] [facility]; 20 MCG/MIN PRN Reason: Protocol Last Admin: 10/28/17 07:25 Dose: 80 mcg/min, 120.48 mls/hr Sodium Bicarbonate 100 meq/ (Dextrose) 1,100 mls @ 100 mls/hr IV .Q11H [facility] Stop: 10/28/17 20:05 Last Admin: 10/27/17 21:33 Dose: 100 mls/hr - Labs Labs: 10/28/17 06:10 10/28/17 06:10 PT 28.9 Seconds (9.8-13.1) H 10/24/17 04:20 INR 2.6 (0.9-1.2) H 10/24/17 04:20 APTT 36.5 Seconds (25.6-37.1) 10/24/17 04:20 - Respiratory Exam Respiratory Exam: Clear to Ausculation Bilateral - Cardiovascular Exam Cardiovascular Exam: REGULAR RHYTHM, +S1, +S2, Murmur - Extremities Exam Extremities Exam: Pedal Edema - Additional Findings 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
[2017-10-28] MEDS: Famotidine 40 MG/5 ML PO SCH (10:44)
[2017-10-28] MEDS: Digoxin 500 mcg/2ml (0.5 mg/2ml) Inj IVP SCH (10:46)
[2017-10-28 10:48] VITALS: PULSE 86
[2017-10-28] MEDS ORDERED: Morphine 100 MG in Sodium Chloride 0.9% 100 ML IVPB SCH ×2 (11:15→13:30)
--- NOTE | 2017-10-28 12:02 | RAD ---
HISTORY: ETT placement portable study 04:32. COMPARISON: Multiple serial examinations preceding the most recent study: October 27, 2017. Time of the most recent examination: 05:01. FINDINGS: LUNGS: No active pulmonary disease. PLEURA: No significant pleural effusion identified, no pneumothorax apparent. CARDIOVASCULAR: Normal. OSSEOUS STRUCTURES: No significant abnormalities. VISUALIZED UPPER ABDOMEN: Normal. OTHER FINDINGS: Stable position of support apparatus including nasogastric tube and endotracheal tube. IMPRESSION: No active disease. No significant interval change compared to the prior examination(s).
--- NOTE | 2017-10-28 12:20 | CP.PCM.PN ---
Subjective - Date & Time of Evaluation Date of Evaluation: 10/28/17 Time of Evaluation: 12:20 - Subjective Subjective: ID note- Pt. seen and examined today in ICU with his daughter at his bedside. Pt. s/p terminal extubation earlier today and is on FM only. not responsive. Objective - Vital Signs/Intake and Output Vital Signs (last 24 hours): Temp Pulse Resp BP Pulse Ox 99.2 F 90 24 86/60 L 99 10/28/17 08:00 10/28/17 08:00 10/28/17 08:00 10/28/17 08:00 10/28/17 08:00 Intake and Output: 10/28/17 10/28/17 06:59 18:59 Intake Total 3504 Output Total 150 Balance 3354 - Medications Medications: Current Medications Morphine Sulfate 100 mg/ (Sodium Chloride) 104 mls @ 1.04 mls/hr IVPB .Q24H [facility] ; 1 MG/HR PRN Reason: Protocol Last Admin: 10/28/17 12:08 Dose: 1.04 mls/hr - Labs Labs: - Additional Findings Additional findings: - Constitutional Appears: Chronically Ill - Head Exam Head Exam: ATRAUMATIC - Neck Exam Additional comments: supple - Respiratory Exam Additional comments: decreased at bases - Cardiovascular Exam Cardiovascular Exam: Tachycardia, +S1, +S2 - GI/Abdominal Exam GI & Abdominal Exam: Normal Bowel Sounds, Soft Additional comments: NT, ND - Extremities Exam Additional comments: trace edema b/l LE - Neurological Exam Additional comments: lethargic and not responsive Laboratory Results - last 72 hr 10/25/17 10/25/17 10/27/17 04:20 04:20 05:40 WBC 26.7 H RBC 4.13 L Hgb 11.8 L Hct 36.5 MCV 88.3 MCH 28.4 MCHC 32.2 L RDW 23.3 H Plt Count 254 pCO2 pO2 HCO3 ABG pH ABG Total CO2 ABG O2 Saturation ABG O2 Content ABG Base Excess ABG Hemoglobin ABG Carboxyhemoglobin POC ABG HHb (Measured) ABG Methemoglobin ABG O2 Capacity Jagjit Test A-a O2 Difference Hgb O2 Saturation Vent Mode Mechanical Rate FiO2 Tidal Volume PEEP Sodium Potassium Chloride Carbon Dioxide Anion Gap BUN Creatinine Est GFR ( Amer) Est GFR (Non-Af Amer) Random Glucose Calcium ASHWINI Screen Negative ASHWINI Titer TEST NOT PERFORMED ASHWINI Titer 2 TEST NOT PERFORMED ASHWINI Pattern TEST NOT PERFORMED ASHWINI Pattern 2 TEST NOT PERFORMED Anti-Mitochondrial Ab Negative Smooth Muscle Ab Titer TEST NOT PERFORMED Anti-Smooth Muscle Ab Negative Hepatitis Be Antibody Nonreactive Hepatitis Be Antigen Nonreactive Hepatitis C Antibody Negative 10/27/17 10/27/17 10/28/17 05:40 05:44 04:19 WBC RBC Hgb Hct MCV MCH MCHC RDW Plt Count pCO2 25 L 23 L pO2 157 H 124 H HCO3 15.9 L 16.6 L ABG pH 7.32 L 7.36 ABG Total CO2 13.7 L 13.7 L ABG O2 Saturation 99.3 H 99.0 H ABG O2 Content 16.9 15.5 ABG Base Excess -11.5 L -10.7 L ABG Hemoglobin 12.3 11.3 L ABG Carboxyhemoglobin 1.4 1.2 POC ABG HHb (Measured) 0.7 1.0 ABG Methemoglobin 2.0 1.6 ABG O2 Capacity 17.0 15.7 L Jagjit Test Yes Yes A-a O2 Difference 97.0 132.0 Hgb O2 Saturation 95.9 96.2 Vent Mode A/c A/c Mechanical Rate 14 14 FiO2 40.0 40.0 Tidal Volume 450 450 PEEP 5 5 Sodium 143 Potassium 4.8 Chloride 113 H Carbon Dioxide 17 L Anion Gap 18 BUN 124 H* Creatinine 5.2 H Est GFR ( Amer) 13 Est GFR (Non-Af Amer) 11 Random Glucose 134 H Calcium 6.1 L ASHWINI Screen ASHWINI Titer ASHWINI Titer 2 ASHWINI Pattern ASHWINI Pattern 2 Anti-Mitochondrial Ab Smooth Muscle Ab Titer Anti-Smooth Muscle Ab Hepatitis Be Antibody Hepatitis Be Antigen Hepatitis C Antibody 10/28/17 10/28/17 06:10 06:10 WBC 26.1 H RBC 3.96 L Hgb 11.1 L Hct 35.1 MCV 88.5 MCH 27.9 MCHC 31.5 L RDW 22.3 H Plt Count 243 pCO2 pO2 HCO3 ABG pH ABG Total CO2 ABG O2 Saturation ABG O2 Content ABG Base Excess ABG Hemoglobin ABG Carboxyhemoglobin POC ABG HHb (Measured) ABG Methemoglobin ABG O2 Capacity Jagjit Test A-a O2 Difference Hgb O2 Saturation Vent Mode Mechanical Rate FiO2 Tidal Volume PEEP Sodium 139 Potassium 4.8 Chloride 108 H Carbon Dioxide 16 L Anion Gap 20 BUN 126 H* Creatinine 4.8 H Est GFR ( Amer) 14 Est GFR (Non-Af Amer) 12 Random Glucose 111 H Calcium 5.6 L* ASHWINI Screen ASHWINI Titer ASHWINI Titer 2 ASHWINI Pattern ASHWINI Pattern 2 Anti-Mitochondrial Ab Smooth Muscle Ab Titer Anti-Smooth Muscle Ab Hepatitis Be Antibody Hepatitis Be Antigen Hepatitis C Antibody Microbiology 10/24/17 16:09 Blood-Venous Blood Culture - Preliminary NO GROWTH AFTER 3 DAYS 10/24/17 16:09 Blood-Venous Blood Culture - Preliminary NO GROWTH AFTER 3 DAYS 10/21/17 17:01 Blood-Thru Central Line Blood Culture - Final NO GROWTH AFTER 5 DAYS 10/21/17 17:01 Blood-Thru Central Line Gram Stain - Final TEST NOT PERFORMED 10/21/17 16:50 Blood-Venous S.aureus & Coag-Neg Staph PNA FISH - Final 10/21/17 16:50 Blood-Venous Blood Culture - Final Staphylococcus Aureus 10/21/17 16:50 Blood-Venous Gram Stain - Final 10/21/17 05:00 Trachasp Gram Stain - Final 10/21/17 05:00 Trachasp Sputum Culture - Final Staphylococcus Aureus 10/18/17 20:00 Blood-Venous Blood Culture - Final NO GROWTH AFTER 5 DAYS 10/18/17 20:00 Blood-Venous Gram Stain - Final TEST NOT PERFORMED 10/21/17 16:24 Urine,[place] Urine Culture - Final No Growth (<1,000 CFU/ML) 10/18/17 20:30 Blood-Venous S.aureus & Coag-Neg Staph PNA FISH - Final 10/18/17 20:30 Blood-Venous Blood Culture - Final Staphylococcus Aureus 10/18/17 20:30 Blood-Venous Gram Stain - Final 10/18/17 10:00 Naris MRSA Culture (Admit) - Final MRSA NOT DETECTED Accession No. : [id number] Patient Name / ID : HAILE RODRIGUEZ / [id number] Exam Date : 10/28/2017 04:30:05 ( Approved ) Study Comment : Sex / Age : M / 77Y Creator : Jorge Montana MD Dictator : Jorge Montana MD Avian Keeper : Power Lineworker : Jorge Montana MD Approver2 : Report Date : 10/28/2017 11:56:23 My Comment : HISTORY: ETT placement portable study 04:32. COMPARISON: Multiple serial examinations preceding the most recent study: October 27, 2017. Time of the most recent examination: 05:01. FINDINGS: LUNGS: No active pulmonary disease. PLEURA: No significant pleural effusion identified, no pneumothorax apparent. CARDIOVASCULAR: Normal. OSSEOUS STRUCTURES: No significant abnormalities. VISUALIZED UPPER ABDOMEN: Normal. OTHER FINDINGS: Stable position of support apparatus including nasogastric tube and endotracheal tube. IMPRESSION: No active disease. No significant interval change compared to the prior examination(s). Assessment and Plan (1) Leukocytosis Status: Acute (2) Metastatic cancer Status: Acute (3) Weakness Status: Acute (4) Renal insufficiency Status: Acute - Assessment and Plan (Free Text) Assessment: A/P- 77 year old male with multiple medical conditions including A.fib, aortic stenosis, metastatic prostate cancer admitted with weakness found to be in resp distress and acute renal insufficiency . s/p terminal extubation today. clinically worse hypotensive afebrile continues to have high wbc blood cx- mssa x 2 trach asp cx- MSSA TTE- inconclusive result as per report. repeat blood cx- neg x 3 1.staph bacteremia-MSSA 2.leukocytois 3.resp distress/pneumonia 4.ERIN 5. aortic stenosis Plan- all meds and abx have been d/c as per ICU team and patient's family wishes. On morphine only for comfort care. ICU time 45 minutes.
[2017-10-28 16:43] VITALS: BP 74/47; PULSE 93; RESP 20; TEMP 97.8; O2SAT 100
--- NOTE | 2017-10-28 19:01 | PN ---
DATE: 10/28/2017 CRITICAL CARE PROGRESS NOTE LOCATION: Patient in ICU, bed 433. TIME SPENT: 35 minutes. SUBJECTIVE: The patient is seen and examined at the bedside. Overnight events reviewed. Discussed case in a.m. rounds. Discussed with family at the bedside. 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 Family wishes not to under go dialysis given his poor prognosis with advancing CA of prostate. PHYSICAL EXAMINATION: GENERAL: Patient appears comfortable on the ventilator, able to open his eyes but remains otherwise non-interactive, nonverbal. VITAL SIGNS: Temperature 99.2; blood pressure 86/60 with mean arterial pressure 68, maintaining on Jack-Synephrine drip; heart rate 90, irregular; respiratory rate 20 to 24. HEAD, EYES, EARS, NOSE, AND THROAT: Pupils 2 to 3 mm reactive to light. No nystagmus. Extraocular muscles are intact. NECK: Supple. Trachea central. CHEST: Bilateral breath sounds. Bilateral rhonchi. Fine crepitations at the bases. HEART: Rhythm irregular, 2/6 systolic murmur at the right sternal border. ABDOMEN: Bowel sounds are present. Soft, nontender. EXTREMITIES: Positive for edema. NEUROLOGIC: Remains lethargic but arousable, not interactive, limited movement of upper and lower extremities. CURRENT MEDICATIONS: Include daptomycin q. 48 hours, meropenem 500 mg IV q.8 hours, digoxin 0.125 mg IV push daily, Pepcid 20 mg p.o. daily, phenylephrine 10 mg in 250 mL at 30 mL per hour; sodium bicarbonate 100 mEq in 1000 at 100 mL per hour, vancomycin 500 mg IV every other day. LABORATORY DATA: WBC 26.1, hemoglobin 11.1, hematocrit 35.1, platelet count 243. PT 28.9, INR 2.6. ABG: pH 7.36, pCO2 of 23, pO2 of 124. Oxygen saturation 99 on AC 14, 450, 40%, PEEP of 5. SMA-7: Sodium 139, potassium 4.8, chloride of 108, CO2 of 26, blood urine nitrogen 126, creatinine 4.8, glucose 111, calcium 5.6. IMPRESSION: A 77-year-old male with: 1. Cancer of prostate, metastatic to liver, status post chemotherapy with poor prognosis. 2. Acute renal failure with worsening renal function, declined hemodialysis by family as underlying poor prognosis. 3. Severe aortic stenosis, declined valve repair by patient as his prognosis with the underlying cancer was poor. PLAN: Patient is much more dependent on ventilator given his ongoing pneumonia, renal failure with metabolic and septic encephalopathy. As per family wishes, all the medications are discontinued. Terminal extubation to comfort care. Family was counseled by hospice care before and family wishes to have it to the terminal extubation and continue with comfort care including morphine drip. The orders have been written for the same. Ap Oconnell MD
--- NOTE | 2017-10-29 13:45 | DS ---
REASON FOR ADMISSION: This is a 77-year-old male with history of metastatic prostate cancer, who was admitted with acute renal failure secondary to decreased oral intake. COURSE OF HOSPITALIZATION: The patient was initially admitted to telemetry where he had an PLATE CORRECTOR due to shortness of breath and the patient was transferred to intensive care unit where he was intubated. The patient's acute renal failure was initially improved, then it worsened again. The patient developed also leukocytosis and bacteremia. The patient was started on IV antibiotics as per the Infectious Disease advisor consultant. The patient did not show any improvement and family decided terminal extubation. The patient was continued in comforting measures and pain management and was discharged to hospice care. FINAL DIAGNOSES: Acute renal failure; sepsis; bacteremia; metastatic prostate cancer; severe aortic stenosis and anemia, multifactorial. lCinton Carroll MD
== END 2017-10-28 15:04 | disposition hospice, inpatient (51) | DRG 682 ==
LOC: H.ER 11:44 → H.ERHOLD 14:12 → H.TEL 16:57 → H.ICU/CCU 19:24 → UNDODISIN 10-28 15:05 → H.MEDSURG1 10-28 15:12 → H.ICU/CCU 10-28 15:12
PROVIDERS: ADMIT Internal Medicine; ATTEND Internal Medicine
PROC: 5A1955Z Respiratory Ventilation, Greater than 96 Consecutive Hours (ICD-10-PCS; principal; 2017-10-19)
PROC: 0BH17EZ Insertion of Endotracheal Airway into Trachea, Via Natural or Artificial Opening (ICD-10-PCS; 2017-10-19)
PROC: 06HN33Z Insertion of Infusion Device into Left Femoral Vein, Percutaneous Approach (ICD-10-PCS; 2017-10-19)
PROC: 30233N1 Transfusion of Nonautologous Red Blood Cells into Peripheral Vein, Percutaneous Approach (ICD-10-PCS; 2017-10-20)
DX: N17.9 Acute kidney failure, unspecified (principal); R65.21 Severe sepsis with septic shock; A41.9 Sepsis, unspecified organism; G93.41 Metabolic encephalopathy; G93.49 Other encephalopathy; J96.01 Acute respiratory failure with hypoxia; Z99.11 Dependence on respirator [ventilator] status; J96.90 Respiratory failure, unspecified, unspecified whether with hypoxia or hypercapnia; C78.7 Secondary malignant neoplasm of liver and intrahepatic bile duct; J18.9 Pneumonia, unspecified organism; I47.1 Supraventricular tachycardia; E87.0 Hyperosmolality and hypernatremia; E87.2 Acidosis; C79.51 Secondary malignant neoplasm of bone; R64 Cachexia; N39.0 Urinary tract infection, site not specified; K92.1 Melena; D62 Acute posthemorrhagic anemia; I13.0 Hypertensive heart and chronic kidney disease with heart failure and stage 1 through stage 4 chronic kidney disease, or unspecified chronic kidney disease; I50.30 Unspecified diastolic (congestive) heart failure; J98.11 Atelectasis; I48.0 Paroxysmal atrial fibrillation; B95.61 Methicillin susceptible Staphylococcus aureus infection as the cause of diseases classified elsewhere; C61 Malignant neoplasm of prostate; N18.9 Chronic kidney disease, unspecified; Z51.5 Encounter for palliative care; Z66 Do not resuscitate; Z79.899 Other long term (current) drug therapy; Z80.0 Family history of malignant neoplasm of digestive organs; Z87.891 Personal history of nicotine dependence; Z92.21 Personal history of antineoplastic chemotherapy; F32.9 Major depressive disorder, single episode, unspecified; M19.90 Unspecified osteoarthritis, unspecified site; R00.0 Tachycardia, unspecified; E78.00 Pure hypercholesterolemia, unspecified; E78.5 Hyperlipidemia, unspecified; E86.0 Dehydration; E87.5 Hyperkalemia; E87.6 Hypokalemia; I35.0 Nonrheumatic aortic (valve) stenosis; K75.9 Inflammatory liver disease, unspecified; N13.30 Unspecified hydronephrosis

== ENCOUNTER 2017-10-28 13:50 | Inpatient (IN) | payer OTHER ==
[2017-10-24 08:42] VITALS: PULSE 110
[2017-10-28 15:52] VITALS: BMI 26.6
[2017-10-28] MEDS ORDERED: Sodium Chloride 0.9% 1,000 ML IV SCH (17:00)
[2017-10-28] MEDS ORDERED: Morphine 100 MG in Sodium Chloride 0.9% 100 ML IVPB SCH (17:00)
[2017-10-28 19:58] VITALS: RESP 20
[2017-10-29 08:34] VITALS: BP 34/26; PULSE 72; TEMP 98.7; O2SAT 98
--- NOTE | 2017-10-29 09:50 | CP.PCM.PRO ---
Pronouncement of Note - Clinical Findings Physical Exam: No Response Verbal/Painful Stimuli, Absent Peripheral Pulses{ Carotid & Femoral}, Absent Heart & Breath Sounds, No Pupillary Light Reflex, No Corneal Reflex, Pupils Fixed & Dilated, Absence of Vital Signs - Pronouncement Time Time of Pronouncement of : 09:25 - Notifications Pronouncement Notifications: Family Notified, Atending Notified Home Support Worker Notified: No - Autopsy Autopsy Requested: No - [place] [id number]
--- NOTE | 2017-10-30 09:21 | HP ---
HISTORY OF PRESENT ILLNESS: This is a 77-year-old male with history of metastatic prostate cancer, who was in the hospital for acute kidney injury and sepsis secondary to bacteremia. The patient was terminally extubated as per family decision. The patient was started on morphine and admitted to hospice care as per family request. The patient is still lethargic and no history is obtainable from him. SOCIAL HISTORY: Not known. FAMILY HISTORY: Not known. MEDICATIONS: As per MAR. PHYSICAL EXAMINATION: GENERAL: The patient was lethargic. He is on 100% nonrebreather mask. The patient was also continued on p.o. morphine. VITAL SIGNS: Blood pressure was 60/40, temperature 100.3, respiratory rate was 20, and heart rate 125. HEENT: Pale mucosa of the conjunctivae. NECK: Supple. No JVD. No carotid bruit. No lymph node. No thyromegaly. CHEST AND LUNGS: Bilateral symmetrical expansion. Bilateral basilar rales. CARDIOVASCULAR SYSTEM: PMI not localized. S1, S2. No additional sounds. ABDOMEN: Decreased bowel sounds. No tenderness. No organomegaly. No masses. EXTREMITIES: No cyanosis. No clubbing. ASSESSMENT: 1. Metastatic prostate cancer. 2. Severe aortic stenosis. 3. Sepsis secondary to Staph aureus bacteremia. 4. Acute renal failure. PLAN: Continue morphine p.o. and palliative and comforting care. Continue IV fluid also. Merlin MD Glen
--- NOTE | 2017-10-30 22:00 | DS ---
This is a 77-year-old male with history of metastatic prostate cancer was admitted to hospice care. COURSE OF HOSPITALIZATION: The patient was admitted to hospice care and [facility] The patient was started on p.o. morphine and he continued on oxygen and IV fluid. The patient's heart rate started to slow down and the patient . FINAL DIAGNOSES: Metastatic prostate cancer, respiratory failure, sepsis secondary to bacteremia, acute kidney failure. [facility] MD [place]
== END 2017-10-29 09:25 | DRG 872 ==
LOC: H.MEDSURG1 15:05
PROVIDERS: ADMIT Internal Medicine; ATTEND Internal Medicine
DX: A41.01 Sepsis due to Methicillin susceptible Staphylococcus aureus (principal); N17.9 Acute kidney failure, unspecified; C61 Malignant neoplasm of prostate; I35.0 Nonrheumatic aortic (valve) stenosis; Z51.5 Encounter for palliative care; Z88.6 Allergy status to analgesic agent; Z88.0 Allergy status to penicillin